=== PATIENT | male | born 1955 | race African-American/Black ===

== ENCOUNTER 2016-05-17 15:40 | Emergency (ER) | payer MEDICAID ==
[~2016-05-17] VITALS: Ht 177.8 cm; Wt 95.3 kg
[~2016-05-17 15:40] MED LIST: ALLEGRA180 MG PO; ALLEGRA60 MG ORAL; AZITHROMYCIN250 MG ORAL; DILANTIN100 MG ORAL; HYDROCHLOROTHIA25 MG ORAL; HYDROCHLOROTHIA25 MG PO; IBUPROFEN600 MG ORAL; IBUPROFEN600 MG PO; KEPPRA500 M3 ORAL; KEPPRA500 M4 ORAL; LIBRIUM10 MG ORAL; Levetiracetam ORAL; NKM; NORVASC10 MG ORAL; PERMETHRIN60 GM TOPIC; PHENYTOIN SODI100 MG ORAL; THIAMINE HCL100 MG ORAL; UNOBMED; VICODIN 5-5001 EACH PO; bp med; pain med
--- NOTE | 2016-05-17 16:13 | Emergency Room Report ---
History of Present Illness General Chief Complaint: Seizure Source: Patient, EMS Present Illness HPI This patient is a homeless male. He was brought in by EMS after a bystander called 911 because he was observed having a seizure. He does have a history of seizure disorder and alcohol abuse. He has no specific complaints. He is not taking his antiseizure medications because he is out of them. He denies recent illness. He denies chest pain or shortness of breath. Allergies: Coded Allergies: NO KNOWN ALLERGIES (Unverified Allergy, Unknown, 01/27/15) No Known Allergies (Unverified , 05/17/16) UNABLE TO ASSESS (Unverified , 03/22/15) Patient History Past Medical History: see triage record, asthma, seizures Social History: Reports: alcohol use - heavy use/abuse, Denies: drug use, smoking Reviewed Nursing Documentation: PMH: Agreed, PSxH: Agreed Nursing Documentation-PMH Past Medical History: No History, Except For Hx Cardiac Problems: No Hx Hypertension: No Hx Pacemaker: No Hx Asthma: Yes Hx COPD: No Hx Diabetes: No Hx Cancer: No Hx Gastrointestinal Problems: No Hx Dialysis: No Hx Neurological Problems: Yes Hx Cerebrovascular Accident: No Hx Seizures: Yes Review of Systems All Other Systems: negative except mentioned in HPI Physical Exam Vital Signs Date Time Temp Pulse Resp B/P Pulse Ox O2 Delivery O2 Flow Rate FiO2 05/17/16 15:33 98 16 176/78 100 Sp02 EP Interpretation: reviewed, normal General Appearance: no apparent distress, alert, GCS 15, non-toxic Head: normocephalic, atraumatic Eyes: bilateral eye PERRL, bilateral eye normal inspection ENT: hearing grossly normal, normal pharynx, no angioedema, normal voice Neck: full range of motion, supple/symm/no masses Respiratory: chest non-tender, lungs clear, normal breath sounds, speaking full sentences Cardiovascular #1: regular rate, rhythm, no edema Gastrointestinal: normal bowel sounds, non tender, soft, non-distended, no guarding, no rebound Rectal: deferred Musculoskeletal: back normal, gait/station normal, normal range of motion, non- tender Neurologic: alert, oriented x3, responsive, motor strength/tone normal, sensory intact, speech normal Psychiatric: judgement/insight normal, memory normal, mood/affect normal, no suicidal/homicidal ideation Skin: normal color, no rash, warm/dry, well hydrated Medical Decision Making Diagnostic Impression: Primary Impression: Seizure disorder Additional Impression: Noncompliance with medication regimen ER Course I suspect the seizures that the patient is presenting with is non-emergent in etiology. The patient has a history of seizures in the past and has returned to baseline with normal neurologic status. The patient is not immunocompromised with no history of known structural brain disease. The patient does not have persistent altered mental status, fever or new focal neurologic deficit. Laboratory workup was noncontributory. I doubt meningitis so a lumbar puncture was not performed. The patient was counseled that, though unlikely, the possibility of an emergent cause of seizure may still be present and that the patient should return immediately if symptoms persist or worsen. I believe the patient is stable for discharge to followup with the primary care provider for further workup. The patient also noncompliant with his antiseizure medications. I will give him and a prescription. He was also dose here in the emergency department. Labs Test 05/17/16 16:52 White Blood Count 9.1 K/UL (4.8-10.8) Red Blood Count 3.99 M/UL (4.70-6.10) Hemoglobin 13.5 G/DL (14.2-18.0) Hematocrit 40.1 % (42.0-52.0) Mean Corpuscular Volume 101 FL (80-99) Mean Corpuscular Hemoglobin 33.8 PG (27.0-31.0) Mean Corpuscular Hemoglobin Concent 33.6 G/DL (32.0-36.0) Red Cell Distribution Width 12.7 % (11.6-14.8) Platelet Count 272 K/UL (150-450) Mean Platelet Volume 7.3 FL (6.5-10.1) Neutrophils (%) (Auto) 75.4 % (45.0-75.0) Lymphocytes (%) (Auto) 13.8 % (20.0-45.0) Monocytes (%) (Auto) 8.1 % (1.0-10.0) Eosinophils (%) (Auto) 1.3 % (0.0-3.0) Basophils (%) (Auto) 1.4 % (0.0-2.0) Sodium Level 139 mEQ/L (135-145) Potassium Level 4.7 mEQ/L (3.4-4.9) Chloride Level 98 mEQ/L (98-107) Carbon Dioxide Level 21 mEQ/L (20-30) Anion Gap 20 (5-15) Blood Urea Nitrogen 7 mg/dL (7-23) Creatinine 0.8 mg/dL (0.7-1.2) Estimat Glomerular Filtration Rate > 60 mL/min (>60) Glucose Level 99 mg/dL (74-106) Calcium Level 9.7 mg/dL (8.6-10.2) Total Bilirubin 0.2 mg/dL (0.0-1.2) Aspartate Amino Transf (AST/SGOT) 38 U/L (5-40) Alanine Aminotransferase (ALT/SGPT) 24 U/L (3-41) Alkaline Phosphatase 85 U/L (40-129) Troponin I < 0.30 ng/mL (<=0.30) Total Protein 7.6 g/dL (6.6-8.7) Albumin 4.1 g/dL (3.5-5.2) Globulin 3.5 g/dL Albumin/Globulin Ratio 1.1 (1.0-2.7) Phenytoin (Dilantin) Level 0.8 ug/mL (10-20) Serum Alcohol 42 mg/dL EKG Diagnostic Results Rate: normal Rhythm: NSR ST Segments: no acute changes Rhythm Strip Diag. Results EP Interpretation: yes Rate: 90's Rhythm: NSR, no PVC's, no ectopy Chest X-Ray Diagnostic Results EP Interpretation: Yes Findings: no consolidation, no effusion, no pneumothorax, no acute cardiopulmonary disease Number of Views: 1 Other Impression cardiomegaly Last Vital Signs Date Time Temp Pulse Resp B/P Pulse Ox O2 Delivery O2 Flow Rate FiO2 05/17/16 15:33 98 16 176/78 100 Status: improved Disposition: HOME, SELF-CARE Condition: Improved Patient Instructions: Seizure, Adult IRMA AGUILAR D.O. May 17, 2016 16:13
[2016-05-17 17:12] LABS: BASOPHILS % (AUTO) 1.4 % (0.0-2.0); EOSINOPHILS % (AUTO) 1.3 % (0.0-3.0); LYMPHOCYTES % (AUTO) 13.8 % (20.0-45.0); MEAN CORPUSCULAR HEMOGLOBIN 33.8 PG (27.0-31.0); MEAN CORPUSCULAR HGB CONC 33.6 G/DL (32.0-36.0); MEAN CORPUSCULAR VOLUME 101 FL (80-99); MEAN PLATELET VOLUME 7.3 FL (6.5-10.1); MONOCYTES % (AUTO) 8.1 % (1.0-10.0); NEUTROPHILS % (AUTO) 75.4 % (45.0-75.0); PLATELET COUNT 272 K/UL (150-450); RED BLOOD COUNT 3.99 M/UL (4.70-6.10); RED CELL DISTRIBUTION WIDTH 12.7 % (11.6-14.8); WHITE BLOOD COUNT 9.1 K/UL (4.8-10.8)
--- NOTE | 2016-05-17 17:24 | Diagnostic Imaging Report ---
Indications: Seizure Technique: Spiral acquisitions obtained through the brain. Angled axial and coronal 5 x 5 mm slices were reconstructed. Total dose length product 1523 mGycm. CTDI vol(s) 70 mGy Comparison: 04/03/2016 Findings: Again demonstrated is prominence of the extra-axial CSF spaces, particularly in the frontal regions. No acute hemorrhage or edema. No mass effect or midline shift. There is periventricular deep white matter chronic ischemic change. Previously demonstrated right supraorbital contusion has largely resolved. The calvarium is intact. There is minimal bilateral maxillary and sphenoid sinus mucosal thickening Impression: Chronic and age-related changes, as described. Negative for acute intracranial bleed or mass effect Minimal sinus disease The CT scanner at [facility] is accredited by the [employer] and the scans are performed using protocols designed to limit radiation exposure to as low as reasonably achievable to attain images of sufficient resolution adequate for diagnostic evaluation.
[2016-05-17 17:27] LABS: ALANINE AMINOTRANSFERASE 24 U/L (3-41); ALBUMIN/GLOBULIN RATIO 1.1 (1.0-2.7); ALCOHOL 42 mg/dL; ANION GAP 20 (5-15); ASPARTATE AMINO TRANSFERASE 38 U/L (5-40); CALCIUM 9.7 mg/dL (8.6-10.2); CARBON DIOXIDE 21 mEQ/L (20-30); CHLORIDE 98 mEQ/L (98-107); CREATININE 0.8 mg/dL (0.7-1.2); GLOMERULAR FILTRATION RATE > 60 mL/min (>60); HEMOLYSIS 73; POTASSIUM 4.7 mEQ/L (3.4-4.9); SODIUM 139 mEQ/L (135-145); TOTAL PROTEIN 7.6 g/dL (6.6-8.7)
[2016-05-17 17:28] LABS: TROPONIN I < 0.30 ng/mL (<=0.30)
[2016-05-17] MEDS ORDERED: KEPPRA500 M4 ORAL (18:08)
[2016-05-17 18:52] VITALS: BP 158/71
[2016-05-17 19:06] VITALS: BP 158/71
--- NOTE | 2016-05-19 21:16 | Cardiology Report ---
APPROVED REPORT EKG Measurement Heart [id number] CT [id number] Normal sinus rhythm Possible Anterior infarct, age undetermined Abnormal ECG
--- NOTE | 2016-05-28 14:09 | Diagnostic Imaging Report ---
Indication: Heart is of breath Technique: One view of the chest Comparison: 03/23/2016 Findings: The lungs and pleural spaces are clear. The heart size is normal. No significant interim change Impression: No acute process
== END 2016-05-17 19:16 | disposition home or self-care (01) ==
LOC: EDBD 15:40 → EMR 16:12
DX: R56.9 Unspecified convulsions (principal); Z59.0 Homelessness; J45.909 Unspecified asthma, uncomplicated
CPT/HCPCS: 36415; 70450; 71010; 80053; 80185; 80299; 80329; 84484; 85025; 93005; 96360

== ENCOUNTER 2016-06-21 21:27 | Inpatient (IN) | payer SELFPAY ==
[~2016-06-21] VITALS: Ht 177.8 cm; Wt 99.8 kg
[2016-06-21] MEDS ORDERED: Famotidine 20 MG/ 2ML VIAL IVP ONE (21:30)
--- NOTE | 2016-06-21 21:43 | Emergency Room Report ---
History of Present Illness General Chief Complaint: General Complaint Source: Patient, Medical Record, EMS Present Illness HPI The patient brought in by EMS for vomiting. He was by a store front and apparently police lieutenant saw him throw up. He states he was drinking alcohol today. Denies other drugs. He states he's vomited up some blood. He denies any melena. He states he feels weak and ill. Denies any fevers or chills. Is not coughing. Denies abdominal pain. No recent trauma, extremity pain. H/O seizures, but does not recall last seizure. Not taking medications for this. Denied suicidal thoughts. No fevers, dysuria. Allergies: Coded Allergies: NO KNOWN ALLERGIES (Unverified Allergy, Unknown, 01/27/15) No Known Allergies (Unverified , 05/17/16) UNABLE TO ASSESS (Unverified , 03/22/15) Patient History Past Medical History: see triage record Social History: Reports: alcohol use, Denies: drug use Social History Narrative homeless Reviewed Nursing Documentation: PMH: Agreed, PSxH: Agreed Nursing Documentation-PMH Hx Cardiac Problems: No Hx Hypertension: No Hx Pacemaker: No Hx Asthma: Yes Hx COPD: No Hx Diabetes: No Hx Cancer: No Hx Gastrointestinal Problems: No Hx Dialysis: No Hx Neurological Problems: Yes Hx Cerebrovascular Accident: No Hx Seizures: Yes Review of Systems All Other Systems: negative except mentioned in HPI Physical Exam Vital Signs Date Time Temp Pulse Resp B/P Pulse Ox O2 Delivery O2 Flow Rate FiO2 06/21/16 21:23 98.2 80 16 134/66 96 Room Air Sp02 EP Interpretation: reviewed, normal General Appearance: no apparent distress, alert, other - disheveled Head: normocephalic, atraumatic Eyes: bilateral eye Scleral Injection, bilateral eye fluoroscene uptake ENT: moist mucus membranes Neck: supple, no bony tend Respiratory: lungs clear, normal breath sounds Cardiovascular #1: regular rate, rhythm Gastrointestinal: normal bowel sounds, non tender Rectal: heme negative stool - brown Genitourinary: no CVA tenderness Musculoskeletal: normal range of motion, pelvis stable Neurologic: alert, oriented - X2 Psychiatric: depressed affect Skin: other - plethoric Medical Decision Making Diagnostic Impression: Primary Impression: Alcohol withdrawal Qualified Codes: F10.239 - Alcohol dependence with withdrawal, unspecified Additional Impressions: Unsteady gait Vomiting Qualified Codes: R11.10 - Vomiting, unspecified R/O Warneke's encephalopathy ER Course Patient presents with vomiting and alcohol abuse. Ddx: gastritis, ulcer, pancreatitis, alcohol related nausea, withdrawal. Urgent evaluation with labs, EKG. IV hydration, pepcid and zofran ordered. Labs with elevated WBC, normal H/H and electrolytes. No evidence of acute infection. Patient unable to ambulate without assistance - wide based gait. CT ordered of head. CT without bleed. Thiamine given. Admit med Dr. España. Laboratory Tests Test 06/21/16 22:07 White Blood Count 16.5 K/UL (4.8-10.8) H Red Blood Count 4.39 M/UL (4.70-6.10) L Hemoglobin 14.6 G/DL (14.2-18.0) Hematocrit 44.5 % (42.0-52.0) Mean Corpuscular Volume 101 FL (80-99) H Mean Corpuscular Hemoglobin 33.2 PG (27.0-31.0) H Mean Corpuscular Hemoglobin Concent 32.7 G/DL (32.0-36.0) Red Cell Distribution Width 12.7 % (11.6-14.8) Platelet Count 216 K/UL (150-450) Mean Platelet Volume 9.0 FL (6.5-10.1) Neutrophils (%) (Auto) 82.1 % (45.0-75.0) H Lymphocytes (%) (Auto) 6.4 % (20.0-45.0) L Monocytes (%) (Auto) 8.3 % (1.0-10.0) Eosinophils (%) (Auto) 1.5 % (0.0-3.0) Basophils (%) (Auto) 1.6 % (0.0-2.0) Prothrombin Time 9.8 SEC (9.30-11.50) Prothrombin Time INR 1.0 (0.9-1.1) Sodium Level 144 mEQ/L (135-145) Potassium Level 4.2 mEQ/L (3.4-4.9) Chloride Level 102 mEQ/L (98-107) Carbon Dioxide Level 26 mEQ/L (20-30) Anion Gap 16 (5-15) H Blood Urea Nitrogen 7 mg/dL (7-23) Creatinine 0.9 mg/dL (0.7-1.2) Estimate Glomerular Filtration Rate > 60 mL/min (>60) Glucose Level 95 mg/dL (74-106) Calcium Level 9.4 mg/dL (8.6-10.2) Total Bilirubin < 0.2 mg/dL (0.0-1.2) Aspartate Amino Transferase (AST) 27 U/L (5-40) Alanine Aminotransferase (ALT) 24 U/L (3-41) Alkaline Phosphatase 92 U/L (40-129) Troponin I < 0.30 ng/mL (<=0.30) Total Protein 7.7 g/dL (6.6-8.7) Albumin 4.1 g/dL (3.5-5.2) Globulin 3.6 g/dL Albumin/Globulin Ratio 1.1 (1.0-2.7) Lipase 50 U/L (< 60) Serum Alcohol 88 mg/dL EKG Diagnostic Results Rate: normal Rhythm: NSR ST Segments: no acute changes Rhythm Strip Diag. Results EP Interpretation: yes Rhythm: NSR, no PVC's, no ectopy CT/MRI/US Diagnostic Results CT/MRI/US Diagnostic Results : Imaging Test Ordered: head Impression atrophy, no bleed Vital Signs Date Time Temp Pulse Resp B/P Pulse Ox O2 Delivery O2 Flow Rate FiO2 06/21/16 21:23 98.2 80 16 134/66 96 Room Air Status: improved Disposition: ADMITTED INPATIENT Condition: Serious Jonnie Urrutia M.D. Jun 21, 2016 21:43
[2016-06-21 22:39] VITALS: BP 167/76
[2016-06-21 22:42] LABS: BASOPHILS % (AUTO) 1.6 % (0.0-2.0); EOSINOPHILS % (AUTO) 1.5 % (0.0-3.0); LYMPHOCYTES % (AUTO) 6.4 % (20.0-45.0); MEAN CORPUSCULAR HEMOGLOBIN 33.2 PG (27.0-31.0); MEAN CORPUSCULAR HGB CONC 32.7 G/DL (32.0-36.0); MEAN CORPUSCULAR VOLUME 101 FL (80-99); MONOCYTES % (AUTO) 8.3 % (1.0-10.0); NEUTROPHILS % (AUTO) 82.1 % (45.0-75.0); PLATELET COUNT 216 K/UL (150-450); RED BLOOD COUNT 4.39 M/UL (4.70-6.10); RED CELL DISTRIBUTION WIDTH 12.7 % (11.6-14.8); WHITE BLOOD COUNT 16.5 K/UL (4.8-10.8)
[2016-06-21 22:53] LABS: TROPONIN I < 0.30 ng/mL (<=0.30)
[2016-06-21 22:56] LABS: ALANINE AMINOTRANSFERASE 24 U/L (3-41); ALBUMIN/GLOBULIN RATIO 1.1 (1.0-2.7); ALCOHOL 88 mg/dL; ANION GAP 16 (5-15); ASPARTATE AMINO TRANSFERASE 27 U/L (5-40); CALCIUM 9.4 mg/dL (8.6-10.2); CARBON DIOXIDE 26 mEQ/L (20-30); CHLORIDE 102 mEQ/L (98-107); CREATININE 0.9 mg/dL (0.7-1.2); GLOMERULAR FILTRATION RATE > 60 mL/min (>60); HEMOLYSIS 20; LIPASE 50 U/L (< 60); POTASSIUM 4.2 mEQ/L (3.4-4.9); SODIUM 144 mEQ/L (135-145); TOTAL PROTEIN 7.7 g/dL (6.6-8.7)
[2016-06-21 22:59] LABS: PROTHROMBIN TIME 9.8 SEC (9.30-11.50)
[2016-06-21 23:14] VITALS: BP 163/78
[2016-06-22 01:15] VITALS: BP 143/56
[2016-06-22 03:22] VITALS: BP 148/82
[2016-06-22] MEDS ORDERED: Thiamine HCl 100 MG in D5W 55 ML IVPB SCH (06:00)
[2016-06-22] MEDS ORDERED: Thiamine HCl 100mg/ml Inj ONE (06:05)
[2016-06-22 06:46] VITALS: BP 129/97
[2016-06-22] MEDS ORDERED: Zolpidem 5mg tab ORAL PRN (07:45)
[2016-06-22] MEDS ORDERED: Mylanta II UD 30ml ORAL PRN (07:45)
[2016-06-22] MEDS ORDERED: Miralax 17gm pkt ORAL PRN (07:45)
[2016-06-22] MEDS ORDERED: Morphine Sulfate 2mg/ml Inj IVP PRN (07:45)
[2016-06-22] MEDS ORDERED: chlordiazePOXIDE 25mg Cap ORAL PRN (07:45)
[2016-06-22] MEDS ORDERED: LORazepam Inj 2mg/ml 1ml IV PRN (07:45)
[2016-06-22 08:13] VITALS: BP 142/67
[2016-06-22] MEDS ORDERED: Phenytoin 100mg cap ORAL SCH (09:00)
--- NOTE | 2016-06-22 10:55 | Diagnostic Imaging Report ---
Indication: Headache Technique: Contiguous 5 mm thick transaxial imaging of the head obtained in a Siemens Sensation [address] scanner. Soft tissue and bone windows generated. Total Dose length Product (DLP): 1435mGycm CT Dose Index Volume (CTDIvol): 70.38 mGy Comparison: 05/17/16 Findings: There is moderate prominence of the ventricles, basal cisterns, and cerebral sulci consistent with atrophy. Moderate, nonspecific, white matter hypoattenuation is noted throughout the brain consistent with chronic small vessel disease. There is no midline shift, edema, acute hemorrhage, mass effect, or abnormal extra-axial fluid collections. There is generalized soft tissue swelling in the periorbital regions bilaterally. This is presumably from trauma. Please correlate clinically. Interestingly, similar findings were seen on the prior CT. There is mucosal thickening noted within the paranasal sinuses. Impression: No acute intracranial bleed, mass effect or edema. Moderate atrophy of the brain. Evidence of chronic small vessel disease involving white matter tracts. Apparent soft tissue swelling in the periorbital regions previously seen as well. Please correlate clinically. Sinusitis The CT scanner at [facility] is accredited by the [employer] and the scans are performed using protocols designed to limit radiation exposure to as low as reasonably achievable to attain images of sufficient resolution adequate for diagnostic evaluation.
[2016-06-22] MEDS: Thiamine HCl 100 MG in D5W 55 ML IVPB SCH (11:21)
[2016-06-22] MEDS: Folic Acid 1 MG, Magnesium Sulfate 2,000 MG, Multivitamin - 12 Injection 10 ML in NS w/... IV SCH (11:22)
[2016-06-22] MEDS: Phenytoin 100mg cap ORAL SCH ×3 (11:26→19:57)
[2016-06-22] MEDS: Heparin 5000 units/ml inj SUBQ SCH ×2 (11:29→21:51)
--- NOTE | 2016-06-22 13:25 | History and Physical ---
History of Present Illness General Date patient seen: Jun 22, 2016 Time patient seen: 12:45 Reason for Hospitalization: General Complaint Present Illness HPI The patient brought in by EMS for vomiting and flu like symptoms Patient reported feeling weak and ill. denied hematemesis, melena m hematochezia denied diarrhea Denied any fevers or chills. I No cough, no congestion CT head in ER revealed no evidence of acute intracranial pathology patient with hx of seizure, possibly alcohol induced, however on epileptic medications: Keppra and Dilantin denied any recent seizure activity serum ETOH level 88 leukocytosis -16.5, no anemia, stable lytes and renal parameters troponin negative patient admitted for further management Allergies: Coded Allergies: NO KNOWN ALLERGIES (Unverified Allergy, Unknown, 01/27/15) No Known Allergies (Unverified , 05/17/16) UNABLE TO ASSESS (Unverified , 03/22/15) Medication History Scheduled Azithromycin* (Zithromax*), 250 MG ORAL DAILY Chlordiazepoxide Hcl* (Librium*), 10 MG ORAL THREE TIMES A DAY Levetiracetam (Keppra), 500 MG ORAL EVERY 12 HOURS Levetiracetam (Keppra), 500 MG ORAL EVERY 12 HOURS No Known Medications* (NKM - No Known Medications*), 0 ., (Reported) Phenytoin Sodium Extended* (Dilantin*), 100 MG ORAL THREE TIMES A DAY Phenytoin Sodium Extended* (Dilantin*), 100 MG ORAL THREE TIMES A DAY Phenytoin Sodium Extended* (Phenytoin Sodium Extended*), 100 MG ORAL THREE TIMES A DAY, (Reported) Thiamine Hcl (Vitamin B1*), 100 MG ORAL DAILY [Levetiracetam], 500 MG ORAL Q12HR Miscellaneous Medications Unable to Obtain Medications (Unable To Obtain Meds), (Reported) Patient History History Provided By: Patient Healthcare decision maker N Resuscitation status Advanced Directive on File Past Medical/Surgical History Past Medical/Surgical History: (1) Recurrent seizures (2) History of - hypertension (3) Acute alcoholic intoxication (4) Alcohol withdrawal seizure (5) Altered mental status (6) Altered level of consciousness (7) Closed fracture of rib Review of Systems Constitutional: Reports: no symptoms ENT: Reports: no symptoms Respiratory: Reports: no symptoms Cardiovascular: Reports: no symptoms Gastrointestinal: Reports: see HPI Genitourinary: Reports: no symptoms Musculoskeletal: Reports: muscle pain, other - unsteady gait Psychiatric: Reports: anxiety Neurological: Reports: seizure Endocrine: Reports: no symptoms Hematologic/Lymphatic: Reports: no symptoms Physical Exam General Appearance: no apparent distress, other - awaike, alert, confused, AA male Lines, tubes and drains: peripheral HEENT: normocephalic, atraumatic, anicteric, PERRL, EOMI, supple, no JVD, other - injected conjunctiva Neck: non-tender, supple, normal inspection Respiratory/Chest: chest wall non-tender, lungs clear - with moderate air entry , no respiratory distress, no accessory muscle use Cardiovascular/Chest: normal peripheral pulses, normal rate, regular rhythm, no JVD Abdomen: normal bowel sounds, non tender, soft Extremities: normal range of motion, no calf tenderness, normal capillary refill Skin Exam: normal pigmentation, warm/dry Neurologic: abnormal gait - unsteady , alert - A/A./O x 2 , responsive Musculoskeletal: normal muscle bulk Last 24 Hour Vital Signs Date Time Temp Pulse Resp B/P Pulse Ox O2 Delivery O2 Flow Rate FiO2 06/22/16 08:13 97.3 88 21 142/67 97 Room Air 06/22/16 07:15 97.8 81 13 129/97 99 Room Air 06/22/16 06:46 97.8 81 13 129/97 99 Room Air 06/22/16 03:22 98.2 92 13 148/82 97 Room Air 06/22/16 01:15 98.2 92 13 143/56 97 Room Air 06/21/16 23:14 98.2 98 16 163/78 100 Room Air 06/21/16 22:39 87 12 167/76 100 Room Air 06/21/16 21:23 98.2 80 16 134/66 96 Room Air Intake and Output 06/21/16 06/22/16 19:00 07:00 Intake Total 1056 ml Balance 1056 ml Intake Oral 0 ml IV Total 1056 ml Laboratory Tests Test 06/21/16 22:07 White Blood Count 16.5 K/UL (4.8-10.8) H Red Blood Count 4.39 M/UL (4.70-6.10) L Hemoglobin 14.6 G/DL (14.2-18.0) Hematocrit 44.5 % (42.0-52.0) Mean Corpuscular Volume 101 FL (80-99) H Mean Corpuscular Hemoglobin 33.2 PG (27.0-31.0) H Mean Corpuscular Hemoglobin Concent 32.7 G/DL (32.0-36.0) Red Cell Distribution Width 12.7 % (11.6-14.8) Platelet Count 216 K/UL (150-450) Mean Platelet Volume 9.0 FL (6.5-10.1) Neutrophils (%) (Auto) 82.1 % (45.0-75.0) H Lymphocytes (%) (Auto) 6.4 % (20.0-45.0) L Monocytes (%) (Auto) 8.3 % (1.0-10.0) Eosinophils (%) (Auto) 1.5 % (0.0-3.0) Basophils (%) (Auto) 1.6 % (0.0-2.0) Prothrombin Time 9.8 SEC (9.30-11.50) Prothromb Time International Ratio 1.0 (0.9-1.1) Sodium Level 144 mEQ/L (135-145) Potassium Level 4.2 mEQ/L (3.4-4.9) Chloride Level 102 mEQ/L (98-107) Carbon Dioxide Level 26 mEQ/L (20-30) Anion Gap 16 (5-15) H Blood Urea Nitrogen 7 mg/dL (7-23) Creatinine 0.9 mg/dL (0.7-1.2) Estimat Glomerular Filtration Rate > 60 mL/min (>60) Glucose Level 95 mg/dL (74-106) Calcium Level 9.4 mg/dL (8.6-10.2) Total Bilirubin < 0.2 mg/dL (0.0-1.2) Aspartate Amino Transf (AST/SGOT) 27 U/L (5-40) Alanine Aminotransferase (ALT/SGPT) 24 U/L (3-41) Alkaline Phosphatase 92 U/L (40-129) Troponin I < 0.30 ng/mL (<=0.30) Total Protein 7.7 g/dL (6.6-8.7) Albumin 4.1 g/dL (3.5-5.2) Globulin 3.6 g/dL Albumin/Globulin Ratio 1.1 (1.0-2.7) Lipase 50 U/L (< 60) Serum Alcohol 88 mg/dL Height (Feet): 5 Height (Inches): 10.00 Weight (Pounds): 220 Medications Current Medications Medications (Trade) Dose Ordered Sig/Amanda Route PRN Reason Start Time Stop Time Status Last Admin Dose Admin Acetaminophen (Tylenol) 650 mg Q4H PRN ORAL fever 06/22/16 07:45 07/22/16 07:44 Al Hydroxide/Mg Hydroxide (Mylanta II) 30 ml Q6H PRN ORAL dyspepsia 06/22/16 07:45 07/22/16 07:44 Chlordiazepoxide 25 mg 25 mg Q6H PRN ORAL Agitation 06/22/16 07:45 06/29/16 07:44 Dextrose STAT PRN IV Hypoglycemia 06/22/16 07:45 07/22/16 07:44 Folic Acid/ Magnesium Sulfate/ Multivitamins/ Sodium Chloride (Folvite/ Magnesium Sulfate/ M.v.i.-12/NS w/ KCl 20mEq) 1,014.2 ml @ 125 mls/ hr Q24H IV 06/22/16 09:00 07/22/16 08:59 06/22/16 11:22 Heparin Sodium (Porcine) (Heparin 5000 units/ml) 5,000 units EVERY 12 HOURS SUBQ 06/22/16 09:00 07/22/16 08:59 06/22/16 11:29 Levetiracetam (Keppra) 500 mg EVERY 12 HOURS ORAL 06/22/16 09:00 07/22/16 08:59 06/22/16 11:25 Lorazepam (Ativan 2mg/ml 1ml) 2 mg EVERY HOUR PRN IV seizures 06/22/16 07:45 06/29/16 07:44 Morphine Sulfate (Morphine Sulfate) 1 mg Q4H PRN IVP For Pain 06/22/16 07:45 06/29/16 07:44 Ondansetron HCl (Zofran) 4 mg Q6H PRN IVP Nausea & Vomiting 06/22/16 07:45 07/22/16 07:44 Phenytoin (Dilantin) 100 mg THREE TIMES A DAY ORAL 06/22/16 09:00 07/22/16 08:59 06/22/16 11:26 Polyethylene Glycol (Miralax) 17 gm HSPRN PRN ORAL Constipation 06/22/16 07:45 07/22/16 07:44 Thiamine HCl/ Dextrose (Vitamin B1/D5W) 56 ml @ 112 mls/hr Q24H IVPB 06/22/16 09:00 07/22/16 08:59 06/22/16 11:21 Zolpidem Tartrate (Ambien) 5 mg HSPRN PRN ORAL Insomnia 06/22/16 07:45 07/22/16 07:44 Assessment/Plan Assessment/Plan ASSESSMENT ETOH intoxication ETOH withdrawal acute toxic encephalopathy leukocytosis unsteady gait r/o Wernicke encephalopathy seizure disorder vomiting - likely 2 t intoxication PLAN OF CARE MS floor IV banana bag CT head negative for acute intracranial pathology serum alcohol level 88 check Mg in am check B 12 and folate level in am Librium prn Neuro eval seizure precautions continue Keppra and Dilantin check Dilantin level in am PT eval and Rx DVT, GI prophylaxis blood cx, UA CXR empiric abx urine tox screen a/emetic prn when more awake developmental training counselor on abstinence from ETOH case discussed and evaluated by supervising physician Markus ([facility])Jen NP Jun 22, 2016 13:25
[2016-06-22 16:00] VITALS: BP 145/74
--- NOTE | 2016-06-22 16:44 | Neurology Progress Note ---
Objective Physical Exam Last Vital Signs Date Time Temp Pulse Resp B/P Pulse Ox O2 Delivery O2 Flow Rate FiO2 06/22/16 16:00 98.0 83 20 145/74 100 Room Air Laboratory Tests Test 06/21/16 22:07 White Blood Count 16.5 K/UL (4.8-10.8) H Red Blood Count 4.39 M/UL (4.70-6.10) L Hemoglobin 14.6 G/DL (14.2-18.0) Hematocrit 44.5 % (42.0-52.0) Mean Corpuscular Volume 101 FL (80-99) H Mean Corpuscular Hemoglobin 33.2 PG (27.0-31.0) H Mean Corpuscular Hemoglobin Concent 32.7 G/DL (32.0-36.0) Red Cell Distribution Width 12.7 % (11.6-14.8) Platelet Count 216 K/UL (150-450) Mean Platelet Volume 9.0 FL (6.5-10.1) Neutrophils (%) (Auto) 82.1 % (45.0-75.0) H Lymphocytes (%) (Auto) 6.4 % (20.0-45.0) L Monocytes (%) (Auto) 8.3 % (1.0-10.0) Eosinophils (%) (Auto) 1.5 % (0.0-3.0) Basophils (%) (Auto) 1.6 % (0.0-2.0) Prothrombin Time 9.8 SEC (9.30-11.50) Prothromb Time International Ratio 1.0 (0.9-1.1) Sodium Level 144 mEQ/L (135-145) Potassium Level 4.2 mEQ/L (3.4-4.9) Chloride Level 102 mEQ/L (98-107) Carbon Dioxide Level 26 mEQ/L (20-30) Anion Gap 16 (5-15) H Blood Urea Nitrogen 7 mg/dL (7-23) Creatinine 0.9 mg/dL (0.7-1.2) Estimat Glomerular Filtration Rate > 60 mL/min (>60) Glucose Level 95 mg/dL (74-106) Calcium Level 9.4 mg/dL (8.6-10.2) Total Bilirubin < 0.2 mg/dL (0.0-1.2) Aspartate Amino Transf (AST/SGOT) 27 U/L (5-40) Alanine Aminotransferase (ALT/SGPT) 24 U/L (3-41) Alkaline Phosphatase 92 U/L (40-129) Troponin I < 0.30 ng/mL (<=0.30) Total Protein 7.7 g/dL (6.6-8.7) Albumin 4.1 g/dL (3.5-5.2) Globulin 3.6 g/dL Albumin/Globulin Ratio 1.1 (1.0-2.7) Lipase 50 U/L (< 60) Serum Alcohol 88 mg/dL Impression/Recommendations Problems: (1) Acute alcoholic intoxication (2) Epileptic seizure, generalized (3) Metabolic acidosis (4) Vomiting Status: unchanged Recommendations #[id number] JAHAIRA STAFFORD Jun 22, 2016 16:43
[2016-06-22 19:00] VITALS: BP 145/77
[2016-06-22] MEDS ORDERED: NS 275ml ONE (20:48)
[2016-06-22] MEDS ORDERED: Tubing IV Secondary IV ONE (20:48)
--- NOTE | 2016-06-22 22:58 | Consultation ---
DATE OF CONSULTATION: 06/22/2016 NEUROLOGICAL CONSULTATION REFERRING PHYSICIAN: Ramo España M.D. HISTORY OF PRESENT ILLNESS: The patient is a 61-year-old man, seen on several occasions in this institution, was brought to this hospital by paramedics. According to information from the paramedics note that he was found to be on the street next to three way, complaining of flu-like symptoms for the last three days, paramedics found him fully awake, complaints of nausea and vomiting on two occasions. His vital signs were stable, blood pressure 130/60. The patient was brought to emergency room where additional diagnostic studies were obtained including CAT scan of the brain with no intracranial abnormalities except presence of moderate atrophy and chronic ischemic cerebrovascular disease and soft tissue of swelling periorbital region, sinusitis. Laboratory work included CBC study with elevated WBC 16.5, elevated MCV and MCH, normal coagulation panel, and chemistry panel unremarkable except anion gap of 16. Toxicology panel positive for serum alcohol of 88. Since admission, the patient presents with inappropriate behavior, lethargy and drowsiness. He was quite disheveled and required shower, was noted to be ambulating without assistance. This patient was restarted on treatment with thiamin, famotidine, subcutaneous heparin, Keppra 500 mg b.i.d. and Ativan 2 mg q.1 h. p.r.n. for seizures, morphine p.r.n., Zofran p.r.n., phenytoin 100 mg t.i.d., Zantac, normal saline, and zolpidem, and folic acid supplements with normal saline IV. There was no paroxysmal events noted. PAST MEDICAL HISTORY: The patient was unable to provide with information except limited, one stating that he likes to drink every day beer, but no other hard liquors and he has seizure disorder. He has a history of alcohol abuse, chronic seizure disorder, hypertension, alcoholic ketoacidosis, and metabolic derangements. ALLERGIES: None reported. SOCIAL HISTORY: The patient stated that he lives in apartment alone, it is not verified. FAMILY HISTORY: Unavailable. REVIEW OF SYSTEMS: The patient was very drowsy and avoiding conversation, stating only that he feels better and admitting he has seizures and he drinks alcohol, but denies any other medical issues and stating that he has no headache. No dizziness. No chest pain or palpitations. No respiratory problems. PHYSICAL EXAMINATION: GENERAL: Well-developed, disheveled male lying in a position, without blanket. VITAL SIGNS: His vital signs are stable, blood pressure 120/60 and temperature 97.0 degrees. HEENT: Head, normocephalic. There is a slight facial puffiness. NECK: Supple. No meningeal signs. MUSCULOSKELETAL: Unremarkable. There is no deformities. Peripheral pulses 1+ symmetric. MENTAL STATUS: The patient is drowsy, but on vigorous stimulation briefly arousable with no eye contact, but able to follow simple commands. CRANIAL NERVE II: Pupils both responding to light and accommodation. Extraocular movement intact. CRANIAL NERVE V: Normal corneal responses. CRANIAL NERVE VII: No facial asymmetry. CRANIAL NERVE VIII: Grossly normal hearing. CRANIAL NERVE IX THROUGH XII: Tongue is in midline. MOTOR EXAMINATION: Diffuse rigidity, able to move arms and legs against the gravity. Deep reflexes 1+ symmetric with downgoing toes on both sides. SENSORY EXAM: Normal to pinprick and light touch. Gait is slow, somewhat wobbly. IMPRESSION: 1. Chronic seizure disorder, noncompliance. 2. Alcohol intoxication. 3. Chronic alcohol abuse. 4. Leukocytosis, rule out sepsis. 5. Homelessness. DISCUSSION: The patient who has a chronic seizure disorder, alcohol abuse, now presenting with three days of alcohol intoxication, nausea, vomiting and obtundation. THE PATIENT TO START ON BANANA BAG WITH THIAMINE, MAGNESIUM OXIDE, AND FOLIC ACID SUPPLEMENTS. CONTINUE WITH NORMAL SALINE, AVOID D5. : Check blood levels of phenytoin and Keppra. Meanwhile, adjust the dosage with Keppra 1000 mg b.i.d. and phenytoin 200 mg b.i.d. Observe for any paroxysmal events. Thank you for allowing me to see this interesting patient in neurological consultation. Anuj Osorio M.D. DR: DAVI JOB#: [id number] CC:
[2016-06-23 01:00] VITALS: BP 137/56
--- NOTE | 2016-06-23 01:38 | Consultation ---
DATE OF CONSULTATION: 06/22/2016 HISTORY OF PRESENT ILLNESS: This is a 61-year-old black male with a history of psychotic disorder, who has been brought in to the emergency room by EMS for vomiting and flu-like symptoms. The Psychiatry was consulted as the patient has been somewhat uncooperative and confused. During the evaluation, the patient was found in a bathroom, who remained in the bathroom for at least half an hour. His account development executive waited for him and again left the room and went back after 30 minutes, he was still in the bathroom and asked me to come back. Therefore, I left again and went back to visit him. During the evaluation, he was a poor historian. It was difficult to interview him. He was minimally verbal. He denied having any complaints. The patient has been treated also for alcohol withdrawal as he reported that he has been using alcohol. During the evaluation, he was alert, however, appeared confused. There was paucity of thought content and he was a poor historian. PAST PSYCHIATRIC HISTORY: He has a history of depression and alcohol dependence. Has been treated with antidepressants and anxiolytics in the past. PAST MEDICAL HISTORY: Significant for hypertension, syncope, hyperkalemia , seizure, vomiting, and metabolic acidosis. ALLERGIES: No known drug allergies. SUBSTANCE ABUSE HISTORY: Significant for alcohol dependence and alcohol withdrawal. He is a smoker. MENTAL STATUS EXAMINATION: The patient is alert and oriented x2. Mood was dysphoric. Affect was constricted. Congruent mood. Thought process, there was a paucity of thought content. Thought content, no suicidal, homicidal ideation. Cognition was impaired. ASSESSMENT: AXIS I Alcohol dependence. Alcohol withdrawal AXIS II Deferred. AXIS III As above. AXIS IV Low. AXIS V 20 PLAN: 1. The patient will be continued on Librium 25 mg every 6 hours as needed for alcohol withdrawal. Thiamine 100 mg IV every 2 hours and folic acid 1 mg IV q. 24h everyday. 2. We will also start the patient on fluoxetine 20 mg by mouth every morning. 3. We will continue to follow and readjust the medications. Glenys Mills M.D. DR: ELVIS JOB#: [id number] CC:
[2016-06-23 04:00] VITALS: BP 134/58
[2016-06-23 07:27] LABS: BASOPHILS % (AUTO) 2.6 % (0.0-2.0); EOSINOPHILS % (AUTO) 3.6 % (0.0-3.0); MEAN CORPUSCULAR HEMOGLOBIN 33.1 PG (27.0-31.0); MEAN CORPUSCULAR VOLUME 100 FL (80-99); MEAN PLATELET VOLUME 9.1 FL (6.5-10.1); MONOCYTES % (AUTO) 14.3 % (1.0-10.0); NEUTROPHILS % (AUTO) 64.6 % (45.0-75.0); PLATELET COUNT 249 K/UL (150-450); RED CELL DISTRIBUTION WIDTH 12.7 % (11.6-14.8); WHITE BLOOD COUNT 7.5 K/UL (4.8-10.8)
[2016-06-23 07:56] LABS: MAGNESIUM 1.7 mg/dL (1.7-2.5)
[2016-06-23 07:57] LABS: ALANINE AMINOTRANSFERASE 30 U/L (3-41); ALBUMIN/GLOBULIN RATIO 1.1 (1.0-2.7); ANION GAP 16 (5-15); ASPARTATE AMINO TRANSFERASE 44 U/L (5-40); CARBON DIOXIDE 23 mEQ/L (20-30); CHLORIDE 102 mEQ/L (98-107); CREATININE 0.9 mg/dL (0.7-1.2); GLOMERULAR FILTRATION RATE > 60 mL/min (>60); HEMOLYSIS 4; POTASSIUM 3.6 mEQ/L (3.4-4.9); SODIUM 141 mEQ/L (135-145); TOTAL PROTEIN 6.8 g/dL (6.6-8.7)
[2016-06-23] MEDS ORDERED: Thiamine HCl 100mg/ml Inj ONE ×2 (07:58→10:04)
[2016-06-23 08:11] VITALS: BP 124/58
[2016-06-23] MEDS: Thiamine HCl 100 MG in D5W 55 ML IVPB SCH (09:00)
[2016-06-23] MEDS: Folic Acid 1 MG, Magnesium Sulfate 2,000 MG, Multivitamin - 12 Injection 10 ML in NS w/... IV SCH (10:17)
[2016-06-23] MEDS: Phenytoin 100mg cap ORAL SCH ×2 (10:26→17:41)
[2016-06-23] MEDS: Heparin 5000 units/ml inj SUBQ SCH ×2 (11:33→20:45)
[2016-06-23 11:56] VITALS: BP 107/59
--- NOTE | 2016-06-23 13:43 | Pulmonology Progress Note ---
Assessment/Plan Assessment/Plan Assessment/Plan ASSESSMENT ETOH intoxication ETOH withdrawal acute toxic encephalopathy leukocytosis, possible sepsis unsteady gait r/o Wernicke encephalopathy seizure disorder noncompliance with medication homelessness vomiting - likely 2 t intoxication PLAN OF CARE MS floor IV banana bag CT head negative for acute intracranial pathology serum alcohol level- 88 Mg -1.7 B 12 -WNL and folate level pending Librium prn Neuro eval appreciated seizure precautions continue Keppra and Dilantin , elvel low give additional Dilantin today PT eval and Rx DVT, GI prophylaxis blood cx-pending , UA-negative CXR pending empiric abx urine tox screen a/emetic prn psych eval appreciated, started on antidepressant when more awake certified travel counselor on abstinence from ETOH case discussed and evaluated by supervising physician Subjective Allergies: Coded Allergies: NO KNOWN ALLERGIES (Unverified Allergy, Unknown, 01/27/15) No Known Allergies (Unverified , 05/17/16) UNABLE TO ASSESS (Unverified , 03/22/15) Subjective leukocytosis resolved, afebrile seen and evaluated by neuro and psych Objective Last 24 Hour Vital Signs Date Time Temp Pulse Resp B/P Pulse Ox O2 Delivery O2 Flow Rate FiO2 06/23/16 11:56 97.5 69 16 107/59 99 Room Air 06/23/16 08:11 97.2 69 14 124/58 97 Room Air 06/23/16 04:00 97.7 71 20 134/58 100 Room Air 06/23/16 01:00 98.4 80 20 137/56 96 Room Air 06/22/16 19:00 97.0 85 18 145/77 Room Air 06/22/16 16:00 98.0 83 20 145/74 100 Room Air 06/22/16 16:00 98.0 83 20 145/74 100 Room Air Intake and Output 06/22/16 06/23/16 19:00 07:00 Intake Total 480 ml 480 ml Balance 480 ml 480 ml Intake Oral 480 ml 480 ml # Voids 4 # Bowel Movements 5 Objective General Appearance: no apparent distress, other - awaike, alert, confused, AA male Lines, tubes and drains: peripheral HEENT: normocephalic, atraumatic, anicteric, PERRL, EOMI, supple, no JVD, other - injected conjunctiva Neck: non-tender, supple, normal inspection Respiratory/Chest: chest wall non-tender, lungs clear - with moderate air entry , no respiratory distress, no accessory muscle use Cardiovascular/Chest: normal peripheral pulses, normal rate, regular rhythm, no JVD Abdomen: normal bowel sounds, non tender, soft Extremities: normal range of motion, no calf tenderness, normal capillary refill Skin Exam: normal pigmentation, warm/dry Neurologic: abnormal gait - unsteady , alert - A/A./O x 2 , responsive Musculoskeletal: normal muscle bulk Laboratory Tests 06/22/16 18:00: Vitamin B12 Level 362, Folate [Pending] 06/23/16 05:35: White Blood Count 7.5#, Red Blood Count 4.20L, Hemoglobin 13.9L, Hematocrit 42.1 , Mean Corpuscular Volume 100H, Mean Corpuscular Hemoglobin 33.1H, Mean Corpuscular Hemoglobin Concent 33.0, Red Cell Distribution Width 12.7, Platelet Count 249, Mean Platelet Volume 9.1, Neutrophils (%) (Auto) 64.6, Lymphocytes (% ) (Auto) 15.0L, Monocytes (%) (Auto) 14.3H, Eosinophils (%) (Auto) 3.6H, Basophils (%) (Auto) 2.6H, Sodium Level 141, Potassium Level 3.6, Chloride Level 102, Carbon Dioxide Level 23, Anion Gap 16H, Blood Urea Nitrogen 7, Creatinine 0.9, Estimat Glomerular Filtration Rate > 60, Glucose Level 99, Calcium Level 9.0, Magnesium Level 1.7, Total Bilirubin 0.3, Aspartate Amino Transf (AST/SGOT) 44H, Alanine Aminotransferase (ALT/SGPT) 30, Alkaline Phosphatase 75, Total Protein 6.8, Albumin 3.6, Globulin 3.2, Albumin/Globulin Ratio 1.1, Phenytoin (Dilantin) Level 2.1L Current Medications Medications (Trade) Dose Ordered Sig/Amanda Route PRN Reason Start Time Stop Time Status Last Admin Dose Admin Acetaminophen (Tylenol) 650 mg Q4H PRN ORAL fever 06/22/16 07:45 07/22/16 07:44 Al Hydroxide/Mg Hydroxide (Mylanta II) 30 ml Q6H PRN ORAL dyspepsia 06/22/16 07:45 07/22/16 07:44 Chlordiazepoxide 25 mg 25 mg Q6H PRN ORAL Agitation 06/22/16 07:45 06/29/16 07:44 Dextrose STAT PRN IV Hypoglycemia 06/22/16 07:45 07/22/16 07:44 Fluoxetine HCl (PROzac) 20 mg DAILY ORAL 06/23/16 09:00 07/23/16 08:59 06/23/16 10:22 Folic Acid/ Magnesium Sulfate/ Multivitamins/ Sodium Chloride (Folvite/ Magnesium Sulfate/ M.v.i.-12/NS w/ KCl 20mEq) 1,014.2 ml @ 125 mls/ hr Q24H IV 06/22/16 09:00 07/22/16 08:59 06/23/16 10:17 Heparin Sodium (Porcine) (Heparin 5000 units/ml) 5,000 units EVERY 12 HOURS SUBQ 06/22/16 09:00 07/22/16 08:59 06/23/16 11:33 Levetiracetam (Keppra) 1,000 mg EVERY 12 HOURS ORAL 06/22/16 21:00 07/22/16 20:59 06/23/16 10:22 Lorazepam (Ativan 2mg/ml 1ml) 2 mg EVERY HOUR PRN IV seizures 06/22/16 07:45 06/29/16 07:44 Morphine Sulfate (Morphine Sulfate) 1 mg Q4H PRN IVP For Pain 06/22/16 07:45 06/29/16 07:44 Ondansetron HCl (Zofran) 4 mg Q6H PRN IVP Nausea & Vomiting 06/22/16 07:45 07/22/16 07:44 Phenytoin (Dilantin) 200 mg BID ORAL 06/23/16 09:00 07/23/16 08:59 06/23/16 10:26 Polyethylene Glycol (Miralax) 17 gm HSPRN PRN ORAL Constipation 06/22/16 07:45 07/22/16 07:44 Ranitidine HCl (Zantac) 150 mg BEDTIME ORAL 06/22/16 21:00 07/22/16 20:59 06/22/16 21:50 Thiamine HCl/ Dextrose (Vitamin B1/D5W) 56 ml @ 112 mls/hr Q24H IVPB 06/22/16 09:00 07/22/16 08:59 06/23/16 09:00 Zolpidem Tartrate (Ambien) 5 mg HSPRN PRN ORAL Insomnia 06/22/16 07:45 07/22/16 07:44 Markus ([facility])Jen NP Jun 23, 2016 13:43
[2016-06-23] MEDS ORDERED: Phenytoin 100mg cap ORAL ONE (14:00)
[2016-06-23 16:00] VITALS: BP 136/79
[2016-06-23 19:00] VITALS: BP 138/69
[2016-06-24 01:00] VITALS: BP 139/58
[2016-06-24 07:11] LABS: BASOPHILS % (AUTO) 0.9 % (0.0-2.0); EOSINOPHILS % (AUTO) 4.3 % (0.0-3.0); LYMPHOCYTES % (AUTO) 11.9 % (20.0-45.0); MEAN CORPUSCULAR HGB CONC 32.8 G/DL (32.0-36.0); MEAN CORPUSCULAR VOLUME 100 FL (80-99); MEAN PLATELET VOLUME 9.1 FL (6.5-10.1); NEUTROPHILS % (AUTO) 71.9 % (45.0-75.0); PLATELET COUNT 207 K/UL (150-450); RED BLOOD COUNT 3.95 M/UL (4.70-6.10); RED CELL DISTRIBUTION WIDTH 12.3 % (11.6-14.8); WHITE BLOOD COUNT 9.4 K/UL (4.8-10.8)
[2016-06-24 07:16] LABS: ANION GAP 18 (5-15); CALCIUM 9.1 mg/dL (8.6-10.2); CARBON DIOXIDE 21 mEQ/L (20-30); CHLORIDE 102 mEQ/L (98-107); CREATININE 0.7 mg/dL (0.7-1.2); GLOMERULAR FILTRATION RATE > 60 mL/min (>60); HEMOLYSIS 10; POTASSIUM 3.7 mEQ/L (3.4-4.9); SODIUM 141 mEQ/L (135-145)
[2016-06-24 08:32] VITALS: BP 123/55
[2016-06-24] MEDS: Folic Acid 1 MG, Magnesium Sulfate 2,000 MG, Multivitamin - 12 Injection 10 ML in NS w/... IV SCH (09:00)
[2016-06-24] MEDS: Thiamine HCl 100 MG in D5W 55 ML IVPB SCH (09:00)
[2016-06-24] MEDS: Phenytoin 100mg cap ORAL SCH ×2 (11:20→18:16)
[2016-06-24] MEDS: Heparin 5000 units/ml inj SUBQ SCH ×2 (11:22→20:08)
[2016-06-24 12:46] VITALS: BP 132/69
[2016-06-24 16:00] VITALS: BP 141/78
--- NOTE | 2016-06-24 17:12 | Pulmonology Progress Note ---
Assessment/Plan Problems: (1) Epileptic seizure, generalized (2) Alcohol withdrawal seizure (3) Altered level of consciousness Assessment/Plan improving no new complains dc home Subjective ROS Limited/Unobtainable: No Allergies: Coded Allergies: NO KNOWN ALLERGIES (Unverified Allergy, Unknown, 01/27/15) No Known Allergies (Unverified , 05/17/16) UNABLE TO ASSESS (Unverified , 03/22/15) Objective Last 24 Hour Vital Signs Date Time Temp Pulse Resp B/P Pulse Ox O2 Delivery O2 Flow Rate FiO2 06/24/16 16:00 98.1 69 20 141/78 96 Room Air 06/24/16 12:46 98.6 69 23 132/69 97 Room Air 06/24/16 08:32 98.2 66 23 123/55 97 Room Air 06/24/16 01:00 97.7 66 20 139/58 99 Room Air 06/23/16 19:00 97.9 76 20 138/69 97 Room Air Intake and Output 06/23/16 06/24/16 19:00 07:00 Intake Total 890 ml Balance 890 ml Intake Oral 890 ml # Voids 7 # Bowel Movements 2 Objective General Appearance: WD/WN, no apparent distress, alert Lines, tubes and drains: peripheral HEENT: normocephalic, atraumatic, anicteric, mucous membranes moist Neck: non-tender, supple Respiratory/Chest: chest wall non-tender, normal breath sounds - with moderate air exchange , no respiratory distress, no accessory muscle use Cardiovascular/Chest: normal rate, regular rhythm, no JVD Abdomen: normal bowel sounds, non tender, soft Extremities: no calf tenderness, normal capillary refill Microbiology Date/Time Source Procedure Growth Status 06/22/16 17:10 Blood Blood Culture - Preliminary NO GROWTH AFTER 24 HOURS Resulted 06/22/16 16:50 Blood Blood Culture - Preliminary NO GROWTH AFTER 24 HOURS Resulted 06/22/16 09:00 Rectum VRE Culture - Final NO VANCOMYCIN RESISTANT ENTEROCOCCUS ... Complete Laboratory Tests 06/24/16 05:50: White Blood Count 9.4, Red Blood Count 3.95L, Hemoglobin 13.0L, Hematocrit 39.7L , Mean Corpuscular Volume 100H, Mean Corpuscular Hemoglobin 33.0H, Mean Corpuscular Hemoglobin Concent 32.8, Red Cell Distribution Width 12.3, Platelet Count 207, Mean Platelet Volume 9.1, Neutrophils (%) (Auto) 71.9, Lymphocytes (% ) (Auto) 11.9L, Monocytes (%) (Auto) 11.0H, Eosinophils (%) (Auto) 4.3H, Basophils (%) (Auto) 0.9, Sodium Level 141, Potassium Level 3.7, Chloride Level 102, Carbon Dioxide Level 21, Anion Gap 18H, Blood Urea Nitrogen 7, Creatinine 0.7, Estimat Glomerular Filtration Rate > 60, Glucose Level 96, Calcium Level 9.1 Current Medications Medications (Trade) Dose Ordered Sig/Amanda Route PRN Reason Start Time Stop Time Status Last Admin Dose Admin Acetaminophen (Tylenol) 650 mg Q4H PRN ORAL fever 06/22/16 07:45 07/22/16 07:44 Al Hydroxide/Mg Hydroxide (Mylanta II) 30 ml Q6H PRN ORAL dyspepsia 06/22/16 07:45 07/22/16 07:44 Chlordiazepoxide 25 mg 25 mg Q6H PRN ORAL Agitation 06/22/16 07:45 06/29/16 07:44 Dextrose STAT PRN IV Hypoglycemia 06/22/16 07:45 07/22/16 07:44 Fluoxetine HCl (PROzac) 20 mg DAILY ORAL 06/23/16 09:00 07/23/16 08:59 06/24/16 11:20 Folic Acid/ Magnesium Sulfate/ Multivitamins/ Sodium Chloride (Folvite/ Magnesium Sulfate/ M.v.i.-12/NS w/ KCl 20mEq) 1,014.2 ml @ 125 mls/ hr Q24H IV 06/22/16 09:00 07/22/16 08:59 06/23/16 10:17 Heparin Sodium (Porcine) (Heparin 5000 units/ml) 5,000 units EVERY 12 HOURS SUBQ 06/22/16 09:00 07/22/16 08:59 06/24/16 11:22 Levetiracetam (Keppra) 1,000 mg EVERY 12 HOURS ORAL 06/22/16 21:00 07/22/16 20:59 06/24/16 11:20 Lorazepam (Ativan 2mg/ml 1ml) 2 mg EVERY HOUR PRN IV seizures 06/22/16 07:45 06/29/16 07:44 Morphine Sulfate (Morphine Sulfate) 1 mg Q4H PRN IVP For Pain 06/22/16 07:45 06/29/16 07:44 Ondansetron HCl (Zofran) 4 mg Q6H PRN IVP Nausea & Vomiting 06/22/16 07:45 07/22/16 07:44 Phenytoin (Dilantin) 200 mg BID ORAL 06/23/16 09:00 07/23/16 08:59 06/24/16 11:20 Polyethylene Glycol (Miralax) 17 gm HSPRN PRN ORAL Constipation 06/22/16 07:45 07/22/16 07:44 Ranitidine HCl (Zantac) 150 mg BEDTIME ORAL 06/22/16 21:00 07/22/16 20:59 06/22/16 21:50 Thiamine HCl/ Dextrose (Vitamin B1/D5W) 56 ml @ 112 mls/hr Q24H IVPB 06/22/16 09:00 07/22/16 08:59 06/23/16 09:00 Zolpidem Tartrate (Ambien) 5 mg HSPRN PRN ORAL Insomnia 06/22/16 07:45 07/22/16 07:44 ANNIE DEJESUS Jun 24, 2016 17:12
[2016-06-24 19:00] VITALS: BP 126/59
[2016-06-25] VITALS: BP 152/80
[2016-06-25] MEDS ORDERED: Phenytoin 100mg cap ORAL SCH
[2016-06-25 04:00] VITALS: BP 146/82
[2016-06-25 08:00] VITALS: BP 130/76
[2016-06-25] MEDS: Folic Acid 1 MG, Magnesium Sulfate 2,000 MG, Multivitamin - 12 Injection 10 ML in NS w/... IV SCH (08:44)
[2016-06-25] MEDS: Thiamine HCl 100 MG in D5W 55 ML IVPB SCH (08:46)
[2016-06-25] MEDS: Phenytoin 100mg cap ORAL SCH (08:47)
[2016-06-25] MEDS: Heparin 5000 units/ml inj SUBQ SCH (08:50)
--- NOTE | 2016-06-25 11:37 | Cardiology Report ---
APPROVED REPORT EKG Measurement Heart [id number] Normal sinus rhythm with sinus arrhythmia Normal ECG
[2016-06-25 12:59] VITALS: BP 140/64
--- NOTE | 2016-06-25 16:51 | Pulmonology Progress Note ---
Assessment/Plan Problems: (1) Epileptic seizure, generalized (2) Alcohol withdrawal seizure (3) Altered level of consciousness Assessment/Plan improving no new complains dc home today Subjective ROS Limited/Unobtainable: No Allergies: Coded Allergies: NO KNOWN ALLERGIES (Unverified Allergy, Unknown, 01/27/15) No Known Allergies (Unverified , 05/17/16) UNABLE TO ASSESS (Unverified , 03/22/15) Objective Last 24 Hour Vital Signs Date Time Temp Pulse Resp B/P Pulse Ox O2 Delivery O2 Flow Rate FiO2 06/25/16 12:59 97.2 69 18 140/64 98 Room Air 140.0 06/25/16 08:00 97.9 65 19 130/76 97 Room Air 06/25/16 04:00 98.2 74 20 146/82 97 Room Air 06/25/16 00:00 97.9 65 20 152/80 98 Room Air 06/24/16 19:00 97.2 66 20 126/59 98 Room Air Intake and Output 06/24/16 06/25/16 19:00 07:00 Intake Total 880 ml 240 ml Balance 880 ml 240 ml Intake Oral 880 ml 240 ml # Voids 1 6 Objective General Appearance: WD/WN, no apparent distress, alert Lines, tubes and drains: peripheral HEENT: normocephalic, atraumatic, anicteric, mucous membranes moist Neck: non-tender, supple Respiratory/Chest: chest wall non-tender, normal breath sounds - with moderate air exchange , no respiratory distress, no accessory muscle use Cardiovascular/Chest: normal rate, regular rhythm, no JVD Abdomen: normal bowel sounds, non tender, soft Extremities: no calf tenderness, normal capillary refill Microbiology Date/Time Source Procedure Growth Status 06/22/16 17:10 Blood Blood Culture - Preliminary NO GROWTH AFTER 48 HOURS Resulted ANNIE DEJESUS Jun 25, 2016 16:51
--- NOTE | 2016-06-25 21:28 | Progress Note ---
SUBJECTIVE: The patient's mental condition is currently improving. The patient did not have any seizures, compliant with medication, in no apparent distress, more alert, and is cooperative. MENTAL STATUS EXAMINATION: Alert and oriented x3. Mood is neutral. Affect is constricted. Congruent mood. Thought process is concrete. Thought content, no suicidal or homicidal ideation. ASSESSMENT: Alcohol withdrawal and anxiety, improving. PLAN: The patient will be continued on current medication. No medication changes. Glenys Mills M.D. DR: PONCHO JOB#: [id number] CC:
--- NOTE | 2016-06-26 19:29 | Discharge Summary ---
Discharge Summary Hospital Course Date of Admission Jun 22, 2016 at 06:14 Date of Discharge Jun 25, 2016 at 16:36 Admitting Diagnosis alcohol withdrawal HPI Jonnie Hess is a 61 year old male who was admitted on Jun 22, 2016 at 06: 14 for Alcohol Withdrawl Hospital Course [id number] Discharge Discharge Disposition Patient was discharged to Home (01) Discharge Diagnoses: Sonia Gautam NP Jun 26, 2016 19:29
--- NOTE | 2016-06-27 00:48 | Discharge Summary 2 SIG ---
DATE OF ADMISSION: 06/22/2016 DATE OF DISCHARGE: 06/25/2016 CONSULTANTS: 1. Glenys Mills M.D. 2. Anuj Osorio M.D. BRIEF HOSPITAL COURSE: The patient is a 61-year-old male, who was brought in by EMS for vomiting and flu-like symptoms. The patient reported feeling weak. CT of the head in the ER revealed no evidence of acute intracranial pathology. The patient has history of seizure on epileptic medications Keppra and Dilantin. The patient was admitted for alcohol intoxication and withdrawal and acute toxic encephalopathy. He was admitted to medical floor and was started on a banana bag and was given Librium prn and was placed on seizure precautions. He was seen by Dr. Osorio. The patient was given thiamine, magnesium oxide and folic acid supplements. Phenytoin level was 2.1. Anti-seizure medications were adjusted. He was also seen by Dr. Mills and was started on fluoxetine 20 mg daily. The patient became more alert. He was counseled on abstinence on ETOH. The patient was eventually discharged to home. FINAL DIAGNOSES: 1. Acute toxic encephalopathy. 2. Ethanol intoxication. 3. Ethanol withdrawal. 4. Possible sepsis. 5. Seizure disorder. 6. Noncompliance with medications. 7. Homelessness. 8. Anxiety. Ramo España M.D. I have been assigned to dictate discharge summary on this account and I was not involved in the patient's management. Sonia Gautam N.P. DR: GEOVANNA JOB#: [id number] CC: SARAY
== END 2016-06-25 16:36 | disposition home or self-care (01) | DRG 896 ==
LOC: EDBD 21:27 → EMR 21:53 → EDBEDREQ 06-22 05:58 → 4E 06-22 06:14
DX: F10.239 Alcohol dependence with withdrawal, unspecified (principal); G92 Toxic encephalopathy; A41.9 Sepsis, unspecified organism; F10.229 Alcohol dependence with intoxication, unspecified; Z91.14 Patient's other noncompliance with medication regimen; G40.909 Epilepsy, unspecified, not intractable, without status epilepticus; Z59.0 Homelessness; F41.9 Anxiety disorder, unspecified; I10 Essential (primary) hypertension; F32.9 Major depressive disorder, single episode, unspecified; F17.200 Nicotine dependence, unspecified, uncomplicated
CPT/HCPCS: 36415; 70450; 80048; 80053; 80185; 80299; 80329; 82607; 82746; 83690; 83735; 84484; 85025; 85610; 87040; 87081; 93005; J2405

== ENCOUNTER 2016-07-07 08:00 | Emergency (ER) | payer SELFPAY ==
[~2016-07-07] VITALS: Ht 172.7 cm; Wt 81.6 kg
--- NOTE | 2016-07-07 08:10 | Emergency Room Report ---
History of Present Illness General Chief Complaint: Pain Source: Patient, EMS Present Illness HPI 61 YOM BIBEMS after local business called [employer] that patient was on ground outside their business. Patient c/o to EMS of right knee pain, bilateral hand pain. Patient endorses he "may" have fallen on it last night. In the ER, he is combative - accuses me of "bothering" him when I try to ascertain additional HPI, swings at me when I try to examine his knee. He is not providing additional HPI at this time. EMR indicated admission 06/22- for: 1. Acute toxic encephalopathy. 2. Ethanol intoxication. 3. Ethanol withdrawal. 4. Possible sepsis. 5. Seizure disorder. 6. Noncompliance with medications. 7. Homelessness. 8. Anxiety. Allergies: Coded Allergies: NO KNOWN ALLERGIES (Unverified Allergy, Unknown, 01/27/15) No Known Allergies (Unverified , 05/17/16) UNABLE TO ASSESS (Unverified , 03/22/15) Patient History Past Medical History: see triage record, old chart reviewed, unable to obtain Past Surgical History: none Pertinent Family History: none Social History: Reports: alcohol use Immunizations: UTD Reviewed Nursing Documentation: PMH: Agreed, PSxH: Agreed Nursing Documentation-PMH Past Medical History: No Stated History Hx Cardiac Problems: No Hx Hypertension: No Hx Pacemaker: No Hx Asthma: Yes Hx COPD: No Hx Diabetes: No Hx Cancer: No Hx Gastrointestinal Problems: No Hx Dialysis: No Hx Neurological Problems: Yes Hx Cerebrovascular Accident: No Hx Seizures: Yes Review of Systems All Other Systems: limited - limited by patient cooperation Physical Exam Vital Signs Date Time Temp Pulse Resp B/P Pulse Ox O2 Delivery O2 Flow Rate FiO2 07/07/16 07:54 97.9 88 16 142/70 98 Room Air Sp02 EP Interpretation: reviewed, normal General Appearance: normal inspection, no apparent distress, alert, GCS 15, non -toxic, other - disheveled, unkempt. Combative with staff. Not intoxicated Head: normocephalic, atraumatic Eyes: bilateral eye EOMI, bilateral eye PERRL ENT: no angioedema, normal voice Neck: normal inspection, full range of motion, supple, no meningismus Respiratory: normal inspection, no respiratory distress, no retraction, no accessory muscle use, no wheezing Cardiovascular #1: regular rate, rhythm Gastrointestinal: normal inspection, no guarding, no hernia Musculoskeletal: normal inspection, other - patient ambulatory. Does not allow additional physical exam of right knee Neurologic: normal inspection, alert, oriented x3, responsive, application helper III-XII nml as tested, motor strength/tone normal, speech normal Psychiatric: normal inspection, judgement/insight normal, mood/affect normal Skin: normal inspection, normal color, no rash Medical Decision Making Diagnostic Impression: Primary Impression: Pain ER Course 61 YOM BIBEMS for right knee pain. VSS. Afebrile. HPI and PE limited d/t patient's refusal to cooperate, combativeness with staff Despite history of ETOH intox and recent admission for withdrawal, he is not acutely intoxicated. He is not exhibiting any signs of withdrawal. His vitals are stable. He is not septic. There is no obvious signs of trauma from my limited exam Patient is neurologically intact. No focal neuro deficits Given patient's lack of cooperativity and known homelessless, he is likely here malingering currently I am not sure what I can offer this patient in the ER at this time I tried repeatedly to engage patient to provide additional HPI regarding his right knee pain and to ask him to allow me to examine his knee As he is alert and oriented, not intoxicated, I am at liberty to comply with his refusal to allow me to examine him At this point, he does not appear to be sick or suffering from acute trauma , so we will discharge him Last Vital Signs Date Time Temp Pulse Resp B/P Pulse Ox O2 Delivery O2 Flow Rate FiO2 07/07/16 07:54 97.9 88 16 142/70 98 Room Air Status: improved Disposition: HOME, SELF-CARE Condition: Improved Patient Instructions: Knee Pain, [id number] HERNESTO PENA M.D. Jul 07, 2016 08:10
[2016-07-07 08:30] VITALS: BP 136/81
== END 2016-07-07 08:30 | disposition home or self-care (01) ==
LOC: EDBD 08:00 → EMR 08:25
DX: M25.561 Pain in right knee (principal); M79.642 Pain in left hand; M79.641 Pain in right hand; J45.909 Unspecified asthma, uncomplicated; Z86.69 Personal history of other diseases of the nervous system and sense organs; F10.20 Alcohol dependence, uncomplicated; Z91.14 Patient's other noncompliance with medication regimen; Z59.0 Homelessness
CPT/HCPCS: 99283

== ENCOUNTER 2016-07-08 08:39 | Emergency (ER) | payer SELFPAY ==
[~2016-07-08] VITALS: Ht 177.8 cm; Wt 81.6 kg
[2016-07-08 10:01] VITALS: BP 130/80
--- NOTE | 2016-07-08 10:40 | Emergency Room Report ---
History of Present Illness General Chief Complaint: Lower Extremity Injury Source: Patient, EMS Present Illness HPI 61 YOM BIBEMS for ?reason. Patient not sure why he is here. Asking for sandwich. Wants to sleep here. I saw patient yesterday with similar presentation. Much more calm, cooperative today. Denies any pain. Feels well otherwise. Homeless. Allergies: Coded Allergies: NO KNOWN ALLERGIES (Unverified Allergy, Unknown, 01/27/15) No Known Allergies (Unverified , 05/17/16) UNABLE TO ASSESS (Unverified , 03/22/15) Patient History Past Medical History: none Past Surgical History: none Pertinent Family History: none Social History: Denies: alcohol use, drug use, smoking Immunizations: UTD Reviewed Nursing Documentation: PMH: Agreed, PSxH: Agreed Nursing Documentation-PMH Past Medical History: No Stated History Hx Cardiac Problems: No Hx Hypertension: No Hx Pacemaker: No Hx Asthma: Yes Hx COPD: No Hx Diabetes: No Hx Cancer: No Hx Gastrointestinal Problems: No Hx Dialysis: No Hx Neurological Problems: Yes Hx Cerebrovascular Accident: No Hx Seizures: Yes Review of Systems All Other Systems: negative except mentioned in HPI Physical Exam Vital Signs Date Time Temp Pulse Resp B/P Pulse Ox O2 Delivery O2 Flow Rate FiO2 07/08/16 08:44 98.1 78 18 130/70 99 Room Air Sp02 EP Interpretation: reviewed, normal General Appearance: normal inspection, well appearing, no apparent distress, alert, GCS 15, non-toxic, other - disheveled, malkempt Head: normocephalic, atraumatic Eyes: bilateral eye EOMI, bilateral eye PERRL ENT: normal ENT inspection, hearing grossly normal, normal voice Neck: normal inspection, full range of motion, supple, no bony tend Respiratory: normal inspection, lungs clear, normal breath sounds, no respiratory distress, no retraction, no wheezing Cardiovascular #1: regular rate, rhythm, no edema Gastrointestinal: normal inspection, normal bowel sounds, non tender, soft, no guarding, no hernia Genitourinary: no CVA tenderness Musculoskeletal: normal inspection, back normal, normal range of motion, Orestes' s Sign negative Neurologic: normal inspection, alert, oriented x3, responsive, 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 Afebrile. Asymptomatic, no complaints Likely malingering for food, long term Repeat visits to ER for similar Previous visits here in ETOH withdrawal/seizures but looks well today - alert and oriented. Not intoxicated or in withdrawal Was given sandwich, place to rest then DC Last Vital Signs Date Time Temp Pulse Resp B/P Pulse Ox O2 Delivery O2 Flow Rate FiO2 07/08/16 10:01 80 16 130/80 98 Room Air 07/08/16 08:44 98.1 Status: improved Disposition: HOME, SELF-CARE Condition: Improved Patient Instructions: Medical Screening Exam Additional Instructions: - Please follow up with your doctor in 1 week as needed HERNESTO PENA M.D. Jul 08, 2016 10:40
== END 2016-07-08 10:31 | disposition home or self-care (01) ==
LOC: EMR 08:55
DX: Z00.00 Encounter for general adult medical examination without abnormal findings (principal)
CPT/HCPCS: 99283

== ENCOUNTER 2016-07-13 08:08 | Emergency (ER) | payer SELFPAY ==
[~2016-07-13] VITALS: Ht 172.7 cm; Wt 68.0 kg
[2016-07-13 08:05] VITALS: BP 131/70
[2016-07-13 11:19] VITALS: BP 124/69
--- NOTE | 2016-07-13 14:18 | Emergency Room Report ---
History of Present Illness General Chief Complaint: Alcohol Intoxication Source: Patient, EMS Present Illness HPI 61-year-old male presents ED for evaluation. Per EMS patient here with alcohol intoxication. Patient states he is drunk and unable to walk. No reported trauma. Patient is well-known to [facility]; has been here multiple times for alcohol intoxication. Denies any other complaints. Wants to sleep. Denies use. Denies chest pain or shortness of breath. No other aggravating or relieving factors. Denies any other associated symptoms Allergies: Coded Allergies: NO KNOWN ALLERGIES (Unverified Allergy, Unknown, 01/27/15) No Known Allergies (Unverified , 05/17/16) UNABLE TO ASSESS (Unverified , 03/22/15) Patient History Past Medical History: asthma, seizures Past Surgical History: none Pertinent Family History: none Social History: Reports: alcohol use, Denies: drug use, smoking Immunizations: UTD Reviewed Nursing Documentation: PMH: Agreed, PSxH: Agreed Nursing Documentation-PMH Past Medical History: No History, Except For Hx Hypertension: No Hx Pacemaker: No Hx Asthma: Yes Hx COPD: No Hx Diabetes: No Hx Cancer: No Hx Gastrointestinal Problems: No Hx Dialysis: No Hx Neurological Problems: Yes Hx Cerebrovascular Accident: No Hx Seizures: Yes Review of Systems All Other Systems: negative except mentioned in HPI Physical Exam Vital Signs Date Time Temp Pulse Resp B/P Pulse Ox O2 Delivery O2 Flow Rate FiO2 07/13/16 07:49 97.5 60 22 135/60 98 Room Air Sp02 EP Interpretation: reviewed, normal General Appearance: no apparent distress, alert, GCS 15, non-toxic Head: normocephalic, atraumatic Eyes: bilateral eye PERRL, bilateral eye normal inspection ENT: hearing grossly normal, normal pharynx, no angioedema, normal voice Neck: full range of motion, supple/symm/no masses Respiratory: chest non-tender, lungs clear, normal breath sounds, speaking full sentences Cardiovascular #1: regular rate, rhythm, no edema Cardiovascular #2: 2+ carotid (R), 2+ carotid (L), 2+ radial (R), 2+ radial (L) , 2+ dorsalis pedis (R), 2+ dorsalis pedis (L) Gastrointestinal: normal bowel sounds, non tender, soft, non-distended, no guarding, no rebound Rectal: deferred Genitourinary: normal inspection, no CVA tenderness Musculoskeletal: back normal, gait/station normal, normal range of motion, non- tender Neurologic: alert, oriented x3, responsive, motor strength/tone normal, sensory intact, speech normal Psychiatric: judgement/insight normal, memory normal, mood/affect normal, no suicidal/homicidal ideation Reflexes: 3+ bicep (R), 3+ bicep (L), 3+ tricep (R), 3+ tricep (L), 3+ knee (R) , 3+ knee (L) Skin: normal color, no rash, warm/dry, well hydrated Lymphatic: no adenopathy Medical Decision Making Diagnostic Impression: Primary Impression: Acute alcoholic intoxication Qualified Codes: F10.129 - Alcohol abuse with intoxication, unspecified ER Course Hospital Course 61-year-old male presents to ED status post EtOH intoxication. Clinical course Patient placed on stretcher. Given that patient is able to provide an adequate history, I see no need to check blood work or place an IV. Patient allowed to sleep. My assessment shows no evidence of SI/HI requiring psychiatric evaluation. Patient allowed to rest in now awake alert oriented x3. ambulating without difficulty. Diagnosis - ETOH intoxication stable and discharged to home. Followup with PMD. Return to ED if symptoms recur or worsen Last Vital Signs Date Time Temp Pulse Resp B/P Pulse Ox O2 Delivery O2 Flow Rate FiO2 07/13/16 11:19 97.5 63 18 124/69 98 Room Air Status: improved Disposition: HOME, SELF-CARE Condition: Stable Referrals: NOT CHOSEN IPA/,REFERRING (PCP) Patient Instructions: Alcohol Intoxication, [id number] RAFFY PATTERSON M.D. Jul 13, 2016 14:18
== END 2016-07-13 11:41 | disposition home or self-care (01) ==
LOC: EDBD 08:08 → EMR 08:39
DX: F10.129 Alcohol abuse with intoxication, unspecified (principal); J45.909 Unspecified asthma, uncomplicated
CPT/HCPCS: 99284

== ENCOUNTER 2016-07-13 23:14 | Emergency (ER) | payer SELFPAY ==
[~2016-07-13] VITALS: Ht 175.3 cm; Wt 77.1 kg
--- NOTE | 2016-07-13 23:44 | Emergency Room Report ---
History of Present Illness General Chief Complaint: General Complaint Source: Patient Present Illness HPI This is a 61-year-old male well-known to this ER. He is alcoholic and heavy drinker. He's been here several times her ready. He presents with chief complaint of wanting a place to sleep. No fever or chills. Other complaint. Also said he is hungry. Allergies: Coded Allergies: NO KNOWN ALLERGIES (Unverified Allergy, Unknown, 01/27/15) No Known Allergies (Unverified , 05/17/16) UNABLE TO ASSESS (Unverified , 03/22/15) Patient History Past Medical History: see triage record, old chart reviewed, seizures Past Surgical History: other Pertinent Family History: none Social History: Reports: alcohol use Immunizations: other Reviewed Nursing Documentation: PMH: Agreed, PSxH: Agreed Nursing Documentation-PMH Hx Hypertension: No Hx Pacemaker: No Hx Asthma: Yes Hx COPD: No Hx Diabetes: No Hx Cancer: No Hx Gastrointestinal Problems: No Hx Dialysis: No Hx Neurological Problems: Yes Hx Cerebrovascular Accident: No Hx Seizures: Yes Review of Systems Eye: Denies: blurred vision, eye pain ENT: Denies: ear pain, nose congestion, throat swelling Respiratory: Denies: cough, shortness of breath Cardiovascular: Denies: chest pain, palpitations Gastrointestinal: Denies: abdominal pain, diarrhea, nausea, vomiting Musculoskeletal: Denies: back pain, joint pain Skin: Denies: rash Neurological: Denies: headache, numbness Endocrine: Denies: increased thirst, increased urine Hematologic/Lymphatic: Denies: easy bruising All Other Systems: negative except mentioned in HPI Physical Exam Vital Signs Date Time Temp Pulse Resp B/P Pulse Ox O2 Delivery O2 Flow Rate FiO2 07/13/16 23:17 98.4 74 14 144/74 100 Room Air vitals normal Sp02 EP Interpretation: reviewed, normal General Appearance: well appearing, no apparent distress, alert Head: normocephalic, atraumatic Eyes: bilateral eye EOMI, bilateral eye PERRL ENT: hearing grossly normal, normal pharynx Neck: full range of motion, supple, no meningismus Respiratory: chest non-tender, lungs clear, normal breath sounds Cardiovascular #1: regular rate, rhythm, no murmur Gastrointestinal: normal bowel sounds, non tender, no mass, no organomegaly, no bruit, non-distended Musculoskeletal: back normal, gait/station normal, normal range of motion Psychiatric: mood/affect normal Skin: warm/dry Medical Decision Making Diagnostic Impression: Primary Impression: Alcohol abuse ER Course Patient presents with vague complaint. No evidence of alcohol withdrawal. His speech is clear. No evidence of intoxication. We'll discharge home. Last Vital Signs Date Time Temp Pulse Resp B/P Pulse Ox O2 Delivery O2 Flow Rate FiO2 07/13/16 23:17 98.4 74 14 144/74 100 Room Air Status: improved Disposition: HOME, SELF-CARE Condition: Stable Additional Instructions: Abstain from alcohol. Followup with your Dr. in 7 days. Return if worse. MARCO ANTONIO DE JESUS M.D. Jul 13, 2016 23:44
[2016-07-13 23:52] VITALS: BP 144/74
== END 2016-07-13 23:55 | disposition home or self-care (01) ==
LOC: EMR 23:52
DX: F10.10 Alcohol abuse, uncomplicated (principal); J45.909 Unspecified asthma, uncomplicated
CPT/HCPCS: 99281

== ENCOUNTER 2016-07-23 02:19 | Inpatient (IN) | payer MEDICAID ==
[2016-07-23] VITALS (7 sets, daily range): BP systolic 135–170; BP diastolic 54–86
[~2016-07-23] VITALS: Ht 180.3 cm; Wt 83.9 kg
--- NOTE | 2016-07-23 05:48 | Emergency Room Report ---
History of Present Illness General Chief Complaint: Pain Source: Patient, EMS Present Illness HPI This is a 61-year-old male who is homeless and alcoholic. He' s been here multiple times in the past. He also been to [facility] recently. He presents with chief complaint of right leg pain. He has a history of previous fracture in that leg. He said now is been hurting but unknown amount of time. He said it hurt" for a while". He called 911 because of difficulty walking because of the pain. When he got here he wanted to lay down grossly. Denies any fever chills denies any trauma. No other complaint. Allergies: Coded Allergies: NO KNOWN ALLERGIES (Unverified Allergy, Unknown, 01/27/15) No Known Allergies (Unverified , 05/17/16) UNABLE TO ASSESS (Unverified , 03/22/15) Patient History Past Medical History: see triage record, old chart reviewed Past Surgical History: other Pertinent Family History: none Social History: Reports: alcohol use Immunizations: other Reviewed Nursing Documentation: PMH: Agreed, PSxH: Agreed Nursing Documentation-PMH Past Medical History: No Stated History Hx Hypertension: No Hx Pacemaker: No Hx Asthma: Yes Hx COPD: No Hx Diabetes: No Hx Cancer: No Hx Gastrointestinal Problems: No Hx Dialysis: No Hx Neurological Problems: Yes Hx Cerebrovascular Accident: No Hx Seizures: Yes Review of Systems Eye: Denies: blurred vision, eye pain ENT: Denies: ear pain, nose congestion, throat swelling Respiratory: Denies: cough, shortness of breath Cardiovascular: Denies: chest pain, palpitations Gastrointestinal: Denies: abdominal pain, diarrhea, nausea, vomiting Musculoskeletal: Reports: joint pain, muscle pain, Denies: back pain Skin: Denies: rash Neurological: Denies: headache, numbness Endocrine: Denies: increased thirst, increased urine Hematologic/Lymphatic: Denies: easy bruising All Other Systems: negative except mentioned in HPI Physical Exam Vital Signs Date Time Temp Pulse Resp B/P Pulse Ox O2 Delivery O2 Flow Rate FiO2 07/23/16 02:05 98.8 64 16 135/74 99 Room Air vitals normal Sp02 EP Interpretation: reviewed, normal General Appearance: well appearing, no apparent distress, alert, other - Disheveled, malodorous Head: normocephalic, atraumatic Eyes: bilateral eye EOMI, bilateral eye PERRL ENT: hearing grossly normal, normal pharynx Neck: full range of motion, supple, no meningismus Respiratory: chest non-tender, lungs clear, normal breath sounds Cardiovascular #1: regular rate, rhythm, no murmur Gastrointestinal: normal bowel sounds, non tender, no mass, no organomegaly, no bruit, non-distended Musculoskeletal: back normal, normal range of motion, swelling - Edema and tenderness to palpation of the right leg. Effusion to patella. TTP over ankle. Neurologic: alert Psychiatric: mood/affect normal Skin: warm/dry Procedures Splinting Splinting : Consent: Verbal Location: right ankle Pre-Made Type: aircast Pre-Proc Neuro Vasc Exam: normal Post-Proc Neuro Vasc Exam: normal Patient Tolerated: Well Complications: None Medical Decision Making Diagnostic Impression: Primary Impression: Alcohol abuse Additional Impressions: Right patella fracture Qualified Codes: S82.041A - Displaced comminuted fracture of right patella, initial encounter for closed fracture Closed right fibular fracture Qualified Codes: S82.821A - Torus fracture of lower end of right fibula, initial encounter for closed fracture ER Course Patient presents with altered mental status secondary to alcohol. It appeared that he had a recent fall and injury. He has abrasion to his knee but does look old, at least a week old. He still able to bear weight. Ultrasound pending to rule out DVT. US neg for DVt. Pt can't walk and has frequent falls. Will admit. May need Social Service consult. May need placement. No sign of w/d. Discussed case with Dr. España who will admit. Lab Results Impression labs unremarkable Other X-Ray Diagnostic Results Other X-Ray Diagnostic Results : X-Ray Ordered: X-rays of right femur, x-rays of right ankle. Date: Jul 23, 2016 Time: 06:38 EP Interpretation: Yes Number of Views: other Other Impression X-ray of right femur: Interpreted by me, 2 views. Displaced patellar fracture. Soft tissue swelling. X-rays of right ankle: Determined by me. 3 views. Torus fracture of the distal fibular. No soft tissue swelling. Mortise intact. CT/MRI/US Diagnostic Results CT/MRI/US Diagnostic Results : Imaging Test Ordered: US of Rt leg Impression Read by supervisor heading. Neg for DVT Last Vital Signs Date Time Temp Pulse Resp B/P Pulse Ox O2 Delivery O2 Flow Rate FiO2 07/23/16 02:19 98.8 16 135/74 99 Room Air 07/23/16 02:05 64 Status: improved Disposition: ADMITTED INPATIENT Condition: Serious Referrals: NOT CHOSEN JOHNNY/,REFERRING (PCP) MARCO ANTONIO DE JESUS M.D. Jul 23, 2016 05:48
[2016-07-23 06:10] LABS: EOSINOPHILS % (AUTO) 2.9 % (0.0-3.0); LYMPHOCYTES % (AUTO) 24.7 % (20.0-45.0); MEAN CORPUSCULAR HEMOGLOBIN 32.5 PG (27.0-31.0); MEAN CORPUSCULAR HGB CONC 31.9 G/DL (32.0-36.0); MEAN CORPUSCULAR VOLUME 102 FL (80-99); MEAN PLATELET VOLUME 7.3 FL (6.5-10.1); MONOCYTES % (AUTO) 7.3 % (1.0-10.0); NEUTROPHILS % (AUTO) 64.1 % (45.0-75.0); PLATELET COUNT 273 K/UL (150-450); RED CELL DISTRIBUTION WIDTH 13.4 % (11.6-14.8); WHITE BLOOD COUNT 8.7 K/UL (4.8-10.8)
[2016-07-23 06:21] LABS: PROTHROMBIN TIME 9.9 SEC (9.30-11.50)
[2016-07-23 06:24] LABS: ANION GAP 17 (5-15); CARBON DIOXIDE 22 mEQ/L (20-30); CHLORIDE 103 mEQ/L (98-107); CREATININE 0.6 mg/dL (0.7-1.2); GLOMERULAR FILTRATION RATE > 60 mL/min (>60); HEMOLYSIS 11; POTASSIUM 4.2 mEQ/L (3.4-4.9); SODIUM 142 mEQ/L (135-145)
[2016-07-23] MEDS ORDERED: LORazepam Inj 2mg/ml 1ml IV PRN (07:30)
[2016-07-23] MEDS ORDERED: Miralax 17gm pkt ORAL PRN (07:30)
[2016-07-23] MEDS ORDERED: Morphine Sulfate 2mg/ml Inj IVP PRN (07:30)
[2016-07-23] MEDS ORDERED: Mylanta II UD 30ml ORAL PRN (07:30)
[2016-07-23] MEDS: Phenytoin 100mg cap ORAL SCH ×3 (09:16→17:28)
[2016-07-23] MEDS: Heparin 5000 units/ml inj SUBQ SCH ×2 (09:17→20:34)
--- NOTE | 2016-07-23 13:52 | Diagnostic Imaging Report ---
Indication: PAIN Technique: 2 views of the right femur Comparison: None Findings: There is a severely displaced and distracted tripartite fracture of the patella. No femoral fracture demonstrated. Impression: Positive for patellar fracture This agrees with the preliminary interpretation provided by the emergency room physician
--- NOTE | 2016-07-23 15:15 | History and Physical ---
History of Present Illness General Date patient seen: Jul 23, 2016 Reason for Hospitalization: Pain Present Illness HPI 61-year-old male, homeless, alcoholic presented to ER with chief complaint of right leg pain. He said it hurt" for a while". He called 911 because of difficulty walking because of the pain. When he got here he wanted to lay down grossly. Xr of the limb showed that he has a patellar fracture. He is admitted for pain control and possible placement. Allergies: Coded Allergies: NO KNOWN ALLERGIES (Unverified Allergy, Unknown, 01/27/15) No Known Allergies (Unverified , 05/17/16) UNABLE TO ASSESS (Unverified , 03/22/15) Medication History Scheduled Levetiracetam (Keppra), 500 MG ORAL EVERY 12 HOURS Phenytoin Sodium Extended* (Phenytoin Sodium Extended*), 100 MG ORAL THREE TIMES A DAY, (Reported) Patient History Healthcare decision maker Resuscitation status Full Code Advanced Directive on File Past Medical/Surgical History Past Medical/Surgical History: (1) Homelessness (2) Right patella fracture (3) Seizure disorder Review of Systems All Other Systems: negative except mentioned in HPI Physical Exam General Appearance: WD/WN Lines, tubes and drains: peripheral HEENT: normocephalic, atraumatic Neck: non-tender, normal alignment Respiratory/Chest: chest wall non-tender, lungs clear Cardiovascular/Chest: normal peripheral pulses, normal rate Abdomen: normal bowel sounds, non tender Genitourinary/Rectal: normal genital exam Last 24 Hour Vital Signs Date Time Temp Pulse Resp B/P Pulse Ox O2 Delivery O2 Flow Rate FiO2 07/23/16 12:09 97.5 62 19 147/61 96 Room Air 07/23/16 10:44 97.8 72 13 139/73 99 Room Air 07/23/16 10:43 97.8 72 13 139/73 99 Room Air 07/23/16 08:41 97.8 70 12 145/75 99 Room Air 07/23/16 06:35 97.8 64 14 170/86 99 Room Air 07/23/16 02:19 98.8 16 135/74 99 Room Air 07/23/16 02:05 98.8 64 16 135/74 99 Room Air Laboratory Tests Test 07/23/16 04:02 07/23/16 06:04 D-Dimer 5842 ng/mL (<500) H White Blood Count 8.7 K/UL (4.8-10.8) Red Blood Count 4.00 M/UL (4.70-6.10) L Hemoglobin 13.0 G/DL (14.2-18.0) L Hematocrit 40.7 % (42.0-52.0) L Mean Corpuscular Volume 102 FL (80-99) H Mean Corpuscular Hemoglobin 32.5 PG (27.0-31.0) H Mean Corpuscular Hemoglobin Concent 31.9 G/DL (32.0-36.0) L Red Cell Distribution Width 13.4 % (11.6-14.8) Platelet Count 273 K/UL (150-450) Mean Platelet Volume 7.3 FL (6.5-10.1) Neutrophils (%) (Auto) 64.1 % (45.0-75.0) Lymphocytes (%) (Auto) 24.7 % (20.0-45.0) Monocytes (%) (Auto) 7.3 % (1.0-10.0) Eosinophils (%) (Auto) 2.9 % (0.0-3.0) Basophils (%) (Auto) 1.0 % (0.0-2.0) Prothrombin Time 9.9 SEC (9.30-11.50) Prothromb Time International Ratio 1.0 (0.9-1.1) Activated Partial Thromboplast Time 22 SEC (23-33) L Sodium Level 142 mEQ/L (135-145) Potassium Level 4.2 mEQ/L (3.4-4.9) Chloride Level 103 mEQ/L (98-107) Carbon Dioxide Level 22 mEQ/L (20-30) Anion Gap 17 (5-15) H Blood Urea Nitrogen 6 mg/dL (7-23) L Creatinine 0.6 mg/dL (0.7-1.2) L Estimat Glomerular Filtration Rate > 60 mL/min (>60) Glucose Level 89 mg/dL (74-106) Calcium Level 9.0 mg/dL (8.6-10.2) Height (Feet): 5 Height (Inches): 11.00 Weight (Pounds): 185 Medications Current Medications Medications (Trade) Dose Ordered Sig/Amanda Route PRN Reason Start Time Stop Time Status Last Admin Dose Admin Acetaminophen (Tylenol) 650 mg Q4H PRN ORAL fever 07/23/16 07:30 08/22/16 07:29 Al Hydroxide/Mg Hydroxide (Mylanta II) 30 ml Q6H PRN ORAL dyspepsia 07/23/16 07:30 08/22/16 07:29 Dextrose (Dextrose 50%) STAT PRN IV Hypoglycemia 07/23/16 07:30 08/22/16 07:29 Heparin Sodium (Porcine) (Heparin 5000 units/ml) 5,000 units EVERY 12 HOURS SUBQ 07/23/16 09:00 08/22/16 08:59 07/23/16 09:17 Levetiracetam (Keppra) 500 mg EVERY 12 HOURS ORAL 07/23/16 09:00 08/22/16 08:59 07/23/16 09:16 Lorazepam (Ativan 2mg/ml 1ml) 0.5 mg Q4H PRN IV For Anxiety 07/23/16 07:30 07/30/16 07:29 Morphine Sulfate (Morphine Sulfate) 2 mg EVERY 4 HOURS PRN IVP For Pain 4-6 07/23/16 07:30 07/30/16 07:29 Ondansetron HCl (Zofran) 4 mg Q6H PRN IVP Nausea & Vomiting 07/23/16 07:30 08/22/16 07:29 Phenytoin (Dilantin) 100 mg THREE TIMES A DAY ORAL 07/23/16 09:00 08/22/16 08:59 07/23/16 13:51 Polyethylene Glycol (Miralax) 17 gm HSPRN PRN ORAL Constipation 07/23/16 07:30 08/22/16 07:29 Zolpidem Tartrate (Ambien) 5 mg HSPRN PRN ORAL Insomnia 07/23/16 07:30 08/22/16 07:29 Assessment/Plan Problem List: (1) Right patella fracture ICD Codes: S82.001A - Unspecified fracture of right patella, initial encounter for closed fracture SNOMED: 34114122 Qualifiers: Qualified Codes: S82.041A - Displaced comminuted fracture of right patella, initial encounter for closed fracture (2) Seizure disorder ICD Codes: G40.909 - Epilepsy, unspecified, not intractable, without status epilepticus SNOMED: 503626171 (3) Homelessness ICD Codes: Z59.0 - Homelessness SNOMED: 57993532 Assessment/Plan pain management social service consult. dc planning etoh withdrawl precaution ANNIE DEJESUS Jul 23, 2016 15:15
--- NOTE | 2016-07-23 16:34 | Diagnostic Imaging Report ---
Indication: PAIN Technique: 2 views of the tibia and fibula Comparison: none Findings: There is an oblique fracture of the distal fibula which is minimally displaced. No tibial fracture demonstrated Impression: Positive for distal fibular fracture This agrees with the preliminary interpretation provided by the emergency room physician
[2016-07-23] MEDS: Folic Acid 1 MG, Magnesium Sulfate 2,000 MG, Multivitamin - 12 Injection 10 ML in NS w/... IV SCH (17:28)
[2016-07-23] MEDS: Thiamine 100mg in D5W 55ml IVPB SCH (17:28)
[2016-07-24] VITALS: BP 130/61
[2016-07-24 04:00] VITALS: BP 139/63
[2016-07-24 07:00] LABS: BASOPHILS % (AUTO) 0.9 % (0.0-2.0); EOSINOPHILS % (AUTO) 3.1 % (0.0-3.0); LYMPHOCYTES % (AUTO) 21.8 % (20.0-45.0); MEAN CORPUSCULAR HEMOGLOBIN 33.8 PG (27.0-31.0); MEAN CORPUSCULAR HGB CONC 33.5 G/DL (32.0-36.0); MEAN CORPUSCULAR VOLUME 101 FL (80-99); MEAN PLATELET VOLUME 7.8 FL (6.5-10.1); MONOCYTES % (AUTO) 9.2 % (1.0-10.0); NEUTROPHILS % (AUTO) 65.1 % (45.0-75.0); PLATELET COUNT 293 K/UL (150-450); RED CELL DISTRIBUTION WIDTH 13.1 % (11.6-14.8); WHITE BLOOD COUNT 8.8 K/UL (4.8-10.8)
[2016-07-24 07:14] LABS: ALANINE AMINOTRANSFERASE 9 U/L (3-41); ANION GAP 13 (5-15); ASPARTATE AMINO TRANSFERASE 12 U/L (5-40); CALCIUM 9.1 mg/dL (8.6-10.2); CARBON DIOXIDE 25 mEQ/L (20-30); CHLORIDE 102 mEQ/L (98-107); CREATININE 0.8 mg/dL (0.7-1.2); GLOMERULAR FILTRATION RATE > 60 mL/min (>60); HEMOLYSIS 9; POTASSIUM 3.9 mEQ/L (3.4-4.9); SODIUM 140 mEQ/L (135-145); TOTAL PROTEIN 6.4 g/dL (6.6-8.7)
[2016-07-24 08:15] VITALS: BP 150/69
[2016-07-24] MEDS: Heparin 5000 units/ml inj SUBQ SCH ×2 (09:05→20:45)
[2016-07-24] MEDS: Phenytoin 100mg cap ORAL SCH ×3 (09:05→18:07)
--- NOTE | 2016-07-24 10:22 | Wound Care Consultation ---
Wound Assessment Wound Assessment #1: Wound Present on Admission: Yes New Wound: No Status Change of Wound: No Wound Location Body Site Modif: left, right Wound Location Body Site: hand Wound Type: other - with multiple open wounds and dry scabs Wound Thickness: Full Thickness Percent of Wound [place]/Red: 100 Wound Drainage Amount: None Wound Drainage Odor: None/Absent Tissue Surrounding Wound: scars and dry scabs Wound General Appearance: Reddened Wound Assessment #2: Wound Number: #2 Wound Present on Admission: Yes New Wound: No Status Change of Wound: No Wound Location Body Site Modif: left, right Wound Location Body Site: foot Wound Type: other - dry and flky skin Wound Drainage Amount: None Wound Drainage Odor: None/Absent Tissue Surrounding Wound: Intact Wound General Appearance: Asymptomatic Wound Comment #1 Left and right hands and fingers with multiple scars, open and dry scabs. #2 Left and right feet with dry and flaky skin Recommendation -Keep clean and moist for dry skin -Local wound care for open wounds on fingers and hands- Cleanse with saline, pat dry, apply adaptic, apply 4x4, secure with paper tape daily and PRN soiled/dislodged -Optimize nutrition -Assess and f/u accordingly for any changes MELY GAMA RN Jul 24, 2016 10:22
[2016-07-24 12:15] VITALS: BP 139/74
--- NOTE | 2016-07-24 15:47 | Pulmonology Progress Note ---
Assessment/Plan Problems: (1) Right patella fracture (2) Seizure disorder (3) Homelessness Assessment/Plan pain control dc planning Subjective ROS Limited/Unobtainable: No Allergies: Coded Allergies: NO KNOWN ALLERGIES (Unverified Allergy, Unknown, 01/27/15) No Known Allergies (Unverified , 05/17/16) UNABLE TO ASSESS (Unverified , 03/22/15) Objective Last 24 Hour Vital Signs Date Time Temp Pulse Resp B/P Pulse Ox O2 Delivery O2 Flow Rate FiO2 07/24/16 12:15 97.7 72 24 139/74 95 Room Air 07/24/16 08:15 97.9 65 21 150/69 97 Room Air 07/24/16 04:00 97.0 78 18 139/63 96 Room Air 07/24/16 00:00 97.5 84 18 130/61 98 Room Air 07/23/16 19:00 98.8 84 18 136/54 98 Room Air 07/23/16 16:00 97.7 72 19 151/70 95 Room Air Intake and Output 07/23/16 07/24/16 19:00 07:00 Intake Total 831 ml 2475 ml Output Total 500 ml Balance 331 ml 2475 ml Intake Oral 650 ml 1600 ml IV Total 181 ml 875 ml Output Urine Total 500 ml # Voids 1 15 General Appearance: WD/WN HEENT: normocephalic, atraumatic Respiratory/Chest: chest wall non-tender, lungs clear Cardiovascular: normal peripheral pulses, normal rate Abdomen: normal bowel sounds, soft, non tender Skin: no rash Laboratory Tests 07/24/16 06:10: White Blood Count 8.8, Red Blood Count 3.70L, Hemoglobin 12.5L, Hematocrit 37.4L , Mean Corpuscular Volume 101H, Mean Corpuscular Hemoglobin 33.8H, Mean Corpuscular Hemoglobin Concent 33.5, Red Cell Distribution Width 13.1, Platelet Count 293, Mean Platelet Volume 7.8, Neutrophils (%) (Auto) 65.1, Lymphocytes (% ) (Auto) 21.8, Monocytes (%) (Auto) 9.2, Eosinophils (%) (Auto) 3.1H, Basophils (%) (Auto) 0.9, Sodium Level 140, Potassium Level 3.9, Chloride Level 102, Carbon Dioxide Level 25, Anion Gap 13, Blood Urea Nitrogen 9, Creatinine 0.8, Estimat Glomerular Filtration Rate > 60, Glucose Level 129H, Calcium Level 9.1, Total Bilirubin 0.3, Aspartate Amino Transf (AST/SGOT) 12, Alanine Aminotransferase (ALT/SGPT) 9, Alkaline Phosphatase 94, Total Protein 6.4L, Albumin 3.3L, Globulin 3.1, Albumin/Globulin Ratio 1.0 Current Medications Medications (Trade) Dose Ordered Sig/Amanda Route PRN Reason Start Time Stop Time Status Last Admin Dose Admin Acetaminophen (Tylenol) 650 mg Q4H PRN ORAL fever 07/23/16 07:30 08/22/16 07:29 Al Hydroxide/Mg Hydroxide (Mylanta II) 30 ml Q6H PRN ORAL dyspepsia 07/23/16 07:30 08/22/16 07:29 Dextrose (Dextrose 50%) STAT PRN IV Hypoglycemia 07/23/16 07:30 08/22/16 07:29 Folic Acid 1 mg/ Magnesium Sulfate 2000 mg/ Multivitamins 10 ml/Sodium Chloride 1,014.2 ml @ 125 mls/ hr Q24H IV 07/23/16 18:00 08/22/16 17:59 07/23/16 17:28 Heparin Sodium (Porcine) (Heparin 5000 units/ml) 5,000 units EVERY 12 HOURS SUBQ 07/23/16 09:00 08/22/16 08:59 07/24/16 09:05 Levetiracetam (Keppra) 500 mg EVERY 12 HOURS ORAL 07/23/16 09:00 08/22/16 08:59 07/24/16 09:05 Lorazepam (Ativan 2mg/ml 1ml) 0.5 mg Q4H PRN IV For Anxiety 07/23/16 07:30 07/30/16 07:29 Morphine Sulfate (Morphine Sulfate) 2 mg EVERY 4 HOURS PRN IVP For Pain 4-6 07/23/16 07:30 07/30/16 07:29 Ondansetron HCl (Zofran) 4 mg Q6H PRN IVP Nausea & Vomiting 07/23/16 07:30 08/22/16 07:29 Phenytoin (Dilantin) 100 mg THREE TIMES A DAY ORAL 07/23/16 09:00 08/22/16 08:59 07/24/16 12:36 Polyethylene Glycol (Miralax) 17 gm HSPRN PRN ORAL Constipation 07/23/16 07:30 08/22/16 07:29 Thiamine HCl/ Dextrose (Vitamin B1/D5W) 56 ml @ 112 mls/hr Q24H IVPB 07/23/16 18:00 08/22/16 17:59 07/23/16 17:28 Vitamin A/Vitamin D (A & D Oint) 1 applic EVERY 12 HOURS TOPIC 07/24/16 21:00 08/23/16 20:59 Zolpidem Tartrate 5 mg 5 mg HSPRN PRN ORAL Insomnia 07/23/16 07:30 08/22/16 07:29 ANNIE DEJESUS Jul 24, 2016 15:47
[2016-07-24 15:58] VITALS: BP 106/54
[2016-07-24] MEDS: Thiamine 100mg in D5W 55ml IVPB SCH (18:29)
[2016-07-24] MEDS: Folic Acid 1 MG, Magnesium Sulfate 2,000 MG, Multivitamin - 12 Injection 10 ML in NS w/... IV SCH (18:59)
[2016-07-24 20:00] VITALS: BP 146/91
[2016-07-24] MEDS: Vitamin A&D Oint 2oz Tube TOPIC SCH (20:42)
[2016-07-25] VITALS: BP 157/75
[2016-07-25 04:00] VITALS: BP 152/73
[2016-07-25 08:11] VITALS: BP 148/82
[2016-07-25] MEDS: Vitamin A&D Oint 2oz Tube TOPIC SCH ×2 (08:27→21:48)
[2016-07-25] MEDS: Phenytoin 100mg cap ORAL SCH ×3 (08:27→18:15)
[2016-07-25] MEDS: Heparin 5000 units/ml inj SUBQ SCH ×2 (08:28→21:49)
[2016-07-25 11:55] VITALS: BP 147/78
[2016-07-25] MEDS: Thiamine 100mg in D5W 55ml IVPB SCH (18:14)
[2016-07-25] MEDS: Folic Acid 1 MG, Magnesium Sulfate 2,000 MG, Multivitamin - 12 Injection 10 ML in NS w/... IV SCH (18:22)
--- NOTE | 2016-07-25 18:44 | Pulmonology Progress Note ---
Assessment/Plan Problems: (1) Right patella fracture (2) Seizure disorder (3) Homelessness Assessment/Plan pt/ot social service evalluaiton pain control dc planning Subjective ROS Limited/Unobtainable: No Interval Events: no new complains Allergies: Coded Allergies: NO KNOWN ALLERGIES (Unverified Allergy, Unknown, 01/27/15) No Known Allergies (Unverified , 05/17/16) UNABLE TO ASSESS (Unverified , 03/22/15) Objective Last 24 Hour Vital Signs Date Time Temp Pulse Resp B/P Pulse Ox O2 Delivery O2 Flow Rate FiO2 07/25/16 11:55 98.7 57 21 147/78 97 Room Air 07/25/16 08:11 98.0 67 22 148/82 99 Room Air 07/25/16 04:00 97.2 57 18 152/73 98 Room Air 07/25/16 00:00 97.7 56 20 157/75 95 Room Air 07/24/16 20:00 97.0 111 20 146/91 99 Room Air Intake and Output 07/24/16 07/25/16 19:00 07:00 Intake Total 296 ml 1570 ml Balance 296 ml 1570 ml Intake Oral 240 ml 570 ml IV Total 56 ml 1000 ml # Voids 3 3 # Bowel Movements 1 1 Objective General Appearance: WD/WN HEENT: normocephalic Respiratory/Chest: chest wall non-tender, lungs clear, normal breath sounds, no respiratory distress Cardiovascular: normal peripheral pulses, normal rate, regular rhythm Abdomen: normal bowel sounds, soft, non tender, no organomegaly, non distended Skin: no rash 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 Lymphatic: no neck adenopathy Current Medications Medications (Trade) Dose Ordered Sig/Amanda Route PRN Reason Start Time Stop Time Status Last Admin Dose Admin Acetaminophen (Tylenol) 650 mg Q4H PRN ORAL fever 07/23/16 07:30 08/22/16 07:29 Al Hydroxide/Mg Hydroxide (Mylanta II) 30 ml Q6H PRN ORAL dyspepsia 07/23/16 07:30 08/22/16 07:29 Dextrose (Dextrose 50%) STAT PRN IV Hypoglycemia 07/23/16 07:30 08/22/16 07:29 Folic Acid 1 mg/ Magnesium Sulfate 2000 mg/ Multivitamins 10 ml/Sodium Chloride 1,014.2 ml @ 125 mls/ hr Q24H IV 07/23/16 18:00 08/22/16 17:59 07/25/16 18:22 Heparin Sodium (Porcine) (Heparin 5000 units/ml) 5,000 units EVERY 12 HOURS SUBQ 07/23/16 09:00 08/22/16 08:59 07/25/16 08:28 Levetiracetam (Keppra) 500 mg EVERY 12 HOURS ORAL 07/23/16 09:00 08/22/16 08:59 07/25/16 08:27 Lorazepam (Ativan 2mg/ml 1ml) 0.5 mg Q4H PRN IV For Anxiety 07/23/16 07:30 07/30/16 07:29 Morphine Sulfate (Morphine Sulfate) 2 mg EVERY 4 HOURS PRN IVP For Pain 4-6 07/23/16 07:30 07/30/16 07:29 Ondansetron HCl (Zofran) 4 mg Q6H PRN IVP Nausea & Vomiting 07/23/16 07:30 08/22/16 07:29 Phenytoin (Dilantin) 100 mg THREE TIMES A DAY ORAL 07/23/16 09:00 08/22/16 08:59 07/25/16 18:15 Polyethylene Glycol (Miralax) 17 gm HSPRN PRN ORAL Constipation 07/23/16 07:30 08/22/16 07:29 Thiamine HCl/ Dextrose (Vitamin B1/D5W) 56 ml @ 112 mls/hr Q24H IVPB 07/23/16 18:00 08/22/16 17:59 07/25/16 18:14 Vitamin A/Vitamin D (A & D Oint) 1 applic EVERY 12 HOURS TOPIC 07/24/16 21:00 08/23/16 20:59 07/25/16 08:27 Zolpidem Tartrate 5 mg 5 mg HSPRN PRN ORAL Insomnia 07/23/16 07:30 08/22/16 07:29 ANNIE DEJESUS Jul 25, 2016 18:44
[2016-07-25 20:00] VITALS: BP 130/78
--- NOTE | 2016-07-25 23:10 | Diagnostic Imaging Report ---
APPROVED REPORT CPT Code: 58674 Present Symptoms Comments: R/O DVT RIGHT LEG: Venous imaging reveals a patent deep venous system. There is no evidence of thrombus within the femoral, popliteal or tibial segments. The greater saphenous vein is also within normal limits. Doppler indicates normal spontaneous flow within these segments.
[2016-07-26] VITALS: BP 137/82
[2016-07-26 04:00] VITALS: BP 145/72
[2016-07-26 08:49] VITALS: BP 151/86
[2016-07-26] MEDS: Vitamin A&D Oint 2oz Tube TOPIC SCH ×2 (09:18→21:47)
[2016-07-26] MEDS: Phenytoin 100mg cap ORAL SCH ×3 (09:18→18:10)
[2016-07-26] MEDS: Heparin 5000 units/ml inj SUBQ SCH ×3 (09:19→21:49)
[2016-07-26 11:36] VITALS: BP 152/73
[2016-07-26 15:48] VITALS: BP 148/86
--- NOTE | 2016-07-26 17:15 | Consultation ---
Consult Note Consult Note patient seen/evaluated. Has a displaced Right Patella fracture, 2 months old. Also, has a minimally displaced Ankle fracture with intact mortise. No skin [place]. Unable to fully extend the Right knee Discussed the problem with the patient. This is a very difficult patella fracture to treat at this point because of distraction and retraction of the quadriceps muscle/tendon unit and comminution. I spoke with the patient regarding the problem and need for surgical intervention. This needs to be done by a trauma specialist with possible ORIF or patellectomy. Patient is currently not interested in any surgical intervention. Recommend transfer to higher level of care due to chronic retracted patella fracture for definitive treatment if patient chooses to proceed. Thank you LADONNA CALIX Jul 26, 2016 17:15
[2016-07-26] MEDS: Thiamine 100mg in D5W 55ml IVPB SCH (18:09)
[2016-07-26] MEDS: Folic Acid 1 MG, Magnesium Sulfate 2,000 MG, Multivitamin - 12 Injection 10 ML in NS w/... IV SCH (18:09)
[2016-07-26 20:00] VITALS: BP 144/76
--- NOTE | 2016-07-26 22:07 | Pulmonology Progress Note ---
Assessment/Plan Problems: (1) Right patella fracture (2) Seizure disorder (3) Homelessness Assessment/Plan pt/ot social service evalluaiton pain control dc planning Subjective Allergies: Coded Allergies: NO KNOWN ALLERGIES (Unverified Allergy, Unknown, 01/27/15) No Known Allergies (Unverified , 05/17/16) UNABLE TO ASSESS (Unverified , 03/22/15) Objective Last 24 Hour Vital Signs Date Time Temp Pulse Resp B/P Pulse Ox O2 Delivery O2 Flow Rate FiO2 07/26/16 20:00 97.9 77 17 144/76 Room Air 07/26/16 15:48 97.7 69 15 148/86 100 Room Air 07/26/16 13:51 97.7 07/26/16 11:36 97.7 65 14 152/73 97 Room Air 07/26/16 08:49 97.9 70 15 151/86 99 Room Air 07/26/16 04:00 98.7 70 20 145/72 97 Room Air 07/26/16 00:00 98.7 72 20 137/82 97 Intake and Output 07/25/16 07/26/16 19:00 07:00 Intake Total 1530 ml 924.2 ml Balance 1530 ml 924.2 ml Intake Oral 1440 ml IV Total 90 ml 924.2 ml # Voids 4 1 Objective General Appearance: WD/WN HEENT: normocephalic Respiratory/Chest: chest wall non-tender, lungs clear, normal breath sounds, no respiratory distress Cardiovascular: normal peripheral pulses, normal rate, regular rhythm Abdomen: normal bowel sounds, soft, non tender, no organomegaly, non distended Skin: no rash 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 Lymphatic: no neck adenopathy Current Medications Medications (Trade) Dose Ordered Sig/Amanda Route PRN Reason Start Time Stop Time Status Last Admin Dose Admin Acetaminophen (Tylenol) 650 mg Q4H PRN ORAL fever 07/23/16 07:30 08/22/16 07:29 Al Hydroxide/Mg Hydroxide (Mylanta II) 30 ml Q6H PRN ORAL dyspepsia 07/23/16 07:30 08/22/16 07:29 Dextrose (Dextrose 50%) STAT PRN IV Hypoglycemia 07/23/16 07:30 08/22/16 07:29 Folic Acid 1 mg/ Magnesium Sulfate 2000 mg/ Multivitamins 10 ml/Sodium Chloride 1,014.2 ml @ 125 mls/ hr Q24H IV 07/23/16 18:00 08/22/16 17:59 07/26/16 18:09 Heparin Sodium (Porcine) (Heparin 5000 units/ml) 5,000 units EVERY 12 HOURS SUBQ 07/23/16 09:00 08/22/16 08:59 07/26/16 09:19 Levetiracetam (Keppra) 500 mg EVERY 12 HOURS ORAL 07/23/16 09:00 08/22/16 08:59 07/26/16 21:47 Lorazepam (Ativan 2mg/ml 1ml) 0.5 mg Q4H PRN IV For Anxiety 07/23/16 07:30 07/30/16 07:29 Morphine Sulfate (Morphine Sulfate) 2 mg EVERY 4 HOURS PRN IVP For Pain 4-6 07/23/16 07:30 07/30/16 07:29 07/26/16 13:21 Ondansetron HCl (Zofran) 4 mg Q6H PRN IVP Nausea & Vomiting 07/23/16 07:30 08/22/16 07:29 Phenytoin (Dilantin) 100 mg THREE TIMES A DAY ORAL 07/23/16 09:00 08/22/16 08:59 07/26/16 18:10 Polyethylene Glycol (Miralax) 17 gm HSPRN PRN ORAL Constipation 07/23/16 07:30 08/22/16 07:29 Thiamine HCl/ Dextrose (Vitamin B1/D5W) 56 ml @ 112 mls/hr Q24H IVPB 07/23/16 18:00 08/22/16 17:59 07/26/16 18:09 Vitamin A/Vitamin D (A & D Oint) 1 applic EVERY 12 HOURS TOPIC 07/24/16 21:00 08/23/16 20:59 07/26/16 21:47 Zolpidem Tartrate 5 mg 5 mg HSPRN PRN ORAL Insomnia 07/23/16 07:30 08/22/16 07:29 ANNIE DEJESUS Jul 26, 2016 22:07
[2016-07-27] VITALS (7 sets, daily range): BP systolic 143–158; BP diastolic 69–85
--- NOTE | 2016-07-27 00:37 | Consultation ---
DATE OF CONSULTATION: 07/26/2016 ORTHOPEDIC CONSULTATION CONSULTING PHYSICIAN: Brian Carrasco M.D. REQUESTING PHYSICIAN: Ramo España M.D. REASON FOR CONSULTATION: Orthopedic consultation for right patellar fracture and right fibular fracture. BRIEF HISTORY: The patient is a 61-year-old male, who is homeless and alcoholic. He has had multiple admissions to the [facility]. He also was at [facility]. He was brought in on 07/23/2016 with complaint of right-sided leg pain. The patient states that approximately two months ago, he fell on concrete and injured his right knee and right ankle. It is not clear where he has been since then, however, he has been to the hospital multiple times. He was admitted because of his pain control and placement issues. He has not had any fever, chills, or signs of infection. He has been in the hospital since the past three or four days. Orthopedic consultation was obtained today regarding the patella fracture after x-rays revealed fracture. PAST MEDICAL HISTORY: History of alcoholism, poor health generally. PAST SURGICAL HISTORY: As above. MEDICATIONS: Please see chart. SOCIAL HISTORY: He has a history of alcohol abuse. He is homeless. He does not have a great social environment. REVIEW OF SYSTEMS: Not contributory. PHYSICAL EXAMINATION: GENERAL: The patient today reveals a pleasant gentleman, able to communicate well. EXTREMITIES: Examination of the right leg reveals that he has swelling over the right patella. Palpation reveals that he has evidence of a patella fracture with proximal fragment well proximal to the knee and distal fragment approximately at the level of the patellar tendon. There is a gap in between. He is unable to do a full straight leg raise. He is unable to fully extend his knee. He is able to wiggle his toes. There is no skin breakdown. There is swelling and erythema on the right knee. Examination of the right ankle reveals some tenderness over the lateral fibular area, there is no tenderness medially. He has some swelling over the ankle. There is no skin breakdown. X-RAYS: X-ray of the right knee three views, there is evidence of a comminuted patella fracture with significant distraction of the proximal and distal fragment. There is a large gap of about 4 to 5 cm between the 2 fragments. X-ray of the right ankle is reviewed. There is a spiral fibular fracture without significant displacement of the mortise. The mortise joint space appears intact. There is no medial-sided fracture. IMPRESSION: 1. Right spiral fibular fracture, stable, two months out. 2. Right comminuted patella fracture with about 4 to 5 cm distraction with 2 months out per history. PLAN: At this time, I had a discussion with the patient and explained to him my findings. I talked to him about the nature of problem. I explained to him that most likely he will require open reduction and internal fixation, although this is to be done by a trauma specialist due to chronicity of this fracture and significant retraction of the quadriceps tendons. It may be very difficult, if not impossible to reapproximate the two fracture fragments and put a fixation device in there. It was eventually felt this needs to be done by a trauma specialist. Postoperatively, it is imperative that he stays in the knee immobilizer and be able to comply with postoperative care as necessary. I discussed this with him and then asked him if he is interested in trying to find him placement for surgical intervention. He states that he is not interested in any surgical intervention at this time and he will not consent to surgery. Therefore, at this time, his best option is placement option and down the line, he may require either patellectomy or patella open reduction and internal fixation at [facility] by a trauma orthopedic specialty. At this time, Dr. España, has been evaluating this patient for the past 3 days and has been looking for placement. I defer to the social workers and the case aide. I recommend the patient to have knee immobilizer. I will go ahead and order the knee immobilizer for the patient. Should the patient choose to proceed with surgery, I recommend transfer to a [facility] where a traumatologist can do this complex delayed treatment of this comminuted patellar fracture with significant distraction. Thank you for allowing me to participate in the care of this patient. Brian Carrasco M.D. DR: Steffi JOB#: [id number] CC:
[2016-07-27] MEDS: Phenytoin 100mg cap ORAL SCH ×3 (08:49→17:39)
[2016-07-27] MEDS: Heparin 5000 units/ml inj SUBQ SCH ×2 (08:52→20:44)
[2016-07-27] MEDS: Vitamin A&D Oint 2oz Tube TOPIC SCH ×2 (08:57→20:46)
[2016-07-27] MEDS: Folic Acid 1 MG, Magnesium Sulfate 2,000 MG, Multivitamin - 12 Injection 10 ML in NS w/... IV SCH (17:41)
[2016-07-27] MEDS: Thiamine 100mg in D5W 55ml IVPB SCH (17:41)
--- NOTE | 2016-07-27 18:31 | Pulmonology Progress Note ---
Assessment/Plan Problems: (1) Right patella fracture (2) Seizure disorder (3) Homelessness (4) Closed right fibular fracture Assessment/Plan ortho consult appreciated, pt refusing surgery. pt/ot social service evaluation pain control dc planning Subjective ROS Limited/Unobtainable: No Allergies: Coded Allergies: NO KNOWN ALLERGIES (Unverified Allergy, Unknown, 01/27/15) No Known Allergies (Unverified , 05/17/16) UNABLE TO ASSESS (Unverified , 03/22/15) Objective Last 24 Hour Vital Signs Date Time Temp Pulse Resp B/P Pulse Ox O2 Delivery O2 Flow Rate FiO2 07/27/16 16:04 97.6 75 20 149/83 97 Room Air 07/27/16 11:47 97.8 65 19 143/69 96 Room Air 07/27/16 08:13 97.5 65 20 143/73 97 Room Air 07/27/16 04:00 97.4 70 17 149/79 100 Room Air 07/27/16 00:00 97.5 67 18 158/85 97 Room Air 07/26/16 20:00 97.9 77 17 144/76 Room Air Intake and Output 07/26/16 07/27/16 19:00 07:00 Intake Total 3125 ml 889.2 ml Output Total 800 ml Balance 2325 ml 889.2 ml Intake Oral 3000 ml IV Total 125 ml 889.2 ml Output Urine Total 800 ml # Voids 6 # Bowel Movements 1 Objective General Appearance: WD/WN HEENT: normocephalic Respiratory/Chest: chest wall non-tender, lungs clear, normal breath sounds, no respiratory distress Cardiovascular: normal peripheral pulses, normal rate, regular rhythm Abdomen: normal bowel sounds, soft, non tender, no organomegaly, non distended Skin: no rash 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 Lymphatic: no neck adenopathy Current Medications Medications (Trade) Dose Ordered Sig/Amanda Route PRN Reason Start Time Stop Time Status Last Admin Dose Admin Acetaminophen (Tylenol) 650 mg Q4H PRN ORAL fever 07/23/16 07:30 08/22/16 07:29 Al Hydroxide/Mg Hydroxide (Mylanta II) 30 ml Q6H PRN ORAL dyspepsia 07/23/16 07:30 08/22/16 07:29 Dextrose (Dextrose 50%) STAT PRN IV Hypoglycemia 07/23/16 07:30 08/22/16 07:29 Folic Acid 1 mg/ Magnesium Sulfate 2000 mg/ Multivitamins 10 ml/Sodium Chloride 1,014.2 ml @ 125 mls/ hr Q24H IV 07/23/16 18:00 08/22/16 17:59 07/27/16 17:41 Heparin Sodium (Porcine) (Heparin 5000 units/ml) 5,000 units EVERY 12 HOURS SUBQ 07/23/16 09:00 08/22/16 08:59 07/27/16 08:52 Levetiracetam (Keppra) 500 mg EVERY 12 HOURS ORAL 07/23/16 09:00 08/22/16 08:59 07/27/16 08:49 Lorazepam (Ativan 2mg/ml 1ml) 0.5 mg Q4H PRN IV For Anxiety 07/23/16 07:30 07/30/16 07:29 Morphine Sulfate (Morphine Sulfate) 2 mg EVERY 4 HOURS PRN IVP For Pain 4-6 07/23/16 07:30 07/30/16 07:29 07/26/16 13:21 Ondansetron HCl (Zofran) 4 mg Q6H PRN IVP Nausea & Vomiting 07/23/16 07:30 08/22/16 07:29 Phenytoin (Dilantin) 100 mg THREE TIMES A DAY ORAL 07/23/16 09:00 08/22/16 08:59 07/27/16 17:39 Polyethylene Glycol (Miralax) 17 gm HSPRN PRN ORAL Constipation 07/23/16 07:30 08/22/16 07:29 Thiamine HCl/ Dextrose (Vitamin B1/D5W) 56 ml @ 112 mls/hr Q24H IVPB 07/23/16 18:00 08/22/16 17:59 07/27/16 17:41 Vitamin A/Vitamin D (A & D Oint) 1 applic EVERY 12 HOURS TOPIC 07/24/16 21:00 08/23/16 20:59 07/27/16 08:57 Zolpidem Tartrate 5 mg 5 mg HSPRN PRN ORAL Insomnia 07/23/16 07:30 08/22/16 07:29 ANNIE DEJESUS Jul 27, 2016 18:31
[2016-07-28 04:00] VITALS: BP 132/64
[2016-07-28 08:00] VITALS: BP 140/72
[2016-07-28] MEDS: Vitamin A&D Oint 2oz Tube TOPIC SCH ×2 (09:16→20:56)
[2016-07-28] MEDS: Phenytoin 100mg cap ORAL SCH ×3 (09:16→17:11)
[2016-07-28] MEDS: Heparin 5000 units/ml inj SUBQ SCH ×2 (09:17→21:00)
[2016-07-28 12:00] VITALS: BP 136/63
[2016-07-28 16:00] VITALS: BP 124/57
[2016-07-28] MEDS: Folic Acid 1 MG, Magnesium Sulfate 2,000 MG, Multivitamin - 12 Injection 10 ML in NS w/... IV SCH (17:11)
[2016-07-28] MEDS: Thiamine 100mg in D5W 55ml IVPB SCH (17:12)
[2016-07-28] MEDS ORDERED: Magnesium Oxide 400mg tab ORAL SCH (18:00)
[2016-07-28 20:00] VITALS: BP 131/65
--- NOTE | 2016-07-28 23:19 | Pulmonology Progress Note ---
Assessment/Plan Problems: (1) Right patella fracture (2) Seizure disorder (3) Homelessness (4) Closed right fibular fracture Assessment/Plan ortho consult appreciated, pt refusing surgery. pt/ot social service evaluation pain control dc planning Subjective Allergies: Coded Allergies: NO KNOWN ALLERGIES (Unverified Allergy, Unknown, 01/27/15) No Known Allergies (Unverified , 05/17/16) UNABLE TO ASSESS (Unverified , 03/22/15) Objective Last 24 Hour Vital Signs Date Time Temp Pulse Resp B/P Pulse Ox O2 Delivery O2 Flow Rate FiO2 07/28/16 20:00 98.2 70 18 131/65 Room Air 07/28/16 16:00 97.2 58 20 124/57 99 Room Air 07/28/16 12:00 97.3 57 20 136/63 97 Room Air 07/28/16 08:00 97.7 56 20 140/72 99 Nasal Cannula 2.0 07/28/16 04:00 98.4 69 17 132/64 96 Room Air 07/27/16 23:46 97.9 60 18 152/72 95 Room Air Intake and Output 07/27/16 07/28/16 19:00 07:00 Intake Total 1400 ml Output Total 1600 ml Balance -200 ml Intake Oral 1400 ml Output Urine Total 1600 ml # Voids 2 Objective General Appearance: WD/WN HEENT: normocephalic Respiratory/Chest: chest wall non-tender, lungs clear, normal breath sounds, no respiratory distress Cardiovascular: normal peripheral pulses, normal rate, regular rhythm Abdomen: normal bowel sounds, soft, non tender, no organomegaly, non distended Skin: no rash 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 Lymphatic: no neck adenopathy Current Medications Medications (Trade) Dose Ordered Sig/Amanda Route PRN Reason Start Time Stop Time Status Last Admin Dose Admin Acetaminophen (Tylenol) 650 mg Q4H PRN ORAL fever 07/23/16 07:30 08/22/16 07:29 Al Hydroxide/Mg Hydroxide (Mylanta II) 30 ml Q6H PRN ORAL dyspepsia 07/23/16 07:30 08/22/16 07:29 Dextrose (Dextrose 50%) STAT PRN IV Hypoglycemia 07/23/16 07:30 08/22/16 07:29 Folic Acid (Folate) 1 mg DAILY ORAL 07/29/16 09:00 08/28/16 08:59 Heparin Sodium (Porcine) (Heparin 5000 units/ml) 5,000 units EVERY 12 HOURS SUBQ 07/23/16 09:00 08/22/16 08:59 07/28/16 21:00 Levetiracetam (Keppra) 500 mg EVERY 12 HOURS ORAL 07/23/16 09:00 08/22/16 08:59 07/28/16 20:56 Lorazepam (Ativan 2mg/ml 1ml) 0.5 mg Q4H PRN IV For Anxiety 07/23/16 07:30 07/30/16 07:29 Magnesium Oxide (Mag-Ox 400mg) 400 mg DAILY ORAL 07/29/16 09:00 08/28/16 08:59 Morphine Sulfate (Morphine Sulfate) 2 mg EVERY 4 HOURS PRN IVP For Pain 4-07/23/16 07:30 07/30/16 07:29 07/26/16 13:21 Multivitamins (Multivitamins) 1 tab DAILY ORAL 07/29/16 09:00 08/28/16 08:59 Ondansetron HCl (Zofran) 4 mg Q6H PRN IVP Nausea & Vomiting 07/23/16 07:30 08/22/16 07:29 Phenytoin (Dilantin) 100 mg THREE TIMES A DAY ORAL 07/23/16 09:00 08/22/16 08:59 07/28/16 17:11 Polyethylene Glycol (Miralax) 17 gm HSPRN PRN ORAL Constipation 07/23/16 07:30 08/22/16 07:29 Potassium Chloride (K-Dur) 20 meq DAILY ORAL 07/29/16 09:00 08/28/16 08:59 Thiamine HCl (Vitamin B1) 100 mg DAILY ORAL 07/29/16 09:00 08/28/16 08:59 Vitamin A/Vitamin D (A & D Oint) 1 applic EVERY 12 HOURS TOPIC 07/24/16 21:00 08/23/16 20:59 07/28/16 20:56 Zolpidem Tartrate (Ambien) 5 mg HSPRN PRN ORAL Insomnia 07/23/16 07:30 08/22/16 07:29 ANNIE DEJESUS Jul 28, 2016 23:19
[2016-07-29] VITALS: BP 128/71
[2016-07-29 04:00] VITALS: BP 128/72
[2016-07-29] MEDS: Phenytoin 100mg cap ORAL SCH ×3 (08:44→17:00)
[2016-07-29] MEDS: Thiamine 100mg tab ORAL SCH (08:44)
[2016-07-29] MEDS: Magnesium Oxide 400mg tab ORAL SCH (08:44)
[2016-07-29] MEDS: Heparin 5000 units/ml inj SUBQ SCH ×2 (08:46→20:51)
[2016-07-29] MEDS: Vitamin A&D Oint 2oz Tube TOPIC SCH ×2 (08:52→20:53)
[2016-07-29 11:55] VITALS: BP 135/75
[2016-07-29 16:03] VITALS: BP 128/81
--- NOTE | 2016-07-29 18:40 | Pulmonology Progress Note ---
Assessment/Plan Problems: (1) Right patella fracture (2) Seizure disorder (3) Homelessness (4) Closed right fibular fracture Assessment/Plan pt refusing surgery. pt/ot social service evaluation pain control dc planning Subjective ROS Limited/Unobtainable: No Constitutional: Reports: no symptoms HEENT: Repors: no symptoms Respiratory: Reports: no symptoms Allergies: Coded Allergies: NO KNOWN ALLERGIES (Unverified Allergy, Unknown, 01/27/15) No Known Allergies (Unverified , 05/17/16) UNABLE TO ASSESS (Unverified , 03/22/15) Objective Last 24 Hour Vital Signs Date Time Temp Pulse Resp B/P Pulse Ox O2 Delivery O2 Flow Rate FiO2 07/29/16 16:03 98.3 71 20 128/81 95 Room Air 07/29/16 11:55 98.1 64 21 135/75 96 Room Air 07/29/16 04:00 98.0 79 18 128/72 95 Room Air 07/29/16 00:00 97.7 74 18 128/71 97 Room Air 07/28/16 20:00 98.2 70 18 131/65 Room Air Intake and Output 07/28/16 07/29/16 19:00 07:00 Intake Total 320 ml 800 ml Balance 320 ml 800 ml Intake Oral 320 ml 800 ml # Voids 3 5 Objective General Appearance: WD/WN HEENT: normocephalic Respiratory/Chest: chest wall non-tender, lungs clear, normal breath sounds, no respiratory distress Cardiovascular: normal peripheral pulses, normal rate, regular rhythm Abdomen: normal bowel sounds, soft, non tender, no organomegaly, non distended Skin: no rash 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 Lymphatic: no neck adenopathy Current Medications Medications (Trade) Dose Ordered Sig/Amanda Route PRN Reason Start Time Stop Time Status Last Admin Dose Admin Acetaminophen (Tylenol) 650 mg Q4H PRN ORAL fever 07/23/16 07:30 08/22/16 07:29 Al Hydroxide/Mg Hydroxide (Mylanta II) 30 ml Q6H PRN ORAL dyspepsia 07/23/16 07:30 08/22/16 07:29 Dextrose (Dextrose 50%) STAT PRN IV Hypoglycemia 07/23/16 07:30 08/22/16 07:29 Folic Acid (Folate) 1 mg DAILY ORAL 07/29/16 09:00 08/28/16 08:59 07/29/16 08:44 Heparin Sodium (Porcine) (Heparin 5000 units/ml) 5,000 units EVERY 12 HOURS SUBQ 07/23/16 09:00 08/22/16 08:59 07/29/16 08:46 Levetiracetam (Keppra) 500 mg EVERY 12 HOURS ORAL 07/23/16 09:00 08/22/16 08:59 07/29/16 08:44 Lorazepam (Ativan 2mg/ml 1ml) 0.5 mg Q4H PRN IV For Anxiety 07/23/16 07:30 07/30/16 07:29 Magnesium Oxide (Mag-Ox 400mg) 400 mg DAILY ORAL 07/29/16 09:00 08/28/16 08:59 07/29/16 08:44 Morphine Sulfate (Morphine Sulfate) 2 mg EVERY 4 HOURS PRN IVP For Pain 4-6 07/23/16 07:30 07/30/16 07:29 07/26/16 13:21 Multivitamins (Multivitamins) 1 tab DAILY ORAL 07/29/16 09:00 08/28/16 08:59 07/29/16 08:44 Ondansetron HCl (Zofran) 4 mg Q6H PRN IVP Nausea & Vomiting 07/23/16 07:30 08/22/16 07:29 Phenytoin (Dilantin) 100 mg THREE TIMES A DAY ORAL 07/23/16 09:00 08/22/16 08:59 07/29/16 17:00 Polyethylene Glycol (Miralax) 17 gm HSPRN PRN ORAL Constipation 07/23/16 07:30 08/22/16 07:29 Potassium Chloride (K-Dur) 20 meq DAILY ORAL 07/29/16 09:00 08/28/16 08:59 07/29/16 08:43 Thiamine HCl (Vitamin B1) 100 mg DAILY ORAL 07/29/16 09:00 08/28/16 08:59 07/29/16 08:44 Vitamin A/Vitamin D (A & D Oint) 1 applic EVERY 12 HOURS TOPIC 07/24/16 21:00 08/23/16 20:59 07/29/16 08:52 Zolpidem Tartrate (Ambien) 5 mg HSPRN PRN ORAL Insomnia 07/23/16 07:30 08/22/16 07:29 ANINE DEJESUS Jul 29, 2016 18:40
[2016-07-29 20:00] VITALS: BP 132/65
[2016-07-30] VITALS: BP 136/74
[2016-07-30 04:00] VITALS: BP 83/42
[2016-07-30 08:02] VITALS: BP 144/61
[2016-07-30] MEDS: Phenytoin 100mg cap ORAL SCH ×3 (09:21→17:21)
[2016-07-30] MEDS: Magnesium Oxide 400mg tab ORAL SCH (09:25)
[2016-07-30] MEDS: Thiamine 100mg tab ORAL SCH (09:27)
[2016-07-30] MEDS: Heparin 5000 units/ml inj SUBQ SCH ×2 (09:42→20:46)
[2016-07-30] MEDS: Vitamin A&D Oint 2oz Tube TOPIC SCH ×2 (09:44→20:44)
[2016-07-30 11:55] VITALS: BP 127/57
[2016-07-30 16:24] VITALS: BP 135/69
[2016-07-30 20:00] VITALS: BP 139/84
--- NOTE | 2016-07-30 23:11 | Pulmonology Progress Note ---
Assessment/Plan Problems: (1) Right patella fracture (2) Seizure disorder (3) Homelessness (4) Closed right fibular fracture Assessment/Plan pt refusing surgery. pt/ot social service evaluation pain control dc planning Subjective ROS Limited/Unobtainable: No Allergies: Coded Allergies: NO KNOWN ALLERGIES (Unverified Allergy, Unknown, 01/27/15) No Known Allergies (Unverified , 05/17/16) UNABLE TO ASSESS (Unverified , 03/22/15) Objective Last 24 Hour Vital Signs Date Time Temp Pulse Resp B/P Pulse Ox O2 Delivery O2 Flow Rate FiO2 07/30/16 20:00 97.9 70 17 139/84 99 Room Air 07/30/16 16:24 98.2 67 20 135/69 96 Room Air 07/30/16 11:55 98.6 56 19 127/57 96 Room Air 07/30/16 10:50 98.2 07/30/16 08:02 98.2 60 19 144/61 97 Room Air 07/30/16 04:00 98.2 69 17 83/42 95 Room Air 07/30/16 00:00 98.1 73 16 136/74 98 Room Air 07/30/16 00:00 98.0 73 18 136/74 98 Room Air Intake and Output 07/29/16 07/30/16 19:00 07:00 Intake Total 1200 ml 180 ml Output Total 1000 ml 700 ml Balance 200 ml -520 ml Intake Oral 1200 ml 180 ml Output Urine Total 1000 ml 700 ml # Voids 4 4 Objective General Appearance: WD/WN HEENT: normocephalic Respiratory/Chest: chest wall non-tender, lungs clear, normal breath sounds, no respiratory distress Cardiovascular: normal peripheral pulses, normal rate, regular rhythm Abdomen: normal bowel sounds, soft, non tender, no organomegaly, non distended Skin: no rash 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 Lymphatic: no neck adenopathy Current Medications Medications (Trade) Dose Ordered Sig/Amanda Route PRN Reason Start Time Stop Time Status Last Admin Dose Admin Acetaminophen (Tylenol) 650 mg Q4H PRN ORAL fever 07/23/16 07:30 08/22/16 07:29 07/30/16 09:49 Al Hydroxide/Mg Hydroxide (Mylanta II) 30 ml Q6H PRN ORAL dyspepsia 07/23/16 07:30 08/22/16 07:29 Dextrose (Dextrose 50%) STAT PRN IV Hypoglycemia 07/23/16 07:30 08/22/16 07:29 Folic Acid (Folate) 1 mg DAILY ORAL 07/29/16 09:00 08/28/16 08:59 07/30/16 09:22 Heparin Sodium (Porcine) (Heparin 5000 units/ml) 5,000 units EVERY 12 HOURS SUBQ 07/23/16 09:00 08/22/16 08:59 07/30/16 20:46 Levetiracetam (Keppra) 500 mg EVERY 12 HOURS ORAL 07/23/16 09:00 08/22/16 08:59 07/30/16 20:43 Magnesium Oxide (Mag-Ox 400mg) 400 mg DAILY ORAL 07/29/16 09:00 08/28/16 08:59 07/30/16 09:25 Multivitamins (Multivitamins) 1 tab DAILY ORAL 07/29/16 09:00 08/28/16 08:59 07/30/16 09:26 Ondansetron HCl (Zofran) 4 mg Q6H PRN IVP Nausea & Vomiting 07/23/16 07:30 08/22/16 07:29 Phenytoin (Dilantin) 100 mg THREE TIMES A DAY ORAL 07/23/16 09:00 08/22/16 08:59 07/30/16 17:21 Polyethylene Glycol (Miralax) 17 gm HSPRN PRN ORAL Constipation 07/23/16 07:30 08/22/16 07:29 Potassium Chloride (K-Dur) 20 meq DAILY ORAL 07/29/16 09:00 08/28/16 08:59 07/30/16 09:24 Thiamine HCl (Vitamin B1) 100 mg DAILY ORAL 07/29/16 09:00 08/28/16 08:59 07/30/16 09:27 Vitamin A/Vitamin D (A & D Oint) 1 applic EVERY 12 HOURS TOPIC 07/24/16 21:00 08/23/16 20:59 07/30/16 20:44 Zolpidem Tartrate (Ambien) 5 mg HSPRN PRN ORAL Insomnia 07/23/16 07:30 08/22/16 07:29 ANNIE DEJESUS Jul 30, 2016 23:11
[2016-07-31] VITALS: BP 132/60
[2016-07-31 04:00] VITALS: BP 120/59
[2016-07-31 08:27] VITALS: BP 133/64
[2016-07-31] MEDS: Magnesium Oxide 400mg tab ORAL SCH (09:11)
[2016-07-31] MEDS: Phenytoin 100mg cap ORAL SCH ×3 (09:11→18:13)
[2016-07-31] MEDS: Thiamine 100mg tab ORAL SCH (09:11)
[2016-07-31] MEDS: Heparin 5000 units/ml inj SUBQ SCH ×3 (09:13→23:09)
[2016-07-31] MEDS: Vitamin A&D Oint 2oz Tube TOPIC SCH ×2 (09:14→23:07)
[2016-07-31 12:18] VITALS: BP 129/57
[2016-07-31 15:40] VITALS: BP 120/59
[2016-07-31 20:00] VITALS: BP 133/64
--- NOTE | 2016-07-31 22:45 | Wound Care Consultation ---
Wound Assessment Wound Assessment #1: Wound Present on Admission: Yes New Wound: No Status Change of Wound: No Wound Location Body Site Modif: left, right Wound Location Body Site: foot Wound Type: other - dry and flky skin Wound Drainage Amount: None Wound Drainage Odor: None/Absent Tissue Surrounding Wound: Intact Wound General Appearance: Asymptomatic Wound Assessment #2: Wound Number: #2 Wound Present on Admission: Yes New Wound: No Status Change of Wound: No Wound Location Body Site Modif: left Wound Location Body Site: hand Wound Type: other - open wound Taj Test: Does not Taj Wound Thickness: Full Thickness Wound Length: 0.8 Wound Width: 0.8 Wound Depth: utd Percent of Wound [place]/Red: 20 Percent of Wound Bed Yellow/Wh: 80 Wound Drainage Amount: None Wound Drainage Odor: None/Absent Tissue Surrounding Wound: Intact Wound General Appearance: Reddened Wound Comment #1 Left hands with multiple scars and dry scabs. Multiple open wounds Resolved except left 1st metacarpal bone finger with open wound etiology unknown still the same from the last time i saw this Pt. will cont to monitor. no s/s of infection noted #2 Left and right feet with dry and flaky skin Recommendation -Keep clean and moist for dry skin. Apply A&D ointment on both feet. -Local wound care for open wounds on finger Cleanse with saline, pat dry, apply adaptic, apply 4x4, secure with paper tape daily and PRN soiled/dislodged -Optimize nutrition -Assess and f/u accordingly for any changes MELY GAMA RN Jul 31, 2016 22:45
[2016-08-01] VITALS: BP 122/59
[2016-08-01 04:00] VITALS: BP 127/68
[2016-08-01 08:00] VITALS: BP 136/60
[2016-08-01] MEDS: Thiamine 100mg tab ORAL SCH (10:37)
[2016-08-01] MEDS: Magnesium Oxide 400mg tab ORAL SCH (10:37)
[2016-08-01] MEDS: Phenytoin 100mg cap ORAL SCH ×3 (10:38→18:10)
[2016-08-01] MEDS: Vitamin A&D Oint 2oz Tube TOPIC SCH ×2 (10:38→21:14)
[2016-08-01] MEDS: Heparin 5000 units/ml inj SUBQ SCH ×2 (10:41→21:00)
[2016-08-01 12:00] VITALS: BP 127/65
--- NOTE | 2016-08-01 15:46 | Pulmonology Progress Note ---
Assessment/Plan Problems: (1) Right patella fracture (2) Seizure disorder (3) Homelessness (4) Closed right fibular fracture Assessment/Plan pt refusing surgery. pt/ot social service evaluation pain control dc planning Subjective ROS Limited/Unobtainable: No Allergies: Coded Allergies: NO KNOWN ALLERGIES (Unverified Allergy, Unknown, 01/27/15) No Known Allergies (Unverified , 05/17/16) UNABLE TO ASSESS (Unverified , 03/22/15) Objective Last 24 Hour Vital Signs Date Time Temp Pulse Resp B/P Pulse Ox O2 Delivery O2 Flow Rate FiO2 08/01/16 12:00 98.2 59 20 127/65 98 Room Air 08/01/16 08:00 97.5 74 20 136/60 97 Room Air 08/01/16 04:00 97.7 56 20 127/68 98 Room Air 08/01/16 00:00 97.9 63 20 122/59 96 Room Air 07/31/16 20:00 98.2 70 18 133/64 97 Room Air Intake and Output 07/31/16 08/01/16 19:00 07:00 Intake Total 980 ml 450 ml Output Total 1250 ml Balance -270 ml 450 ml Intake Oral 980 ml 450 ml Output Urine Total 1250 ml # Voids 2 Objective General Appearance: WD/WN HEENT: normocephalic Respiratory/Chest: chest wall non-tender, lungs clear, normal breath sounds, no respiratory distress Cardiovascular: normal peripheral pulses, normal rate, regular rhythm Abdomen: normal bowel sounds, soft, non tender, no organomegaly, non distended Skin: no rash 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 Lymphatic: no neck adenopathy Current Medications Medications (Trade) Dose Ordered Sig/Amanda Route PRN Reason Start Time Stop Time Status Last Admin Dose Admin Acetaminophen (Tylenol) 650 mg Q4H PRN ORAL fever 07/23/16 07:30 08/22/16 07:29 07/30/16 09:49 Al Hydroxide/Mg Hydroxide (Mylanta II) 30 ml Q6H PRN ORAL dyspepsia 07/23/16 07:30 08/22/16 07:29 Dextrose (Dextrose 50%) STAT PRN IV Hypoglycemia 07/23/16 07:30 08/22/16 07:29 Folic Acid (Folate) 1 mg DAILY ORAL 07/29/16 09:00 08/28/16 08:59 08/01/16 10:37 Heparin Sodium (Porcine) (Heparin 5000 units/ml) 5,000 units EVERY 12 HOURS SUBQ 07/23/16 09:00 08/22/16 08:59 08/01/16 10:41 Levetiracetam (Keppra) 500 mg EVERY 12 HOURS ORAL 07/23/16 09:00 08/22/16 08:59 08/01/16 10:37 Magnesium Oxide (Mag-Ox 400mg) 400 mg DAILY ORAL 07/29/16 09:00 08/28/16 08:59 08/01/16 10:37 Multivitamins (Multivitamins) 1 tab DAILY ORAL 07/29/16 09:00 08/28/16 08:59 08/01/16 10:37 Ondansetron HCl (Zofran) 4 mg Q6H PRN IVP Nausea & Vomiting 07/23/16 07:30 08/22/16 07:29 Phenytoin (Dilantin) 100 mg THREE TIMES A DAY ORAL 07/23/16 09:00 08/22/16 08:59 08/01/16 13:48 Polyethylene Glycol (Miralax) 17 gm HSPRN PRN ORAL Constipation 07/23/16 07:30 08/22/16 07:29 Potassium Chloride (K-Dur) 20 meq DAILY ORAL 07/29/16 09:00 08/28/16 08:59 08/01/16 10:38 Thiamine HCl (Vitamin B1) 100 mg DAILY ORAL 07/29/16 09:00 08/28/16 08:59 08/01/16 10:37 Vitamin A/Vitamin D (A & D Oint) 1 applic EVERY 12 HOURS TOPIC 08/01/16 09:00 08/31/16 08:59 08/01/16 10:38 Zolpidem Tartrate (Ambien) 5 mg HSPRN PRN ORAL Insomnia 07/23/16 07:30 08/22/16 07:29 ANNIE DEJESUS Aug 01, 2016 15:46
[2016-08-01 16:00] VITALS: BP 131/75
[2016-08-01 20:00] VITALS: BP 130/69
[2016-08-01] MEDS: Zolpidem 5mg tab ORAL PRN (21:20)
[2016-08-02] VITALS (7 sets, daily range): BP systolic 102–130; BP diastolic 51–68
--- NOTE | 2016-08-02 07:27 | Pulmonology Progress Note ---
Assessment/Plan Assessment/Plan ASSESSMENT R comminuted patella fracture R spiral fibula fracture seizure disorder hx of ETOH abuse homeless [facility] floor ortho seen and evaluated both fracture stable, per history about 2 months old sx needs to be done [facility] by trauma ortho surgeon patient is not interested in surgery and declining transfer and surgical interventions knee immobilizer pain management PT/OT s/p banana bag continue Thiamine and folic acid ETOH w/drawal precautions, Librium prn DVT prophylaxis elevated D dimer, will check venous Duplex BLE dc planning when placement found PT to document if able to walk safely with walker while NWB RLE case discussed and evaluated by supervising physician Subjective Allergies: Coded Allergies: NO KNOWN ALLERGIES (Unverified Allergy, Unknown, 01/27/15) No Known Allergies (Unverified , 05/17/16) UNABLE TO ASSESS (Unverified , 03/22/15) Subjective Patient is unwilling to engage in conversation no eye contact, not answering most of the questions denies chest pain, SOB, according to patient is able to ambulate with walker Objective Last 24 Hour Vital Signs Date Time Temp Pulse Resp B/P Pulse Ox O2 Delivery O2 Flow Rate FiO2 08/02/16 04:00 98.0 80 18 125/63 98 Room Air 08/02/16 02:32 97.4 68 18 130/60 97 Room Air 08/02/16 00:00 97.2 72 18 128/60 98 Room Air 08/01/16 20:00 97.7 78 20 130/69 95 Room Air 08/01/16 16:00 97.9 68 20 131/75 97 Room Air 08/01/16 12:00 98.2 59 20 127/65 98 Room Air 08/01/16 08:00 97.5 74 20 136/60 97 Room Air Intake and Output 08/01/16 08/02/16 19:00 07:00 Intake Total 320 ml 800 ml Balance 320 ml 800 ml Intake Oral 320 ml 800 ml # Voids 6 6 # Bowel Movements 1 General Appearance: WD/WN, no acute distress HEENT: normocephalic, atraumatic, anicteric, mucous membranes moist Respiratory/Chest: lungs clear - with moderate air entry Cardiovascular: no JVD Abdomen: normal bowel sounds, soft, non tender Genitourinary: normal external genitalia Extremities: no edema, pedal pulses normal 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: no motor/sensory deficits, alert, oriented x 3, responsive Musculoskeletal: normal muscle bulk, other - unable to fully extend R knee or do straight leg raise, TTP lateral fibula, able to wiggle toes, R ankle edema Current Medications Medications (Trade) Dose Ordered Sig/Amanda Route PRN Reason Start Time Stop Time Status Last Admin Dose Admin Acetaminophen (Tylenol) 650 mg Q4H PRN ORAL fever 07/23/16 07:30 08/22/16 07:29 08/01/16 21:20 Al Hydroxide/Mg Hydroxide (Mylanta II) 30 ml Q6H PRN ORAL dyspepsia 07/23/16 07:30 08/22/16 07:29 Dextrose (Dextrose 50%) STAT PRN IV Hypoglycemia 07/23/16 07:30 08/22/16 07:29 Folic Acid (Folate) 1 mg DAILY ORAL 07/29/16 09:00 08/28/16 08:59 08/01/16 10:37 Heparin Sodium (Porcine) (Heparin 5000 units/ml) 5,000 units EVERY 12 HOURS SUBQ 07/23/16 09:00 08/22/16 08:59 08/01/16 21:00 Levetiracetam (Keppra) 500 mg EVERY 12 HOURS ORAL 07/23/16 09:00 08/22/16 08:59 08/01/16 20:44 Magnesium Oxide (Mag-Ox 400mg) 400 mg DAILY ORAL 07/29/16 09:00 08/28/16 08:59 08/01/16 10:37 Multivitamins (Multivitamins) 1 tab DAILY ORAL 07/29/16 09:00 08/28/16 08:59 08/01/16 10:37 Ondansetron HCl (Zofran) 4 mg Q6H PRN IVP Nausea & Vomiting 07/23/16 07:30 08/22/16 07:29 Phenytoin (Dilantin) 100 mg THREE TIMES A DAY ORAL 07/23/16 09:00 08/22/16 08:59 08/01/16 18:10 Polyethylene Glycol (Miralax) 17 gm HSPRN PRN ORAL Constipation 07/23/16 07:30 08/22/16 07:29 Potassium Chloride (K-Dur) 20 meq DAILY ORAL 07/29/16 09:00 08/28/16 08:59 08/01/16 10:38 Thiamine HCl (Vitamin B1) 100 mg DAILY ORAL 07/29/16 09:00 08/28/16 08:59 08/01/16 10:37 Vitamin A/Vitamin D (A & D Oint) 1 applic EVERY 12 HOURS TOPIC 08/01/16 09:00 08/31/16 08:59 08/01/16 21:14 Zolpidem Tartrate (Ambien) 5 mg HSPRN PRN ORAL Insomnia 07/23/16 07:30 08/22/16 07:29 08/01/16 21:20 Markus ([facility])Jen NP Aug 02, 2016 07:27
[2016-08-02] MEDS: Phenytoin 100mg cap ORAL SCH ×3 (10:06→17:25)
[2016-08-02] MEDS: Thiamine 100mg tab ORAL SCH (10:06)
[2016-08-02] MEDS: Magnesium Oxide 400mg tab ORAL SCH (10:07)
[2016-08-02] MEDS: Vitamin A&D Oint 2oz Tube TOPIC SCH ×2 (10:07→21:45)
[2016-08-02] MEDS: Heparin 5000 units/ml inj SUBQ SCH ×2 (10:12→20:45)
--- NOTE | 2016-08-02 17:24 | Diagnostic Imaging Report ---
APPROVED REPORT CPT Code: 35162 Present Symptoms Lower Extremity Pain: Bilateral BILATERAL: Imaging reveals a patent deep venous system bilaterally. There is no evidence of thrombus within the femoral, popliteal or tibial segments. The greater saphenous veins are also within normal limits. Doppler indicates normal spontaneous flow within these segments.
[2016-08-02] MEDS: Zolpidem 5mg tab ORAL PRN (22:32)
[2016-08-03] VITALS: BP 124/54
[2016-08-03 04:00] VITALS: BP 115/52
[2016-08-03 08:50] VITALS: BP 125/66
[2016-08-03] MEDS: Heparin 5000 units/ml inj SUBQ SCH ×2 (09:00→20:48)
[2016-08-03] MEDS: Magnesium Oxide 400mg tab ORAL SCH (10:07)
[2016-08-03] MEDS: Thiamine 100mg tab ORAL SCH (10:07)
[2016-08-03] MEDS: Phenytoin 100mg cap ORAL SCH ×3 (10:07→18:00)
[2016-08-03] MEDS: Vitamin A&D Oint 2oz Tube TOPIC SCH ×2 (10:08→20:48)
--- NOTE | 2016-08-03 10:32 | Pulmonology Progress Note ---
Assessment/Plan Assessment/Plan ASSESSMENT R comminuted patella fracture R spiral fibula fracture seizure disorder hx of ETOH abuse homeless [facility] floor ortho seen and evaluated both fracture stable, per history about 2 months old sx needs to be done [facility] by trauma ortho surgeon patient is not interested in surgery and declining transfer and surgical interventions knee immobilizer pain management PT/OT s/p banana bag continue Thiamine and folic acid ETOH w/drawal precautions, Librium prn DVT prophylaxis elevated D dimer, will check venous Duplex BLE dc planning when placement found PT to document if able to walk safely with walker while NWB RLE case discussed and evaluated by supervising physician Subjective Allergies: Coded Allergies: NO KNOWN ALLERGIES (Unverified Allergy, Unknown, 01/27/15) No Known Allergies (Unverified , 05/17/16) UNABLE TO ASSESS (Unverified , 03/22/15) Subjective Patient is unwilling to engage in conversation denies chest pain, SOB, according to patient - able to ambulate with walker Objective Last 24 Hour Vital Signs Date Time Temp Pulse Resp B/P Pulse Ox O2 Delivery O2 Flow Rate FiO2 08/03/16 08:50 97.7 61 14 125/66 98 Room Air 08/03/16 04:00 97.0 68 20 115/52 98 Room Air 08/03/16 00:00 97.2 65 20 124/54 96 Room Air 08/02/16 20:00 97.5 82 20 102/51 98 Room Air 08/02/16 16:27 97.9 67 16 130/68 99 Room Air 08/02/16 11:55 97.5 57 14 118/58 Room Air Intake and Output 08/02/16 08/03/16 19:00 07:00 Intake Total 2500 ml 1100 ml Balance 2500 ml 1100 ml Intake Oral 2500 ml 1100 ml # Voids 4 4 # Bowel Movements 2 Objective General Appearance: WD/WN, no acute distress HEENT: normocephalic, atraumatic, anicteric, mucous membranes moist Respiratory/Chest: lungs clear - with moderate air entry Cardiovascular: no JVD Abdomen: normal bowel sounds, soft, non tender Genitourinary: normal external genitalia Extremities: no edema, pedal pulses normal 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: no motor/sensory deficits, alert, oriented x 3, responsive Musculoskeletal: normal muscle bulk, other - unable to fully extend R knee or do straight leg raise, TTP lateral fibula, able to wiggle toes, R ankle edema Current Medications Medications (Trade) Dose Ordered Sig/Amanda Route PRN Reason Start Time Stop Time Status Last Admin Dose Admin Acetaminophen (Tylenol) 650 mg Q4H PRN ORAL fever 07/23/16 07:30 08/22/16 07:29 08/01/16 21:20 Al Hydroxide/Mg Hydroxide (Mylanta II) 30 ml Q6H PRN ORAL dyspepsia 07/23/16 07:30 08/22/16 07:29 Dextrose (Dextrose 50%) STAT PRN IV Hypoglycemia 07/23/16 07:30 08/22/16 07:29 Folic Acid (Folate) 1 mg DAILY ORAL 07/29/16 09:00 08/28/16 08:59 08/03/16 10:07 Heparin Sodium (Porcine) (Heparin 5000 units/ml) 5,000 units EVERY 12 HOURS SUBQ 07/23/16 09:00 08/22/16 08:59 08/02/16 20:45 Levetiracetam (Keppra) 500 mg EVERY 12 HOURS ORAL 07/23/16 09:00 08/22/16 08:59 08/03/16 10:07 Magnesium Oxide (Mag-Ox 400mg) 400 mg DAILY ORAL 07/29/16 09:00 08/28/16 08:59 08/03/16 10:07 Multivitamins (Multivitamins) 1 tab DAILY ORAL 07/29/16 09:00 08/28/16 08:59 08/03/16 10:07 Ondansetron HCl (Zofran) 4 mg Q6H PRN IVP Nausea & Vomiting 07/23/16 07:30 08/22/16 07:29 Phenytoin (Dilantin) 100 mg THREE TIMES A DAY ORAL 07/23/16 09:00 08/22/16 08:59 08/03/16 10:07 Polyethylene Glycol (Miralax) 17 gm HSPRN PRN ORAL Constipation 07/23/16 07:30 08/22/16 07:29 Potassium Chloride (K-Dur) 20 meq DAILY ORAL 07/29/16 09:00 08/28/16 08:59 08/03/16 10:07 Thiamine HCl (Vitamin B1) 100 mg DAILY ORAL 07/29/16 09:00 08/28/16 08:59 08/03/16 10:07 Vitamin A/Vitamin D (A & D Oint) 1 applic EVERY 12 HOURS TOPIC 08/01/16 09:00 08/31/16 08:59 08/03/16 10:08 Zolpidem Tartrate (Ambien) 5 mg HSPRN PRN ORAL Insomnia 07/23/16 07:30 08/22/16 07:29 08/02/16 22:32 [facility]Jen NP Aug 03, 2016 10:32
[2016-08-03 12:34] VITALS: BP 127/60
[2016-08-03 16:38] VITALS: BP 128/70
[2016-08-03 20:00] VITALS: BP 127/68
[2016-08-04] VITALS: BP 141/80
[2016-08-04 04:00] VITALS: BP 110/59
[2016-08-04 08:00] VITALS: BP 116/70
[2016-08-04] MEDS: Phenytoin 100mg cap ORAL SCH ×3 (08:13→17:00)
[2016-08-04] MEDS: Thiamine 100mg tab ORAL SCH (08:13)
[2016-08-04] MEDS: Vitamin A&D Oint 2oz Tube TOPIC SCH ×2 (08:14→20:39)
[2016-08-04] MEDS: Magnesium Oxide 400mg tab ORAL SCH (08:14)
[2016-08-04] MEDS: Heparin 5000 units/ml inj SUBQ SCH ×2 (08:18→20:39)
[2016-08-04 12:00] VITALS: BP 122/54
--- NOTE | 2016-08-04 13:30 | Pulmonology Progress Note ---
Assessment/Plan Assessment/Plan ASSESSMENT R comminuted patella fracture R spiral fibula fracture seizure disorder hx of ETOH abuse homeless [facility] floor ortho seen and evaluated both fracture stable, per history about 2 months old sx needs to be done [facility] by trauma ortho surgeon patient is not interested in surgery and declining transfer and surgical interventions knee immobilizer pain management PT/OT s/p banana bag continue Thiamine and folic acid ETOH w/drawal precautions, Librium prn DVT prophylaxis elevated D dimer, will check venous Duplex BLE dc planning when placement found PT to document if able to walk safely with walker while NWB RLE ready for discharge case discussed and evaluated by supervising physician Subjective Allergies: Coded Allergies: NO KNOWN ALLERGIES (Unverified Allergy, Unknown, 01/27/15) No Known Allergies (Unverified , 05/17/16) UNABLE TO ASSESS (Unverified , 03/22/15) Subjective Patient is unwilling to engage in conversation, no eye contact denies chest pain, SOB, according to patient - able to ambulate with walker Objective Last 24 Hour Vital Signs Date Time Temp Pulse Resp B/P Pulse Ox O2 Delivery O2 Flow Rate FiO2 08/04/16 12:00 97.9 59 18 122/54 97 Room Air 08/04/16 08:00 97.5 72 18 116/70 97 Room Air 08/04/16 04:00 97.9 50 20 110/59 98 Room Air 08/04/16 00:00 98.1 61 20 141/80 98 Room Air 08/03/16 20:00 99.7 73 20 127/68 95 Room Air 08/03/16 16:38 98.2 63 14 128/70 96 Room Air Intake and Output 08/03/16 08/04/16 19:00 07:00 Intake Total 4000 ml 350 ml Output Total 1800 ml Balance 2200 ml 350 ml Intake Oral 4000 ml 350 ml Output Urine Total 1800 ml # Voids 2 # Bowel Movements 1 1 Objective General Appearance: WD/WN, no acute distress HEENT: normocephalic, atraumatic, anicteric, mucous membranes moist Respiratory/Chest: lungs clear - with moderate air entry Cardiovascular: no JVD Abdomen: normal bowel sounds, soft, non tender Genitourinary: normal external genitalia Extremities: no edema, pedal pulses normal 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: no motor/sensory deficits, alert, oriented x 3, responsive Musculoskeletal: normal muscle bulk, other - unable to fully extend R knee or do straight leg raise, TTP lateral fibula, able to wiggle toes, R ankle edema Current Medications Medications (Trade) Dose Ordered Sig/Amanda Route PRN Reason Start Time Stop Time Status Last Admin Dose Admin Acetaminophen (Tylenol) 650 mg Q4H PRN ORAL fever 07/23/16 07:30 08/22/16 07:29 08/01/16 21:20 Al Hydroxide/Mg Hydroxide (Mylanta II) 30 ml Q6H PRN ORAL dyspepsia 07/23/16 07:30 08/22/16 07:29 Dextrose (Dextrose 50%) STAT PRN IV Hypoglycemia 07/23/16 07:30 08/22/16 07:29 Folic Acid (Folate) 1 mg DAILY ORAL 07/29/16 09:00 08/28/16 08:59 08/04/16 08:13 Heparin Sodium (Porcine) (Heparin 5000 units/ml) 5,000 units EVERY 12 HOURS SUBQ 07/23/16 09:00 08/22/16 08:59 08/04/16 08:18 Levetiracetam (Keppra) 500 mg EVERY 12 HOURS ORAL 07/23/16 09:00 08/22/16 08:59 08/04/16 08:13 Magnesium Oxide (Mag-Ox 400mg) 400 mg DAILY ORAL 07/29/16 09:00 08/28/16 08:59 08/04/16 08:14 Multivitamins (Multivitamins) 1 tab DAILY ORAL 07/29/16 09:00 08/28/16 08:59 08/04/16 08:14 Ondansetron HCl (Zofran) 4 mg Q6H PRN IVP Nausea & Vomiting 07/23/16 07:30 08/22/16 07:29 Phenytoin (Dilantin) 100 mg THREE TIMES A DAY ORAL 07/23/16 09:00 08/22/16 08:59 08/04/16 12:51 Polyethylene Glycol (Miralax) 17 gm HSPRN PRN ORAL Constipation 07/23/16 07:30 08/22/16 07:29 Potassium Chloride (K-Dur) 20 meq DAILY ORAL 07/29/16 09:00 08/28/16 08:59 08/04/16 08:13 Thiamine HCl (Vitamin B1) 100 mg DAILY ORAL 07/29/16 09:00 08/28/16 08:59 08/04/16 08:13 Vitamin A/Vitamin D (A & D Oint) 1 applic EVERY 12 HOURS TOPIC 08/01/16 09:00 08/31/16 08:59 08/04/16 08:14 Zolpidem Tartrate (Ambien) 5 mg HSPRN PRN ORAL Insomnia 07/23/16 07:30 08/22/16 07:29 08/02/16 22:32 [facility]Jen [facility] NP Aug 04, 2016 13:30
[2016-08-04 15:14] VITALS: BP 127/89
[2016-08-04 20:00] VITALS: BP 118/56
[2016-08-05] VITALS: BP 146/71
[2016-08-05] MEDS: Zolpidem 5mg tab ORAL PRN (02:07)
[2016-08-05 04:00] VITALS: BP 140/78
[2016-08-05 08:00] VITALS: BP 135/68
[2016-08-05] MEDS: Thiamine 100mg tab ORAL SCH (08:22)
[2016-08-05] MEDS: Phenytoin 100mg cap ORAL SCH ×3 (08:22→18:30)
[2016-08-05] MEDS: Magnesium Oxide 400mg tab ORAL SCH (08:23)
[2016-08-05] MEDS: Heparin 5000 units/ml inj SUBQ SCH ×2 (08:26→20:53)
[2016-08-05] MEDS: Vitamin A&D Oint 2oz Tube TOPIC SCH ×2 (08:31→20:54)
[2016-08-05 12:00] VITALS: BP 129/73
[2016-08-05 16:00] VITALS: BP 139/69
[2016-08-05 20:00] VITALS: BP 134/64
--- NOTE | 2016-08-05 22:41 | Pulmonology Progress Note ---
Assessment/Plan Problems: (1) Right patella fracture (2) Seizure disorder (3) Homelessness (4) Closed right fibular fracture Assessment/Plan pt refusing surgery. pt/ot social service evaluation pain control dc planning Subjective ROS Limited/Unobtainable: No Constitutional: Reports: no symptoms Respiratory: Reports: no symptoms Allergies: Coded Allergies: NO KNOWN ALLERGIES (Unverified Allergy, Unknown, 01/27/15) No Known Allergies (Unverified , 05/17/16) UNABLE TO ASSESS (Unverified , 03/22/15) Objective Last 24 Hour Vital Signs Date Time Temp Pulse Resp B/P Pulse Ox O2 Delivery O2 Flow Rate FiO2 08/05/16 20:00 98.2 69 16 134/64 98 Room Air 08/05/16 16:00 97.5 61 20 139/69 96 Room Air 08/05/16 12:00 97.3 67 20 129/73 98 Room Air 08/05/16 08:00 97.3 65 20 135/68 98 Room Air 08/05/16 04:00 98.2 62 20 140/78 97 Room Air 08/05/16 00:00 97.5 20 146/71 63 Room Air Intake and Output 08/04/16 08/05/16 18:59 06:59 Intake Total 3000 ml 2000 ml Balance 3000 ml 2000 ml Intake Oral 3000 ml 2000 ml # Voids 4 6 # Bowel Movements 1 Objective General Appearance: WD/WN HEENT: normocephalic Respiratory/Chest: chest wall non-tender, lungs clear, normal breath sounds, no respiratory distress Cardiovascular: normal peripheral pulses, normal rate, regular rhythm Abdomen: normal bowel sounds, soft, non tender, no organomegaly, non distended Skin: no rash 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 grossly normal Lymphatic: no neck adenopathy Current Medications Medications (Trade) Dose Ordered Sig/Amanda Route PRN Reason Start Time Stop Time Status Last Admin Dose Admin Acetaminophen (Tylenol) 650 mg Q4H PRN ORAL fever 07/23/16 07:30 08/22/16 07:29 08/01/16 21:20 Al Hydroxide/Mg Hydroxide (Mylanta II) 30 ml Q6H PRN ORAL dyspepsia 07/23/16 07:30 08/22/16 07:29 Dextrose (Dextrose 50%) STAT PRN IV Hypoglycemia 07/23/16 07:30 08/22/16 07:29 Folic Acid (Folate) 1 mg DAILY ORAL 07/29/16 09:00 08/28/16 08:59 08/05/16 08:31 Heparin Sodium (Porcine) (Heparin 5000 units/ml) 5,000 units EVERY 12 HOURS SUBQ 07/23/16 09:00 08/22/16 08:59 08/05/16 20:53 Levetiracetam (Keppra) 500 mg EVERY 12 HOURS ORAL 07/23/16 09:00 08/22/16 08:59 08/05/16 13:38 Magnesium Oxide (Mag-Ox 400mg) 400 mg DAILY ORAL 07/29/16 09:00 08/28/16 08:59 08/05/16 08:23 Multivitamins (Multivitamins) 1 tab DAILY ORAL 07/29/16 09:00 08/28/16 08:59 08/05/16 08:23 Ondansetron HCl (Zofran) 4 mg Q6H PRN IVP Nausea & Vomiting 07/23/16 07:30 08/22/16 07:29 Phenytoin (Dilantin) 100 mg THREE TIMES A DAY ORAL 07/23/16 09:00 08/22/16 08:59 08/05/16 18:30 Polyethylene Glycol (Miralax) 17 gm HSPRN PRN ORAL Constipation 07/23/16 07:30 08/22/16 07:29 Potassium Chloride (K-Dur) 20 meq DAILY ORAL 07/29/16 09:00 08/28/16 08:59 08/05/16 08:23 Thiamine HCl (Vitamin B1) 100 mg DAILY ORAL 07/29/16 09:00 08/28/16 08:59 08/05/16 08:22 Vitamin A/Vitamin D (A & D Oint) 1 applic EVERY 12 HOURS TOPIC 08/01/16 09:00 08/31/16 08:59 08/05/16 20:54 Zolpidem Tartrate (Ambien) 5 mg HSPRN PRN ORAL Insomnia 07/23/16 07:30 08/22/16 07:29 08/05/16 02:07 ANNIE DEJESUS August 05, 2016 22:41
[2016-08-06] VITALS: BP 132/62
[2016-08-06 04:00] VITALS: BP 136/72
[2016-08-06 07:41] VITALS: BP 147/58
[2016-08-06] MEDS: Vitamin A&D Oint 2oz Tube TOPIC SCH ×2 (09:00→21:29)
[2016-08-06] MEDS: Phenytoin 100mg cap ORAL SCH ×3 (09:14→17:58)
[2016-08-06] MEDS: Magnesium Oxide 400mg tab ORAL SCH (09:14)
[2016-08-06] MEDS: Thiamine 100mg tab ORAL SCH (09:15)
[2016-08-06] MEDS: Heparin 5000 units/ml inj SUBQ SCH ×2 (09:21→21:00)
[2016-08-06 11:28] VITALS: BP 142/69
[2016-08-06 16:01] VITALS: BP 126/95
[2016-08-06 20:57] VITALS: BP 130/69
--- NOTE | 2016-08-06 22:04 | Pulmonology Progress Note ---
Assessment/Plan Problems: (1) Right patella fracture (2) Seizure disorder (3) Homelessness (4) Closed right fibular fracture Assessment/Plan pt/ot social service evaluation pain control dc planning Subjective ROS Limited/Unobtainable: No Allergies: Coded Allergies: NO KNOWN ALLERGIES (Unverified Allergy, Unknown, 01/27/15) No Known Allergies (Unverified , 05/17/16) UNABLE TO ASSESS (Unverified , 03/22/15) Objective Last 24 Hour Vital Signs Date Time Temp Pulse Resp B/P Pulse Ox O2 Delivery O2 Flow Rate FiO2 08/06/16 20:57 96.4 60 18 130/69 96 Room Air 08/06/16 16:01 97.6 64 19 126/95 97 Room Air 08/06/16 11:28 97.3 58 19 142/69 98 Room Air 08/06/16 10:16 97.3 08/06/16 07:41 97.3 66 19 147/58 98 Room Air 08/06/16 04:00 98.0 72 20 136/72 100 Room Air 08/06/16 00:00 98.2 70 16 132/62 100 Room Air Intake and Output 08/05/16 08/06/16 19:00 07:00 Intake Total 320 ml Balance 320 ml Intake Oral 320 ml # Voids 6 3 # Bowel Movements 1 1 Objective General Appearance: WD/WN HEENT: normocephalic Respiratory/Chest: chest wall non-tender, lungs clear, normal breath sounds, no respiratory distress Cardiovascular: normal peripheral pulses, normal rate, regular rhythm Abdomen: normal bowel sounds, soft, non tender, no organomegaly, non distended Skin: no rash 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: finger waver II-XII grossly normal Lymphatic: no neck adenopathy Current Medications Medications (Trade) Dose Ordered Sig/Amanda Route PRN Reason Start Time Stop Time Status Last Admin Dose Admin Acetaminophen (Tylenol) 650 mg Q4H PRN ORAL fever 07/23/16 07:30 08/22/16 07:29 08/06/16 09:16 Al Hydroxide/Mg Hydroxide (Mylanta II) 30 ml Q6H PRN ORAL dyspepsia 07/23/16 07:30 08/22/16 07:29 Dextrose (Dextrose 50%) STAT PRN IV Hypoglycemia 07/23/16 07:30 08/22/16 07:29 Folic Acid (Folate) 1 mg DAILY ORAL 07/29/16 09:00 08/28/16 08:59 08/06/16 09:15 Heparin Sodium (Porcine) (Heparin 5000 units/ml) 5,000 units EVERY 12 HOURS SUBQ 07/23/16 09:00 08/22/16 08:59 08/06/16 09:21 Levetiracetam (Keppra) 500 mg EVERY 12 HOURS ORAL 07/23/16 09:00 08/22/16 08:59 08/06/16 21:28 Magnesium Oxide (Mag-Ox 400mg) 400 mg DAILY ORAL 07/29/16 09:00 08/28/16 08:59 08/06/16 09:14 Multivitamins (Multivitamins) 1 tab DAILY ORAL 07/29/16 09:00 08/28/16 08:59 08/06/16 09:15 Ondansetron HCl (Zofran) 4 mg Q6H PRN IVP Nausea & Vomiting 07/23/16 07:30 08/22/16 07:29 Phenytoin (Dilantin) 100 mg THREE TIMES A DAY ORAL 07/23/16 09:00 08/22/16 08:59 08/06/16 17:58 Polyethylene Glycol (Miralax) 17 gm HSPRN PRN ORAL Constipation 07/23/16 07:30 08/22/16 07:29 Potassium Chloride (K-Dur) 20 meq DAILY ORAL 07/29/16 09:00 08/28/16 08:59 08/06/16 09:15 Thiamine HCl (Vitamin B1) 100 mg DAILY ORAL 07/29/16 09:00 08/28/16 08:59 08/06/16 09:15 Vitamin A/Vitamin D (A & D Oint) 1 applic EVERY 12 HOURS TOPIC 08/01/16 09:00 08/31/16 08:59 08/06/16 21:29 Zolpidem Tartrate (Ambien) 5 mg HSPRN PRN ORAL Insomnia 07/23/16 07:30 08/22/16 07:29 08/05/16 02:07 ANNIE DEJESUS August 06, 2016 22:04
[2016-08-07] VITALS (7 sets, daily range): BP systolic 120–141; BP diastolic 64–95
[2016-08-07] MEDS: Heparin 5000 units/ml inj SUBQ SCH ×2 (09:00→21:00)
[2016-08-07] MEDS: Magnesium Oxide 400mg tab ORAL SCH (09:04)
[2016-08-07] MEDS: Thiamine 100mg tab ORAL SCH (09:05)
[2016-08-07] MEDS: Phenytoin 100mg cap ORAL SCH ×3 (09:07→18:04)
[2016-08-07] MEDS: Vitamin A&D Oint 2oz Tube TOPIC SCH ×2 (09:08→21:07)
[2016-08-07] MEDS ORDERED: Norco 10mg/325mg tab ORAL PRN (19:45)
[2016-08-08] VITALS: BP 127/57
[2016-08-08 08:15] VITALS: BP 136/89
[2016-08-08] MEDS: Thiamine 100mg tab ORAL SCH (10:07)
[2016-08-08] MEDS: Phenytoin 100mg cap ORAL SCH ×3 (10:08→18:17)
[2016-08-08] MEDS: Heparin 5000 units/ml inj SUBQ SCH ×2 (10:23→21:27)
[2016-08-08] MEDS: Magnesium Oxide 400mg tab ORAL SCH (10:24)
[2016-08-08] MEDS: Vitamin A&D Oint 2oz Tube TOPIC SCH ×2 (10:25→21:27)
[2016-08-08 12:12] VITALS: BP 128/73
[2016-08-08 15:41] VITALS: BP 130/67
--- NOTE | 2016-08-08 16:04 | Pulmonology Progress Note ---
Assessment/Plan Problems: (1) Right patella fracture (2) Seizure disorder (3) Homelessness (4) Closed right fibular fracture Assessment/Plan pt/ot social service evaluation pain control dc planning Subjective ROS Limited/Unobtainable: No Constitutional: Reports: no symptoms HEENT: Repors: no symptoms Allergies: Coded Allergies: NO KNOWN ALLERGIES (Unverified Allergy, Unknown, 01/27/15) No Known Allergies (Unverified , 05/17/16) UNABLE TO ASSESS (Unverified , 03/22/15) Objective Last 24 Hour Vital Signs Date Time Temp Pulse Resp B/P Pulse Ox O2 Delivery O2 Flow Rate FiO2 08/08/16 15:41 98.2 56 23 130/67 99 Room Air 08/08/16 12:12 98.6 57 22 128/73 97 Room Air 08/08/16 08:15 97.7 56 20 136/89 97 Room Air 08/08/16 00:00 98.2 75 20 127/57 96 Room Air 08/07/16 19:46 97.9 66 20 121/65 98 Room Air Intake and Output 08/07/16 08/08/16 19:00 07:00 Intake Total 1440 ml Output Total 2350 ml 1300 ml Balance -910 ml -1300 ml Intake Oral 1440 ml Output Urine Total 2350 ml 1300 ml # Voids 6 Objective General Appearance: WD/WN HEENT: normocephalic Respiratory/Chest: chest wall non-tender, lungs clear, normal breath sounds, no respiratory distress Cardiovascular: normal peripheral pulses, normal rate, regular rhythm Abdomen: normal bowel sounds, soft, non tender, no organomegaly, non distended Skin: no rash 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: 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 II-XII grossly normal Lymphatic: no neck adenopathy Current Medications Medications (Trade) Dose Ordered Sig/Amanda Route PRN Reason Start Time Stop Time Status Last Admin Dose Admin Acetaminophen (Tylenol) 650 mg Q4H PRN ORAL Mild Pain/Temp > 100.5 08/07/16 19:45 09/06/16 19:44 Acetaminophen/ Hydrocodone Bitart ([place] 103[address]) 1 ea Q4H PRN ORAL Severe Pain (Pain Scale 7-10) 08/07/16 19:45 08/14/16 19:44 Al Hydroxide/Mg Hydroxide (Mylanta II) 30 ml Q6H PRN ORAL dyspepsia 07/23/16 07:30 08/22/16 07:29 Dextrose (Dextrose 50%) STAT PRN IV Hypoglycemia 07/23/16 07:30 08/22/16 07:29 Folic Acid (Folate) 1 mg DAILY ORAL 07/29/16 09:00 08/28/16 08:59 08/08/16 10:08 Heparin Sodium (Porcine) (Heparin 5000 units/ml) 5,000 units EVERY 12 HOURS SUBQ 07/23/16 09:00 08/22/16 08:59 08/08/16 10:23 Levetiracetam (Keppra) 500 mg EVERY 12 HOURS ORAL 07/23/16 09:00 08/22/16 08:59 08/08/16 10:07 Magnesium Oxide (Mag-Ox 400mg) 400 mg DAILY ORAL 07/29/16 09:00 08/28/16 08:59 08/08/16 10:24 Multivitamins (Multivitamins) 1 tab DAILY ORAL 07/29/16 09:00 08/28/16 08:59 08/08/16 10:08 Ondansetron HCl (Zofran) 4 mg Q6H PRN IVP Nausea & Vomiting 07/23/16 07:30 08/22/16 07:29 Phenytoin (Dilantin) 100 mg THREE TIMES A DAY ORAL 07/23/16 09:00 08/22/16 08:59 08/08/16 12:27 Polyethylene Glycol (Miralax) 17 gm HSPRN PRN ORAL Constipation 07/23/16 07:30 08/22/16 07:29 Potassium Chloride (K-Dur) 20 meq DAILY ORAL 07/29/16 09:00 08/28/16 08:59 08/08/16 10:08 Thiamine HCl (Vitamin B1) 100 mg DAILY ORAL 07/29/16 09:00 08/28/16 08:59 08/08/16 10:07 Vitamin A/Vitamin D (A & D Oint) 1 applic EVERY 12 HOURS TOPIC 08/01/16 09:00 08/31/16 08:59 08/08/16 10:25 Zolpidem Tartrate (Ambien) 5 mg HSPRN PRN ORAL Insomnia 07/23/16 07:30 08/22/16 07:29 5/1/17 02:07 ANNIE DEJESUS August 08, 2016 16:03
[2016-08-08 20:00] VITALS: BP 117/58
[2016-08-09] VITALS: BP 104/47
[2016-08-09 04:00] VITALS: BP_SYST 120; BP_SYST 158; BP_DIAS 64; BP_DIAS 95
[2016-08-09 08:00] VITALS: BP 118/69
[2016-08-09] MEDS: Phenytoin 100mg cap ORAL SCH ×3 (08:58→17:52)
[2016-08-09] MEDS: Thiamine 100mg tab ORAL SCH (08:58)
[2016-08-09] MEDS: Magnesium Oxide 400mg tab ORAL SCH (08:58)
[2016-08-09] MEDS: Vitamin A&D Oint 2oz Tube TOPIC SCH ×2 (08:59→20:48)
[2016-08-09] MEDS: Heparin 5000 units/ml inj SUBQ SCH ×2 (08:59→20:51)
[2016-08-09 16:00] VITALS: BP 130/73
[2016-08-09 20:00] VITALS: BP 128/88
--- NOTE | 2016-08-09 21:56 | Pulmonology Progress Note ---
Assessment/Plan Problems: (1) Right patella fracture (2) Seizure disorder (3) Homelessness (4) Closed right fibular fracture Assessment/Plan labs ordered for tomorrow pt/ot social service evaluation pain control dc planning Subjective ROS Limited/Unobtainable: No HEENT: Repors: no symptoms Respiratory: Reports: no symptoms Allergies: Coded Allergies: NO KNOWN ALLERGIES (Unverified Allergy, Unknown, 01/27/15) No Known Allergies (Unverified , 05/17/16) UNABLE TO ASSESS (Unverified , 03/22/15) Objective Last 24 Hour Vital Signs Date Time Temp Pulse Resp B/P Pulse Ox O2 Delivery O2 Flow Rate FiO2 08/09/16 16:00 98.1 69 20 130/73 97 Room Air 08/09/16 08:00 97.5 63 18 118/69 100 Room Air 08/09/16 04:00 97.7 55 20 120/64 100 Room Air 08/09/16 04:00 96.8 72 20 158/95 99 Nasal Cannula 2.0 08/09/16 00:00 98.1 64 20 104/47 98 Room Air Intake and Output 08/08/16 08/09/16 19:00 07:00 Intake Total 1160 ml Output Total 2000 ml Balance -840 ml Intake Oral 1160 ml Output Urine Total 2000 ml # Voids 4 Objective General Appearance: WD/WN HEENT: normocephalic Respiratory/Chest: chest wall non-tender, lungs clear, normal breath sounds, no respiratory distress Cardiovascular: normal peripheral pulses, normal rate, regular rhythm Abdomen: normal bowel sounds, soft, non tender, no organomegaly, non distended Skin: no rash 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: 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 normal Lymphatic: no neck adenopathy Current Medications Medications (Trade) Dose Ordered Sig/Amanda Route PRN Reason Start Time Stop Time Status Last Admin Dose Admin Acetaminophen (Tylenol) 650 mg Q4H PRN ORAL Mild Pain/Temp > 100.5 08/07/16 19:45 09/06/16 19:44 Acetaminophen/ Hydrocodone Bitart ([place] 10/325) 1 ea Q4H PRN ORAL Severe Pain (Pain Scale 7-10) 08/07/16 19:45 08/14/16 19:44 Al Hydroxide/Mg Hydroxide (Mylanta II) 30 ml Q6H PRN ORAL dyspepsia 07/23/16 07:30 08/22/16 07:29 Dextrose (Dextrose 50%) STAT PRN IV Hypoglycemia 07/23/16 07:30 08/22/16 07:29 Folic Acid (Folate) 1 mg DAILY ORAL 07/29/16 09:00 08/28/16 08:59 08/09/16 08:58 Heparin Sodium (Porcine) (Heparin 5000 units/ml) 5,000 units EVERY 12 HOURS SUBQ 07/23/16 09:00 08/22/16 08:59 08/09/16 20:51 Levetiracetam (Keppra) 500 mg EVERY 12 HOURS ORAL 07/23/16 09:00 08/22/16 08:59 08/09/16 20:49 Magnesium Oxide (Mag-Ox 400mg) 400 mg DAILY ORAL 07/29/16 09:00 08/28/16 08:59 08/09/16 08:58 Multivitamins (Multivitamins) 1 tab DAILY ORAL 07/29/16 09:00 08/28/16 08:59 08/09/16 08:58 Ondansetron HCl (Zofran) 4 mg Q6H PRN IVP Nausea & Vomiting 07/23/16 07:30 08/22/16 07:29 Phenytoin (Dilantin) 100 mg THREE TIMES A DAY ORAL 07/23/16 09:00 08/22/16 08:59 08/09/16 17:52 Polyethylene Glycol (Miralax) 17 gm HSPRN PRN ORAL Constipation 07/23/16 07:30 08/22/16 07:29 Potassium Chloride (K-Dur) 20 meq DAILY ORAL 07/29/16 09:00 08/28/16 08:59 08/09/16 08:58 Thiamine HCl (Vitamin B1) 100 mg DAILY ORAL 07/29/16 09:00 08/28/16 08:59 08/09/16 08:58 Vitamin A/Vitamin D (A & D Oint) 1 applic EVERY 12 HOURS TOPIC 08/01/16 09:00 08/31/16 08:59 08/09/16 20:48 Zolpidem Tartrate (Ambien) 5 mg HSPRN PRN ORAL Insomnia 07/23/16 07:30 08/22/16 07:29 08/05/16 02:07 ANNIE DEJESUS 5, 2017 21:56
[2016-08-10] VITALS: BP 116/75
[2016-08-10 04:00] VITALS: BP 129/76
[2016-08-10 07:15] LABS: BASOPHILS % (AUTO) 0.9 % (0.0-2.0); EOSINOPHILS % (AUTO) 3.1 % (0.0-3.0); LYMPHOCYTES % (AUTO) 28.3 % (20.0-45.0); MEAN CORPUSCULAR HEMOGLOBIN 32.9 PG (27.0-31.0); MEAN CORPUSCULAR HGB CONC 32.6 G/DL (32.0-36.0); MEAN CORPUSCULAR VOLUME 101 FL (80-99); MEAN PLATELET VOLUME 8.8 FL (6.5-10.1); MONOCYTES % (AUTO) 9.1 % (1.0-10.0); NEUTROPHILS % (AUTO) 58.6 % (45.0-75.0); PLATELET COUNT 279 K/UL (150-450); RED BLOOD COUNT 4.25 M/UL (4.70-6.10); RED CELL DISTRIBUTION WIDTH 12.3 % (11.6-14.8); WHITE BLOOD COUNT 9.4 K/UL (4.8-10.8)
[2016-08-10 08:19] VITALS: BP 134/71
[2016-08-10] MEDS: Thiamine 100mg tab ORAL SCH (08:36)
[2016-08-10] MEDS: Phenytoin 100mg cap ORAL SCH ×3 (08:36→20:19)
[2016-08-10] MEDS: Magnesium Oxide 400mg tab ORAL SCH (08:36)
[2016-08-10] MEDS: Heparin 5000 units/ml inj SUBQ SCH ×2 (08:40→20:20)
[2016-08-10] MEDS: Vitamin A&D Oint 2oz Tube TOPIC SCH ×2 (08:41→20:20)
[2016-08-10 11:39] VITALS: BP 121/57
[2016-08-10 15:54] VITALS: BP 116/66
[2016-08-10 20:00] VITALS: BP 132/75
--- NOTE | 2016-08-10 22:06 | Pulmonology Progress Note ---
Assessment/Plan Problems: (1) Right patella fracture (2) Seizure disorder (3) Homelessness (4) Closed right fibular fracture Assessment/Plan labs ordered for tomorrow pt/ot social service evaluation pain control dc planning Subjective Allergies: Coded Allergies: NO KNOWN ALLERGIES (Unverified Allergy, Unknown, 01/27/15) No Known Allergies (Unverified , 05/17/16) UNABLE TO ASSESS (Unverified , 03/22/15) Objective Last 24 Hour Vital Signs Date Time Temp Pulse Resp B/P Pulse Ox O2 Delivery O2 Flow Rate FiO2 08/10/16 20:00 97.7 61 20 132/75 97 Room Air 08/10/16 15:54 97.9 57 19 116/66 100 Room Air 08/10/16 11:39 97.8 59 20 121/57 99 Room Air 08/10/16 08:19 97.6 68 19 134/71 100 Room Air 08/10/16 04:00 97.7 57 18 129/76 98 Room Air 08/10/16 00:00 97.7 68 18 116/75 97 Room Air Intake and Output 08/09/16 08/10/16 19:00 07:00 Intake Total 1200 ml Balance 1200 ml Intake Oral 1200 ml # Voids 4 2 Objective General Appearance: WD/WN HEENT: normocephalic Respiratory/Chest: chest wall non-tender, lungs clear, normal breath sounds, no respiratory distress Cardiovascular: normal peripheral pulses, normal rate, regular rhythm Abdomen: normal bowel sounds, soft, non tender, no organomegaly, non distended Skin: no rash 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 Lymphatic: no neck adenopathy Laboratory Tests 08/10/16 05:55: White Blood Count 9.4, Red Blood Count 4.25L, Hemoglobin 14.0L, Hematocrit 42.8 , Mean Corpuscular Volume 101H, Mean Corpuscular Hemoglobin 32.9H, Mean Corpuscular Hemoglobin Concent 32.6, Red Cell Distribution Width 12.3, Platelet Count 279, Mean Platelet Volume 8.8, Neutrophils (%) (Auto) 58.6, Lymphocytes (% ) (Auto) 28.3, Monocytes (%) (Auto) 9.1, Eosinophils (%) (Auto) 3.1H, Basophils (%) (Auto) 0.9, Phenytoin (Dilantin) Level 2.3L Current Medications Medications (Trade) Dose Ordered Sig/Amanda Route PRN Reason Start Time Stop Time Status Last Admin Dose Admin Acetaminophen (Tylenol) 650 mg Q4H PRN ORAL Mild Pain/Temp > 100.5 08/07/16 19:45 09/06/16 19:44 Acetaminophen/ Hydrocodone Bitart ([place] 10/325) 1 ea Q4H PRN ORAL Severe Pain (Pain Scale 7-10) 08/07/16 19:45 08/14/16 19:44 Al Hydroxide/Mg Hydroxide (Mylanta II) 30 ml Q6H PRN ORAL dyspepsia 07/23/16 07:30 08/22/16 07:29 Dextrose (Dextrose 50%) STAT PRN IV Hypoglycemia 07/23/16 07:30 08/22/16 07:29 Folic Acid (Folate) 1 mg DAILY ORAL 07/29/16 09:00 08/28/16 08:59 08/10/16 08:36 Heparin Sodium (Porcine) (Heparin 5000 units/ml) 5,000 units EVERY 12 HOURS SUBQ 07/23/16 09:00 08/22/16 08:59 08/10/16 20:20 Levetiracetam (Keppra) 500 mg EVERY 12 HOURS ORAL 07/23/16 09:00 08/22/16 08:59 08/10/16 20:18 Magnesium Oxide (Mag-Ox 400mg) 400 mg DAILY ORAL 07/29/16 09:00 08/28/16 08:59 08/10/16 08:36 Multivitamins (Multivitamins) 1 tab DAILY ORAL 07/29/16 09:00 08/28/16 08:59 08/10/16 08:36 Ondansetron HCl (Zofran) 4 mg Q6H PRN IVP Nausea & Vomiting 07/23/16 07:30 08/22/16 07:29 Phenytoin (Dilantin) 200 mg Q12HR ORAL 08/10/16 21:00 09/09/16 20:59 08/10/16 20:19 Polyethylene Glycol (Miralax) 17 gm HSPRN PRN ORAL Constipation 07/23/16 07:30 08/22/16 07:29 Potassium Chloride (K-Dur) 20 meq DAILY ORAL 07/29/16 09:00 08/28/16 08:59 08/10/16 08:36 Thiamine HCl (Vitamin B1) 100 mg DAILY ORAL 07/29/16 09:00 08/28/16 08:59 08/10/16 08:36 Vitamin A/Vitamin D (A & D Oint) 1 applic EVERY 12 HOURS TOPIC 08/01/16 09:00 08/31/16 08:59 08/10/16 20:20 Zolpidem Tartrate (Ambien) 5 mg HSPRN PRN ORAL Insomnia 07/23/16 07:30 08/22/16 07:29 08/05/16 02:07 ANNIE DEJESUS August 10, 2016 22:06
[2016-08-11] VITALS: BP 128/64
[2016-08-11 04:00] VITALS: BP 130/58
[2016-08-11 07:44] VITALS: BP 121/61
[2016-08-11] MEDS: Magnesium Oxide 400mg tab ORAL SCH (09:16)
[2016-08-11] MEDS: Heparin 5000 units/ml inj SUBQ SCH ×2 (09:16→20:23)
[2016-08-11] MEDS: Phenytoin 100mg cap ORAL SCH ×2 (09:16→20:22)
[2016-08-11] MEDS: Thiamine 100mg tab ORAL SCH (09:17)
[2016-08-11] MEDS: Vitamin A&D Oint 2oz Tube TOPIC SCH ×2 (09:17→20:27)
[2016-08-11 11:32] VITALS: BP 111/57
[2016-08-11 15:44] VITALS: BP 114/75
[2016-08-11 20:00] VITALS: BP 121/58
--- NOTE | 2016-08-11 22:53 | Pulmonology Progress Note ---
Assessment/Plan Problems: (1) Right patella fracture (2) Seizure disorder (3) Homelessness (4) Closed right fibular fracture Assessment/Plan labs ordered for tomorrow pt/ot social service evaluation pain control dc planning Subjective ROS Limited/Unobtainable: No Allergies: Coded Allergies: NO KNOWN ALLERGIES (Unverified Allergy, Unknown, 01/27/15) No Known Allergies (Unverified , 05/17/16) UNABLE TO ASSESS (Unverified , 03/22/15) Objective Last 24 Hour Vital Signs Date Time Temp Pulse Resp B/P Pulse Ox O2 Delivery O2 Flow Rate FiO2 08/11/16 20:00 97.0 58 18 121/58 99 Room Air 08/11/16 15:44 97.8 57 20 114/75 97 Room Air 08/11/16 11:32 97.5 55 19 111/57 98 Room Air 08/11/16 10:32 97.6 08/11/16 07:44 97.6 56 19 121/61 97 Room Air 08/11/16 04:00 98.4 68 18 130/58 100 Room Air 08/11/16 00:00 98.4 79 19 128/64 99 Room Air Intake and Output 08/10/16 08/11/16 19:00 07:00 Intake Total 520 ml 400 ml Output Total 500 ml 2 ml Balance 20 ml 398 ml Intake Oral 520 ml 400 ml Output Urine Total 500 ml 2 ml # Voids 1 Objective General Appearance: WD/WN HEENT: normocephalic Respiratory/Chest: chest wall non-tender, lungs clear, normal breath sounds, no respiratory distress Cardiovascular: normal peripheral pulses, normal rate, regular rhythm Abdomen: normal bowel sounds, soft, non tender, no organomegaly, non distended Skin: no rash 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 Lymphatic: no neck adenopathy Current Medications Medications (Trade) Dose Ordered Sig/Amanad Route PRN Reason Start Time Stop Time Status Last Admin Dose Admin Acetaminophen (Tylenol) 650 mg Q4H PRN ORAL Mild Pain/Temp > 100.5 08/07/16 19:45 09/06/16 19:44 Acetaminophen/ Hydrocodone Bitart ([place] 10/325) 1 ea Q4H PRN ORAL Severe Pain (Pain Scale 7-10) 08/07/16 19:45 08/14/16 19:44 08/11/16 09:33 Al Hydroxide/Mg Hydroxide (Mylanta II) 30 ml Q6H PRN ORAL dyspepsia 07/23/16 07:30 08/22/16 07:29 Dextrose (Dextrose 50%) STAT PRN IV Hypoglycemia 07/23/16 07:30 08/22/16 07:29 Folic Acid (Folate) 1 mg DAILY ORAL 07/29/16 09:00 08/28/16 08:59 08/11/16 09:16 Heparin Sodium (Porcine) (Heparin 5000 units/ml) 5,000 units EVERY 12 HOURS SUBQ 07/23/16 09:00 08/22/16 08:59 08/11/16 20:23 Levetiracetam (Keppra) 500 mg EVERY 12 HOURS ORAL 07/23/16 09:00 08/22/16 08:59 08/11/16 20:21 Magnesium Oxide (Mag-Ox 400mg) 400 mg DAILY ORAL 07/29/16 09:00 08/28/16 08:59 08/11/16 09:16 Multivitamins (Multivitamins) 1 tab DAILY ORAL 07/29/16 09:00 08/28/16 08:59 08/11/16 09:16 Ondansetron HCl (Zofran) 4 mg Q6H PRN IVP Nausea & Vomiting 07/23/16 07:30 08/22/16 07:29 Phenytoin (Dilantin) 200 mg Q12HR ORAL 08/10/16 21:00 09/09/16 20:59 08/11/16 20:22 Polyethylene Glycol (Miralax) 17 gm HSPRN PRN ORAL Constipation 07/23/16 07:30 08/22/16 07:29 Potassium Chloride (K-Dur) 20 meq DAILY ORAL 07/29/16 09:00 08/28/16 08:59 08/11/16 09:17 Thiamine HCl (Vitamin B1) 100 mg DAILY ORAL 07/29/16 09:00 08/28/16 08:59 08/11/16 09:17 Vitamin A/Vitamin D (A & D Oint) 1 applic EVERY 12 HOURS TOPIC 08/01/16 09:00 08/31/16 08:59 08/11/16 20:27 Zolpidem Tartrate (Ambien) 5 mg HSPRN PRN ORAL Insomnia 07/23/16 07:30 08/22/16 07:29 08/05/16 02:07 ANNIE DEJESUS August 11, 2016 22:53
[2016-08-12] VITALS: BP 127/64
[2016-08-12 04:00] VITALS: BP 122/63
[2016-08-12 07:52] VITALS: BP 120/69
[2016-08-12] MEDS: Magnesium Oxide 400mg tab ORAL SCH (08:46)
[2016-08-12] MEDS: Vitamin A&D Oint 2oz Tube TOPIC SCH ×2 (08:47→21:16)
[2016-08-12] MEDS: Thiamine 100mg tab ORAL SCH (08:50)
[2016-08-12] MEDS: Heparin 5000 units/ml inj SUBQ SCH ×3 (08:51→21:00)
[2016-08-12] MEDS: Phenytoin 100mg cap ORAL SCH ×2 (08:53→21:15)
[2016-08-12 12:04] VITALS: BP 122/73
[2016-08-12 20:00] VITALS: BP 117/46
--- NOTE | 2016-08-12 22:43 | Pulmonology Progress Note ---
Assessment/Plan Problems: (1) Right patella fracture (2) Seizure disorder (3) Homelessness (4) Closed right fibular fracture Assessment/Plan labs ordered for tomorrow pt/ot social service evaluation pain control dc planning Subjective Allergies: Coded Allergies: NO KNOWN ALLERGIES (Unverified Allergy, Unknown, 01/27/15) No Known Allergies (Unverified , 05/17/16) UNABLE TO ASSESS (Unverified , 03/22/15) Objective Last 24 Hour Vital Signs Date Time Temp Pulse Resp B/P Pulse Ox O2 Delivery O2 Flow Rate FiO2 08/12/16 20:00 98.4 60 20 117/46 98 Room Air 08/12/16 12:04 98.3 56 22 122/73 95 Room Air 08/12/16 07:52 98.3 82 22 120/69 97 Room Air 08/12/16 04:00 96.9 66 18 122/63 98 Room Air 08/12/16 00:00 98.0 64 18 127/64 64 Nasal Cannula Intake and Output 08/11/16 08/12/16 19:00 07:00 Intake Total 800 ml 800 ml Output Total 950 ml Balance -150 ml 800 ml Intake Oral 800 ml 800 ml Output Urine Total 950 ml # Voids 6 Objective General Appearance: WD/WN HEENT: normocephalic Respiratory/Chest: chest wall non-tender, lungs clear, normal breath sounds, no respiratory distress Cardiovascular: normal peripheral pulses, normal rate, regular rhythm Abdomen: normal bowel sounds, soft, non tender, no organomegaly, non distended Skin: no rash 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 Lymphatic: no neck adenopathy Current Medications Medications (Trade) Dose Ordered Sig/Amanda Route PRN Reason Start Time Stop Time Status Last Admin Dose Admin Acetaminophen (Tylenol) 650 mg Q4H PRN ORAL Mild Pain/Temp > 100.5 08/07/16 19:45 09/06/16 19:44 Acetaminophen/ Hydrocodone Bitart ([place] 10/325) 1 ea Q4H PRN ORAL Severe Pain (Pain Scale 7-10) 08/07/16 19:45 08/14/16 19:44 08/11/16 09:33 Al Hydroxide/Mg Hydroxide (Mylanta II) 30 ml Q6H PRN ORAL dyspepsia 07/23/16 07:30 08/22/16 07:29 Dextrose (Dextrose 50%) STAT PRN IV Hypoglycemia 07/23/16 07:30 08/22/16 07:29 Folic Acid (Folate) 1 mg DAILY ORAL 07/29/16 09:00 08/28/16 08:59 08/12/16 08:51 Heparin Sodium (Porcine) (Heparin 5000 units/ml) 5,000 units EVERY 12 HOURS SUBQ 07/23/16 09:00 08/22/16 08:59 08/11/16 20:23 Levetiracetam (Keppra) 500 mg EVERY 12 HOURS ORAL 07/23/16 09:00 08/22/16 08:59 08/12/16 21:15 Magnesium Oxide (Mag-Ox 400mg) 400 mg DAILY ORAL 07/29/16 09:00 08/28/16 08:59 08/12/16 08:46 Multivitamins (Multivitamins) 1 tab DAILY ORAL 07/29/16 09:00 08/28/16 08:59 08/12/16 08:45 Ondansetron HCl (Zofran) 4 mg Q6H PRN IVP Nausea & Vomiting 07/23/16 07:30 08/22/16 07:29 Phenytoin (Dilantin) 200 mg Q12HR ORAL 08/10/16 21:00 09/09/16 20:59 08/12/16 21:15 Polyethylene Glycol (Miralax) 17 gm HSPRN PRN ORAL Constipation 07/23/16 07:30 08/22/16 07:29 Potassium Chloride (K-Dur) 20 meq DAILY ORAL 07/29/16 09:00 08/28/16 08:59 08/12/16 08:45 Thiamine HCl (Vitamin B1) 100 mg DAILY ORAL 07/29/16 09:00 08/28/16 08:59 08/12/16 08:50 Vitamin A/Vitamin D (A & D Oint) 1 applic EVERY 12 HOURS TOPIC 08/01/16 09:00 08/31/16 08:59 08/12/16 21:16 Zolpidem Tartrate (Ambien) 5 mg HSPRN PRN ORAL Insomnia 07/23/16 07:30 08/22/16 07:29 08/05/16 02:07 ANNIE DEJESUS August 12, 2016 22:43
[2016-08-13] VITALS (7 sets, daily range): BP systolic 108–130; BP diastolic 56–82
[2016-08-13] MEDS: Magnesium Oxide 400mg tab ORAL SCH (09:02)
[2016-08-13] MEDS: Phenytoin 100mg cap ORAL SCH ×2 (09:03→20:40)
[2016-08-13] MEDS: Thiamine 100mg tab ORAL SCH (09:03)
[2016-08-13] MEDS: Vitamin A&D Oint 2oz Tube TOPIC SCH ×2 (09:04→21:08)
[2016-08-13] MEDS: Heparin 5000 units/ml inj SUBQ SCH ×2 (09:06→20:42)
--- NOTE | 2016-08-13 17:41 | Pulmonology Progress Note ---
Assessment/Plan Problems: (1) Right patella fracture (2) Seizure disorder (3) Homelessness (4) Closed right fibular fracture Assessment/Plan labs ordered for tomorrow pt/ot social service evaluation pain control dc planning Subjective ROS Limited/Unobtainable: No Allergies: Coded Allergies: NO KNOWN ALLERGIES (Unverified Allergy, Unknown, 01/27/15) No Known Allergies (Unverified , 05/17/16) UNABLE TO ASSESS (Unverified , 03/22/15) Objective Last 24 Hour Vital Signs Date Time Temp Pulse Resp B/P Pulse Ox O2 Delivery O2 Flow Rate FiO2 08/13/16 15:42 97.9 58 19 112/56 97 Room Air 08/13/16 11:29 98.0 57 19 108/57 98 Room Air 08/13/16 08:03 97.9 69 19 123/68 99 Room Air 08/13/16 04:00 98.2 54 20 126/69 99 Room Air 08/13/16 00:00 98.1 57 20 130/76 98 Room Air 08/12/16 20:00 98.4 60 20 117/46 98 Room Air Intake and Output 08/12/16 08/13/16 19:00 07:00 Intake Total 1980 ml Output Total 2100 ml 4150 ml Balance -120 ml -4150 ml Intake Oral 1980 ml Output Urine Total 2100 ml 4150 ml # Voids 6 # Bowel Movements 1 Objective General Appearance: WD/WN HEENT: normocephalic Respiratory/Chest: chest wall non-tender, lungs clear, normal breath sounds, no respiratory distress Cardiovascular: normal peripheral pulses, normal rate, regular rhythm Abdomen: normal bowel sounds, soft, non tender, no organomegaly, non distended Skin: no rash 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 Lymphatic: no neck adenopathy Current Medications Medications (Trade) Dose Ordered Sig/Amanda Route PRN Reason Start Time Stop Time Status Last Admin Dose Admin Acetaminophen (Tylenol) 650 mg Q4H PRN ORAL Mild Pain/Temp > 100.5 08/07/16 19:45 09/06/16 19:44 Acetaminophen/ Hydrocodone Bitart ([place] 10/325) 1 ea Q4H PRN ORAL Severe Pain (Pain Scale 7-10) 08/07/16 19:45 08/14/16 19:44 08/11/16 09:33 Al Hydroxide/Mg Hydroxide (Mylanta II) 30 ml Q6H PRN ORAL dyspepsia 07/23/16 07:30 08/22/16 07:29 Dextrose (Dextrose 50%) STAT PRN IV Hypoglycemia 07/23/16 07:30 08/22/16 07:29 Folic Acid (Folate) 1 mg DAILY ORAL 07/29/16 09:00 08/28/16 08:59 08/13/16 09:03 Heparin Sodium (Porcine) (Heparin 5000 units/ml) 5,000 units EVERY 12 HOURS SUBQ 07/23/16 09:00 08/22/16 08:59 08/13/16 09:06 Levetiracetam (Keppra) 500 mg EVERY 12 HOURS ORAL 07/23/16 09:00 08/22/16 08:59 08/13/16 09:07 Magnesium Oxide (Mag-Ox 400mg) 400 mg DAILY ORAL 07/29/16 09:00 08/28/16 08:59 08/13/16 09:02 Multivitamins (Multivitamins) 1 tab DAILY ORAL 07/29/16 09:00 08/28/16 08:59 08/13/16 09:03 Ondansetron HCl (Zofran) 4 mg Q6H PRN IVP Nausea & Vomiting 07/23/16 07:30 08/22/16 07:29 Phenytoin (Dilantin) 200 mg Q12HR ORAL 08/10/16 21:00 09/09/16 20:59 08/13/16 09:03 Polyethylene Glycol (Miralax) 17 gm HSPRN PRN ORAL Constipation 07/23/16 07:30 08/22/16 07:29 Potassium Chloride (K-Dur) 20 meq DAILY ORAL 07/29/16 09:00 08/28/16 08:59 08/13/16 09:03 Thiamine HCl (Vitamin B1) 100 mg DAILY ORAL 07/29/16 09:00 08/28/16 08:59 08/13/16 09:03 Vitamin A/Vitamin D (A & D Oint) 1 applic EVERY 12 HOURS TOPIC 08/01/16 09:00 08/31/16 08:59 08/13/16 09:04 Zolpidem Tartrate (Ambien) 5 mg HSPRN PRN ORAL Insomnia 07/23/16 07:30 08/22/16 07:29 08/05/16 02:07 ANNIE DEJESUS August 13, 2016 17:41
[2016-08-14 04:35] VITALS: BP 141/62
[2016-08-14 08:14] VITALS: BP 128/74
[2016-08-14] MEDS: Vitamin A&D Oint 2oz Tube TOPIC SCH ×2 (09:02→20:40)
[2016-08-14] MEDS: Magnesium Oxide 400mg tab ORAL SCH (09:03)
[2016-08-14] MEDS: Thiamine 100mg tab ORAL SCH (09:03)
[2016-08-14] MEDS: Phenytoin 100mg cap ORAL SCH ×2 (09:03→20:40)
[2016-08-14] MEDS: Heparin 5000 units/ml inj SUBQ SCH ×2 (09:05→20:41)
--- NOTE | 2016-08-14 16:23 | Pulmonology Progress Note ---
Assessment/Plan Problems: (1) Right patella fracture (2) Seizure disorder (3) Homelessness (4) Closed right fibular fracture Assessment/Plan labs ordered for tomorrow pt/ot social service evaluation pain control dc planning Subjective ROS Limited/Unobtainable: No Constitutional: Reports: no symptoms HEENT: Repors: no symptoms Respiratory: Reports: no symptoms Allergies: Coded Allergies: NO KNOWN ALLERGIES (Unverified Allergy, Unknown, 01/27/15) No Known Allergies (Unverified , 05/17/16) UNABLE TO ASSESS (Unverified , 03/22/15) Objective Last 24 Hour Vital Signs Date Time Temp Pulse Resp B/P Pulse Ox O2 Delivery O2 Flow Rate FiO2 08/14/16 08:14 97.0 55 21 128/74 99 Room Air 08/14/16 04:35 97.7 60 18 141/62 97 Room Air 08/13/16 23:51 97.3 63 16 122/82 100 Room Air 08/13/16 20:02 98.6 57 20 121/70 99 Room Air Intake and Output 08/13/16 08/14/16 19:00 07:00 Intake Total 900 ml Output Total 1000 ml Balance -100 ml Intake Oral 900 ml Output Urine Total 1000 ml # Voids 3 # Bowel Movements 1 Objective General Appearance: WD/WN HEENT: normocephalic Respiratory/Chest: chest wall non-tender, lungs clear, normal breath sounds, no respiratory distress Cardiovascular: normal peripheral pulses, normal rate, regular rhythm Abdomen: normal bowel sounds, soft, non tender, no organomegaly, non distended Skin: no rash 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 Lymphatic: no neck adenopathy Current Medications Medications (Trade) Dose Ordered Sig/Amanda Route PRN Reason Start Time Stop Time Status Last Admin Dose Admin Acetaminophen (Tylenol) 650 mg Q4H PRN ORAL Mild Pain/Temp > 100.5 08/07/16 19:45 09/06/16 19:44 Acetaminophen/ Hydrocodone Bitart ([place] 10/325) 1 ea Q4H PRN ORAL Severe Pain (Pain Scale 7-10) 08/07/16 19:45 08/14/16 19:44 08/11/16 09:33 Al Hydroxide/Mg Hydroxide (Mylanta II) 30 ml Q6H PRN ORAL dyspepsia 07/23/16 07:30 08/22/16 07:29 Dextrose (Dextrose 50%) STAT PRN IV Hypoglycemia 07/23/16 07:30 08/22/16 07:29 Folic Acid (Folate) 1 mg DAILY ORAL 07/29/16 09:00 08/28/16 08:59 08/14/16 09:03 Heparin Sodium (Porcine) (Heparin 5000 units/ml) 5,000 units EVERY 12 HOURS SUBQ 07/23/16 09:00 08/22/16 08:59 08/14/16 09:05 Levetiracetam (Keppra) 500 mg EVERY 12 HOURS ORAL 07/23/16 09:00 08/22/16 08:59 08/14/16 09:03 Magnesium Oxide (Mag-Ox 400mg) 400 mg DAILY ORAL 07/29/16 09:00 08/28/16 08:59 08/14/16 09:03 Multivitamins (Multivitamins) 1 tab DAILY ORAL 07/29/16 09:00 08/28/16 08:59 08/14/16 09:03 Ondansetron HCl (Zofran) 4 mg Q6H PRN IVP Nausea & Vomiting 07/23/16 07:30 08/22/16 07:29 Phenytoin (Dilantin) 200 mg Q12HR ORAL 08/10/16 21:00 09/09/16 20:59 08/14/16 09:03 Polyethylene Glycol (Miralax) 17 gm HSPRN PRN ORAL Constipation 07/23/16 07:30 08/22/16 07:29 Potassium Chloride (K-Dur) 20 meq DAILY ORAL 07/29/16 09:00 08/28/16 08:59 08/14/16 09:03 Thiamine HCl (Vitamin B1) 100 mg DAILY ORAL 07/29/16 09:00 08/28/16 08:59 08/14/16 09:03 Vitamin A/Vitamin D (A & D Oint) 1 applic EVERY 12 HOURS TOPIC 08/01/16 09:00 08/31/16 08:59 08/14/16 09:02 Zolpidem Tartrate (Ambien) 5 mg HSPRN PRN ORAL Insomnia 07/23/16 07:30 08/22/16 07:29 08/05/16 02:07 ANNIE DEJESUS August 14, 2016 16:23
[2016-08-14 20:00] VITALS: BP 111/60
[2016-08-15] VITALS: BP 117/62
[2016-08-15 04:00] VITALS: BP 107/52
[2016-08-15 08:00] VITALS: BP 114/53
[2016-08-15] MEDS: Magnesium Oxide 400mg tab ORAL SCH (08:39)
[2016-08-15] MEDS: Thiamine 100mg tab ORAL SCH (08:39)
[2016-08-15] MEDS: Phenytoin 100mg cap ORAL SCH ×2 (08:39→20:41)
[2016-08-15] MEDS: Vitamin A&D Oint 2oz Tube TOPIC SCH ×2 (08:40→20:41)
[2016-08-15] MEDS: Heparin 5000 units/ml inj SUBQ SCH ×2 (08:40→20:40)
[2016-08-15 12:00] VITALS: BP 111/45
[2016-08-15 16:00] VITALS: BP 124/56
[2016-08-15 20:00] VITALS: BP 109/50
--- NOTE | 2016-08-15 21:53 | Pulmonology Progress Note ---
Assessment/Plan Problems: (1) Right patella fracture (2) Seizure disorder (3) Homelessness (4) Closed right fibular fracture Assessment/Plan labs ordered for tomorrow pt/ot social service evaluation pain control dc planning Subjective ROS Limited/Unobtainable: No Allergies: Coded Allergies: NO KNOWN ALLERGIES (Unverified Allergy, Unknown, 01/27/15) No Known Allergies (Unverified , 05/17/16) UNABLE TO ASSESS (Unverified , 03/22/15) Objective Last 24 Hour Vital Signs Date Time Temp Pulse Resp B/P Pulse Ox O2 Delivery O2 Flow Rate FiO2 08/15/16 20:00 97.5 59 19 109/50 99 Room Air 08/15/16 16:00 97.5 51 20 124/56 96 Room Air 08/15/16 12:00 97.0 59 19 111/45 99 Room Air 08/15/16 08:00 97.5 54 20 114/53 97 Room Air 08/15/16 04:00 98.1 58 20 107/52 97 Room Air 08/15/16 00:00 97.5 68 20 117/62 97 Room Air Intake and Output 08/14/16 08/15/16 19:00 07:00 Intake Total 1200 ml 450 ml Output Total 2200 ml Balance -1000 ml 450 ml Intake Oral 1200 ml 450 ml Output Urine Total 2200 ml # Voids 3 3 Objective General Appearance: WD/WN HEENT: normocephalic Respiratory/Chest: chest wall non-tender, lungs clear, normal breath sounds, no respiratory distress Cardiovascular: normal peripheral pulses, normal rate, regular rhythm Abdomen: normal bowel sounds, soft, non tender, no organomegaly, non distended Skin: no rash 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 Lymphatic: no neck adenopathy Current Medications Medications (Trade) Dose Ordered Sig/Amanda Route PRN Reason Start Time Stop Time Status Last Admin Dose Admin Acetaminophen (Tylenol) 650 mg Q4H PRN ORAL Mild Pain/Temp > 100.5 08/07/16 19:45 09/06/16 19:44 Al Hydroxide/Mg Hydroxide (Mylanta II) 30 ml Q6H PRN ORAL dyspepsia 07/23/16 07:30 08/22/16 07:29 Dextrose (Dextrose 50%) STAT PRN IV Hypoglycemia 07/23/16 07:30 08/22/16 07:29 Folic Acid (Folate) 1 mg DAILY ORAL 07/29/16 09:00 08/28/16 08:59 08/15/16 08:39 Heparin Sodium (Porcine) (Heparin 5000 units/ml) 5,000 units EVERY 12 HOURS SUBQ 07/23/16 09:00 08/22/16 08:59 08/15/16 20:40 Levetiracetam (Keppra) 500 mg EVERY 12 HOURS ORAL 07/23/16 09:00 08/22/16 08:59 08/15/16 20:40 Magnesium Oxide (Mag-Ox 400mg) 400 mg DAILY ORAL 07/29/16 09:00 08/28/16 08:59 08/15/16 08:39 Multivitamins (Multivitamins) 1 tab DAILY ORAL 07/29/16 09:00 08/28/16 08:59 08/15/16 08:40 Ondansetron HCl (Zofran) 4 mg Q6H PRN IVP Nausea & Vomiting 07/23/16 07:30 08/22/16 07:29 Phenytoin (Dilantin) 200 mg Q12HR ORAL 08/10/16 21:00 09/09/16 20:59 08/15/16 20:41 Polyethylene Glycol (Miralax) 17 gm HSPRN PRN ORAL Constipation 07/23/16 07:30 08/22/16 07:29 Potassium Chloride (K-Dur) 20 meq DAILY ORAL 07/29/16 09:00 08/28/16 08:59 08/15/16 08:39 Thiamine HCl (Vitamin B1) 100 mg DAILY ORAL 07/29/16 09:00 08/28/16 08:59 08/15/16 08:39 Vitamin A/Vitamin D (A & D Oint) 1 applic EVERY 12 HOURS TOPIC 08/01/16 09:00 08/31/16 08:59 08/15/16 20:41 Zolpidem Tartrate (Ambien) 5 mg HSPRN PRN ORAL Insomnia 07/23/16 07:30 08/22/16 07:29 08/05/16 02:07 ANNIE DEJESUS August 15, 2016 21:53
[2016-08-16] VITALS: BP 112/54
[2016-08-16 04:00] VITALS: BP 115/57
[2016-08-16 07:50] VITALS: BP 114/55
[2016-08-16] MEDS: Thiamine 100mg tab ORAL SCH (09:34)
[2016-08-16] MEDS: Phenytoin 100mg cap ORAL SCH ×2 (09:34→20:49)
[2016-08-16] MEDS: Magnesium Oxide 400mg tab ORAL SCH (09:34)
[2016-08-16] MEDS: Heparin 5000 units/ml inj SUBQ SCH ×2 (09:35→20:52)
[2016-08-16] MEDS: Vitamin A&D Oint 2oz Tube TOPIC SCH ×2 (09:36→21:53)
[2016-08-16 11:30] VITALS: BP 130/68
[2016-08-16 16:32] VITALS: BP 111/59
[2016-08-16 20:00] VITALS: BP 128/77
--- NOTE | 2016-08-16 23:30 | Pulmonology Progress Note ---
Assessment/Plan Problems: (1) Right patella fracture (2) Seizure disorder (3) Homelessness (4) Closed right fibular fracture Assessment/Plan labs ordered for tomorrow pt/ot social service evaluation pain control dc planning Subjective Allergies: Coded Allergies: NO KNOWN ALLERGIES (Unverified Allergy, Unknown, 01/27/15) No Known Allergies (Unverified , 05/17/16) UNABLE TO ASSESS (Unverified , 03/22/15) Objective Last 24 Hour Vital Signs Date Time Temp Pulse Resp B/P Pulse Ox O2 Delivery O2 Flow Rate FiO2 08/16/16 20:00 97.9 76 20 128/77 Room Air 08/16/16 16:32 97.5 57 20 111/59 98 Room Air 08/16/16 11:30 97.7 58 20 130/68 97 Room Air 08/16/16 07:50 97.9 56 19 114/55 97 Room Air 08/16/16 04:00 97.5 61 18 115/57 99 Room Air 08/16/16 00:00 97.7 58 19 112/54 98 Room Air Intake and Output 08/15/16 08/16/16 19:00 07:00 Intake Total 320 ml 480 ml Balance 320 ml 480 ml Intake Oral 320 ml 480 ml # Voids 5 2 Objective General Appearance: WD/WN HEENT: normocephalic Respiratory/Chest: chest wall non-tender, lungs clear, normal breath sounds, no respiratory distress Cardiovascular: normal peripheral pulses, normal rate, regular rhythm Abdomen: normal bowel sounds, soft, non tender, no organomegaly, non distended Skin: no rash 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 Lymphatic: no neck adenopathy Current Medications Medications (Trade) Dose Ordered Sig/Amanda Route PRN Reason Start Time Stop Time Status Last Admin Dose Admin Acetaminophen (Tylenol) 650 mg Q4H PRN ORAL Mild Pain/Temp > 100.5 08/07/16 19:45 09/06/16 19:44 Al Hydroxide/Mg Hydroxide (Mylanta II) 30 ml Q6H PRN ORAL dyspepsia 07/23/16 07:30 08/22/16 07:29 Dextrose (Dextrose 50%) STAT PRN IV Hypoglycemia 07/23/16 07:30 08/22/16 07:29 Folic Acid (Folate) 1 mg DAILY ORAL 07/29/16 09:00 08/28/16 08:59 08/16/16 09:34 Heparin Sodium (Porcine) (Heparin 5000 units/ml) 5,000 units EVERY 12 HOURS SUBQ 07/23/16 09:00 08/22/16 08:59 08/16/16 20:52 Levetiracetam (Keppra) 500 mg EVERY 12 HOURS ORAL 07/23/16 09:00 08/22/16 08:59 08/16/16 20:49 Magnesium Oxide (Mag-Ox 400mg) 400 mg DAILY ORAL 07/29/16 09:00 08/28/16 08:59 08/16/16 09:34 Multivitamins (Multivitamins) 1 tab DAILY ORAL 07/29/16 09:00 08/28/16 08:59 08/16/16 09:34 Ondansetron HCl (Zofran) 4 mg Q6H PRN IVP Nausea & Vomiting 07/23/16 07:30 08/22/16 07:29 Phenytoin (Dilantin) 200 mg Q12HR ORAL 08/10/16 21:00 09/09/16 20:59 08/16/16 20:49 Polyethylene Glycol (Miralax) 17 gm HSPRN PRN ORAL Constipation 07/23/16 07:30 08/22/16 07:29 Potassium Chloride (K-Dur) 20 meq DAILY ORAL 07/29/16 09:00 08/28/16 08:59 08/16/16 09:34 Thiamine HCl (Vitamin B1) 100 mg DAILY ORAL 07/29/16 09:00 08/28/16 08:59 08/16/16 09:34 Vitamin A/Vitamin D (A & D Oint) 1 applic EVERY 12 HOURS TOPIC 08/01/16 09:00 08/31/16 08:59 08/16/16 21:53 Zolpidem Tartrate (Ambien) 5 mg HSPRN PRN ORAL Insomnia 07/23/16 07:30 08/22/16 07:29 08/05/16 02:07 ANNIE DEJESUS August 16, 2016 23:30
[2016-08-17] VITALS (12 sets, daily range): BP systolic 109–148; BP diastolic 53–76
[2016-08-17] MEDS: Phenytoin 100mg cap ORAL SCH ×2 (08:41→21:00)
[2016-08-17] MEDS: Thiamine 100mg tab ORAL SCH (08:42)
[2016-08-17] MEDS: Vitamin A&D Oint 2oz Tube TOPIC SCH ×2 (08:42→21:00)
[2016-08-17] MEDS: Heparin 5000 units/ml inj SUBQ SCH ×2 (08:42→21:00)
[2016-08-17] MEDS: Magnesium Oxide 400mg tab ORAL SCH (08:42)
--- NOTE | 2016-08-17 09:48 | Diagnostic Imaging Report ---
Indication: Right leg pain status post fall Technique: XRAY LEG LOWER TIB/FIB 2V RIGHT Comparison: 07/23/16 Findings: There is redemonstration of an obliquely oriented fracture of the distal fibula and fracture of the medial malleolus. Partially visualized patellar fracture is noted with separation of the fragments. There is osteopenia. Impression: Redemonstration of partially visualized patellar fracture with separation of fragments. Redemonstration of fractures involving the distal fibula and medial malleolus.
--- NOTE | 2016-08-17 22:39 | Pulmonology Progress Note ---
Assessment/Plan Problems: (1) Right patella fracture (2) Seizure disorder (3) Homelessness (4) Closed right fibular fracture Assessment/Plan labs ordered for tomorrow pt/ot social service evaluation pain control dc planning Subjective ROS Limited/Unobtainable: No Allergies: Coded Allergies: NO KNOWN ALLERGIES (Unverified Allergy, Unknown, 01/27/15) No Known Allergies (Unverified , 05/17/16) UNABLE TO ASSESS (Unverified , 03/22/15) Objective Last 24 Hour Vital Signs Date Time Temp Pulse Resp B/P Pulse Ox O2 Delivery O2 Flow Rate FiO2 08/17/16 20:00 97.9 59 20 114/66 96 Room Air 08/17/16 15:59 98.4 62 22 116/53 97 Room Air 08/17/16 15:15 98.3 08/17/16 08:15 98.3 76 22 109/71 97 Room Air 08/17/16 04:36 98.3 79 20 124/74 96 Room Air 08/17/16 04:30 97.3 75 20 119/74 99 Room Air 08/17/16 03:30 97.7 81 20 110/66 96 Room Air 08/17/16 03:00 97.3 85 20 119/70 98 Room Air 08/17/16 02:30 97.0 77 20 129/75 99 Room Air 08/17/16 02:15 97.9 79 18 131/72 96 Room Air 08/17/16 02:00 97.3 82 18 124/76 97 Room Air 08/17/16 01:45 97.6 88 18 148/70 99 Room Air 08/17/16 00:00 98.3 80 20 122/71 96 Room Air Intake and Output 08/16/16 08/17/16 19:00 07:00 Intake Total 480 ml 720 ml Output Total 550 ml 1200 ml Balance -70 ml -480 ml Intake Oral 480 ml 720 ml Output Urine Total 550 ml 1200 ml # Voids 1 2 Objective General Appearance: WD/WN HEENT: normocephalic Respiratory/Chest: chest wall non-tender, lungs clear, normal breath sounds, no respiratory distress Cardiovascular: normal peripheral pulses, normal rate, regular rhythm Abdomen: normal bowel sounds, soft, non tender, no organomegaly, non distended Skin: no rash 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 Lymphatic: no neck adenopathy Current Medications Medications (Trade) Dose Ordered Sig/Amanda Route PRN Reason Start Time Stop Time Status Last Admin Dose Admin Acetaminophen (Tylenol) 650 mg Q4H PRN ORAL Mild Pain/Temp > 100.5 08/07/16 19:45 09/06/16 19:44 08/17/16 14:16 Al Hydroxide/Mg Hydroxide (Mylanta II) 30 ml Q6H PRN ORAL dyspepsia 07/23/16 07:30 08/22/16 07:29 Dextrose (Dextrose 50%) STAT PRN IV Hypoglycemia 07/23/16 07:30 08/22/16 07:29 Folic Acid (Folate) 1 mg DAILY ORAL 07/29/16 09:00 08/28/16 08:59 08/16/16 09:34 Heparin Sodium (Porcine) (Heparin 5000 units/ml) 5,000 units EVERY 12 HOURS SUBQ 07/23/16 09:00 08/22/16 08:59 08/16/16 20:52 Levetiracetam (Keppra) 500 mg EVERY 12 HOURS ORAL 07/23/16 09:00 08/22/16 08:59 08/16/16 20:49 Magnesium Oxide (Mag-Ox 400mg) 400 mg DAILY ORAL 07/29/16 09:00 08/28/16 08:59 08/16/16 09:34 Multivitamins (Multivitamins) 1 tab DAILY ORAL 07/29/16 09:00 08/28/16 08:59 08/16/16 09:34 Ondansetron HCl (Zofran) 4 mg Q6H PRN IVP Nausea & Vomiting 07/23/16 07:30 08/22/16 07:29 Phenytoin (Dilantin) 200 mg Q12HR ORAL 08/10/16 21:00 09/09/16 20:59 08/16/16 20:49 Polyethylene Glycol (Miralax) 17 gm HSPRN PRN ORAL Constipation 07/23/16 07:30 08/22/16 07:29 Potassium Chloride (K-Dur) 20 meq DAILY ORAL 07/29/16 09:00 08/28/16 08:59 08/16/16 09:34 Thiamine HCl (Vitamin B1) 100 mg DAILY ORAL 07/29/16 09:00 08/28/16 08:59 08/16/16 09:34 Vitamin A/Vitamin D (A & D Oint) 1 applic EVERY 12 HOURS TOPIC 08/01/16 09:00 08/31/16 08:59 08/16/16 21:53 Zolpidem Tartrate (Ambien) 5 mg HSPRN PRN ORAL Insomnia 07/23/16 07:30 08/22/16 07:29 08/05/16 02:07 ANNIE DEJESUS August 17, 2016 22:39
[2016-08-18] VITALS: BP 122/72
[2016-08-18 04:00] VITALS: BP 129/70
[2016-08-18 08:29] VITALS: BP 121/63
[2016-08-18] MEDS: Thiamine 100mg tab ORAL SCH (09:00)
[2016-08-18] MEDS: Magnesium Oxide 400mg tab ORAL SCH (09:00)
[2016-08-18] MEDS: Vitamin A&D Oint 2oz Tube TOPIC SCH ×2 (09:00→21:58)
[2016-08-18] MEDS: Phenytoin 100mg cap ORAL SCH ×2 (09:00→20:15)
[2016-08-18] MEDS: Heparin 5000 units/ml inj SUBQ SCH ×2 (09:00→20:18)
[2016-08-18 11:58] VITALS: BP 116/52
--- NOTE | 2016-08-18 13:16 | Pulmonology Progress Note ---
Assessment/Plan Problems: (1) Epileptic seizure, generalized (2) Altered mental status (3) Right patella fracture (4) Seizure disorder (5) Homelessness (6) Closed right fibular fracture (7) Metabolic acidosis Assessment/Plan Neuro evaluation check labs lela monitoring Subjective Interval Events: was unresponsive. taken to [facility], now he is waking up Allergies: Coded Allergies: NO KNOWN ALLERGIES (Unverified Allergy, Unknown, 01/27/15) No Known Allergies (Unverified , 05/17/16) UNABLE TO ASSESS (Unverified , 03/22/15) Objective Last 24 Hour Vital Signs Date Time Temp Pulse Resp B/P Pulse Ox O2 Delivery O2 Flow Rate FiO2 08/18/16 11:58 97.7 54 14 116/52 98 Room Air 08/18/16 08:29 97.3 60 14 121/63 98 Room Air 08/18/16 04:00 97.3 58 20 129/70 97 08/18/16 00:00 97.7 65 18 122/72 97 Room Air 08/17/16 20:00 97.9 59 20 114/66 96 Room Air 08/17/16 15:59 98.4 62 22 116/53 97 Room Air 08/17/16 15:15 98.3 Intake and Output 08/17/16 08/18/16 19:00 07:00 Intake Total 960 ml Output Total 1700 ml Balance 960 ml -1700 ml Intake Oral 960 ml Output Urine Total 1700 ml # Voids 2 Objective General Appearance: WD/WN HEENT: normocephalic Respiratory/Chest: chest wall non-tender, lungs clear, normal breath sounds, no respiratory distress Cardiovascular: normal peripheral pulses, normal rate, regular rhythm Abdomen: normal bowel sounds, soft, non tender, no organomegaly, non distended Skin: no rash 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 Lymphatic: no neck adenopathy Current Medications Medications (Trade) Dose Ordered Sig/Amanda Route PRN Reason Start Time Stop Time Status Last Admin Dose Admin Acetaminophen (Tylenol) 650 mg Q4H PRN ORAL Mild Pain/Temp > 100.5 08/18/16 14:00 09/17/16 13:59 Al Hydroxide/Mg Hydroxide (Mylanta II) 30 ml Q6H PRN ORAL dyspepsia 08/18/16 14:00 09/17/16 13:59 Dextrose (Dextrose 50%) STAT PRN IV Hypoglycemia 08/18/16 14:00 09/17/16 13:59 Folic Acid (Folate) 1 mg DAILY ORAL 08/19/16 14:00 09/18/16 13:59 Heparin Sodium (Porcine) (Heparin 5000 units/ml) 5,000 units EVERY 12 HOURS SUBQ 08/18/16 21:00 09/17/16 20:59 Levetiracetam (Keppra) 500 mg EVERY 12 HOURS ORAL 08/18/16 21:00 09/17/16 20:59 Magnesium Oxide (Mag-Ox 400mg) 400 mg DAILY ORAL 08/19/16 09:00 09/18/16 08:59 Multivitamins (Multivitamins) 1 tab DAILY ORAL 08/19/16 09:00 09/18/16 08:59 Ondansetron HCl (Zofran) 4 mg Q6H PRN IVP Nausea & Vomiting 08/18/16 13:30 09/17/16 13:29 Phenytoin (Dilantin) 200 mg Q12HR ORAL 08/18/16 21:00 09/17/16 20:59 Polyethylene Glycol (Miralax) 17 gm HSPRN PRN ORAL Constipation 08/18/16 21:00 09/17/16 20:59 Potassium Chloride (K-Dur) 20 meq DAILY ORAL 08/19/16 09:00 09/18/16 08:59 UNV Thiamine HCl (Vitamin B1) 100 mg DAILY ORAL 08/19/16 09:00 09/18/16 08:59 Vitamin A/Vitamin D (A & D Oint) 1 applic EVERY 12 HOURS TOPIC 08/18/16 21:00 09/17/16 20:59 Zolpidem Tartrate (Ambien) 5 mg HSPRN PRN ORAL Insomnia 08/19/16 21:00 09/18/16 20:59 ANNIE DEJESUS August 18, 2016 13:15
[2016-08-18] MEDS ORDERED: Diazepam 10mg/2ml Inj IV PRN (13:30)
[2016-08-18] MEDS ORDERED: Mylanta II UD 30ml ORAL PRN (14:00)
[2016-08-18 14:16] LABS: BASOPHILS % (AUTO) 1.1 % (0.0-2.0); EOSINOPHILS % (AUTO) 1.9 % (0.0-3.0); LYMPHOCYTES % (AUTO) 17.2 % (20.0-45.0); MEAN CORPUSCULAR HEMOGLOBIN 31.9 PG (27.0-31.0); MEAN CORPUSCULAR HGB CONC 32.6 G/DL (32.0-36.0); MEAN CORPUSCULAR VOLUME 98 FL (80-99); MEAN PLATELET VOLUME 9.9 FL (6.5-10.1); MONOCYTES % (AUTO) 5.9 % (1.0-10.0); PLATELET COUNT 207 K/UL (150-450); RED BLOOD COUNT 4.42 M/UL (4.70-6.10); RED CELL DISTRIBUTION WIDTH 11.7 % (11.6-14.8); WHITE BLOOD COUNT 10.8 K/UL (4.8-10.8)
[2016-08-18 14:35] LABS: ALANINE AMINOTRANSFERASE 9 U/L (3-41); ANION GAP 19 (5-15); ASPARTATE AMINO TRANSFERASE 12 U/L (5-40); CALCIUM 9.6 mg/dL (8.6-10.2); CARBON DIOXIDE 19 mEQ/L (20-30); CHLORIDE 97 mEQ/L (98-107); CREATININE 0.8 mg/dL (0.7-1.2); GLOMERULAR FILTRATION RATE > 60 mL/min (>60); HEMOLYSIS 23; POTASSIUM 4.2 mEQ/L (3.4-4.9); SODIUM 135 mEQ/L (135-145); TOTAL PROTEIN 7.1 g/dL (6.6-8.7)
[2016-08-18] MEDS ORDERED: LORazepam Inj 2mg/ml 1ml IV PRN (14:45)
[2016-08-18 15:53] LABS: ABG ALLEN TEST POSITIVE; ABG BASE EXCESS -16.9
[2016-08-18 16:00] VITALS: BP 114/56
[2016-08-18] MEDS: Morphine Sulfate 2mg/ml Inj IVP PRN (16:32)
[2016-08-18 20:00] VITALS: BP 135/63
[2016-08-18] MEDS ORDERED: Miralax 17gm pkt ORAL PRN (21:00)
[2016-08-19] VITALS (7 sets, daily range): BP systolic 99–124; BP diastolic 48–58
[2016-08-19 05:49] LABS: BASOPHILS % (AUTO) 0.7 % (0.0-2.0); EOSINOPHILS % (AUTO) 1.4 % (0.0-3.0); LYMPHOCYTES % (AUTO) 20.2 % (20.0-45.0); MEAN CORPUSCULAR HEMOGLOBIN 32.7 PG (27.0-31.0); MEAN CORPUSCULAR HGB CONC 33.5 G/DL (32.0-36.0); MEAN CORPUSCULAR VOLUME 97 FL (80-99); MEAN PLATELET VOLUME 8.7 FL (6.5-10.1); MONOCYTES % (AUTO) 8.2 % (1.0-10.0); NEUTROPHILS % (AUTO) 69.5 % (45.0-75.0); PLATELET COUNT 272 K/UL (150-450); RED BLOOD COUNT 4.39 M/UL (4.70-6.10); RED CELL DISTRIBUTION WIDTH 11.9 % (11.6-14.8); WHITE BLOOD COUNT 12.1 K/UL (4.8-10.8)
[2016-08-19 06:28] LABS: ALANINE AMINOTRANSFERASE 7 U/L (3-41); ALBUMIN/GLOBULIN RATIO 1.1 (1.0-2.7); ANION GAP 19 (5-15); ASPARTATE AMINO TRANSFERASE 11 U/L (5-40); CALCIUM 9.5 mg/dL (8.6-10.2); CARBON DIOXIDE 20 mEQ/L (20-30); CHLORIDE 102 mEQ/L (98-107); CREATININE 0.8 mg/dL (0.7-1.2); CRP QUANT 0.4 mg/dL (< 0.5); GLOMERULAR FILTRATION RATE > 60 mL/min (>60); HEMOLYSIS 5; PHOSPHORUS 4.2 mg/dL (2.5-4.8); POTASSIUM 4.1 mEQ/L (3.4-4.9); SODIUM 141 mEQ/L (135-145); TOTAL PROTEIN 7.2 g/dL (6.6-8.7)
[2016-08-19 08:46] LABS: ERYTHROCYTE SEDIMENTATION RATE 23 MM/HR (0-20)
[2016-08-19] MEDS ORDERED: Thiamine 100mg tab ORAL SCH (09:00)
[2016-08-19] MEDS ORDERED: Magnesium Oxide 400mg tab ORAL SCH (09:00)
[2016-08-19] MEDS: Phenytoin 100mg cap ORAL SCH ×2 (09:08→20:34)
[2016-08-19] MEDS: Morphine Sulfate 2mg/ml Inj IVP PRN (09:09)
[2016-08-19] MEDS: Heparin 5000 units/ml inj SUBQ SCH ×2 (09:09→20:35)
[2016-08-19] MEDS: Vitamin A&D Oint 2oz Tube TOPIC SCH ×2 (09:11→20:42)
--- NOTE | 2016-08-19 11:57 | Pulmonology Progress Note ---
Assessment/Plan Problems: (1) Epileptic seizure, generalized (2) Altered mental status (3) Right patella fracture (4) Seizure disorder (5) Homelessness (6) Closed right fibular fracture (7) Metabolic acidosis Assessment/Plan mental status improving Neuro evaluation check labs back to med/surg Subjective ROS Limited/Unobtainable: No Constitutional: Reports: no symptoms HEENT: Repors: no symptoms Respiratory: Reports: no symptoms Allergies: Coded Allergies: NO KNOWN ALLERGIES (Unverified Allergy, Unknown, 01/27/15) No Known Allergies (Unverified , 05/17/16) UNABLE TO ASSESS (Unverified , 03/22/15) Objective Last 24 Hour Vital Signs Date Time Temp Pulse Resp B/P Pulse Ox O2 Delivery O2 Flow Rate FiO2 08/19/16 11:35 55 08/19/16 08:00 97.6 53 20 100/48 97 Room Air 08/19/16 08:00 53 08/19/16 04:00 98.1 60 20 124/52 96 Room Air 08/19/16 04:00 55 08/19/16 00:00 99.0 61 20 99/58 96 Room Air 08/19/16 00:00 64 08/18/16 20:00 80 08/18/16 20:00 99.8 75 20 135/63 96 Room Air 08/18/16 20:00 80 08/18/16 16:00 98.2 67 20 114/56 98 Room Air 08/18/16 11:58 97.7 54 14 116/52 98 Room Air Intake and Output 08/18/16 08/19/16 19:00 07:00 Intake Total 240 ml Output Total 300 ml Balance -60 ml Intake Oral 240 ml Output Urine Total 300 ml # Voids 1 1 Objective General Appearance: WD/WN HEENT: normocephalic Respiratory/Chest: chest wall non-tender, lungs clear, normal breath sounds, no respiratory distress Cardiovascular: normal peripheral pulses, normal rate, regular rhythm Abdomen: normal bowel sounds, soft, non tender, no organomegaly, non distended Skin: no rash 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: shape hand II-XII grossly normal Lymphatic: no neck adenopathy Laboratory Tests 08/18/16 12:25: Arterial Blood pH 7.150*L, Arterial Blood Partial Pressure CO2 31.0L, Arterial Blood Partial Pressure O2 92.0, Arterial Blood HCO3 10.5L, Arterial Blood Oxygen Saturation 95.0, Arterial Blood Base Excess -16.9, Kings Test Positive 08/18/16 14:00: White Blood Count 10.8, Red Blood Count 4.42L, Hemoglobin 14.1L, Hematocrit 43.2 , Mean Corpuscular Volume 98, Mean Corpuscular Hemoglobin 31.9H, Mean Corpuscular Hemoglobin Concent 32.6, Red Cell Distribution Width 11.7, Platelet Count 207, Mean Platelet Volume 9.9, Neutrophils (%) (Auto) 74.0, Lymphocytes (% ) (Auto) 17.2L, Monocytes (%) (Auto) 5.9, Eosinophils (%) (Auto) 1.9, Basophils (%) (Auto) 1.1, Sodium Level 135, Potassium Level 4.2, Chloride Level 97L, Carbon Dioxide Level 19L, Anion Gap 19H, Blood Urea Nitrogen 12, Creatinine 0.8 , Estimat Glomerular Filtration Rate > 60, Glucose Level 116H, Calcium Level 9.6 , Total Bilirubin < 0.2, Aspartate Amino Transf (AST/SGOT) 12, Alanine Aminotransferase (ALT/SGPT) 9, Alkaline Phosphatase 84, Total Protein 7.1, Albumin 3.7, Globulin 3.4, Albumin/Globulin Ratio 1.0 08/19/16 04:20: White Blood Count 12.1H, Red Blood Count 4.39L, Hemoglobin 14.3, Hematocrit 42.7 , Mean Corpuscular Volume 97, Mean Corpuscular Hemoglobin 32.7H, Mean Corpuscular Hemoglobin Concent 33.5, Red Cell Distribution Width 11.9, Platelet Count 272, Mean Platelet Volume 8.7, Neutrophils (%) (Auto) 69.5, Lymphocytes (% ) (Auto) 20.2, Monocytes (%) (Auto) 8.2, Eosinophils (%) (Auto) 1.4, Basophils ( %) (Auto) 0.7, Sodium Level 141, Potassium Level 4.1, Chloride Level 102, Carbon Dioxide Level 20, Anion Gap 19H, Blood Urea Nitrogen 11, Creatinine 0.8, Estimat Glomerular Filtration Rate > 60, Glucose Level 88, Calcium Level 9.5, Total Bilirubin < 0.2, Aspartate Amino Transf (AST/SGOT) 11, Alanine Aminotransferase (ALT/SGPT) 7, Alkaline Phosphatase 87, Total Protein 7.2, Albumin 3.8, Globulin 3.4, Albumin/Globulin Ratio 1.1, Erythrocyte Sedimentation Rate 23H, Phosphorus Level 4.2, Magnesium Level 2.0, C-Reactive Protein, Quantitative 0.4 Current Medications Medications (Trade) Dose Ordered Sig/Amanda Route PRN Reason Start Time Stop Time Status Last Admin Dose Admin Acetaminophen (Tylenol) 650 mg Q4H PRN ORAL Mild Pain/Temp > 100.5 08/18/16 14:00 09/17/16 13:59 Al Hydroxide/Mg Hydroxide (Mylanta II) 30 ml Q6H PRN ORAL dyspepsia 08/18/16 14:00 09/17/16 13:59 Dextrose (Dextrose 50%) STAT PRN IV Hypoglycemia 08/18/16 14:00 09/17/16 13:59 Diazepam (Valium) 10 mg Q6H PRN IV For seizures 08/18/16 13:30 08/25/16 13:29 08/18/16 14:12 Folic Acid (Folate) 1 mg DAILY ORAL 08/19/16 14:00 09/18/16 13:59 Heparin Sodium (Porcine) (Heparin 5000 units/ml) 5,000 units EVERY 12 HOURS SUBQ 08/18/16 21:00 09/17/16 20:59 08/19/16 09:09 Levetiracetam (Keppra) 500 mg EVERY 12 HOURS ORAL 08/18/16 21:00 09/17/16 20:59 08/19/16 09:08 Lorazepam (Ativan 2mg/ml 1ml) 2 mg Q4H PRN IV For Seizures 08/18/16 14:45 08/25/16 14:44 Magnesium Oxide (Mag-Ox 400mg) 400 mg DAILY ORAL 08/19/16 09:00 09/18/16 08:59 08/19/16 09:07 Morphine Sulfate (Morphine Sulfate) 2 mg Q4H PRN IVP Severe Pain (Pain Scale 7-10) 08/18/16 14:45 08/25/16 14:44 08/19/16 09:09 Multivitamins (Multivitamins) 1 tab DAILY ORAL 08/19/16 09:00 09/18/16 08:59 08/19/16 09:08 Ondansetron HCl (Zofran) 4 mg Q6H PRN IVP Nausea & Vomiting 08/18/16 13:30 09/17/16 13:29 Phenytoin (Dilantin) 200 mg Q12HR ORAL 08/18/16 21:00 09/17/16 20:59 08/19/16 09:08 Polyethylene Glycol (Miralax) 17 gm HSPRN PRN ORAL Constipation 08/18/16 21:00 09/17/16 20:59 Potassium Chloride (K-Dur) 20 meq DAILY ORAL 08/19/16 09:00 09/18/16 08:59 08/19/16 09:08 Thiamine HCl (Vitamin B1) 100 mg DAILY ORAL 08/19/16 09:00 09/18/16 08:59 08/19/16 09:08 Vitamin A/Vitamin D (A & D Oint) 1 applic EVERY 12 HOURS TOPIC 08/18/16 21:00 09/17/16 20:59 08/19/16 09:11 Zolpidem Tartrate (Ambien) 5 mg HSPRN PRN ORAL Insomnia 08/19/16 21:00 09/18/16 20:59 ANNIE DEJESUS August 19, 2016 11:57
[2016-08-19] MEDS ORDERED: LORazepam Inj 2mg/ml 1ml IV PRN (18:45)
[2016-08-19] MEDS ORDERED: Diazepam 10mg/2ml Inj IV PRN (19:00)
[2016-08-19] MEDS ORDERED: Mylanta II UD 30ml ORAL PRN (19:00)
[2016-08-19] MEDS ORDERED: Morphine Sulfate 2mg/ml Inj IVP PRN (19:00)
[2016-08-19] MEDS ORDERED: Zolpidem 5mg tab ORAL PRN ×2 (21:00)
[2016-08-19] MEDS ORDERED: Miralax 17gm pkt ORAL PRN (21:00)
[2016-08-20 04:00] VITALS: BP 109/56
[2016-08-20 08:19] VITALS: BP 131/71
[2016-08-20] MEDS: Magnesium Oxide 400mg tab ORAL SCH (09:15)
[2016-08-20] MEDS: Phenytoin 100mg cap ORAL SCH ×2 (09:15→21:05)
[2016-08-20] MEDS: Thiamine 100mg tab ORAL SCH (09:15)
[2016-08-20] MEDS: Heparin 5000 units/ml inj SUBQ SCH ×2 (09:16→21:00)
[2016-08-20] MEDS: Vitamin A&D Oint 2oz Tube TOPIC SCH ×2 (09:17→21:04)
[2016-08-20 11:49] VITALS: BP 145/65
--- NOTE | 2016-08-20 14:07 | Wound Care Consultation ---
Wound Assessment Wound Assessment #1: Wound Number: #! Wound Present on Admission: Yes New Wound: No Status Change of Wound: No Wound Location Body Site Modif: left, right Wound Location Body Site: foot Wound Type: other - dry and flaky skin, noted decrease in dry skin. Wound Thickness: Full Thickness Wound Drainage Amount: None Tissue Surrounding Wound: Intact Wound General Appearance: Open to air, Clean/Dry Wound Assessment #2: Wound Number: #2 Wound Present on Admission: Yes New Wound: No Status Change of Wound: No Wound Location Body Site Modif: left Wound Location Body Site: hand - 1st metacarpal finger Wound Type: other - previous open wound noted site with 100 % reepithelialization.- resolved Taj Test: Does not Taj - scar tissue Wound Thickness: Full Thickness Percent of Wound [employer]/Red: 100 Wound Drainage Amount: None Wound Drainage Odor: None/Absent Tissue Surrounding Wound: Intact Wound General Appearance: Open to air, Clean/Dry Wound Comment #1 left 1st metacarpal hand wound -Resolved. #2 left and right feet dry ,flaky skin- noted decrease in dryness Recommendation. -Keep dry skin clean and apply moisturizer. -Optimize nutrition. -Assess and follow up with MD for any further changes of condition in skin noted. reassessed skin, noted wound to left 1st metacarpal resolved. also assessed sacral area site intact. RAYMOND BOB August 20, 2016 14:07
--- NOTE | 2016-08-20 14:56 | Pulmonology Progress Note ---
Assessment/Plan Problems: (1) Epileptic seizure, generalized (2) Altered mental status (3) Right patella fracture (4) Seizure disorder (5) Homelessness (6) Closed right fibular fracture (7) Metabolic acidosis Assessment/Plan labs ordered for tomorrow pt/ot social service evaluation pain control Subjective ROS Limited/Unobtainable: No Allergies: Coded Allergies: NO KNOWN ALLERGIES (Unverified Allergy, Unknown, 01/27/15) No Known Allergies (Unverified , 05/17/16) UNABLE TO ASSESS (Unverified , 03/22/15) Objective Last 24 Hour Vital Signs Date Time Temp Pulse Resp B/P Pulse Ox O2 Delivery O2 Flow Rate FiO2 08/20/16 11:49 97.7 59 19 145/65 98 Room Air 08/20/16 08:19 98.1 62 19 131/71 99 Room Air 08/20/16 04:00 97.9 51 19 109/56 98 Room Air 08/19/16 23:42 98.1 59 19 109/54 99 Room Air 08/19/16 20:00 97.2 60 20 117/50 99 Room Air 08/19/16 16:00 98.4 51 20 108/53 96 Room Air 08/19/16 15:50 53 Intake and Output 08/19/16 08/20/16 18:59 06:59 Intake Total 450 ml Output Total 650 ml 350 ml Balance -650 ml 100 ml Intake Oral 450 ml Output Urine Total 650 ml 350 ml # Voids 3 4 Objective General Appearance: WD/WN HEENT: normocephalic Respiratory/Chest: chest wall non-tender, lungs clear, normal breath sounds, no respiratory distress Cardiovascular: normal peripheral pulses, normal rate, regular rhythm Abdomen: normal bowel sounds, soft, non tender, no organomegaly, non distended Skin: no rash 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 Lymphatic: no neck adenopathy Current Medications Medications (Trade) Dose Ordered Sig/Amanda Route PRN Reason Start Time Stop Time Status Last Admin Dose Admin Acetaminophen (Tylenol) 650 mg Q4H PRN ORAL Mild Pain/Temp > 100.5 08/19/16 19:00 09/18/16 18:59 Al Hydroxide/Mg Hydroxide (Mylanta II) 30 ml Q6H PRN ORAL dyspepsia 08/19/16 19:00 09/18/16 18:59 Dextrose (Dextrose 50%) STAT PRN IV Hypoglycemia 08/19/16 19:00 09/18/16 18:59 Diazepam (Valium) 10 mg Q6H PRN IV For seizures 08/19/16 19:00 08/26/16 18:59 Folic Acid (Folate) 1 mg DAILY ORAL 08/20/16 09:00 09/19/16 08:59 08/20/16 09:15 Heparin Sodium (Porcine) (Heparin 5000 units/ml) 5,000 units EVERY 12 HOURS SUBQ 08/19/16 21:00 09/18/16 20:59 08/20/16 09:16 Levetiracetam (Keppra) 500 mg EVERY 12 HOURS ORAL 08/19/16 21:00 09/18/16 20:59 08/20/16 09:14 Lorazepam (Ativan 2mg/ml 1ml) 2 mg Q4H PRN IV For Seizures 08/19/16 18:45 08/26/16 18:44 Magnesium Oxide (Mag-Ox 400mg) 400 mg DAILY ORAL 08/20/16 09:00 09/19/16 08:59 08/20/16 09:15 Morphine Sulfate (Morphine Sulfate) 2 mg Q4H PRN IVP Severe Pain (Pain Scale 7-10) 08/19/16 19:00 08/26/16 18:59 Multivitamins (Multivitamins) 1 tab DAILY ORAL 08/20/16 09:00 09/19/16 08:59 08/20/16 09:15 Ondansetron HCl (Zofran) 4 mg Q6H PRN IVP Nausea & Vomiting 08/19/16 19:00 09/18/16 18:59 Phenytoin (Dilantin) 200 mg Q12HR ORAL 08/19/16 21:00 09/18/16 20:59 08/20/16 09:15 Polyethylene Glycol (Miralax) 17 gm HSPRN PRN ORAL Constipation 08/19/16 21:00 09/18/16 20:59 Potassium Chloride (K-Dur) 20 meq DAILY ORAL 08/20/16 09:00 09/19/16 08:59 08/20/16 09:14 Thiamine HCl (Vitamin B1) 100 mg DAILY ORAL 08/20/16 09:00 09/19/16 08:59 08/20/16 09:15 Vitamin A/Vitamin D (A & D Oint) 1 applic EVERY 12 HOURS TOPIC 08/19/16 21:00 09/18/16 20:59 08/20/16 09:17 Zolpidem Tartrate (Ambien) 5 mg HSPRN PRN ORAL Insomnia 08/19/16 21:00 09/18/16 20:59 ANNIE DEJESUS August 20, 2016 14:56
[2016-08-20 15:37] VITALS: BP 101/58
[2016-08-20 20:00] VITALS: BP 136/74
[2016-08-21] VITALS: BP 112/75
[2016-08-21 04:00] VITALS: BP 124/73
[2016-08-21 07:59] VITALS: BP 135/49
[2016-08-21] MEDS: Thiamine 100mg tab ORAL SCH (09:15)
[2016-08-21] MEDS: Phenytoin 100mg cap ORAL SCH ×2 (09:33→20:11)
[2016-08-21] MEDS: Magnesium Oxide 400mg tab ORAL SCH (09:34)
[2016-08-21] MEDS: Heparin 5000 units/ml inj SUBQ SCH ×2 (09:45→20:11)
[2016-08-21] MEDS: Vitamin A&D Oint 2oz Tube TOPIC SCH ×2 (10:49→20:13)
[2016-08-21 11:55] VITALS: BP 146/66
--- NOTE | 2016-08-21 14:24 | Pulmonology Progress Note ---
Assessment/Plan Problems: (1) Epileptic seizure, generalized (2) Altered mental status (3) Right patella fracture (4) Seizure disorder (5) Homelessness (6) Closed right fibular fracture (7) Metabolic acidosis Assessment/Plan pt/ot social service evaluation pain control Subjective ROS Limited/Unobtainable: No Constitutional: Reports: no symptoms HEENT: Repors: no symptoms Respiratory: Reports: no symptoms Cardiovascular: Reports: no symptoms Allergies: Coded Allergies: NO KNOWN ALLERGIES (Unverified Allergy, Unknown, 01/27/15) No Known Allergies (Unverified , 05/17/16) UNABLE TO ASSESS (Unverified , 03/22/15) Objective Last 24 Hour Vital Signs Date Time Temp Pulse Resp B/P Pulse Ox O2 Delivery O2 Flow Rate FiO2 08/21/16 11:55 97.5 51 20 146/66 98 08/21/16 07:59 97.7 63 18 135/49 100 08/21/16 04:00 97.9 63 18 124/73 97 Room Air 08/21/16 00:00 97.9 51 18 112/75 96 Room Air 08/20/16 20:00 97.5 62 18 136/74 96 Room Air 08/20/16 15:37 97.9 59 19 101/58 99 Room Air Intake and Output 08/20/16 08/21/16 19:00 07:00 Intake Total 1200 ml 720 ml Output Total 1300 ml 400 ml Balance -100 ml 320 ml Intake Oral 1200 ml 720 ml Output Urine Total 1300 ml 400 ml # Voids 2 Objective General Appearance: WD/WN HEENT: normocephalic Respiratory/Chest: chest wall non-tender, lungs clear, normal breath sounds, no respiratory distress Cardiovascular: normal peripheral pulses, normal rate, regular rhythm Abdomen: normal bowel sounds, soft, non tender, no organomegaly, non distended Skin: no rash 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 Lymphatic: no neck adenopathy Current Medications Medications (Trade) Dose Ordered Sig/Amanda Route PRN Reason Start Time Stop Time Status Last Admin Dose Admin Acetaminophen (Tylenol) 650 mg Q4H PRN ORAL Mild Pain/Temp > 100.5 08/19/16 19:00 09/18/16 18:59 Al Hydroxide/Mg Hydroxide (Mylanta II) 30 ml Q6H PRN ORAL dyspepsia 08/19/16 19:00 09/18/16 18:59 Dextrose (Dextrose 50%) STAT PRN IV Hypoglycemia 08/19/16 19:00 09/18/16 18:59 Diazepam (Valium) 10 mg Q6H PRN IV For seizures 08/19/16 19:00 08/26/16 18:59 Folic Acid (Folate) 1 mg DAILY ORAL 08/20/16 09:00 09/19/16 08:59 08/21/16 09:34 Heparin Sodium (Porcine) (Heparin 5000 units/ml) 5,000 units EVERY 12 HOURS SUBQ 08/19/16 21:00 09/18/16 20:59 08/21/16 09:45 Levetiracetam (Keppra) 500 mg EVERY 12 HOURS ORAL 08/19/16 21:00 09/18/16 20:59 08/21/16 09:12 Lorazepam (Ativan 2mg/ml 1ml) 2 mg Q4H PRN IV For Seizures 08/19/16 18:45 08/26/16 18:44 Magnesium Oxide (Mag-Ox 400mg) 400 mg DAILY ORAL 08/20/16 09:00 09/19/16 08:59 08/21/16 09:34 Morphine Sulfate (Morphine Sulfate) 2 mg Q4H PRN IVP Severe Pain (Pain Scale 7-10) 08/19/16 19:00 08/26/16 18:59 Multivitamins (Multivitamins) 1 tab DAILY ORAL 08/20/16 09:00 09/19/16 08:59 08/21/16 09:13 Ondansetron HCl (Zofran) 4 mg Q6H PRN IVP Nausea & Vomiting 08/19/16 19:00 09/18/16 18:59 Phenytoin (Dilantin) 200 mg Q12HR ORAL 08/19/16 21:00 09/18/16 20:59 08/21/16 09:33 Polyethylene Glycol (Miralax) 17 gm HSPRN PRN ORAL Constipation 08/19/16 21:00 09/18/16 20:59 Potassium Chloride (K-Dur) 20 meq DAILY ORAL 08/20/16 09:00 09/19/16 08:59 08/21/16 09:11 Thiamine HCl (Vitamin B1) 100 mg DAILY ORAL 08/20/16 09:00 09/19/16 08:59 08/21/16 09:15 Vitamin A/Vitamin D (A & D Oint) 1 applic EVERY 12 HOURS TOPIC 08/19/16 21:00 09/18/16 20:59 08/21/16 10:49 Zolpidem Tartrate (Ambien) 5 mg HSPRN PRN ORAL Insomnia 08/19/16 21:00 09/18/16 20:59 ANNIE DEJESUS August 21, 2016 14:24
[2016-08-21 15:45] VITALS: BP 131/72
[2016-08-21 19:43] VITALS: BP 118/48
[2016-08-22] VITALS: BP 139/74
[2016-08-22 04:00] VITALS: BP 122/73
[2016-08-22 07:55] VITALS: BP 138/71
[2016-08-22] MEDS: Vitamin A&D Oint 2oz Tube TOPIC SCH ×2 (09:00→21:03)
[2016-08-22] MEDS: Phenytoin 100mg cap ORAL SCH ×2 (09:00→21:03)
[2016-08-22] MEDS: Magnesium Oxide 400mg tab ORAL SCH (09:46)
[2016-08-22] MEDS: Thiamine 100mg tab ORAL SCH (09:46)
[2016-08-22] MEDS: Heparin 5000 units/ml inj SUBQ SCH ×2 (09:47→21:07)
[2016-08-22 11:45] VITALS: BP 124/67
[2016-08-22 15:51] VITALS: BP 146/73
--- NOTE | 2016-08-22 15:59 | Pulmonology Progress Note ---
Assessment/Plan Problems: (1) Epileptic seizure, generalized (2) Altered mental status (3) Right patella fracture (4) Seizure disorder (5) Homelessness (6) Closed right fibular fracture (7) Metabolic acidosis Assessment/Plan pt/ot social service evaluation pain control for transfer to higher level of care Subjective ROS Limited/Unobtainable: No Constitutional: Reports: no symptoms HEENT: Repors: no symptoms Respiratory: Reports: no symptoms Allergies: Coded Allergies: NO KNOWN ALLERGIES (Unverified Allergy, Unknown, 01/27/15) No Known Allergies (Unverified , 05/17/16) UNABLE TO ASSESS (Unverified , 03/22/15) Objective Last 24 Hour Vital Signs Date Time Temp Pulse Resp B/P Pulse Ox O2 Delivery O2 Flow Rate FiO2 08/22/16 15:51 97.3 65 24 146/73 99 Room Air 08/22/16 11:45 97.7 118 20 124/67 96 Room Air 08/22/16 07:55 97.5 50 22 138/71 96 Room Air 08/22/16 04:00 97.2 52 20 122/73 96 Room Air 08/22/16 00:00 97.9 56 20 139/74 97 Room Air 08/21/16 19:43 97.7 61 20 118/48 97 Nasal Cannula 2.0 Intake and Output 08/21/16 08/22/16 19:00 07:00 Intake Total 1200 ml 1200 ml Output Total 1400 ml 2500 ml Balance -200 ml -1300 ml Intake Oral 1200 ml 1200 ml Output Urine Total 1400 ml 2500 ml # Voids 3 # Bowel Movements 1 Objective General Appearance: WD/WN HEENT: normocephalic Respiratory/Chest: chest wall non-tender, lungs clear, normal breath sounds, no respiratory distress Cardiovascular: normal peripheral pulses, normal rate, regular rhythm Abdomen: normal bowel sounds, soft, non tender, no organomegaly, non distended Skin: no rash 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 Lymphatic: no neck adenopathy Current Medications Medications (Trade) Dose Ordered Sig/Amanda Route PRN Reason Start Time Stop Time Status Last Admin Dose Admin Acetaminophen (Tylenol) 650 mg Q4H PRN ORAL Mild Pain/Temp > 100.5 08/19/16 19:00 09/18/16 18:59 Al Hydroxide/Mg Hydroxide (Mylanta II) 30 ml Q6H PRN ORAL dyspepsia 08/19/16 19:00 09/18/16 18:59 Dextrose (Dextrose 50%) STAT PRN IV Hypoglycemia 08/19/16 19:00 09/18/16 18:59 Diazepam (Valium) 10 mg Q6H PRN IV For seizures 08/19/16 19:00 08/26/16 18:59 Folic Acid (Folate) 1 mg DAILY ORAL 08/20/16 09:00 09/19/16 08:59 08/22/16 09:00 Heparin Sodium (Porcine) (Heparin 5000 units/ml) 5,000 units EVERY 12 HOURS SUBQ 08/19/16 21:00 09/18/16 20:59 08/22/16 09:47 Levetiracetam (Keppra) 500 mg EVERY 12 HOURS ORAL 08/19/16 21:00 09/18/16 20:59 08/22/16 09:46 Lorazepam (Ativan 2mg/ml 1ml) 2 mg Q4H PRN IV For Seizures 08/19/16 18:45 08/26/16 18:44 Magnesium Oxide (Mag-Ox 400mg) 400 mg DAILY ORAL 08/20/16 09:00 09/19/16 08:59 08/22/16 09:46 Morphine Sulfate (Morphine Sulfate) 2 mg Q4H PRN IVP Severe Pain (Pain Scale 7-10) 08/19/16 19:00 08/26/16 18:59 Multivitamins (Multivitamins) 1 tab DAILY ORAL 08/20/16 09:00 09/19/16 08:59 08/22/16 09:46 Ondansetron HCl (Zofran) 4 mg Q6H PRN IVP Nausea & Vomiting 08/19/16 19:00 09/18/16 18:59 Phenytoin (Dilantin) 200 mg Q12HR ORAL 08/19/16 21:00 09/18/16 20:59 08/22/16 09:00 Polyethylene Glycol (Miralax) 17 gm HSPRN PRN ORAL Constipation 08/19/16 21:00 09/18/16 20:59 Potassium Chloride (K-Dur) 20 meq DAILY ORAL 08/20/16 09:00 09/19/16 08:59 08/22/16 09:00 Thiamine HCl (Vitamin B1) 100 mg DAILY ORAL 08/20/16 09:00 09/19/16 08:59 08/22/16 09:46 Vitamin A/Vitamin D (A & D Oint) 1 applic EVERY 12 HOURS TOPIC 08/19/16 21:00 09/18/16 20:59 08/22/16 09:00 Zolpidem Tartrate (Ambien) 5 mg HSPRN PRN ORAL Insomnia 08/19/16 21:00 09/18/16 20:59 ANNIE DEJESUS August 22, 2016 15:59
[2016-08-22 20:00] VITALS: BP 125/73
[2016-08-23] VITALS: BP 120/73
[2016-08-23 04:00] VITALS: BP 105/50
--- NOTE | 2016-08-23 08:12 | Pulmonology Progress Note ---
Assessment/Plan Assessment/Plan ASSESSMENT R comminuted patella fracture R spiral fibula fracture seizure disorder hx of ETOH abuse homeless [facility] floor ortho seen and evaluated both fracture stable, per history about 2 months old sx needs to be done [facility] by trauma ortho surgeon patient is not interested in surgery and declining transfer and surgical interventions knee immobilizer pain management PT/OT repeated X ray tibia fibula with remonstration of patella fracture with separation of fragments s/p banana bag continue Thiamine and folic acid ETOH w/drawal precautions, Librium prn DVT prophylaxis elevated D dimer, venous Duplex BLE negative SS working on placement will need transfer to higher level of care for surgery if agrees case discussed and evaluated by supervising physician Subjective Allergies: Coded Allergies: NO KNOWN ALLERGIES (Unverified Allergy, Unknown, 01/27/15) No Known Allergies (Unverified , 05/17/16) UNABLE TO ASSESS (Unverified , 03/22/15) Subjective denies chest pain, SOB, patient now agrees to surgery Objective Last 24 Hour Vital Signs Date Time Temp Pulse Resp B/P Pulse Ox O2 Delivery O2 Flow Rate FiO2 08/23/16 04:00 97.5 49 16 105/50 99 Room Air 08/23/16 00:00 97.3 53 19 120/73 98 Room Air 08/22/16 20:00 97.7 50 17 125/73 96 Room Air 08/22/16 15:51 97.3 65 24 146/73 99 Room Air 08/22/16 11:45 97.7 118 20 124/67 96 Room Air Intake and Output 08/22/16 08/23/16 19:00 07:00 Intake Total 1920 ml 240 ml Output Total 3150 ml 500 ml Balance -1230 ml -260 ml Intake Oral 1920 ml 240 ml Output Urine Total 3150 ml 500 ml # Voids 7 Objective General Appearance: WD/WN, no acute distress HEENT: normocephalic, atraumatic, anicteric, mucous membranes moist Respiratory/Chest: lungs clear - with moderate air entry Cardiovascular: no JVD Abdomen: normal bowel sounds, soft, non tender Genitourinary: normal external genitalia Extremities: no edema, pedal pulses normal 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: no motor/sensory deficits, alert, oriented x 3, responsive Musculoskeletal: normal muscle bulk, other - unable to fully extend R knee or do straight leg raise, TTP lateral fibula, able to wiggle toes, R ankle edema Current Medications Medications (Trade) Dose Ordered Sig/Amanda Route PRN Reason Start Time Stop Time Status Last Admin Dose Admin Acetaminophen (Tylenol) 650 mg Q4H PRN ORAL Mild Pain/Temp > 100.5 08/19/16 19:00 09/18/16 18:59 Al Hydroxide/Mg Hydroxide (Mylanta II) 30 ml Q6H PRN ORAL dyspepsia 08/19/16 19:00 09/18/16 18:59 Dextrose (Dextrose 50%) STAT PRN IV Hypoglycemia 08/19/16 19:00 09/18/16 18:59 Diazepam (Valium) 10 mg Q6H PRN IV For seizures 08/19/16 19:00 08/26/16 18:59 Folic Acid (Folate) 1 mg DAILY ORAL 08/20/16 09:00 09/19/16 08:59 08/22/16 09:00 Heparin Sodium (Porcine) (Heparin 5000 units/ml) 5,000 units EVERY 12 HOURS SUBQ 08/19/16 21:00 09/18/16 20:59 08/22/16 21:07 Levetiracetam (Keppra) 500 mg EVERY 12 HOURS ORAL 08/19/16 21:00 09/18/16 20:59 08/22/16 21:03 Lorazepam (Ativan 2mg/ml 1ml) 2 mg Q4H PRN IV For Seizures 08/19/16 18:45 08/26/16 18:44 Magnesium Oxide (Mag-Ox 400mg) 400 mg DAILY ORAL 08/20/16 09:00 09/19/16 08:59 08/22/16 09:46 Morphine Sulfate (Morphine Sulfate) 2 mg Q4H PRN IVP Severe Pain (Pain Scale 7-10) 08/19/16 19:00 08/26/16 18:59 Multivitamins (Multivitamins) 1 tab DAILY ORAL 08/20/16 09:00 09/19/16 08:59 08/22/16 09:46 Ondansetron HCl (Zofran) 4 mg Q6H PRN IVP Nausea & Vomiting 08/19/16 19:00 09/18/16 18:59 Phenytoin (Dilantin) 200 mg Q12HR ORAL 08/19/16 21:00 09/18/16 20:59 08/22/16 21:03 Polyethylene Glycol (Miralax) 17 gm HSPRN PRN ORAL Constipation 08/19/16 21:00 09/18/16 20:59 Potassium Chloride (K-Dur) 20 meq DAILY ORAL 08/20/16 09:00 09/19/16 08:59 08/22/16 09:00 Thiamine HCl (Vitamin B1) 100 mg DAILY ORAL 08/20/16 09:00 09/19/16 08:59 08/22/16 09:46 Vitamin A/Vitamin D (A & D Oint) 1 applic EVERY 12 HOURS TOPIC 08/19/16 21:00 09/18/16 20:59 08/22/16 21:03 Zolpidem Tartrate (Ambien) 5 mg HSPRN PRN ORAL Insomnia 08/19/16 21:00 09/18/16 20:59 Jen Aparicio NP (Vanchtein) August 23, 2016 08:12
[2016-08-23 08:21] VITALS: BP 126/63
[2016-08-23] MEDS: Phenytoin 100mg cap ORAL SCH ×2 (09:17→20:23)
[2016-08-23] MEDS: Magnesium Oxide 400mg tab ORAL SCH (09:17)
[2016-08-23] MEDS: Thiamine 100mg tab ORAL SCH (09:18)
[2016-08-23] MEDS: Vitamin A&D Oint 2oz Tube TOPIC SCH ×2 (09:19→20:23)
[2016-08-23] MEDS: Heparin 5000 units/ml inj SUBQ SCH ×2 (09:19→20:24)
[2016-08-23 11:50] VITALS: BP 129/67
[2016-08-23 16:18] VITALS: BP 107/53
[2016-08-23 20:00] VITALS: BP 124/64
[2016-08-24] VITALS: BP 128/66
[2016-08-24 04:00] VITALS: BP 118/64
[2016-08-24 06:38] LABS: BASOPHILS % (AUTO) 0.8 % (0.0-2.0); EOSINOPHILS % (AUTO) 3.4 % (0.0-3.0); LYMPHOCYTES % (AUTO) 24.1 % (20.0-45.0); MEAN CORPUSCULAR HEMOGLOBIN 32.6 PG (27.0-31.0); MEAN CORPUSCULAR VOLUME 99 FL (80-99); MEAN PLATELET VOLUME 9.2 FL (6.5-10.1); NEUTROPHILS % (AUTO) 64.7 % (45.0-75.0); PLATELET COUNT 279 K/UL (150-450); RED BLOOD COUNT 4.62 M/UL (4.70-6.10); RED CELL DISTRIBUTION WIDTH 11.7 % (11.6-14.8); WHITE BLOOD COUNT 9.2 K/UL (4.8-10.8)
[2016-08-24 06:49] LABS: ANION GAP 16 (5-15); CALCIUM 9.8 mg/dL (8.6-10.2); CARBON DIOXIDE 24 mEQ/L (20-30); CHLORIDE 98 mEQ/L (98-107); CREATININE 0.7 mg/dL (0.7-1.2); GLOMERULAR FILTRATION RATE > 60 mL/min (>60); HEMOLYSIS 6; POTASSIUM 4.3 mEQ/L (3.4-4.9); SODIUM 138 mEQ/L (135-145)
[2016-08-24 08:00] VITALS: BP 120/66
[2016-08-24] MEDS: Magnesium Oxide 400mg tab ORAL SCH (09:08)
[2016-08-24] MEDS: Phenytoin 100mg cap ORAL SCH ×2 (09:08→20:55)
[2016-08-24] MEDS: Thiamine 100mg tab ORAL SCH (09:09)
[2016-08-24] MEDS: Vitamin A&D Oint 2oz Tube TOPIC SCH ×2 (09:15→20:58)
[2016-08-24] MEDS: Heparin 5000 units/ml inj SUBQ SCH ×2 (09:15→20:56)
[2016-08-24 12:00] VITALS: BP 128/78
--- NOTE | 2016-08-24 12:12 | Pulmonology Progress Note ---
Assessment/Plan Assessment/Plan ASSESSMENT R comminuted patella fracture R spiral fibula fracture seizure disorder hx of ETOH abuse homeless [facility] seen and evaluated both fracture stable, per history about 2 months old sx needs to be done [facility] by trauma ortho surgeon patient is not interested in surgery and declining transfer and surgical interventions knee immobilizer pain management PT/OT repeated X ray tibia fibula with remonstration of patella fracture with separation of fragments s/p banana bag continue Thiamine and folic acid ETOH w/drawal precautions, Librium prn DVT prophylaxis elevated D dimer, venous Duplex BLE negative SS working on placement transfer to higher level of care for surgery when bed found and secured case discussed and evaluated by supervising physician Subjective Allergies: Coded Allergies: NO KNOWN ALLERGIES (Unverified Allergy, Unknown, 01/27/15) No Known Allergies (Unverified , 05/17/16) UNABLE TO ASSESS (Unverified , 03/22/15) Subjective denies chest pain, SOB, patient now agreeable to surgery awaiting for placement Objective Last 24 Hour Vital Signs Date Time Temp Pulse Resp B/P Pulse Ox O2 Delivery O2 Flow Rate FiO2 08/24/16 08:00 97.9 52 20 120/66 97 Room Air 08/24/16 04:00 97.7 55 18 118/64 97 Room Air 08/24/16 00:00 98.0 63 18 128/66 08/23/16 20:00 97.7 50 18 124/64 99 Room Air 08/23/16 16:18 97.3 51 14 107/53 98 Room Air Intake and Output 08/23/16 08/24/16 19:00 07:00 Intake Total 1200 ml 500 ml Output Total 1000 ml Balance 200 ml 500 ml Intake Oral 1200 ml 500 ml Output Urine Total 1000 ml # Voids 4 # Bowel Movements 1 Objective General Appearance: WD/WN, no acute distress HEENT: normocephalic, atraumatic, anicteric, mucous membranes moist Respiratory/Chest: lungs clear - with moderate air entry Cardiovascular: no JVD Abdomen: normal bowel sounds, soft, non tender Genitourinary: normal external genitalia Extremities: no edema, pedal pulses normal 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: no motor/sensory deficits, alert, oriented x 3, responsive Musculoskeletal: normal muscle bulk, other - unable to fully extend R knee or do straight leg raise, TTP lateral fibula, able to wiggle toes, R ankle edema Laboratory Tests 08/24/16 05:20: White Blood Count 9.2, Red Blood Count 4.62L, Hemoglobin 15.1, Hematocrit 45.6, Mean Corpuscular Volume 99, Mean Corpuscular Hemoglobin 32.6H, Mean Corpuscular Hemoglobin Concent 33.0, Red Cell Distribution Width 11.7, Platelet Count 279, Mean Platelet Volume 9.2, Neutrophils (%) (Auto) 64.7, Lymphocytes (%) (Auto) 24.1, Monocytes (%) (Auto) 7.0, Eosinophils (%) (Auto) 3.4H, Basophils (%) (Auto ) 0.8, Sodium Level 138, Potassium Level 4.3, Chloride Level 98, Carbon Dioxide Level 24, Anion Gap 16H, Blood Urea Nitrogen 12, Creatinine 0.7, Estimat Glomerular Filtration Rate > 60, Glucose Level 98, Calcium Level 9.8 Current Medications Medications (Trade) Dose Ordered Sig/Amanda Route PRN Reason Start Time Stop Time Status Last Admin Dose Admin Acetaminophen (Tylenol) 650 mg Q4H PRN ORAL Mild Pain/Temp > 100.5 08/19/16 19:00 09/18/16 18:59 Al Hydroxide/Mg Hydroxide (Mylanta II) 30 ml Q6H PRN ORAL dyspepsia 08/19/16 19:00 09/18/16 18:59 Dextrose (Dextrose 50%) STAT PRN IV Hypoglycemia 08/19/16 19:00 09/18/16 18:59 Diazepam (Valium) 10 mg Q6H PRN IV For seizures 08/19/16 19:00 08/26/16 18:59 Folic Acid (Folate) 1 mg DAILY ORAL 08/20/16 09:00 09/19/16 08:59 08/24/16 09:09 Heparin Sodium (Porcine) (Heparin 5000 units/ml) 5,000 units EVERY 12 HOURS SUBQ 08/19/16 21:00 09/18/16 20:59 08/24/16 09:15 Levetiracetam (Keppra) 500 mg EVERY 12 HOURS ORAL 08/19/16 21:00 09/18/16 20:59 08/24/16 09:09 Lorazepam (Ativan 2mg/ml 1ml) 2 mg Q4H PRN IV For Seizures 08/19/16 18:45 08/26/16 18:44 Magnesium Oxide (Mag-Ox 400mg) 400 mg DAILY ORAL 08/20/16 09:00 09/19/16 08:59 08/24/16 09:08 Morphine Sulfate (Morphine Sulfate) 2 mg Q4H PRN IVP Severe Pain (Pain Scale 7-10) 08/19/16 19:00 08/26/16 18:59 Multivitamins (Multivitamins) 1 tab DAILY ORAL 08/20/16 09:00 09/19/16 08:59 08/24/16 09:08 Ondansetron HCl (Zofran) 4 mg Q6H PRN IVP Nausea & Vomiting 08/19/16 19:00 09/18/16 18:59 Phenytoin (Dilantin) 200 mg Q12HR ORAL 08/19/16 21:00 09/18/16 20:59 08/24/16 09:08 Polyethylene Glycol (Miralax) 17 gm HSPRN PRN ORAL Constipation 08/19/16 21:00 09/18/16 20:59 Potassium Chloride (K-Dur) 20 meq DAILY ORAL 08/20/16 09:00 09/19/16 08:59 08/24/16 09:08 Thiamine HCl (Vitamin B1) 100 mg DAILY ORAL 08/20/16 09:00 09/19/16 08:59 08/24/16 09:09 Vitamin A/Vitamin D (A & D Oint) 1 applic EVERY 12 HOURS TOPIC 08/19/16 21:00 09/18/16 20:59 08/24/16 09:15 Zolpidem Tartrate (Ambien) 5 mg HSPRN PRN ORAL Insomnia 08/19/16 21:00 09/18/16 20:59 Jen Aparicio NP ([facility]) August 24, 2016 12:12
[2016-08-24 16:00] VITALS: BP 109/58
[2016-08-24 20:00] VITALS: BP 128/61
[2016-08-25] VITALS: BP 109/66
[2016-08-25 03:45] VITALS: BP 120/74
[2016-08-25 08:00] VITALS: BP 111/68
[2016-08-25] MEDS: Phenytoin 100mg cap ORAL SCH ×2 (09:48→20:32)
[2016-08-25] MEDS: Thiamine 100mg tab ORAL SCH (09:48)
[2016-08-25] MEDS: Magnesium Oxide 400mg tab ORAL SCH (09:48)
[2016-08-25] MEDS: Heparin 5000 units/ml inj SUBQ SCH ×2 (09:52→20:35)
[2016-08-25] MEDS: Vitamin A&D Oint 2oz Tube TOPIC SCH ×2 (09:56→20:35)
[2016-08-25 12:00] VITALS: BP 117/72
--- NOTE | 2016-08-25 12:37 | Pulmonology Progress Note ---
Assessment/Plan Assessment/Plan ASSESSMENT R comminuted patella fracture R spiral fibula fracture seizure disorder hx of ETOH abuse homeless [facility] seen and evaluated both fracture stable, per history about 2 months old sx needs to be done by [facility] by trauma ortho surgeon patient is not interested in surgery and declining transfer and surgical interventions knee immobilizer pain management PT/OT repeated X ray tibia fibula with remonstration of patella fracture with separation of fragments s/p banana bag continue Thiamine and folic acid ETOH w/drawal precautions, Librium prn DVT prophylaxis elevated D dimer, venous Duplex BLE negative SS working on placement transfer to higher level of care for surgery when bed found and secured case discussed and evaluated by supervising physician Subjective Allergies: Coded Allergies: NO KNOWN ALLERGIES (Unverified Allergy, Unknown, 01/27/15) No Known Allergies (Unverified , 05/17/16) UNABLE TO ASSESS (Unverified , 03/22/15) Subjective denies chest pain, SOB, patient now agreeable to surgery awaiting for placement Objective Last 24 Hour Vital Signs Date Time Temp Pulse Resp B/P Pulse Ox O2 Delivery O2 Flow Rate FiO2 08/25/16 03:45 97.7 69 18 120/74 96 Room Air 08/25/16 00:00 97.9 62 20 109/66 95 Room Air 08/24/16 20:00 97.9 58 20 128/61 98 Room Air 08/24/16 16:00 97.2 66 20 109/58 99 Room Air Intake and Output 08/24/16 08/25/16 19:00 07:00 Intake Total 400 ml Output Total 1800 ml Balance 400 ml -1800 ml Intake Oral 400 ml Output Urine Total 1800 ml # Voids 8 5 # Bowel Movements 1 Objective General Appearance: WD/WN, no acute distress HEENT: normocephalic, atraumatic, anicteric, mucous membranes moist Respiratory/Chest: lungs clear - with moderate air entry Cardiovascular: no JVD Abdomen: normal bowel sounds, soft, non tender Genitourinary: normal external genitalia Extremities: no edema, pedal pulses normal 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: no motor/sensory deficits, alert, oriented x 3, responsive Musculoskeletal: normal muscle bulk, other - unable to fully extend R knee or do straight leg raise, TTP lateral fibula, able to wiggle toes, R ankle edema Current Medications Medications (Trade) Dose Ordered Sig/Amanda Route PRN Reason Start Time Stop Time Status Last Admin Dose Admin Acetaminophen (Tylenol) 650 mg Q4H PRN ORAL Mild Pain/Temp > 100.5 08/19/16 19:00 09/18/16 18:59 Al Hydroxide/Mg Hydroxide (Mylanta II) 30 ml Q6H PRN ORAL dyspepsia 08/19/16 19:00 09/18/16 18:59 Dextrose (Dextrose 50%) STAT PRN IV Hypoglycemia 08/19/16 19:00 09/18/16 18:59 Diazepam (Valium) 10 mg Q6H PRN IV For seizures 08/19/16 19:00 08/26/16 18:59 Folic Acid (Folate) 1 mg DAILY ORAL 08/20/16 09:00 09/19/16 08:59 08/25/16 09:48 Heparin Sodium (Porcine) (Heparin 5000 units/ml) 5,000 units EVERY 12 HOURS SUBQ 08/19/16 21:00 09/18/16 20:59 08/25/16 09:52 Levetiracetam (Keppra) 500 mg EVERY 12 HOURS ORAL 08/19/16 21:00 09/18/16 20:59 08/25/16 09:48 Lorazepam (Ativan 2mg/ml 1ml) 2 mg Q4H PRN IV For Seizures 08/19/16 18:45 08/26/16 18:44 Magnesium Oxide (Mag-Ox 400mg) 400 mg DAILY ORAL 08/20/16 09:00 09/19/16 08:59 08/25/16 09:48 Morphine Sulfate (Morphine Sulfate) 2 mg Q4H PRN IVP Severe Pain (Pain Scale 7-10) 08/19/16 19:00 08/26/16 18:59 Multivitamins (Multivitamins) 1 tab DAILY ORAL 08/20/16 09:00 09/19/16 08:59 08/25/16 09:48 Ondansetron HCl (Zofran) 4 mg Q6H PRN IVP Nausea & Vomiting 08/19/16 19:00 09/18/16 18:59 Phenytoin (Dilantin) 200 mg Q12HR ORAL 08/19/16 21:00 09/18/16 20:59 08/25/16 09:48 Polyethylene Glycol (Miralax) 17 gm HSPRN PRN ORAL Constipation 08/19/16 21:00 09/18/16 20:59 Potassium Chloride (K-Dur) 20 meq DAILY ORAL 08/20/16 09:00 09/19/16 08:59 08/25/16 09:49 Thiamine HCl (Vitamin B1) 100 mg DAILY ORAL 08/20/16 09:00 09/19/16 08:59 08/25/16 09:48 Vitamin A/Vitamin D (A & D Oint) 1 applic EVERY 12 HOURS TOPIC 08/19/16 21:00 09/18/16 20:59 08/25/16 09:56 Zolpidem Tartrate (Ambien) 5 mg HSPRN PRN ORAL Insomnia 08/19/16 21:00 09/18/16 20:59 Markus (KingJen locke NP August 25, 2016 12:37
[2016-08-25 16:00] VITALS: BP 124/71
[2016-08-25 20:00] VITALS: BP 118/67
[2016-08-26 03:29] VITALS: BP 114/71
[2016-08-26 08:09] VITALS: BP 118/62
[2016-08-26] MEDS: Vitamin A&D Oint 2oz Tube TOPIC SCH ×2 (09:00→20:31)
[2016-08-26 09:11] LABS: ANION GAP 16 (5-15); CALCIUM 9.7 mg/dL (8.6-10.2); CARBON DIOXIDE 24 mEQ/L (20-30); CHLORIDE 100 mEQ/L (98-107); CREATININE 0.8 mg/dL (0.7-1.2); GLOMERULAR FILTRATION RATE > 60 mL/min (>60); HEMOLYSIS 7; POTASSIUM 4.2 mEQ/L (3.4-4.9); SODIUM 140 mEQ/L (135-145)
[2016-08-26 09:14] LABS: BASOPHILS % (AUTO) 0.8 % (0.0-2.0); EOSINOPHILS % (AUTO) 3.5 % (0.0-3.0); LYMPHOCYTES % (AUTO) 26.9 % (20.0-45.0); MEAN CORPUSCULAR HEMOGLOBIN 32.3 PG (27.0-31.0); MEAN CORPUSCULAR HGB CONC 32.8 G/DL (32.0-36.0); MEAN CORPUSCULAR VOLUME 98 FL (80-99); MEAN PLATELET VOLUME 9.1 FL (6.5-10.1); MONOCYTES % (AUTO) 6.3 % (1.0-10.0); NEUTROPHILS % (AUTO) 62.5 % (45.0-75.0); PLATELET COUNT 254 K/UL (150-450); RED BLOOD COUNT 4.81 M/UL (4.70-6.10); RED CELL DISTRIBUTION WIDTH 11.5 % (11.6-14.8); WHITE BLOOD COUNT 9.1 K/UL (4.8-10.8)
[2016-08-26] MEDS: Thiamine 100mg tab ORAL SCH (10:17)
[2016-08-26] MEDS: Magnesium Oxide 400mg tab ORAL SCH (10:18)
[2016-08-26] MEDS: Phenytoin 100mg cap ORAL SCH ×2 (10:19→20:28)
[2016-08-26] MEDS: Heparin 5000 units/ml inj SUBQ SCH ×2 (10:25→20:29)
[2016-08-26 11:38] VITALS: BP 127/76
[2016-08-26 20:00] VITALS: BP 101/56
--- NOTE | 2016-08-26 23:03 | Pulmonology Progress Note ---
Assessment/Plan Problems: (1) Epileptic seizure, generalized (2) Altered mental status (3) Right patella fracture (4) Seizure disorder (5) Homelessness (6) Closed right fibular fracture (7) Metabolic acidosis Assessment/Plan pt/ot social service evaluation pain control for transfer to higher level of care Subjective ROS Limited/Unobtainable: No Constitutional: Reports: no symptoms HEENT: Repors: no symptoms Respiratory: Reports: no symptoms Allergies: Coded Allergies: NO KNOWN ALLERGIES (Unverified Allergy, Unknown, 01/27/15) No Known Allergies (Unverified , 05/17/16) UNABLE TO ASSESS (Unverified , 03/22/15) Objective Last 24 Hour Vital Signs Date Time Temp Pulse Resp B/P Pulse Ox O2 Delivery O2 Flow Rate FiO2 08/26/16 20:00 97.7 58 20 101/56 96 Room Air 08/26/16 11:38 98.1 56 20 127/76 99 Room Air 08/26/16 08:09 97.7 54 21 118/62 97 Room Air 08/26/16 03:29 97.7 60 17 114/71 98 Room Air Intake and Output 08/25/16 08/26/16 19:00 07:00 Intake Total 600 ml 300 ml Output Total 1600 ml Balance 600 ml -1300 ml Intake Oral 600 ml 300 ml Output Urine Total 1600 ml # Voids 4 4 # Bowel Movements 1 2 Objective General Appearance: WD/WN HEENT: normocephalic Respiratory/Chest: chest wall non-tender, lungs clear, normal breath sounds, no respiratory distress Cardiovascular: normal peripheral pulses, normal rate, regular rhythm Abdomen: normal bowel sounds, soft, non tender, no organomegaly, non distended Skin: no rash 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 Lymphatic: no neck adenopathy Laboratory Tests 08/26/16 07:45: White Blood Count 9.1, Red Blood Count 4.81, Hemoglobin 15.5, Hematocrit 47.3, Mean Corpuscular Volume 98, Mean Corpuscular Hemoglobin 32.3H, Mean Corpuscular Hemoglobin Concent 32.8, Red Cell Distribution Width 11.5L, Platelet Count 254, Mean Platelet Volume 9.1, Neutrophils (%) (Auto) 62.5, Lymphocytes (%) (Auto) 26.9, Monocytes (%) (Auto) 6.3, Eosinophils (%) (Auto) 3.5H, Basophils (%) (Auto ) 0.8, Sodium Level 140, Potassium Level 4.2, Chloride Level 100, Carbon Dioxide Level 24, Anion Gap 16H, Blood Urea Nitrogen 11, Creatinine 0.8, Estimat Glomerular Filtration Rate > 60, Glucose Level 132H, Calcium Level 9.7 Current Medications Medications (Trade) Dose Ordered Sig/Amanda Route PRN Reason Start Time Stop Time Status Last Admin Dose Admin Acetaminophen (Tylenol) 650 mg Q4H PRN ORAL Mild Pain/Temp > 100.5 08/19/16 19:00 09/18/16 18:59 Al Hydroxide/Mg Hydroxide (Mylanta II) 30 ml Q6H PRN ORAL dyspepsia 08/19/16 19:00 09/18/16 18:59 Dextrose (Dextrose 50%) STAT PRN IV Hypoglycemia 08/19/16 19:00 09/18/16 18:59 Folic Acid (Folate) 1 mg DAILY ORAL 08/20/16 09:00 09/19/16 08:59 08/26/16 10:18 Heparin Sodium (Porcine) (Heparin 5000 units/ml) 5,000 units EVERY 12 HOURS SUBQ 08/19/16 21:00 09/18/16 20:59 08/26/16 20:29 Levetiracetam (Keppra) 500 mg EVERY 12 HOURS ORAL 08/19/16 21:00 09/18/16 20:59 08/26/16 20:28 Magnesium Oxide (Mag-Ox 400mg) 400 mg DAILY ORAL 08/20/16 09:00 09/19/16 08:59 08/26/16 10:18 Multivitamins (Multivitamins) 1 tab DAILY ORAL 08/20/16 09:00 09/19/16 08:59 08/26/16 10:23 Ondansetron HCl (Zofran) 4 mg Q6H PRN IVP Nausea & Vomiting 08/19/16 19:00 09/18/16 18:59 Phenytoin (Dilantin) 200 mg Q12HR ORAL 08/19/16 21:00 09/18/16 20:59 08/26/16 20:28 Polyethylene Glycol (Miralax) 17 gm HSPRN PRN ORAL Constipation 08/19/16 21:00 09/18/16 20:59 Potassium Chloride (K-Dur) 20 meq DAILY ORAL 08/20/16 09:00 09/19/16 08:59 08/26/16 15:10 Thiamine HCl (Vitamin B1) 100 mg DAILY ORAL 08/20/16 09:00 09/19/16 08:59 08/26/16 10:17 Vitamin A/Vitamin D (A & D Oint) 1 applic EVERY 12 HOURS TOPIC 08/19/16 21:00 09/18/16 20:59 08/26/16 20:31 Zolpidem Tartrate (Ambien) 5 mg HSPRN PRN ORAL Insomnia 08/19/16 21:00 09/18/16 20:59 ANNIE DEJESUS August 26, 2016 23:03
[2016-08-27] VITALS: BP 106/52
[2016-08-27 04:00] VITALS: BP 110/49
[2016-08-27] MEDS: Phenytoin 100mg cap ORAL SCH ×2 (08:13→20:36)
[2016-08-27] MEDS: Magnesium Oxide 400mg tab ORAL SCH (08:13)
[2016-08-27] MEDS: Thiamine 100mg tab ORAL SCH (08:13)
[2016-08-27] MEDS: Vitamin A&D Oint 2oz Tube TOPIC SCH ×2 (08:15→20:39)
[2016-08-27] MEDS: Heparin 5000 units/ml inj SUBQ SCH ×2 (08:15→20:37)
[2016-08-27 08:59] VITALS: BP 120/64
[2016-08-27 12:45] VITALS: BP 134/79
[2016-08-27 16:07] VITALS: BP 125/77
[2016-08-27 20:00] VITALS: BP 123/68
--- NOTE | 2016-08-27 23:39 | Pulmonology Progress Note ---
Assessment/Plan Problems: (1) Epileptic seizure, generalized (2) Altered mental status (3) Right patella fracture (4) Seizure disorder (5) Homelessness (6) Closed right fibular fracture (7) Metabolic acidosis Assessment/Plan pt/ot social service evaluation pain control for transfer to higher level of care Subjective ROS Limited/Unobtainable: No Allergies: Coded Allergies: NO KNOWN ALLERGIES (Unverified Allergy, Unknown, 01/27/15) No Known Allergies (Unverified , 05/17/16) UNABLE TO ASSESS (Unverified , 03/22/15) Objective Last 24 Hour Vital Signs Date Time Temp Pulse Resp B/P Pulse Ox O2 Delivery O2 Flow Rate FiO2 08/27/16 20:00 97.7 61 20 123/68 97 08/27/16 16:07 98.2 61 15 125/77 96 Room Air 08/27/16 12:45 98.6 57 12 134/79 98 Room Air 08/27/16 08:59 97.7 55 12 120/64 98 Room Air 08/27/16 04:00 98.2 58 20 110/49 100 Room Air 08/27/16 00:00 97.7 54 18 106/52 99 Room Air Intake and Output 08/26/16 08/27/16 19:00 07:00 Intake Total 1170 ml Output Total 1250 ml 1200 ml Balance -80 ml -1200 ml Intake Oral 1170 ml Output Urine Total 1250 ml 1200 ml # Voids 5 # Bowel Movements 2 1 Objective General Appearance: WD/WN HEENT: normocephalic Respiratory/Chest: chest wall non-tender, lungs clear, normal breath sounds, no respiratory distress Cardiovascular: normal peripheral pulses, normal rate, regular rhythm Abdomen: normal bowel sounds, soft, non tender, no organomegaly, non distended Skin: no rash 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 Lymphatic: no neck adenopathy Current Medications Medications (Trade) Dose Ordered Sig/Amanda Route PRN Reason Start Time Stop Time Status Last Admin Dose Admin Acetaminophen (Tylenol) 650 mg Q4H PRN ORAL Mild Pain/Temp > 100.5 08/19/16 19:00 09/18/16 18:59 Al Hydroxide/Mg Hydroxide (Mylanta II) 30 ml Q6H PRN ORAL dyspepsia 08/19/16 19:00 09/18/16 18:59 Dextrose (Dextrose 50%) STAT PRN IV Hypoglycemia 08/19/16 19:00 09/18/16 18:59 Folic Acid (Folate) 1 mg DAILY ORAL 08/20/16 09:00 09/19/16 08:59 08/27/16 08:13 Heparin Sodium (Porcine) (Heparin 5000 units/ml) 5,000 units EVERY 12 HOURS SUBQ 08/19/16 21:00 09/18/16 20:59 08/27/16 20:37 Levetiracetam (Keppra) 500 mg EVERY 12 HOURS ORAL 08/19/16 21:00 09/18/16 20:59 08/27/16 20:36 Magnesium Oxide (Mag-Ox 400mg) 400 mg DAILY ORAL 08/20/16 09:00 09/19/16 08:59 08/27/16 08:13 Multivitamins (Multivitamins) 1 tab DAILY ORAL 08/20/16 09:00 09/19/16 08:59 08/27/16 08:13 Ondansetron HCl (Zofran) 4 mg Q6H PRN IVP Nausea & Vomiting 08/19/16 19:00 09/18/16 18:59 Phenytoin (Dilantin) 200 mg Q12HR ORAL 08/19/16 21:00 09/18/16 20:59 08/27/16 20:36 Polyethylene Glycol (Miralax) 17 gm HSPRN PRN ORAL Constipation 08/19/16 21:00 09/18/16 20:59 Potassium Chloride (K-Dur) 20 meq DAILY ORAL 08/20/16 09:00 09/19/16 08:59 08/27/16 08:13 Thiamine HCl (Vitamin B1) 100 mg DAILY ORAL 08/20/16 09:00 09/19/16 08:59 08/27/16 08:13 Vitamin A/Vitamin D (A & D Oint) 1 applic EVERY 12 HOURS TOPIC 08/19/16 21:00 09/18/16 20:59 08/27/16 20:39 Zolpidem Tartrate (Ambien) 5 mg HSPRN PRN ORAL Insomnia 08/19/16 21:00 09/18/16 20:59 ANNIE DEJESUS August 27, 2016 23:39
[2016-08-28] VITALS: BP 127/59
[2016-08-28 04:00] VITALS: BP 130/77
[2016-08-28] MEDS: Phenytoin 100mg cap ORAL SCH ×2 (08:15→20:24)
[2016-08-28] MEDS: Magnesium Oxide 400mg tab ORAL SCH (08:15)
[2016-08-28] MEDS: Thiamine 100mg tab ORAL SCH (08:15)
[2016-08-28] MEDS: Vitamin A&D Oint 2oz Tube TOPIC SCH ×2 (08:16→20:31)
[2016-08-28 08:18] VITALS: BP 121/60
[2016-08-28] MEDS: Heparin 5000 units/ml inj SUBQ SCH ×2 (08:18→20:30)
[2016-08-28 12:15] VITALS: BP 126/68
[2016-08-28 16:01] VITALS: BP 115/70
--- NOTE | 2016-08-28 18:27 | Pulmonology Progress Note ---
Assessment/Plan Problems: (1) Epileptic seizure, generalized (2) Altered mental status (3) Right patella fracture (4) Seizure disorder (5) Homelessness (6) Closed right fibular fracture (7) Metabolic acidosis Assessment/Plan pt/ot social service evaluation pain control for transfer to higher level of care Subjective ROS Limited/Unobtainable: No Allergies: Coded Allergies: NO KNOWN ALLERGIES (Unverified Allergy, Unknown, 01/27/15) No Known Allergies (Unverified , 05/17/16) UNABLE TO ASSESS (Unverified , 03/22/15) Objective Last 24 Hour Vital Signs Date Time Temp Pulse Resp B/P Pulse Ox O2 Delivery O2 Flow Rate FiO2 08/28/16 16:01 98.3 68 23 115/70 97 Room Air 08/28/16 12:15 98.1 54 22 126/68 98 Room Air 08/28/16 08:18 97.7 55 21 121/60 97 Room Air 08/28/16 04:00 97.9 90 18 130/77 100 Room Air 08/28/16 00:00 97.9 59 18 127/59 98 Room Air 08/27/16 20:00 97.7 61 20 123/68 97 Intake and Output 08/27/16 08/28/16 19:00 07:00 Intake Total 2000 ml 800 ml Output Total 1200 ml 2200 ml Balance 800 ml -1400 ml Intake Oral 2000 ml 800 ml Output Urine Total 1200 ml 2200 ml # Bowel Movements 1 Objective General Appearance: WD/WN HEENT: normocephalic Respiratory/Chest: chest wall non-tender, lungs clear, normal breath sounds, no respiratory distress Cardiovascular: normal peripheral pulses, normal rate, regular rhythm Abdomen: normal bowel sounds, soft, non tender, no organomegaly, non distended Skin: no rash 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 Lymphatic: no neck adenopathy Current Medications Medications (Trade) Dose Ordered Sig/Amanda Route PRN Reason Start Time Stop Time Status Last Admin Dose Admin Acetaminophen (Tylenol) 650 mg Q4H PRN ORAL Mild Pain/Temp > 100.5 08/19/16 19:00 09/18/16 18:59 Al Hydroxide/Mg Hydroxide (Mylanta II) 30 ml Q6H PRN ORAL dyspepsia 08/19/16 19:00 09/18/16 18:59 Dextrose (Dextrose 50%) STAT PRN IV Hypoglycemia 08/19/16 19:00 09/18/16 18:59 Folic Acid (Folate) 1 mg DAILY ORAL 08/20/16 09:00 09/19/16 08:59 08/28/16 08:15 Heparin Sodium (Porcine) (Heparin 5000 units/ml) 5,000 units EVERY 12 HOURS SUBQ 08/19/16 21:00 09/18/16 20:59 08/28/16 08:18 Levetiracetam (Keppra) 500 mg EVERY 12 HOURS ORAL 08/19/16 21:00 09/18/16 20:59 08/28/16 08:15 Magnesium Oxide (Mag-Ox 400mg) 400 mg DAILY ORAL 08/20/16 09:00 09/19/16 08:59 08/28/16 08:15 Multivitamins (Multivitamins) 1 tab DAILY ORAL 08/20/16 09:00 09/19/16 08:59 08/28/16 08:14 Ondansetron HCl (Zofran) 4 mg Q6H PRN IVP Nausea & Vomiting 08/19/16 19:00 09/18/16 18:59 Phenytoin (Dilantin) 200 mg Q12HR ORAL 08/19/16 21:00 09/18/16 20:59 08/28/16 08:15 Polyethylene Glycol (Miralax) 17 gm HSPRN PRN ORAL Constipation 08/19/16 21:00 09/18/16 20:59 Potassium Chloride (K-Dur) 20 meq DAILY ORAL 08/20/16 09:00 09/19/16 08:59 08/28/16 08:15 Thiamine HCl (Vitamin B1) 100 mg DAILY ORAL 08/20/16 09:00 09/19/16 08:59 08/28/16 08:15 Vitamin A/Vitamin D (A & D Oint) 1 applic EVERY 12 HOURS TOPIC 08/19/16 21:00 09/18/16 20:59 08/28/16 08:16 Zolpidem Tartrate (Ambien) 5 mg HSPRN PRN ORAL Insomnia 08/19/16 21:00 09/18/16 20:59 ANNIE DEJESUS August 28, 2016 18:27
[2016-08-28 20:00] VITALS: BP 136/74
[2016-08-29] VITALS: BP 127/66
[2016-08-29 03:56] VITALS: BP 114/52
[2016-08-29 08:00] VITALS: BP 130/78
[2016-08-29] MEDS: Heparin 5000 units/ml inj SUBQ SCH ×2 (08:33→20:43)
[2016-08-29] MEDS: Thiamine 100mg tab ORAL SCH (08:33)
[2016-08-29] MEDS: Magnesium Oxide 400mg tab ORAL SCH (08:33)
[2016-08-29] MEDS: Phenytoin 100mg cap ORAL SCH ×2 (08:34→20:40)
[2016-08-29] MEDS: Vitamin A&D Oint 2oz Tube TOPIC SCH ×2 (10:00→20:46)
[2016-08-29 12:00] VITALS: BP 115/63
--- NOTE | 2016-08-29 14:56 | Pulmonology Progress Note ---
Assessment/Plan Problems: (1) Epileptic seizure, generalized (2) Altered mental status (3) Right patella fracture (4) Seizure disorder (5) Homelessness (6) Closed right fibular fracture (7) Metabolic acidosis Assessment/Plan pt/ot social service evaluation pain control for transfer to higher level of care Subjective Allergies: Coded Allergies: NO KNOWN ALLERGIES (Unverified Allergy, Unknown, 01/27/15) No Known Allergies (Unverified , 05/17/16) UNABLE TO ASSESS (Unverified , 03/22/15) Objective Last 24 Hour Vital Signs Date Time Temp Pulse Resp B/P Pulse Ox O2 Delivery O2 Flow Rate FiO2 08/29/16 12:00 97.7 53 20 115/63 97 Room Air 08/29/16 08:00 97.7 62 20 130/78 97 Room Air 08/29/16 03:56 97.7 51 16 114/52 98 Room Air 08/29/16 00:00 97.7 60 20 127/66 96 Room Air 08/28/16 20:00 98.2 69 20 136/74 100 Room Air 08/28/16 16:01 98.3 68 23 115/70 97 Room Air Intake and Output 08/28/16 08/29/16 19:00 07:00 Intake Total 1400 ml Output Total 2150 ml Balance -750 ml Intake Oral 1400 ml Output Urine Total 2150 ml # Voids 5 3 # Bowel Movements 1 Objective General Appearance: WD/WN HEENT: normocephalic Respiratory/Chest: chest wall non-tender, lungs clear, normal breath sounds, no respiratory distress Cardiovascular: normal peripheral pulses, normal rate, regular rhythm Abdomen: normal bowel sounds, soft, non tender, no organomegaly, non distended Skin: no rash 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 Lymphatic: no neck adenopathy Current Medications Medications (Trade) Dose Ordered Sig/Amanda Route PRN Reason Start Time Stop Time Status Last Admin Dose Admin Acetaminophen (Tylenol) 650 mg Q4H PRN ORAL Mild Pain/Temp > 100.5 08/19/16 19:00 09/18/16 18:59 Al Hydroxide/Mg Hydroxide (Mylanta II) 30 ml Q6H PRN ORAL dyspepsia 08/19/16 19:00 09/18/16 18:59 Dextrose (Dextrose 50%) STAT PRN IV Hypoglycemia 08/19/16 19:00 6/14/17 18:59 Folic Acid (Folate) 1 mg DAILY ORAL 08/20/16 09:00 09/19/16 08:59 08/29/16 08:33 Heparin Sodium (Porcine) (Heparin 5000 units/ml) 5,000 units EVERY 12 HOURS SUBQ 08/19/16 21:00 09/18/16 20:59 08/29/16 08:33 Levetiracetam (Keppra) 500 mg EVERY 12 HOURS ORAL 08/19/16 21:00 09/18/16 20:59 08/29/16 08:33 Magnesium Oxide (Mag-Ox 400mg) 400 mg DAILY ORAL 08/20/16 09:00 09/19/16 08:59 08/29/16 08:33 Multivitamins (Multivitamins) 1 tab DAILY ORAL 08/20/16 09:00 09/19/16 08:59 08/29/16 08:33 Ondansetron HCl (Zofran) 4 mg Q6H PRN IVP Nausea & Vomiting 08/19/16 19:00 09/18/16 18:59 Phenytoin (Dilantin) 200 mg Q12HR ORAL 08/19/16 21:00 09/18/16 20:59 08/29/16 08:34 Polyethylene Glycol (Miralax) 17 gm HSPRN PRN ORAL Constipation 08/19/16 21:00 09/18/16 20:59 Potassium Chloride (K-Dur) 20 meq DAILY ORAL 08/20/16 09:00 09/19/16 08:59 08/29/16 08:33 Thiamine HCl (Vitamin B1) 100 mg DAILY ORAL 08/20/16 09:00 09/19/16 08:59 08/29/16 08:33 Vitamin A/Vitamin D (A & D Oint) 1 applic EVERY 12 HOURS TOPIC 08/19/16 21:00 09/18/16 20:59 08/29/16 10:00 Zolpidem Tartrate (Ambien) 5 mg HSPRN PRN ORAL Insomnia 08/19/16 21:00 09/18/16 20:59 ANNIE DEJESUS August 29, 2016 14:56
[2016-08-29 16:00] VITALS: BP 133/75
[2016-08-29 20:00] VITALS: BP 135/66
[2016-08-30] VITALS: BP 111/54
[2016-08-30 04:00] VITALS: BP 116/66
[2016-08-30 07:50] VITALS: BP 106/59
[2016-08-30] MEDS: Magnesium Oxide 400mg tab ORAL SCH (08:31)
[2016-08-30] MEDS: Thiamine 100mg tab ORAL SCH (08:31)
[2016-08-30] MEDS: Phenytoin 100mg cap ORAL SCH ×2 (08:31→20:59)
[2016-08-30] MEDS: Heparin 5000 units/ml inj SUBQ SCH ×2 (08:33→21:03)
[2016-08-30] MEDS: Vitamin A&D Oint 2oz Tube TOPIC SCH ×2 (08:35→21:00)
[2016-08-30 11:59] VITALS: BP 131/74
[2016-08-30 16:14] VITALS: BP 117/64
[2016-08-30 20:00] VITALS: BP 118/70
--- NOTE | 2016-08-30 22:31 | Pulmonology Progress Note ---
Assessment/Plan Problems: (1) Epileptic seizure, generalized (2) Altered mental status (3) Right patella fracture (4) Seizure disorder (5) Homelessness (6) Closed right fibular fracture (7) Metabolic acidosis Assessment/Plan pt/ot social service evaluation pain control for transfer to higher level of care Subjective ROS Limited/Unobtainable: No Allergies: Coded Allergies: NO KNOWN ALLERGIES (Unverified Allergy, Unknown, 01/27/15) No Known Allergies (Unverified , 05/17/16) UNABLE TO ASSESS (Unverified , 03/22/15) Objective Last 24 Hour Vital Signs Date Time Temp Pulse Resp B/P Pulse Ox O2 Delivery O2 Flow Rate FiO2 08/30/16 20:00 97.7 60 20 118/70 95 Room Air 08/30/16 16:14 97.2 74 20 117/64 98 Room Air 08/30/16 11:59 98.2 68 20 131/74 99 Room Air 08/30/16 07:50 97.9 50 14 106/59 98 Room Air 08/30/16 04:00 97.5 59 18 116/66 99 Room Air 08/30/16 00:00 96.6 61 18 111/54 97 Room Air Intake and Output 08/29/16 08/30/16 19:00 07:00 Intake Total 400 ml 360 ml Balance 400 ml 360 ml Intake Oral 400 ml 360 ml # Voids 6 4 # Bowel Movements 1 Objective General Appearance: WD/WN HEENT: normocephalic Respiratory/Chest: chest wall non-tender, lungs clear, normal breath sounds, no respiratory distress Cardiovascular: normal peripheral pulses, normal rate, regular rhythm Abdomen: normal bowel sounds, soft, non tender, no organomegaly, non distended Skin: no rash 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 Lymphatic: no neck adenopathy Current Medications Medications (Trade) Dose Ordered Sig/Amanda Route PRN Reason Start Time Stop Time Status Last Admin Dose Admin Acetaminophen (Tylenol) 650 mg Q4H PRN ORAL Mild Pain/Temp > 100.5 08/19/16 19:00 09/18/16 18:59 Al Hydroxide/Mg Hydroxide (Mylanta II) 30 ml Q6H PRN ORAL dyspepsia 08/19/16 19:00 09/18/16 18:59 Dextrose (Dextrose 50%) STAT PRN IV Hypoglycemia 08/19/16 19:00 09/18/16 18:59 Folic Acid (Folate) 1 mg DAILY ORAL 08/20/16 09:00 09/19/16 08:59 08/30/16 08:31 Heparin Sodium (Porcine) (Heparin 5000 units/ml) 5,000 units EVERY 12 HOURS SUBQ 08/19/16 21:00 09/18/16 20:59 08/30/16 21:03 Levetiracetam (Keppra) 500 mg EVERY 12 HOURS ORAL 08/19/16 21:00 09/18/16 20:59 08/30/16 20:59 Magnesium Oxide (Mag-Ox 400mg) 400 mg DAILY ORAL 08/20/16 09:00 09/19/16 08:59 08/30/16 08:31 Multivitamins (Multivitamins) 1 tab DAILY ORAL 08/20/16 09:00 09/19/16 08:59 08/30/16 08:31 Ondansetron HCl (Zofran) 4 mg Q6H PRN IVP Nausea & Vomiting 08/19/16 19:00 09/18/16 18:59 Phenytoin (Dilantin) 200 mg Q12HR ORAL 08/19/16 21:00 09/18/16 20:59 08/30/16 20:59 Polyethylene Glycol (Miralax) 17 gm HSPRN PRN ORAL Constipation 08/19/16 21:00 09/18/16 20:59 Potassium Chloride (K-Dur) 20 meq DAILY ORAL 08/20/16 09:00 09/19/16 08:59 08/30/16 08:31 Thiamine HCl (Vitamin B1) 100 mg DAILY ORAL 08/20/16 09:00 09/19/16 08:59 08/30/16 08:31 Vitamin A/Vitamin D (A & D Oint) 1 applic EVERY 12 HOURS TOPIC 08/19/16 21:00 09/18/16 20:59 08/30/16 21:00 Zolpidem Tartrate (Ambien) 5 mg HSPRN PRN ORAL Insomnia 08/19/16 21:00 09/18/16 20:59 ANNIE DEJESUS August 30, 2016 22:31
[2016-08-31] VITALS: BP 104/50
[2016-08-31 04:00] VITALS: BP 126/66
[2016-08-31 05:22] LABS: ANION GAP 14 (5-15); CALCIUM 9.5 mg/dL (8.6-10.2); CARBON DIOXIDE 24 mEQ/L (20-30); CHLORIDE 100 mEQ/L (98-107); CREATININE 0.8 mg/dL (0.7-1.2); GLOMERULAR FILTRATION RATE > 60 mL/min (>60); HEMOLYSIS 59; POTASSIUM 4.5 mEQ/L (3.4-4.9); SODIUM 138 mEQ/L (135-145)
[2016-08-31] MEDS: Phenytoin 100mg cap ORAL SCH ×2 (08:32→21:23)
[2016-08-31] MEDS: Magnesium Oxide 400mg tab ORAL SCH (08:33)
[2016-08-31] MEDS: Thiamine 100mg tab ORAL SCH (08:33)
[2016-08-31] MEDS: Vitamin A&D Oint 2oz Tube TOPIC SCH ×2 (08:34→21:23)
[2016-08-31] MEDS: Heparin 5000 units/ml inj SUBQ SCH ×2 (08:37→21:25)
[2016-08-31 08:40] VITALS: BP 112/67
[2016-08-31 12:20] VITALS: BP 127/75
[2016-08-31 16:15] VITALS: BP 125/64
[2016-08-31 20:00] VITALS: BP 117/68
[2016-09-01] VITALS: BP 108/57
[2016-09-01 04:00] VITALS: BP 102/53
[2016-09-01 08:00] VITALS: BP 119/70
[2016-09-01] MEDS: Thiamine 100mg tab ORAL SCH (08:17)
[2016-09-01] MEDS: Magnesium Oxide 400mg tab ORAL SCH (08:17)
[2016-09-01] MEDS: Phenytoin 100mg cap ORAL SCH ×2 (08:18→20:48)
[2016-09-01] MEDS: Heparin 5000 units/ml inj SUBQ SCH ×2 (08:21→20:49)
[2016-09-01] MEDS: Vitamin A&D Oint 2oz Tube TOPIC SCH ×2 (08:24→20:50)
[2016-09-01 12:00] VITALS: BP 128/69
[2016-09-01 16:00] VITALS: BP 143/70
--- NOTE | 2016-09-01 17:59 | Pulmonology Progress Note ---
Assessment/Plan Problems: (1) Epileptic seizure, generalized (2) Altered mental status (3) Right patella fracture (4) Seizure disorder (5) Homelessness (6) Closed right fibular fracture (7) Metabolic acidosis Assessment/Plan pt/ot social service evaluation pain control for transfer to higher level of care Subjective ROS Limited/Unobtainable: No Allergies: Coded Allergies: NO KNOWN ALLERGIES (Unverified Allergy, Unknown, 01/27/15) No Known Allergies (Unverified , 05/17/16) UNABLE TO ASSESS (Unverified , 03/22/15) Objective Last 24 Hour Vital Signs Date Time Temp Pulse Resp B/P Pulse Ox O2 Delivery O2 Flow Rate FiO2 09/01/16 16:00 98.2 64 18 143/70 96 Room Air 09/01/16 12:00 98.1 59 20 128/69 99 Room Air 09/01/16 08:00 96.6 57 20 119/70 99 Room Air 09/01/16 04:00 97.9 55 20 102/53 95 Room Air 09/01/16 00:00 97.7 62 20 108/57 96 Room Air 08/31/16 20:00 97.5 20 117/68 95 Room Air Intake and Output 08/31/16 09/01/16 19:00 07:00 Intake Total 3500 ml Output Total 2500 ml 1100 ml Balance 1000 ml -1100 ml Intake Oral 3500 ml Output Urine Total 2500 ml 1100 ml Objective General Appearance: WD/WN HEENT: normocephalic Respiratory/Chest: chest wall non-tender, lungs clear, normal breath sounds, no respiratory distress Cardiovascular: normal peripheral pulses, normal rate, regular rhythm Abdomen: normal bowel sounds, soft, non tender, no organomegaly, non distended Skin: no rash 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 Lymphatic: no neck adenopathy Current Medications Medications (Trade) Dose Ordered Sig/Amanda Route PRN Reason Start Time Stop Time Status Last Admin Dose Admin Acetaminophen (Tylenol) 650 mg Q4H PRN ORAL Mild Pain/Temp > 100.5 08/19/16 19:00 09/18/16 18:59 Al Hydroxide/Mg Hydroxide (Mylanta II) 30 ml Q6H PRN ORAL dyspepsia 08/19/16 19:00 09/18/16 18:59 Dextrose (Dextrose 50%) STAT PRN IV Hypoglycemia 08/19/16 19:00 09/18/16 18:59 Folic Acid (Folate) 1 mg DAILY ORAL 08/20/16 09:00 09/19/16 08:59 09/01/16 08:17 Heparin Sodium (Porcine) (Heparin 5000 units/ml) 5,000 units EVERY 12 HOURS SUBQ 08/19/16 21:00 09/18/16 20:59 09/01/16 08:21 Levetiracetam (Keppra) 500 mg EVERY 12 HOURS ORAL 08/19/16 21:00 09/18/16 20:59 09/01/16 08:17 Magnesium Oxide (Mag-Ox 400mg) 400 mg DAILY ORAL 08/20/16 09:00 09/19/16 08:59 09/01/16 08:17 Multivitamins (Multivitamins) 1 tab DAILY ORAL 08/20/16 09:00 09/19/16 08:59 09/01/16 08:17 Ondansetron HCl (Zofran) 4 mg Q6H PRN IVP Nausea & Vomiting 08/19/16 19:00 09/18/16 18:59 Phenytoin (Dilantin) 200 mg Q12HR ORAL 08/19/16 21:00 09/18/16 20:59 09/01/16 08:18 Polyethylene Glycol (Miralax) 17 gm HSPRN PRN ORAL Constipation 08/19/16 21:00 09/18/16 20:59 Potassium Chloride (K-Dur) 20 meq DAILY ORAL 08/20/16 09:00 09/19/16 08:59 09/01/16 08:17 Thiamine HCl (Vitamin B1) 100 mg DAILY ORAL 08/20/16 09:00 09/19/16 08:59 09/01/16 08:17 Vitamin A/Vitamin D (A & D Oint) 1 applic EVERY 12 HOURS TOPIC 08/19/16 21:00 09/18/16 20:59 09/01/16 08:24 Zolpidem Tartrate (Ambien) 5 mg HSPRN PRN ORAL Insomnia 08/19/16 21:00 09/18/16 20:59 ANNIE DEJESUS September 01, 2016 17:59
[2016-09-01 20:00] VITALS: BP 151/77
[2016-09-02] VITALS: BP 126/61
[2016-09-02 04:00] VITALS: BP 123/60
[2016-09-02 08:15] VITALS: BP 125/63
[2016-09-02] MEDS: Phenytoin 100mg cap ORAL SCH ×2 (09:04→20:41)
[2016-09-02] MEDS: Magnesium Oxide 400mg tab ORAL SCH (09:04)
[2016-09-02] MEDS: Thiamine 100mg tab ORAL SCH (09:05)
[2016-09-02] MEDS: Vitamin A&D Oint 2oz Tube TOPIC SCH ×2 (09:07→20:49)
[2016-09-02] MEDS: Heparin 5000 units/ml inj SUBQ SCH ×2 (09:07→20:46)
[2016-09-02 12:31] VITALS: BP 114/62
[2016-09-02 16:25] VITALS: BP 122/67
[2016-09-02 20:00] VITALS: BP 124/69
--- NOTE | 2016-09-02 22:34 | Pulmonology Progress Note ---
Assessment/Plan Problems: (1) Epileptic seizure, generalized (2) Altered mental status (3) Right patella fracture (4) Seizure disorder (5) Homelessness (6) Closed right fibular fracture (7) Metabolic acidosis Assessment/Plan pt/ot social service evaluation pain control for transfer to higher level of care Subjective ROS Limited/Unobtainable: No Allergies: Coded Allergies: NO KNOWN ALLERGIES (Unverified Allergy, Unknown, 01/27/15) No Known Allergies (Unverified , 05/17/16) UNABLE TO ASSESS (Unverified , 03/22/15) Objective Last 24 Hour Vital Signs Date Time Temp Pulse Resp B/P Pulse Ox O2 Delivery O2 Flow Rate FiO2 09/02/16 20:00 98.1 60 20 124/69 96 Room Air 09/02/16 16:25 98.0 63 21 122/67 97 Room Air 09/02/16 12:31 98.6 63 21 114/62 99 Room Air 09/02/16 08:15 97.5 78 21 125/63 97 Room Air 09/02/16 04:00 96.6 54 20 123/60 97 Room Air 09/02/16 00:00 97.7 56 20 126/61 97 Room Air Intake and Output 09/01/16 09/02/16 19:00 07:00 Output Total 800 ml 1450 ml Balance -800 ml -1450 ml Output Urine Total 800 ml 1450 ml Objective General Appearance: WD/WN HEENT: normocephalic Respiratory/Chest: chest wall non-tender, lungs clear, normal breath sounds, no respiratory distress Cardiovascular: normal peripheral pulses, normal rate, regular rhythm Abdomen: normal bowel sounds, soft, non tender, no organomegaly, non distended Skin: no rash 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 Lymphatic: no neck adenopathy Current Medications Medications (Trade) Dose Ordered Sig/Amanda Route PRN Reason Start Time Stop Time Status Last Admin Dose Admin Acetaminophen (Tylenol) 650 mg Q4H PRN ORAL Mild Pain/Temp > 100.5 08/19/16 19:00 09/18/16 18:59 Al Hydroxide/Mg Hydroxide (Mylanta II) 30 ml Q6H PRN ORAL dyspepsia 08/19/16 19:00 09/18/16 18:59 Dextrose (Dextrose 50%) STAT PRN IV Hypoglycemia 08/19/16 19:00 6/14/17 18:59 Folic Acid (Folate) 1 mg DAILY ORAL 08/20/16 09:00 09/19/16 08:59 09/02/16 09:05 Heparin Sodium (Porcine) (Heparin 5000 units/ml) 5,000 units EVERY 12 HOURS SUBQ 08/19/16 21:00 09/18/16 20:59 09/02/16 20:46 Levetiracetam (Keppra) 500 mg EVERY 12 HOURS ORAL 08/19/16 21:00 09/18/16 20:59 09/02/16 20:42 Magnesium Oxide (Mag-Ox 400mg) 400 mg DAILY ORAL 08/20/16 09:00 09/19/16 08:59 09/02/16 09:04 Multivitamins (Multivitamins) 1 tab DAILY ORAL 08/20/16 09:00 09/19/16 08:59 09/02/16 09:05 Ondansetron HCl (Zofran) 4 mg Q6H PRN IVP Nausea & Vomiting 08/19/16 19:00 09/18/16 18:59 Phenytoin (Dilantin) 200 mg Q12HR ORAL 08/19/16 21:00 09/18/16 20:59 09/02/16 20:41 Polyethylene Glycol (Miralax) 17 gm HSPRN PRN ORAL Constipation 08/19/16 21:00 09/18/16 20:59 Potassium Chloride (K-Dur) 20 meq DAILY ORAL 08/20/16 09:00 09/19/16 08:59 09/02/16 09:04 Thiamine HCl (Vitamin B1) 100 mg DAILY ORAL 08/20/16 09:00 09/19/16 08:59 09/02/16 09:05 Vitamin A/Vitamin D (A & D Oint) 1 applic EVERY 12 HOURS TOPIC 08/19/16 21:00 09/18/16 20:59 09/02/16 20:49 Zolpidem Tartrate (Ambien) 5 mg HSPRN PRN ORAL Insomnia 08/19/16 21:00 09/18/16 20:59 ANNIE DEJESUS September 02, 2016 22:34
[2016-09-03] VITALS: BP 112/62
[2016-09-03 04:00] VITALS: BP 110/56
[2016-09-03 08:32] VITALS: BP 126/73
[2016-09-03] MEDS: Phenytoin 100mg cap ORAL SCH ×2 (09:18→21:33)
[2016-09-03] MEDS: Magnesium Oxide 400mg tab ORAL SCH (09:19)
[2016-09-03] MEDS: Thiamine 100mg tab ORAL SCH (09:19)
[2016-09-03] MEDS: Heparin 5000 units/ml inj SUBQ SCH ×2 (09:21→21:35)
[2016-09-03] MEDS: Vitamin A&D Oint 2oz Tube TOPIC SCH ×2 (09:21→21:00)
[2016-09-03 12:33] VITALS: BP 141/65
[2016-09-03] MEDS ORDERED: Artificial Tears 1.4% Op Soln BOTH EYES PRN (14:00)
--- NOTE | 2016-09-03 15:27 | Pulmonology Progress Note ---
Assessment/Plan Problems: (1) Epileptic seizure, generalized (2) Altered mental status (3) Right patella fracture (4) Seizure disorder (5) Homelessness (6) Closed right fibular fracture (7) Metabolic acidosis Assessment/Plan pt/ot social service evaluation pain control for transfer to higher level of care Subjective ROS Limited/Unobtainable: No Allergies: Coded Allergies: NO KNOWN ALLERGIES (Unverified Allergy, Unknown, 01/27/15) No Known Allergies (Unverified , 05/17/16) UNABLE TO ASSESS (Unverified , 03/22/15) Objective Last 24 Hour Vital Signs Date Time Temp Pulse Resp B/P Pulse Ox O2 Delivery O2 Flow Rate FiO2 09/03/16 12:33 97.7 56 14 141/65 97 Room Air 09/03/16 08:32 97.7 57 14 126/73 97 Room Air 09/03/16 04:00 97.5 54 20 110/56 98 Room Air 09/03/16 00:00 97.5 51 18 112/62 97 Room Air 09/02/16 20:00 98.1 60 20 124/69 96 Room Air 09/02/16 16:25 98.0 63 21 122/67 97 Room Air Intake and Output 09/02/16 09/03/16 19:00 07:00 Intake Total 1680 ml Output Total 1900 ml Balance -220 ml Intake Oral 1680 ml Output Urine Total 1900 ml # Voids 7 3 # Bowel Movements 1 Objective General Appearance: WD/WN HEENT: normocephalic Respiratory/Chest: chest wall non-tender, lungs clear, normal breath sounds, no respiratory distress Cardiovascular: normal peripheral pulses, normal rate, regular rhythm Abdomen: normal bowel sounds, soft, non tender, no organomegaly, non distended Skin: no rash 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 Lymphatic: no neck adenopathy Current Medications Medications (Trade) Dose Ordered Sig/Amanda Route PRN Reason Start Time Stop Time Status Last Admin Dose Admin Acetaminophen (Tylenol) 650 mg Q4H PRN ORAL Mild Pain/Temp > 100.5 08/19/16 19:00 09/18/16 18:59 Al Hydroxide/Mg Hydroxide (Mylanta II) 30 ml Q6H PRN ORAL dyspepsia 08/19/16 19:00 09/18/16 18:59 Artificial Tears (Akwa-Tears) 1 drop Q4H PRN BOTH EYES Dry Eyes 09/03/16 14:00 10/03/16 13:59 Dextrose (Dextrose 50%) STAT PRN IV Hypoglycemia 08/19/16 19:00 09/18/16 18:59 Folic Acid (Folate) 1 mg DAILY ORAL 08/20/16 09:00 09/19/16 08:59 09/03/16 09:17 Heparin Sodium (Porcine) (Heparin 5000 units/ml) 5,000 units EVERY 12 HOURS SUBQ 08/19/16 21:00 09/18/16 20:59 09/03/16 09:21 Levetiracetam (Keppra) 500 mg EVERY 12 HOURS ORAL 08/19/16 21:00 09/18/16 20:59 09/03/16 10:26 Magnesium Oxide (Mag-Ox 400mg) 400 mg DAILY ORAL 08/20/16 09:00 09/19/16 08:59 09/03/16 09:19 Multivitamins (Multivitamins) 1 tab DAILY ORAL 08/20/16 09:00 09/19/16 08:59 09/03/16 09:18 Ondansetron HCl (Zofran) 4 mg Q6H PRN IVP Nausea & Vomiting 08/19/16 19:00 09/18/16 18:59 Phenytoin (Dilantin) 200 mg Q12HR ORAL 08/19/16 21:00 09/18/16 20:59 09/03/16 09:18 Polyethylene Glycol (Miralax) 17 gm HSPRN PRN ORAL Constipation 08/19/16 21:00 09/18/16 20:59 Potassium Chloride (K-Dur) 20 meq DAILY ORAL 08/20/16 09:00 09/19/16 08:59 09/03/16 09:19 Thiamine HCl (Vitamin B1) 100 mg DAILY ORAL 08/20/16 09:00 09/19/16 08:59 09/03/16 09:19 Vitamin A/Vitamin D (A & D Oint) 1 applic EVERY 12 HOURS TOPIC 08/19/16 21:00 09/18/16 20:59 09/03/16 09:21 Zolpidem Tartrate (Ambien) 5 mg HSPRN PRN ORAL Insomnia 08/19/16 21:00 09/18/16 20:59 ANNIE DEJESUS September 03, 2016 15:27
[2016-09-03 15:34] VITALS: BP 123/69
[2016-09-03 20:00] VITALS: BP 117/63
[2016-09-04] VITALS: BP 112/54
[2016-09-04 04:00] VITALS: BP 121/64
[2016-09-04 08:00] VITALS: BP 130/60
[2016-09-04] MEDS: Magnesium Oxide 400mg tab ORAL SCH (08:32)
[2016-09-04] MEDS: Thiamine 100mg tab ORAL SCH (08:32)
[2016-09-04] MEDS: Vitamin A&D Oint 2oz Tube TOPIC SCH ×2 (08:33→21:00)
[2016-09-04] MEDS: Phenytoin 100mg cap ORAL SCH ×2 (08:33→21:45)
[2016-09-04] MEDS: Heparin 5000 units/ml inj SUBQ SCH ×2 (08:35→21:47)
[2016-09-04 12:00] VITALS: BP 139/69
--- NOTE | 2016-09-04 15:15 | Pulmonology Progress Note ---
Assessment/Plan Problems: (1) Epileptic seizure, generalized (2) Altered mental status (3) Right patella fracture (4) Seizure disorder (5) Homelessness (6) Closed right fibular fracture (7) Metabolic acidosis Assessment/Plan pt/ot social service evaluation pain control for transfer to higher level of care Subjective ROS Limited/Unobtainable: No Constitutional: Reports: no symptoms HEENT: Repors: no symptoms Allergies: Coded Allergies: NO KNOWN ALLERGIES (Unverified Allergy, Unknown, 01/27/15) No Known Allergies (Unverified , 05/17/16) UNABLE TO ASSESS (Unverified , 03/22/15) Objective Last 24 Hour Vital Signs Date Time Temp Pulse Resp B/P Pulse Ox O2 Delivery O2 Flow Rate FiO2 09/04/16 04:00 97.8 18 121/64 97 Room Air 09/04/16 00:00 97.6 18 112/54 96 Room Air 09/03/16 20:00 98.1 18 117/63 98 Room Air 09/03/16 15:34 97.3 54 14 123/69 14 Room Air Intake and Output 09/03/16 09/04/16 19:00 07:00 Intake Total 2000 ml Output Total 1325 ml 3500 ml Balance 675 ml -3500 ml Intake Oral 2000 ml Output Urine Total 1325 ml 3500 ml # Voids 1 # Bowel Movements 1 Objective General Appearance: WD/WN HEENT: normocephalic Respiratory/Chest: chest wall non-tender, lungs clear, normal breath sounds, no respiratory distress Cardiovascular: normal peripheral pulses, normal rate, regular rhythm Abdomen: normal bowel sounds, soft, non tender, no organomegaly, non distended Skin: no rash 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 Lymphatic: no neck adenopathy Current Medications Medications (Trade) Dose Ordered Sig/Amanda Route PRN Reason Start Time Stop Time Status Last Admin Dose Admin Acetaminophen (Tylenol) 650 mg Q4H PRN ORAL Mild Pain/Temp > 100.5 08/19/16 19:00 09/18/16 18:59 Al Hydroxide/Mg Hydroxide (Mylanta II) 30 ml Q6H PRN ORAL dyspepsia 08/19/16 19:00 09/18/16 18:59 Artificial Tears (Akwa-Tears) 1 drop Q4H PRN BOTH EYES Dry Eyes 09/03/16 14:00 6/29/17 13:59 Dextrose (Dextrose 50%) STAT PRN IV Hypoglycemia 08/19/16 19:00 09/18/16 18:59 Folic Acid (Folate) 1 mg DAILY ORAL 08/20/16 09:00 09/19/16 08:59 09/04/16 08:33 Heparin Sodium (Porcine) (Heparin 5000 units/ml) 5,000 units EVERY 12 HOURS SUBQ 08/19/16 21:00 09/18/16 20:59 09/04/16 08:35 Levetiracetam (Keppra) 500 mg EVERY 12 HOURS ORAL 08/19/16 21:00 09/18/16 20:59 09/04/16 08:33 Magnesium Oxide (Mag-Ox 400mg) 400 mg DAILY ORAL 08/20/16 09:00 09/19/16 08:59 09/04/16 08:32 Multivitamins (Multivitamins) 1 tab DAILY ORAL 08/20/16 09:00 09/19/16 08:59 09/04/16 08:32 Ondansetron HCl (Zofran) 4 mg Q6H PRN IVP Nausea & Vomiting 08/19/16 19:00 09/18/16 18:59 Phenytoin (Dilantin) 200 mg Q12HR ORAL 08/19/16 21:00 09/18/16 20:59 09/04/16 08:33 Polyethylene Glycol (Miralax) 17 gm HSPRN PRN ORAL Constipation 08/19/16 21:00 09/18/16 20:59 Potassium Chloride (K-Dur) 20 meq DAILY ORAL 08/20/16 09:00 09/19/16 08:59 09/04/16 08:32 Thiamine HCl (Vitamin B1) 100 mg DAILY ORAL 08/20/16 09:00 09/19/16 08:59 09/04/16 08:32 Vitamin A/Vitamin D (A & D Oint) 1 applic EVERY 12 HOURS TOPIC 08/19/16 21:00 09/18/16 20:59 09/04/16 08:33 Zolpidem Tartrate (Ambien) 5 mg HSPRN PRN ORAL Insomnia 08/19/16 21:00 09/18/16 20:59 ANNIE DEJESUS September 04, 2016 15:15
[2016-09-04 16:00] VITALS: BP 128/78
[2016-09-04 20:00] VITALS: BP 149/63
[2016-09-05] VITALS: BP 106/58
[2016-09-05 04:00] VITALS: BP 108/67
[2016-09-05 08:00] VITALS: BP 118/64
[2016-09-05] MEDS: Phenytoin 100mg cap ORAL SCH ×2 (08:49→21:18)
[2016-09-05] MEDS: Thiamine 100mg tab ORAL SCH (08:49)
[2016-09-05] MEDS: Magnesium Oxide 400mg tab ORAL SCH (08:49)
[2016-09-05] MEDS: Heparin 5000 units/ml inj SUBQ SCH ×2 (08:54→21:20)
[2016-09-05] MEDS: Vitamin A&D Oint 2oz Tube TOPIC SCH ×2 (08:54→21:21)
[2016-09-05 12:00] VITALS: BP 136/68
--- NOTE | 2016-09-05 15:34 | Pulmonology Progress Note ---
Assessment/Plan Problems: (1) Epileptic seizure, generalized (2) Altered mental status (3) Right patella fracture (4) Seizure disorder (5) Homelessness (6) Closed right fibular fracture (7) Metabolic acidosis Assessment/Plan pt/ot social service evaluation pain control for transfer to higher level of care pt is on [facility] list for transfer Subjective ROS Limited/Unobtainable: No Allergies: Coded Allergies: NO KNOWN ALLERGIES (Unverified Allergy, Unknown, 01/27/15) No Known Allergies (Unverified , 05/17/16) UNABLE TO ASSESS (Unverified , 03/22/15) Objective Last 24 Hour Vital Signs Date Time Temp Pulse Resp B/P Pulse Ox O2 Delivery O2 Flow Rate FiO2 09/05/16 12:00 97.9 62 18 136/68 98 Room Air 09/05/16 08:00 97.5 51 20 118/64 98 Room Air 09/05/16 04:00 98.1 57 18 108/67 98 Room Air 09/05/16 00:00 97.6 55 18 106/58 97 Room Air 09/04/16 20:00 97.6 79 20 149/63 100 Room Air 09/04/16 16:00 97.5 53 18 128/78 98 Room Air Intake and Output 09/04/16 09/05/16 19:00 07:00 Intake Total 3600 ml Output Total 1100 ml 2700 ml Balance 2500 ml -2700 ml Intake Oral 3600 ml Output Urine Total 1100 ml 2700 ml # Voids 7 # Bowel Movements 1 Objective General Appearance: WD/WN HEENT: normocephalic Respiratory/Chest: chest wall non-tender, lungs clear, normal breath sounds, no respiratory distress Cardiovascular: normal peripheral pulses, normal rate, regular rhythm Abdomen: normal bowel sounds, soft, non tender, no organomegaly, non distended Skin: no rash 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: tapper 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 normal Lymphatic: no neck adenopathy Current Medications Medications (Trade) Dose Ordered Sig/Amanda Route PRN Reason Start Time Stop Time Status Last Admin Dose Admin Acetaminophen (Tylenol) 650 mg Q4H PRN ORAL Mild Pain/Temp > 100.5 08/19/16 19:00 09/18/16 18:59 Al Hydroxide/Mg Hydroxide (Mylanta II) 30 ml Q6H PRN ORAL dyspepsia 08/19/16 19:00 09/18/16 18:59 Artificial Tears (Akwa-Tears) 1 drop Q4H PRN BOTH EYES Dry Eyes 09/03/16 14:00 10/03/16 13:59 Dextrose (Dextrose 50%) STAT PRN IV Hypoglycemia 08/19/16 19:00 09/18/16 18:59 Folic Acid (Folate) 1 mg DAILY ORAL 08/20/16 09:00 09/19/16 08:59 09/05/16 08:49 Heparin Sodium (Porcine) (Heparin 5000 units/ml) 5,000 units EVERY 12 HOURS SUBQ 08/19/16 21:00 09/18/16 20:59 09/05/16 08:54 Levetiracetam (Keppra) 500 mg EVERY 12 HOURS ORAL 08/19/16 21:00 09/18/16 20:59 09/05/16 08:50 Magnesium Oxide (Mag-Ox 400mg) 400 mg DAILY ORAL 08/20/16 09:00 09/19/16 08:59 09/05/16 08:49 Multivitamins (Multivitamins) 1 tab DAILY ORAL 08/20/16 09:00 09/19/16 08:59 09/05/16 08:49 Ondansetron HCl (Zofran) 4 mg Q6H PRN IVP Nausea & Vomiting 08/19/16 19:00 09/18/16 18:59 Phenytoin (Dilantin) 200 mg Q12HR ORAL 08/19/16 21:00 09/18/16 20:59 09/05/16 08:49 Polyethylene Glycol (Miralax) 17 gm HSPRN PRN ORAL Constipation 08/19/16 21:00 09/18/16 20:59 Potassium Chloride (K-Dur) 20 meq DAILY ORAL 08/20/16 09:00 09/19/16 08:59 09/05/16 08:49 Thiamine HCl (Vitamin B1) 100 mg DAILY ORAL 08/20/16 09:00 09/19/16 08:59 09/05/16 08:49 Vitamin A/Vitamin D (A & D Oint) 1 applic EVERY 12 HOURS TOPIC 08/19/16 21:00 09/18/16 20:59 09/05/16 08:54 Zolpidem Tartrate (Ambien) 5 mg HSPRN PRN ORAL Insomnia 08/19/16 21:00 09/18/16 20:59 ANNIE DEJESUS Sep 05, 2016 15:34
[2016-09-05 16:00] VITALS: BP 137/74
[2016-09-05 20:00] VITALS: BP 149/76
[2016-09-06] VITALS: BP 138/72
[2016-09-06 04:34] VITALS: BP 137/75
[2016-09-06 08:07] VITALS: BP 115/69
--- NOTE | 2016-09-06 08:14 | Pulmonology Progress Note ---
Assessment/Plan Assessment/Plan ASSESSMENT R comminuted patella fracture R spiral fibula fracture seizure disorder hx of ETOH abuse homeless [facility] floor ortho seen and evaluated both fracture stable, per history about 2 months old sx needs to be done [facility] by trauma ortho surgeon patient was initially not interested in surgery and declining transfer and surgical interventions knee immobilizer pain management PT/OT repeated X ray tibia fibula with remonstration of patella fracture with separation of fragments s/p banana bag continue Thiamine and folic acid ETOH w/drawal precautions, Librium prn DVT prophylaxis elevated D dimer, venous Duplex BLE negative patient is now agreeable to surgery patient is on waiting list for transfer to [facility] transfer to higher level of care for surgery when bed secured case discussed and evaluated by supervising physician Subjective Allergies: Coded Allergies: NO KNOWN ALLERGIES (Unverified Allergy, Unknown, 01/27/15) No Known Allergies (Unverified , 05/17/16) UNABLE TO ASSESS (Unverified , 03/22/15) Subjective awaiting for placement denies chest pain, SOB, Objective Last 24 Hour Vital Signs Date Time Temp Pulse Resp B/P Pulse Ox O2 Delivery O2 Flow Rate FiO2 09/06/16 04:34 98.0 62 18 137/75 99 Room Air 09/06/16 00:00 98.0 62 18 138/72 98 Room Air 09/05/16 20:00 98.2 56 18 149/76 98 Nasal Cannula 09/05/16 16:00 98.2 53 18 137/74 97 Room Air 09/05/16 12:00 97.9 62 18 136/68 98 Room Air Intake and Output 09/05/16 09/06/16 19:00 07:00 Intake Total 3000 ml 1600 ml Output Total 1800 ml Balance 1200 ml 1600 ml Intake Oral 3000 ml 1600 ml Output Urine Total 1800 ml # Voids 7 # Bowel Movements 1 1 Objective General Appearance: WD/WN, no acute distress HEENT: normocephalic, atraumatic, anicteric, mucous membranes moist Respiratory/Chest: lungs clear - with moderate air entry Cardiovascular: no JVD Abdomen: normal bowel sounds, soft, non tender Genitourinary: normal external genitalia Extremities: no edema, pedal pulses normal 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: no motor/sensory deficits, alert, oriented x 3, responsive Musculoskeletal: normal muscle bulk, other - unable to fully extend R knee or do straight leg raise, TTP lateral fibula, able to wiggle toes, R ankle edema Current Medications Medications (Trade) Dose Ordered Sig/Amanda Route PRN Reason Start Time Stop Time Status Last Admin Dose Admin Acetaminophen (Tylenol) 650 mg Q4H PRN ORAL Mild Pain/Temp > 100.5 08/19/16 19:00 09/18/16 18:59 Al Hydroxide/Mg Hydroxide (Mylanta II) 30 ml Q6H PRN ORAL dyspepsia 08/19/16 19:00 09/18/16 18:59 Artificial Tears (Akwa-Tears) 1 drop Q4H PRN BOTH EYES Dry Eyes 09/03/16 14:00 10/03/16 13:59 Dextrose (Dextrose 50%) STAT PRN IV Hypoglycemia 08/19/16 19:00 09/18/16 18:59 Folic Acid (Folate) 1 mg DAILY ORAL 08/20/16 09:00 09/19/16 08:59 09/05/16 08:49 Heparin Sodium (Porcine) (Heparin 5000 units/ml) 5,000 units EVERY 12 HOURS SUBQ 08/19/16 21:00 09/18/16 20:59 09/05/16 21:20 Levetiracetam (Keppra) 500 mg EVERY 12 HOURS ORAL 08/19/16 21:00 09/18/16 20:59 09/05/16 21:18 Magnesium Oxide (Mag-Ox 400mg) 400 mg DAILY ORAL 08/20/16 09:00 09/19/16 08:59 09/05/16 08:49 Multivitamins (Multivitamins) 1 tab DAILY ORAL 08/20/16 09:00 09/19/16 08:59 09/05/16 08:49 Ondansetron HCl (Zofran) 4 mg Q6H PRN IVP Nausea & Vomiting 08/19/16 19:00 09/18/16 18:59 Phenytoin (Dilantin) 200 mg Q12HR ORAL 08/19/16 21:00 09/18/16 20:59 09/05/16 21:18 Polyethylene Glycol (Miralax) 17 gm HSPRN PRN ORAL Constipation 08/19/16 21:00 09/18/16 20:59 Potassium Chloride (K-Dur) 20 meq DAILY ORAL 08/20/16 09:00 09/19/16 08:59 09/05/16 08:49 Thiamine HCl (Vitamin B1) 100 mg DAILY ORAL 08/20/16 09:00 09/19/16 08:59 09/05/16 08:49 Vitamin A/Vitamin D (A & D Oint) 1 applic EVERY 12 HOURS TOPIC 08/19/16 21:00 09/18/16 20:59 09/05/16 21:21 Zolpidem Tartrate (Ambien) 5 mg HSPRN PRN ORAL Insomnia 08/19/16 21:00 09/18/16 20:59 Markus (Kingpadmaja)Jen NP Sep 06, 2016 08:14
[2016-09-06] MEDS: Phenytoin 100mg cap ORAL SCH (08:50)
[2016-09-06] MEDS: Thiamine 100mg tab ORAL SCH (08:50)
[2016-09-06] MEDS: Vitamin A&D Oint 2oz Tube TOPIC SCH (08:50)
[2016-09-06] MEDS: Magnesium Oxide 400mg tab ORAL SCH (08:50)
[2016-09-06] MEDS: Heparin 5000 units/ml inj SUBQ SCH (08:53)
[2016-09-06 11:53] VITALS: BP 116/70
[2016-09-06] MEDS ORDERED: DILANTIN100 MG ORAL (12:11)
[2016-09-06] MEDS ORDERED: KEPPRA500 M3 ORAL (12:11)
--- NOTE | 2016-09-06 14:24 | Pulmonology Progress Note ---
Assessment/Plan Problems: (1) Epileptic seizure, generalized (2) Altered mental status (3) Right patella fracture (4) Seizure disorder (5) Homelessness (6) Closed right fibular fracture (7) Metabolic acidosis Assessment/Plan pain control for transfer to higher level of care pt accepted to [facility] for transfer Subjective ROS Limited/Unobtainable: No Allergies: Coded Allergies: NO KNOWN ALLERGIES (Unverified Allergy, Unknown, 01/27/15) No Known Allergies (Unverified , 05/17/16) UNABLE TO ASSESS (Unverified , 03/22/15) Objective Last 24 Hour Vital Signs Date Time Temp Pulse Resp B/P Pulse Ox O2 Delivery O2 Flow Rate FiO2 09/06/16 11:53 97.7 55 14 116/70 97 Room Air 09/06/16 08:07 97.5 64 14 115/69 96 Room Air 09/06/16 04:34 98.0 62 18 137/75 99 Room Air 09/06/16 00:00 98.0 62 18 138/72 98 Room Air 09/05/16 20:00 98.2 56 18 149/76 98 Nasal Cannula 09/05/16 16:00 98.2 53 18 137/74 97 Room Air Intake and Output 09/05/16 09/06/16 19:00 07:00 Intake Total 3000 ml 1600 ml Output Total 1800 ml Balance 1200 ml 1600 ml Intake Oral 3000 ml 1600 ml Output Urine Total 1800 ml # Voids 7 # Bowel Movements 1 1 Objective General Appearance: WD/WN HEENT: normocephalic Respiratory/Chest: chest wall non-tender, lungs clear, normal breath sounds, no respiratory distress Cardiovascular: normal peripheral pulses, normal rate, regular rhythm Abdomen: normal bowel sounds, soft, non tender, no organomegaly, non distended Skin: no rash 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: gift consultant II-XII grossly normal Lymphatic: no neck adenopathy Current Medications Medications (Trade) Dose Ordered Sig/Amanda Route PRN Reason Start Time Stop Time Status Last Admin Dose Admin Acetaminophen (Tylenol) 650 mg Q4H PRN ORAL Mild Pain/Temp > 100.5 08/19/16 19:00 09/18/16 18:59 Al Hydroxide/Mg Hydroxide (Mylanta II) 30 ml Q6H PRN ORAL dyspepsia 08/19/16 19:00 09/18/16 18:59 Artificial Tears (Akwa-Tears) 1 drop Q4H PRN BOTH EYES Dry Eyes 09/03/16 14:00 10/03/16 13:59 Dextrose (Dextrose 50%) STAT PRN IV Hypoglycemia 08/19/16 19:00 09/18/16 18:59 Folic Acid (Folate) 1 mg DAILY ORAL 08/20/16 09:00 09/19/16 08:59 09/06/16 08:50 Heparin Sodium (Porcine) (Heparin 5000 units/ml) 5,000 units EVERY 12 HOURS SUBQ 08/19/16 21:00 09/18/16 20:59 09/06/16 08:53 Levetiracetam (Keppra) 500 mg EVERY 12 HOURS ORAL 08/19/16 21:00 09/18/16 20:59 09/06/16 08:50 Magnesium Oxide (Mag-Ox 400mg) 400 mg DAILY ORAL 08/20/16 09:00 09/19/16 08:59 09/06/16 08:50 Multivitamins (Multivitamins) 1 tab DAILY ORAL 08/20/16 09:00 09/19/16 08:59 09/06/16 08:50 Ondansetron HCl (Zofran) 4 mg Q6H PRN IVP Nausea & Vomiting 08/19/16 19:00 09/18/16 18:59 Phenytoin (Dilantin) 200 mg Q12HR ORAL 08/19/16 21:00 09/18/16 20:59 09/06/16 08:50 Polyethylene Glycol (Miralax) 17 gm HSPRN PRN ORAL Constipation 08/19/16 21:00 09/18/16 20:59 Potassium Chloride (K-Dur) 20 meq DAILY ORAL 08/20/16 09:00 09/19/16 08:59 09/06/16 08:50 Thiamine HCl (Vitamin B1) 100 mg DAILY ORAL 08/20/16 09:00 09/19/16 08:59 09/06/16 08:50 Vitamin A/Vitamin D (A & D Oint) 1 applic EVERY 12 HOURS TOPIC 08/19/16 21:00 09/18/16 20:59 09/06/16 08:50 Zolpidem Tartrate (Ambien) 5 mg HSPRN PRN ORAL Insomnia 08/19/16 21:00 09/18/16 20:59 ANNIE DEJESUS Sep 06, 2016 14:24
--- NOTE | 2016-09-09 08:07 | Discharge Summary ---
Discharge Summary Hospital Course Date of Admission Jul 23, 2016 at 07:35 Date of Discharge Sep 06, 2016 at 15:50 Admitting Diagnosis PATELLAR AND FIBULAR FRACTURE HPI Jonnie Hess is a 61 year old male who was admitted on Jul 23, 2016 at 07: 35 for Patellar And Fibular Fracture Hospital Course dc summary #[id number] Discharge Medications New Medications: Levetiracetam (Levetiracetam) 500 Mg Tablet 500 MG ORAL EVERY 12 HOURS for 30 Days, TAB Phenytoin Sodium Extended* (Dilantin*) 100 Mg Capsule 200 MG ORAL Q12HR for 30 Days, CAP Discharge Condition Upon Discharge: stable Discharge Disposition Patient was discharged to Acute Care Facility()- [facility] for surgical interventions Discharge Diagnoses: Markus (Floridalma)Jen NP Sep 09, 2016 08:07
--- NOTE | 2016-09-10 02:45 | Discharge Summary 2 SIG ---
DATE OF ADMISSION: 07/23/2016 DATE OF DISCHARGE: 09/06/2016 REASON FOR ADMISSION: 61-year-old male, homeless, with history of alcohol abuse, presented with a complaint of right leg pain. The patient had a history of previous fracture in that leg. The patient stated that he had pain for some time in the right leg. He called 911 because he had difficulty walking, however, he was able to bear weight. He denied any fever, chills, or recent trauma. No other complaints. The patient was afebrile. X-ray of the right femur and right ankle revealed displaced comminuted fracture of right patella and x-ray of the right ankle interpreted as right spiral fracture of distal fibular. The patient was admitted for further management. ADMITTING DIAGNOSES: 1. Right fibula fracture. 2. Right patella fracture. 3. History of alcohol abuse. HOSPITAL COURSE: The patient was admitted to the floor. Orthopedic surgery consult was requested. Initially, orthopedic surgeon seen and evaluated the patient and stated that both fractures were stable and about 2-month-old per history. He recommended the surgery to be done by [facility] by special trauma ortho surgeon. Knee immobilizer was in place. Pain management was provided. The patient was working with physical and occupational therapists. The patient initially was not interested in surgery and declined transfer to higher level of care for surgical intervention. X-rays of the tibia-fibula were repeated and revealed re-demonstration of patella fracture with separation of fragments. Initially, the patient was given banana bag. The patient was on alcohol withdrawal protocol with Librium as needed. After stabilization, the patient was changed to thiamine and folic acid orally. DVT prophylaxis provided. Initially noted elevated D-dimer, however, venous duplex of bilateral lower extremities was negative. Along the way, the patient became agreeable for surgery. He was placed on a waiting list for transfer to [facility]. Seizure precautions were maintained. The patient was continued on Keppra and Dilantin. No seizure activity noted. On 09/06/2016, the patient was able to be transferred to [facility] for higher level of care for anticipated surgical interventions. DISCHARGE DIAGNOSES: 1. Right comminuted patellar fracture. 2. Right spiral fibular fracture. 3. History of alcohol abuse. 4. Seizure disorder. 5. Homeless. DISCHARGE MEDICATIONS: See medication reconciliation list. DISCHARGE INSTRUCTIONS: The patient was transferred to [facility] for further surgical intervention. Ramo España M.D. Jen ChTru locke DR: BRADFORD JOB#: [id number] CC: SARAY
== END 2016-09-06 15:50 | disposition short-term general hospital (02) | DRG 342 ==
LOC: EDBD 02:19 → EMR 02:25 → EDBEDREQ 06:57 → 4E 07:35 → EDBEDREQ 11:16 → 2W 08-18 12:41 → 4E 08-19 18:22
DX: S82.041A Displaced comminuted fracture of right patella, initial encounter for closed fracture (principal); E87.2 Acidosis; S82.441A Displaced spiral fracture of shaft of right fibula, initial encounter for closed fracture; W19.XXXA Unspecified fall, initial encounter; S82.491A Other fracture of shaft of right fibula, initial encounter for closed fracture; Z59.0 Homelessness; F10.20 Alcohol dependence, uncomplicated; G40.409 Other generalized epilepsy and epileptic syndromes, not intractable, without status epilepticus; R41.82 Altered mental status, unspecified
CPT/HCPCS: 29540; 36415; 36600; 80048; 80053; 80185; 80299; 82803; 83735; 84100; 85025; 85379; 85610; 85651; 85730; 86140; 93970; 93971; J8499

== ENCOUNTER 2017-05-16 13:47 | Emergency (ER) | payer MEDICAID ==
[~2017-05-16] VITALS: Ht 177.8 cm; Wt 90.7 kg
[2017-05-16 13:55] VITALS: BP 141/97
--- NOTE | 2017-05-16 14:45 | Diagnostic Imaging Report ---
Indication: Altered mental status Technique: spiral acquisitions obtained through the brain. Angled axial and coronal 5 x 5 mm slices were reconstructed. No IV contrast utilized. Radiation dose was minimized using automated exposure control Total dose length product 1456.26 mGycm. CTDIvol(s) 70.38 mGy Comparison: none FINDINGS: No acute hemorrhage or edema. No mass effect or midline shift. There is age-related enlargement of the ventricles and extra axial CSF spaces. There is periventricular deep white matter ischemic change. Normal day-white differentiation. There is right periorbital soft tissue swelling and/or contusion. There is maxillary, ethmoid and sphenoid sinus mucosal disease. Intact calvarium. IMPRESSION: Chronic and age-related changes. Negative for acute intracranial bleed or mass effect Right periorbital soft tissue swelling or contusion. Correlate with clinical findings The CT scanner at [facility] is accredited by the [employer] and the scans are performed using protocols designed to limit radiation exposure to as low as reasonably achievable to attain images of sufficient resolution adequate for diagnostic evaluation
[2017-05-16 19:45] VITALS: BP 128/88
[2017-05-16 20:16] LABS: BASOPHILS % (AUTO) 0.5 % (0.0-2.0); HEMATOCRIT 40.3 % (42.0-52.0); HEMOGLOBIN 13.5 G/DL (14.2-18.0); LYMPHOCYTES % (AUTO) 9.8 % (20.0-45.0); MEAN CORPUSCULAR VOLUME 95 FL (80-99); MONOCYTES % (AUTO) 6.8 % (1.0-10.0); PLATELET COUNT 257 K/UL (150-450); RED BLOOD COUNT 4.24 M/UL (4.70-6.10); RED CELL DISTRIBUTION WIDTH 14.1 % (11.6-14.8); WHITE BLOOD COUNT 14.2 K/UL (4.8-10.8)
[2017-05-16 20:39] LABS: ANION GAP 11 mmol/L (5-15); BLOOD UREA NITROGEN 9 mg/dL (7-18); CALCIUM 7.4 MG/DL (8.5-10.1); CARBON DIOXIDE 20 MMOL/L (21-32); CHLORIDE 114 MMOL/L (98-107); CREATININE 0.9 MG/DL (0.55-1.30); POTASSIUM 3.2 MMOL/L (3.5-5.1); SODIUM 145 MMOL/L (136-145)
[2017-05-16 20:43] LABS: ALANINE AMINOTRANSFERASE 11 U/L (12-78); ALBUMIN 2.7 G/DL (3.4-5.0); ALBUMIN/GLOBULIN RATIO 0.9 (1.0-2.7); ALKALINE PHOSPHATASE 58 U/L (46-116); ASPARTATE AMINO TRANSFERASE 14 U/L (15-37); BILIRUBIN,TOTAL 0.3 MG/DL (0.2-1.0)
[2017-05-16] MEDS ORDERED: Valproate Sodium INJ 500 MG in NS 55 ML IV ONE (21:30)
[2017-05-16 21:45] VITALS: BP 121/88
[2017-05-16 23:45] VITALS: BP 126/78
[2017-05-17 01:45] VITALS: BP 130/78
[2017-05-17 02:50] VITALS: BP 130/78
[2017-05-17 03:45] VITALS: BP 126/82
[2017-05-17 05:45] VITALS: BP 118/82
--- NOTE | 2017-05-17 22:49 | Emergency Room Report ---
History of Present Illness General Chief Complaint: Seizure Source: Patient Present Illness HPI 62-year-old male presents ED for evaluation. Patient brought in by EMS. Witnessed to have a seizure. Sitting on sidewalk. Patient is homeless. He states he has history of seizures. States he takes Depakote. Noncompliant with his meds. Also admits alcohol use. Denies any drug use. States he is tired and wants to sleep. Denies any other associated symptoms. No other aggravating relieving factors. Allergies: Coded Allergies: NO KNOWN ALLERGIES (Unverified Allergy, Unknown, 01/27/15) No Known Allergies (Unverified , 05/17/16) UNABLE TO ASSESS (Unverified , 03/22/15) Patient History Past Medical History: seizures Past Surgical History: none Pertinent Family History: none Social History: Reports: alcohol use, Denies: smoking, drug use Immunizations: UTD Reviewed Nursing Documentation: PMH: Agreed, PSxH: Agreed Nursing Documentation-PMH Past Medical History: Deferred Review of Systems All Other Systems: negative except mentioned in HPI Physical Exam Vital Signs Date Time Temp Pulse Resp B/P (MAP) Pulse Ox O2 Delivery O2 Flow Rate FiO2 05/16/17 13:41 98.8 74 16 141/97 97 Room Air 05/16/17 19:45 98 Sp02 EP Interpretation: reviewed, normal General Appearance: no apparent distress, GCS 15, non-toxic, other - intoxicated Head: normocephalic, atraumatic Eyes: bilateral eye normal inspection, bilateral eye PERRL ENT: hearing grossly normal, normal pharynx, no angioedema, normal voice Neck: full range of motion, supple/symm/no masses Respiratory: chest non-tender, lungs clear, normal breath sounds, speaking full sentences Cardiovascular #1: regular rate, rhythm, no edema Cardiovascular #2: 2+ carotid (R), 2+ carotid (L), 2+ radial (R), 2+ radial (L) , 2+ dorsalis pedis (R), 2+ dorsalis pedis (L) Gastrointestinal: normal bowel sounds, non tender, soft, non-distended, no guarding, no rebound Rectal: deferred Genitourinary: normal inspection, no CVA tenderness Musculoskeletal: back normal, gait/station normal, normal range of motion, non- tender Neurologic: other - intoxicated Psychiatric: other - intoxicated Reflexes: 3+ bicep (R), 3+ bicep (L), 3+ tricep (R), 3+ tricep (L), 3+ knee (R) , 3+ knee (L) Skin: normal color, no rash, warm/dry, well hydrated Lymphatic: no adenopathy Medical Decision Making Diagnostic Impression: Primary Impression: Seizure disorder Additional Impression: Alcohol abuse ER Course Hospital Course 62-year-old M presents to ED status post seizure. h/o ETOH abuse Differential diagnosis includes- breakthrough seizure, alcohol abuse, noncompliance with medication Clinical course Patient placed on stretcher. Initial history and physical I ordered labs, IV fluids, CT brain Labs-electrolytes okay, no leukocytosis, hemoglobin/hematocrit stable. Alcohol level <3, depakote level subtherapeutic CT Brain ok given loading dose of depakote Patient allowed to rest is now awake alert oriented x3. ambulating without difficulty. Diagnosis - ETOH intoxication, seizure disorder stable and discharged to home. Followup with PMD. Return to ED if symptoms recur or worsen Labs Test 05/16/17 19:50 05/16/17 23:30 White Blood Count 14.2 K/UL (4.8-10.8) Red Blood Count 4.24 M/UL (4.70-6.10) Hemoglobin 13.5 G/DL (14.2-18.0) Hematocrit 40.3 % (42.0-52.0) Mean Corpuscular Volume 95 FL (80-99) Mean Corpuscular Hemoglobin 31.8 PG (27.0-31.0) Mean Corpuscular Hemoglobin Concent 33.5 G/DL (32.0-36.0) Red Cell Distribution Width 14.1 % (11.6-14.8) Platelet Count 257 K/UL (150-450) Mean Platelet Volume 8.2 FL (6.5-10.1) Neutrophils (%) (Auto) 83.0 % (45.0-75.0) Lymphocytes (%) (Auto) 9.8 % (20.0-45.0) Monocytes (%) (Auto) 6.8 % (1.0-10.0) Eosinophils (%) (Auto) 0.0 % (0.0-3.0) Basophils (%) (Auto) 0.5 % (0.0-2.0) Sodium Level 145 MMOL/L (136-145) Potassium Level 3.2 MMOL/L (3.5-5.1) Chloride Level 114 MMOL/L (98-107) Carbon Dioxide Level 20 MMOL/L (21-32) Anion Gap 11 mmol/L (5-15) Blood Urea Nitrogen 9 mg/dL (7-18) Creatinine 0.9 MG/DL (0.55-1.30) Estimat Glomerular Filtration Rate > 60 mL/min (>60) Glucose Level 85 MG/DL (74-106) Calcium Level 7.4 MG/DL (8.5-10.1) Total Bilirubin 0.3 MG/DL (0.2-1.0) Aspartate Amino Transf (AST/SGOT) 14 U/L (15-37) Alanine Aminotransferase (ALT/SGPT) 11 U/L (12-78) Alkaline Phosphatase 58 U/L (46-116) Total Protein 5.8 G/DL (6.4-8.2) Albumin 2.7 G/DL (3.4-5.0) Globulin 3.1 g/dL Albumin/Globulin Ratio 0.9 (1.0-2.7) Salicylates Level 0.7 ug/mL (2.8-20) Acetaminophen Level 5 MCG/ML (10-30) Valproic Acid (Depakene) Level < 3 MCG/ML (50-100) Serum Alcohol < 3 mg/dL Urine Opiates Screen Negative (NEGATIVE) Urine Barbiturates Screen Negative (NEGATIVE) Phencyclidine (PCP) Screen Negative (NEGATIVE) Urine Amphetamines Screen Negative (NEGATIVE) Urine Benzodiazepines Screen Negative (NEGATIVE) Urine Cocaine Screen Negative (NEGATIVE) Urine Marijuana (THC) Screen Negative (NEGATIVE) CT/MRI/US Diagnostic Results CT/MRI/US Diagnostic Results : Imaging Test Ordered: CT HEad Impression no acute process Last Vital Signs Date Time Temp Pulse Resp B/P (MAP) Pulse Ox O2 Delivery O2 Flow Rate FiO2 05/17/17 02:50 98.2 84 18 130/78 99 Room Air 98 Status: improved Disposition: HOME, SELF-CARE Condition: Stable Referrals: NOT CHOSEN IPA/,REFERRING (PCP) Patient Instructions: Seizure, Adult RAFFY PATTERSON M.D. May 17, 2017 22:49
== END 2017-05-17 02:50 | disposition home or self-care (01) ==
LOC: EDBD 13:47 → MERGE 13:47 → EMR 14:23
DX: G40.909 Epilepsy, unspecified, not intractable, without status epilepticus (principal); F10.10 Alcohol abuse, uncomplicated; R41.82 Altered mental status, unspecified
CPT/HCPCS: 36415; 70450; 80053; 80164; 80307; 80329; 85025; 96361; 96365; 99284

== ENCOUNTER 2017-07-03 19:36 | Emergency (ER) | payer MEDICAID ==
[~2017-07-03] VITALS: Ht 182.9 cm; Wt 90.7 kg
[2017-07-03 19:46] VITALS: BP 157/83
--- NOTE | 2017-07-03 20:08 | Emergency Room Report ---
History of Present Illness General Chief Complaint: Alcohol Intoxication Source: Patient (Ita Dye) Present Illness HPI 62 YO Male presents to the ED brought in by EMS whom report bystander witnessed a seizure + ETOH . Pt. is responsive to verbal response and will answer some questions. no obvious signs of trauma.He denies alcohol use and states that he feels normal. When asked if he knew why he was here he stated that he did not know. He denies pain at this time and denies fevers, chills neck or back pain. He also denies fall. (Ita Dye) Allergies: Coded Allergies: NO KNOWN ALLERGIES (Unverified Allergy, Unknown, 01/27/15) No Known Allergies (Unverified , 05/17/16) UNABLE TO ASSESS (Unverified , 03/22/15) Patient History Past Medical History: see triage record, seizures Past Surgical History: unable to obtain Pertinent Family History: unable to obtain Social History: Reports: alcohol use Immunizations: other - PONCE Reviewed Nursing Documentation: PMH: Agreed; PSxH: Agreed (Ita Dye) Nursing Documentation-PMH Past Medical History Deferred: Pt Cognitively Impaired Hx Cardiac Problems: No Hx Hypertension: No Hx Pacemaker: No Hx Asthma: Yes Hx COPD: No Hx Diabetes: No Hx Cancer: No Hx Gastrointestinal Problems: No Hx Dialysis: No Hx Neurological Problems: Yes Hx Cerebrovascular Accident: No Hx Seizures: Yes (Ita Dye) Review of Systems All Other Systems: limited (Ita Dye) Physical Exam Vital Signs Date Time Temp Pulse Resp B/P (MAP) Pulse Ox O2 Delivery O2 Flow Rate FiO2 07/03/17 19:32 88 16 157/83 97 Room Air Sp02 EP Interpretation: reviewed, normal General Appearance: no apparent distress, alert, GCS 15, lethargic, other - Disheveled. Head: normocephalic, atraumatic Eyes: bilateral eye normal inspection, bilateral eye PERRL ENT: hearing grossly normal, normal voice, moist mucus membranes, other - Circular ulcer noted on the right cheek inside of his mouth. No other wounds, no bleeding, normal tongue. Neck: full range of motion Respiratory: chest non-tender, lungs clear, speaking full sentences, wheezing - scant wheezes Cardiovascular #1: regular rate, rhythm, no edema Gastrointestinal: normal bowel sounds, non tender, soft Rectal: deferred Genitourinary: deferred Musculoskeletal: back normal, gait/station normal, normal range of motion, non- tender Neurologic: alert, responsive, motor strength/tone normal, sensory intact, speech normal, other - Pt. only oriented to self and location. , grossly normal Psychiatric: other - PONCE Skin: no rash, warm/dry, well hydrated, other - erythema of the bilateral hands -blanching. abrasions to the left knuckles. no open wounds. (Ita Dye) Medical Decision Making PA Attestation Dr. mathias is my supervising Physician whom patient management has been discussed with. (Ita Dye) Diagnostic Impression: Primary Impression: Alcohol abuse Additional Impression: Alcohol withdrawal seizure Qualified Codes: F10.230 - Alcohol dependence with withdrawal, uncomplicated ER Course 62 YO Male presents to the ED brought in by EMS whom report bystander witnessed a seizure + ETOH . Pt. is responsive to verbal response and will answer some questions. no obvious signs of trauma.He denies alcohol use and states that he feels normal. When asked if he knew why he was here he stated that he did not know. He denies pain at this time and denies fevers, chills neck or back pain. He also denies fall. Ddx considered but are not limited to ETOH, Trauma, Syncope, dementia, OD -Pt. hx of Multiple visits for EtOH intoxication as well as several seizures. In the past patient has been noncompliant with seizure medication. Vital signs: are WNL, pt. is afebrile H&PE are most consistent with ETOH intoxication. -Initially pt. was refusing blood draw and IV, however pt. had seizure while at CT. and labs were able to be obtained. ORDERS: -AccuCheck: 107 -CBC : Pending -CMP:Pending -UDS: Pending -Valproic Acid Levels: Pending Ck: Pending Head CT NON Contrast: "No ICH, mass effect or midline shift within the limitations of the study marcated motion degradation. "Per official radiology report- Please see report for specific details. ED INTERVENTIONS: -1mg Ativan - ( pt. had Sz lasting less than 10 seconds T/C while at CT) Observance while he detoxifies. Pt. was allowed to sleep/rest. DISPOSITION: pt. requires further observation until clinically sober. Pt. is signed out to oncoming ED physician. (Ita Dye) ER Course I received signout from Ita. 62-year-old male, history of alcohol abuse, also has history of seizures, noncompliant with his medications, presenting with a seizure. Upon arrival to the emergency room patient received Ativan. Since then patient has been sleeping, however he is arousable. Currently sleeping comfortably. (Brock Ruiz M.D.) CT/MRI/US Diagnostic Results CT/MRI/US Diagnostic Results : Imaging Test Ordered: CT Head No Contrast Impression "No ICH, mass effect or midline shift within the limitations of the study marcated motion degradation. "Per official radiology report- Please see report for specific details. (Ita Dye) Last Vital Signs Date Time Temp Pulse Resp B/P (MAP) Pulse Ox O2 Delivery O2 Flow Rate FiO2 07/03/17 19:46 16 157/83 97 Room Air 07/03/17 19:32 88 (Ita Dye) Signed Out To: Dr. Ruiz (Ita Dye) Referrals: NOT CHOSEN IPA/,REFERRING (PCP) Ita Dye Jul 03, 2017 20:08 Brock Ruiz M.D. Jul 03, 2017 23:58
[2017-07-03] MEDS ORDERED: LORazepam Inj 2mg/ml 1ml IM ONE (21:15)
[2017-07-03 22:28] LABS: ANION GAP 15 mmol/L (5-15); BLOOD UREA NITROGEN 9 mg/dL (7-18); CALCIUM 9.1 MG/DL (8.5-10.1); CARBON DIOXIDE 22 MMOL/L (21-32); CHLORIDE 106 MMOL/L (98-107); CREATININE 1.1 MG/DL (0.55-1.30); POTASSIUM 4.4 MMOL/L (3.5-5.1); SODIUM 142 MMOL/L (136-145)
[2017-07-03 22:33] LABS: ALANINE AMINOTRANSFERASE 18 U/L (12-78); ALBUMIN 3.6 G/DL (3.4-5.0); ALBUMIN/GLOBULIN RATIO 0.9 (1.0-2.7); ALKALINE PHOSPHATASE 92 U/L (46-116); ASPARTATE AMINO TRANSFERASE 21 U/L (15-37); BILIRUBIN,TOTAL 0.4 MG/DL (0.2-1.0); CREATINE KINASE 236 U/L (26-308)
[2017-07-03 23:07] LABS: BASOPHILS % (AUTO) 0.9 % (0.0-2.0); EOSINOPHILS % (AUTO) 0.4 % (0.0-3.0); HEMATOCRIT 37.5 % (42.0-52.0); HEMOGLOBIN 13.4 G/DL (14.2-18.0); LYMPHOCYTES % (AUTO) 12.6 % (20.0-45.0); MEAN CORPUSCULAR VOLUME 95 FL (80-99); MONOCYTES % (AUTO) 11.8 % (1.0-10.0); NEUTROPHILS % (AUTO) 74.3 % (45.0-75.0); PLATELET COUNT 256 K/UL (150-450); RED BLOOD COUNT 3.96 M/UL (4.70-6.10); RED CELL DISTRIBUTION WIDTH 14.3 % (11.6-14.8); WHITE BLOOD COUNT 10.7 K/UL (4.8-10.8)
[2017-07-03] MEDS ORDERED: chlordiazePOXIDE 25mg Cap ORAL ONE (23:15)
[2017-07-03] MEDS ORDERED: levETIRAcetam 1,500 MG in D5W 95 ML IVPB SCH (23:15)
[2017-07-04 00:30] VITALS: BP 140/80
[2017-07-04] MEDS ORDERED: chlordiazePOXIDE 25mg Cap ORAL ONE (05:00)
[2017-07-04] MEDS ORDERED: Phenytoin 100mg cap ORAL ONE (05:00)
[2017-07-04 05:24] VITALS: BP 130/70
[2017-07-04 06:06] VITALS: BP 130/70
--- NOTE | 2017-07-04 11:28 | Diagnostic Imaging Report ---
Indication: Altered mental status Technique: Continuous helical CT scanning of the head was performed utilizing automated exposure control without intravenous contrast material. Axial and coronal reconstructions were obtained. Comparison: 06/22/2016 CT dose: Total DLP 1685.74 mGycm; CTDI vol 70.38 mGy Findings: Severe motion degradation of the exam. Within these patient: There is no obvious acute intracranial hemorrhage, mass effect or line shift. The ventricles, cisterns and sulci are prominent consistent with atrophy; size of ventricular system is stable compared to the prior exam. Periventricular hypoattenuation is seen, a nonspecific finding. Visualized mastoid air cells and paranasal sinuses appear patent. No obvious displaced/depressed calvarial fracture identified. IMPRESSION: Severely motion degraded exam. No definite/obvious intracranial hemorrhage, mass effect or midline shift within the limitations of the study. Repeat exam can be obtained as clinically indicated more sensitive evaluation. Stable chronic and age-related changes as above. This corresponds with the statrad preliminary report. The CT scanner at [facility] is accredited by the [employer] and the scans are performed using protocols designed to limit radiation exposure to as low as reasonably achievable to attain images of sufficient resolution adequate for diagnostic evaluation.
== END 2017-07-04 06:10 | disposition home or self-care (01) ==
LOC: EDBD 19:36 → EMR 20:00
DX: F10.239 Alcohol dependence with withdrawal, unspecified (principal); J45.909 Unspecified asthma, uncomplicated; R56.9 Unspecified convulsions
CPT/HCPCS: 36415; 70450; 80053; 80164; 80299; 80329; 82550; 85025; 96372; 99284

== ENCOUNTER 2017-07-20 14:49 | Emergency (ER) | payer MEDICAID ==
[~2017-07-20] VITALS: Ht 175.3 cm; Wt 86.2 kg
[2017-07-20 14:52] VITALS: BP 145/73
--- NOTE | 2017-07-20 14:55 | Emergency Room Report ---
History of Present Illness General Chief Complaint: Seizure Source: Patient, EMS Present Illness HPI Patient is a 62-year-old male brought in by EMS after a seizure activity witnessed by a bystander. Patient prior history of seizure disorder as well as alcohol abuse. Patient previously been taking both Dilantin and Keppra. The patient had been minimally compliant with medications on previous visits. History is markedly limited by patient's poor cooperation. Allergies: Coded Allergies: NO KNOWN ALLERGIES (Unverified Allergy, Unknown, 01/27/15) No Known Allergies (Unverified , 05/17/16) UNABLE TO ASSESS (Unverified , 03/22/15) Patient History Reviewed Nursing Documentation: PMH: Agreed; PSxH: Agreed Nursing Documentation-PMH Hx Cardiac Problems: No Hx Hypertension: No Hx Pacemaker: No Hx Asthma: Yes Hx COPD: No Hx Diabetes: No Hx Cancer: No Hx Gastrointestinal Problems: No Hx Dialysis: No Hx Cerebrovascular Accident: No Hx Seizures: Yes Review of Systems All Other Systems: negative except mentioned in HPI Physical Exam Vital Signs Date Time Temp Pulse Resp B/P (MAP) Pulse Ox O2 Delivery O2 Flow Rate FiO2 07/20/17 14:42 97.8 100 16 155/67 96 Room Air 97.9 Sp02 EP Interpretation: reviewed, normal General Appearance: normal inspection, well appearing, no apparent distress, alert, Chronically Ill Head: atraumatic ENT: normal ENT inspection, hearing grossly normal, normal voice Neck: normal inspection, full range of motion, supple, no bony tend Respiratory: normal inspection, lungs clear, normal breath sounds, no respiratory distress, no retraction, no wheezing Cardiovascular #1: regular rate, rhythm, no edema Gastrointestinal: normal inspection, normal bowel sounds, non tender, soft, no guarding, no hernia Genitourinary: no CVA tenderness Musculoskeletal: normal inspection, back normal, normal range of motion Neurologic: normal inspection, responsive, motor weakness - generalized Psychiatric: normal inspection, judgement/insight normal, mood/affect normal Skin: normal inspection, normal color, no rash Medical Decision Making Diagnostic Impression: Primary Impression: Alcohol abuse Additional Impression: Seizure ER Course Patient presented after a seizure. Differential diagnosis included cysticercosis, electrolyte abnormality, mass lesion, or cranial hemorrhage.Because of complexity of patient's case laboratory testing and imaging studies were ordered. The patient was given IV Keppra. The patient was noted to have improvement in his mental status. Blood alcohol was noted be 0. Electrolyte are unremarkable. Patient had a normal bicarbonate. The patient stated he wanted to go leave by bus. The patient is advised follow-up with his neurologist. Patient given prescription for Keppra. The patient is advised to follow up with primary care doctor in 1-2 days. Patient is advised to return if any worsening condition or if any changes in status that are concerning. This report is dictated with [employer] desktop technician software which may occasionally lead to discrepancies related to use of this software. Labs Test 07/20/17 15:00 White Blood Count 12.6 K/UL (4.8-10.8) Red Blood Count 4.18 M/UL (4.70-6.10) Hemoglobin 13.8 G/DL (14.2-18.0) Hematocrit 40.3 % (42.0-52.0) Mean Corpuscular Volume 96 FL (80-99) Mean Corpuscular Hemoglobin 33.1 PG (27.0-31.0) Mean Corpuscular Hemoglobin Concent 34.4 G/DL (32.0-36.0) Red Cell Distribution Width 14.5 % (11.6-14.8) Platelet Count 286 K/UL (150-450) Mean Platelet Volume 7.5 FL (6.5-10.1) Neutrophils (%) (Auto) 81.8 % (45.0-75.0) Lymphocytes (%) (Auto) 10.8 % (20.0-45.0) Monocytes (%) (Auto) 6.3 % (1.0-10.0) Eosinophils (%) (Auto) 0.1 % (0.0-3.0) Basophils (%) (Auto) 1.0 % (0.0-2.0) Sodium Level 141 MMOL/L (136-145) Potassium Level 4.7 MMOL/L (3.5-5.1) Chloride Level 106 MMOL/L (98-107) Carbon Dioxide Level 21 MMOL/L (21-32) Anion Gap 14 mmol/L (5-15) Blood Urea Nitrogen 8 mg/dL (7-18) Creatinine 1.0 MG/DL (0.55-1.30) Estimat Glomerular Filtration Rate > 60 mL/min (>60) Glucose Level 132 MG/DL (74-106) Calcium Level 9.4 MG/DL (8.5-10.1) Total Bilirubin 0.4 MG/DL (0.2-1.0) Aspartate Amino Transf (AST/SGOT) 13 U/L (15-37) Alanine Aminotransferase (ALT/SGPT) 14 U/L (12-78) Alkaline Phosphatase 109 U/L (46-116) Total Protein 7.9 G/DL (6.4-8.2) Albumin 3.3 G/DL (3.4-5.0) Globulin 4.6 g/dL Albumin/Globulin Ratio 0.7 (1.0-2.7) Phenytoin (Dilantin) Level < 0.4 ug/mL (10-20) Serum Alcohol < 3 mg/dL EKG Diagnostic Results Rate: normal Rhythm: NSR ST Segments: no acute changes Rhythm Strip Diag. Results EP Interpretation: yes Rhythm: NSR, no PVC's, no ectopy Last Vital Signs Date Time Temp Pulse Resp B/P (MAP) Pulse Ox O2 Delivery O2 Flow Rate FiO2 07/20/17 14:42 97.8 100 16 155/67 96 Room Air 97.9 Status: improved Disposition: HOME, SELF-CARE Condition: Stable Scripts Levetiracetam (KEPPRA) 1,000 Mg Tablet 1000 MG ORAL DAILY, #30 TAB 0 Refills Prov: Kelvin Pineda 07/20/17 Kelvin Pineda Jul 20, 2017 14:55
[2017-07-20] MEDS ORDERED: Thiamine HCl 100 MG in D5W 55 ML IVPB SCH (15:00)
[2017-07-20] MEDS ORDERED: levETIRAcetam 1,000mg/NS100ml 100 ML IVPB ONE (15:00)
[2017-07-20 15:24] LABS: EOSINOPHILS % (AUTO) 0.1 % (0.0-3.0); HEMATOCRIT 40.3 % (42.0-52.0); HEMOGLOBIN 13.8 G/DL (14.2-18.0); LYMPHOCYTES % (AUTO) 10.8 % (20.0-45.0); MEAN CORPUSCULAR VOLUME 96 FL (80-99); MONOCYTES % (AUTO) 6.3 % (1.0-10.0); NEUTROPHILS % (AUTO) 81.8 % (45.0-75.0); PLATELET COUNT 286 K/UL (150-450); RED BLOOD COUNT 4.18 M/UL (4.70-6.10); RED CELL DISTRIBUTION WIDTH 14.5 % (11.6-14.8); WHITE BLOOD COUNT 12.6 K/UL (4.8-10.8)
[2017-07-20 15:31] LABS: ANION GAP 14 mmol/L (5-15); BLOOD UREA NITROGEN 8 mg/dL (7-18); CALCIUM 9.4 MG/DL (8.5-10.1); CARBON DIOXIDE 21 MMOL/L (21-32); CHLORIDE 106 MMOL/L (98-107); POTASSIUM 4.7 MMOL/L (3.5-5.1); SODIUM 141 MMOL/L (136-145)
[2017-07-20 15:36] LABS: ALANINE AMINOTRANSFERASE 14 U/L (12-78); ALBUMIN 3.3 G/DL (3.4-5.0); ALBUMIN/GLOBULIN RATIO 0.7 (1.0-2.7); ALKALINE PHOSPHATASE 109 U/L (46-116); ASPARTATE AMINO TRANSFERASE 13 U/L (15-37); BILIRUBIN,TOTAL 0.4 MG/DL (0.2-1.0)
[2017-07-20 16:51] VITALS: BP 153/84
[2017-07-20] MEDS ORDERED: KEPPRA1000 MG ORAL (18:06)
[2017-07-20 18:15] VITALS: BP 114/62
--- NOTE | 2017-07-21 21:23 | Cardiology Report ---
APPROVED REPORT EKG Measurement Heart [id number] Normal sinus rhythm Minimal voltage criteria for LVH, may be normal variant Nonspecific T wave abnormality Abnormal ECG
== END 2017-07-20 18:15 | disposition home or self-care (01) ==
LOC: EDBD 14:49 → EMR 15:30
DX: G40.909 Epilepsy, unspecified, not intractable, without status epilepticus (principal); F10.10 Alcohol abuse, uncomplicated; J45.909 Unspecified asthma, uncomplicated
CPT/HCPCS: 36415; 80053; 80185; 80329; 82962; 85025; 93005; 96374; 96375; 99283; J1953

== ENCOUNTER 2017-08-19 07:52 | Emergency (ER) | payer MEDICAID ==
[~2017-08-19] VITALS: Ht 172.7 cm; Wt 90.7 kg
[~2017-08-19 07:52] MED LIST changes: +KEPPRA1000 MG ORAL
--- NOTE | 2017-08-19 08:58 | Emergency Room Report ---
History of Present Illness General Chief Complaint: Altered Level of Consciousness Source: Patient, EMS Present Illness HPI 62 yo M presents to ED for evaluation. patient brought in by EMS. found on sidewalk with empty alcohol bottles. patient is well known to [facility]. upon arrival, patient appears confused. not answering questions. no signs of trauma. no SI/HI. no reported chest pain or SOB. no fevers or chills. no other aggravating or relieving factors. denies any other associated symptoms. Allergies: Coded Allergies: NO KNOWN ALLERGIES (Unverified Allergy, Unknown, 01/27/15) No Known Allergies (Unverified , 05/17/16) UNABLE TO ASSESS (Unverified , 03/22/15) Patient History Past Medical History: none Past Surgical History: none Pertinent Family History: none Social History: Reports: alcohol use; Denies: smoking, drug use Immunizations: UTD Reviewed Nursing Documentation: PMH: Agreed; PSxH: Agreed Nursing Documentation-PMH Past Medical History Deferred: Pt Cognitively Impaired Past Medical History: Deferred Review of Systems All Other Systems: limited Physical Exam Vital Signs Date Time Temp Pulse Resp B/P (MAP) Pulse Ox O2 Delivery O2 Flow Rate FiO2 08/19/17 07:46 98.2 102 18 168/68 100 Room Air 98.2 Sp02 EP Interpretation: reviewed, normal General Appearance: no apparent distress, GCS 15, non-toxic, lethargic Head: normocephalic, atraumatic Eyes: bilateral eye normal inspection, bilateral eye PERRL ENT: hearing grossly normal, normal pharynx, no angioedema, normal voice Neck: full range of motion, supple/symm/no masses Respiratory: chest non-tender, lungs clear, normal breath sounds, speaking full sentences Cardiovascular #1: regular rate, rhythm, no edema Cardiovascular #2: 2+ carotid (R), 2+ carotid (L), 2+ radial (R), 2+ radial (L) , 2+ dorsalis pedis (R), 2+ dorsalis pedis (L) Gastrointestinal: normal bowel sounds, non tender, soft, non-distended, no guarding, no rebound Rectal: deferred Genitourinary: normal inspection, no CVA tenderness Musculoskeletal: back normal, gait/station normal, normal range of motion, non- tender Neurologic: alert, sensory intact, other - intoxicated Psychiatric: other - intoxicated Reflexes: 3+ bicep (R), 3+ bicep (L), 3+ tricep (R), 3+ tricep (L), 3+ knee (R) , 3+ knee (L) Skin: normal color, no rash, warm/dry, well hydrated Lymphatic: no adenopathy Medical Decision Making Diagnostic Impression: Primary Impression: Acute alcoholic intoxication Qualified Codes: F10.929 - Alcohol use, unspecified with intoxication, unspecified ER Course Hospital Course 62-year-old male presents to ED with AMS. h/o ETOH Clinical course Patient placed on stretcher. after intial history and physical, I ordered labs, IVFs, CT patient refused IV access and blood draw. CT head showed no acute process Patient allowed to sleep. My assessment shows no evidence of SI/HI requiring psychiatric evaluation. Patient allowed to rest in now awake alert oriented x3. ambulating without difficulty. Diagnosis - ETOH intoxication stable and discharged to home. Followup with PMD. Return to ED if symptoms recur or worsen CT/MRI/US Diagnostic Results CT/MRI/US Diagnostic Results : Imaging Test Ordered: CT HEad Impression no acute process Last Vital Signs Date Time Temp Pulse Resp B/P (MAP) Pulse Ox O2 Delivery O2 Flow Rate FiO2 08/19/17 07:46 98.2 102 18 168/68 100 Room Air 98.2 Status: improved Disposition: HOME, SELF-CARE Condition: Stable Referrals: NON PHYSICIAN (PCP) Toby Zarate MD August 19, 2017 08:58
[2017-08-19 10:46] VITALS: BP 136/82
[2017-08-19 11:18] VITALS: BP 132/76
--- NOTE | 2017-08-21 07:54 | Diagnostic Imaging Report ---
Indications: Altered level of consciousness Technique: Spiral acquisitions obtained through the brain. Angled axial and coronal 5 x 5 mm slices were reconstructed. Total dose length product 1456.88 mGycm. CTDI vol(s) 70.38 mGy. Dose reduction achieved using automated exposure control Comparison: None. Findings: There is age-related enlargement of the ventricles and extra axial CSF spaces. There is periventricular deep white matter low-attenuation consistent with chronic ischemic change. No acute intracranial hemorrhage or edema. No mass effect nor midline shift. Visualized orbits are unremarkable. There is ethmoid and maxillary sinus mucosal disease incidentally noted. The mastoids are clear. The calvarium is intact Impression: Chronic and age-related changes, as described Negative for acute intracranial bleed or mass effect The CT scanner at [facility] is accredited by the [employer] and the scans are performed using protocols designed to limit radiation exposure to as low as reasonably achievable to attain images of sufficient resolution adequate for diagnostic evaluation.
== END 2017-08-19 16:52 | disposition home or self-care (01) ==
LOC: EDBD 07:52 → EMR 08:34 → EDUNIT# 08:34 → EMR 16:52
DX: F10.129 Alcohol abuse with intoxication, unspecified (principal); R41.82 Altered mental status, unspecified
CPT/HCPCS: 70450; 96374; 99284

== ENCOUNTER 2019-04-24 21:42 | Emergency (ER) | payer MEDICAID ==
[~2019-04-24] VITALS: Ht 182.9 cm; Wt 86.2 kg
--- NOTE | 2019-04-24 22:12 | NUR ---
In bed, appears to be sleeping, both side rails up. NAD at this time.
[2019-04-25 01:41] VITALS: BP 144/60
--- NOTE | 2019-04-25 01:42 | NUR ---
ER Nurse Note: Pt asleep, no signs of distress. Pt calm. No n/v. All safety measures met; no falls noted. Will continue to montior.
--- NOTE | 2019-04-25 02:08 | NUR ---
Asleep, no acute distress noted.
--- NOTE | 2019-04-25 03:06 | Emergency Room Report ---
History of Present Illness General Chief Complaint: Alcohol Intoxication Source: Medical Record, EMS Present Illness HPI Is a 64-year-old male who is homeless. So has a history of alcohol abuse. He has been here numerous time for alcohol intoxication. Patient presents with alcohol intoxication. Patient was intoxicated bystander called 911. No trauma. Patient denies any complaint. He is not cooperative here. Allergies: Coded Allergies: NO KNOWN ALLERGIES (Unverified Allergy, Unknown, 01/27/15) No Known Allergies (Unverified , 05/17/16) UNABLE TO ASSESS (Unverified , 03/22/15) Patient History Past Medical History: see triage record, old chart reviewed Past Surgical History: unable to obtain Pertinent Family History: unable to obtain Social History: Reports: alcohol use Immunizations: other Reviewed Nursing Documentation: PMH: Agreed; PSxH: Agreed Nursing Documentation-PMH Hx Cardiac Problems: No Hx Hypertension: No Hx Pacemaker: No Hx Asthma: Yes Hx Diabetes: No Hx Cancer: No Hx Gastrointestinal Problems: No Hx Dialysis: No Hx Neurological Problems: Yes Hx Cerebrovascular Accident: No Hx Seizures: Yes Review of Systems Eye: Denies: eye pain, blurred vision ENT: Denies: ear pain, nose congestion, throat swelling Respiratory: Denies: cough, shortness of breath Cardiovascular: Denies: chest pain, palpitations Gastrointestinal: Denies: abdominal pain, diarrhea, nausea, vomiting Musculoskeletal: Denies: back pain, joint pain Skin: Denies: rash Neurological: Denies: headache, numbness Endocrine: Denies: increased thirst, increased urine Hematologic/Lymphatic: Denies: easy bruising All Other Systems: negative except mentioned in HPI Physical Exam Vital Signs Date Time Temp Pulse Resp B/P (MAP) Pulse Ox O2 Delivery O2 Flow Rate FiO2 04/24/19 21:42 98.8 67 18 150/59 (89) 96 Room Air Vitals normal other than high blood pressure Sp02 EP Interpretation: reviewed, normal General Appearance: well appearing, no apparent distress, other - Very intoxicated Head: normocephalic, atraumatic Eyes: bilateral eye PERRL, bilateral eye EOMI ENT: hearing grossly normal, normal pharynx Neck: full range of motion, supple, no meningismus Respiratory: chest non-tender, lungs clear, normal breath sounds Cardiovascular #1: regular rate, rhythm, no murmur Gastrointestinal: normal bowel sounds, non tender, no mass, no organomegaly, no bruit, non-distended Musculoskeletal: back normal, normal range of motion Neurologic: grossly normal Psychiatric: mood/affect normal Medical Decision Making Diagnostic Impression: Primary Impression: Acute alcoholic intoxication Qualified Codes: F10.920 - Alcohol use, unspecified with intoxication, uncomplicated ER Course Patient presents with alcohol intoxication. No trauma to warrant x-ray or CT scan. Will discharge home in the morning. Last Vital Signs Date Time Temp Pulse Resp B/P (MAP) Pulse Ox O2 Delivery O2 Flow Rate FiO2 04/25/19 01:41 98.8 70 18 144/60 96 Room Air Status: improved Disposition: HOME, SELF-CARE Condition: Stable Referrals: NON PHYSICIAN (PCP) Patient Instructions: Alcohol Intoxication, [id number] Additional Instructions: Abstain from alcohol. Follow-up with your doctor in 7 days. Return if worse. Daniele Elder MD Apr 25, 2019 03:06
[2019-04-25 05:56] VITALS: BP 134/64
--- NOTE | 2019-04-25 05:56 | NUR ---
ER Nurse Note: Pt awake, alert, VSS, no signs of distress. Pt denies pain, no shortness of breath, denies chest pain. Pt has no difficulty urinating. All safety measures met; will continue to montior.
--- NOTE | 2019-04-25 07:00 | NUR ---
ER Nurse Note: Report given to FITO [place] for continuity of care. Pt stable, no signs of distress. No falls on shift.
--- NOTE | 2019-04-25 07:11 | NUR ---
ED Nurse Note: Received pt on bed, awake and alert, on stable condition. VSS, on RA.
[2019-04-25 07:12] VITALS: BP 134/64
--- NOTE | 2019-04-25 07:12 | NUR ---
ED Nurse Note: Noted pt to be standing up by this time, pt stated "I want to walk and go home now." Requested pt to stay for a while to be able to provide d/c papers and instructions but pt insisted to leave. VSS, no signs of acute distress noted. Pt took all belongings.
== END 2019-04-25 07:12 | disposition home or self-care (01) ==
LOC: EDBD 21:42 → EMR 22:10
DX: F10.129 Alcohol abuse with intoxication, unspecified (principal); G40.909 Epilepsy, unspecified, not intractable, without status epilepticus
CPT/HCPCS: 99282

== ENCOUNTER 2019-04-26 13:57 | Emergency (ER) | payer MEDICAID ==
[~2019-04-26] VITALS: Ht 182.9 cm; Wt 90.7 kg
[2019-04-26 14:00] VITALS: BP 151/80
--- NOTE | 2019-04-26 14:00 | NUR ---
ED Nurse Note: Pt [place] from streets around [place] & [facility] [address], sitting, unable to ambulate; ETOH. Per paramedics, pt has hx of HIV, HTN, Seizure, Asthma. VSS, on RA. Placed on bed. Pt is AOx1 noted with episodes of confusion.
[2019-04-26] MEDS ORDERED: Levalbuterol Inh UD 1.25mg/0.5ml HHN ONE (14:45)
[2019-04-26] MEDS ORDERED: LORazepam 1mg tab ORAL ONE (14:45)
--- NOTE | 2019-04-26 15:10 | NUR ---
ED Nurse Note: X-ray on bedside.
--- NOTE | 2019-04-26 16:14 | Diagnostic Imaging Report ---
Indication: Dyspnea Comparison: 05/17/2016 A single view chest radiograph was obtained. Findings: Mild pulmonary vascular congestion noted with low lung volumes and cardiomegaly. Bones are osteopenic. No pleural effusion seen. IMPRESSION: Suspected mild pulmonary vascular congestion
[2019-04-26 17:12] LABS: BASOPHILS % (AUTO) 0.9 % (0.0-2.0); EOSINOPHILS % (AUTO) 1.6 % (0.0-3.0); HEMATOCRIT 35.6 % (42.0-52.0); HEMOGLOBIN 12.3 G/DL (14.2-18.0); LYMPHOCYTES % (AUTO) 35.5 % (20.0-45.0); MEAN CORPUSCULAR VOLUME 92 FL (80-99); MONOCYTES % (AUTO) 4.9 % (1.0-10.0); NEUTROPHILS % (AUTO) 57.1 % (45.0-75.0); PLATELET COUNT 131 K/UL (150-450); RED BLOOD COUNT 3.87 M/UL (4.70-6.10); RED CELL DISTRIBUTION WIDTH 11.8 % (11.6-14.8); WHITE BLOOD COUNT 8.1 K/UL (4.8-10.8)
[2019-04-26 17:17] LABS: ANION GAP 14 mmol/L (5-15); BLOOD UREA NITROGEN 5 mg/dL (7-18); CALCIUM 8.4 MG/DL (8.5-10.1); CARBON DIOXIDE 24 MMOL/L (21-32); CHLORIDE 110 MMOL/L (98-107); CREATININE 0.7 MG/DL (0.55-1.30); SODIUM 148 MMOL/L (136-145)
[2019-04-26 17:50] VITALS: BP 116/89
--- NOTE | 2019-04-26 17:50 | NUR ---
ER DISCHARGE NOTE: Patient is cleared to be discharged per ERMD, pt is aox3, on room air, with stable vital signs. pt was given dc instructions, pt was able to verbalize understanding, pt id band and iv site removed without complications. pt is able to ambulate with cane. pt took all belongings. Pt logged in homeless log and mini cog done. Resources provided.
--- NOTE | 2019-04-26 18:27 | Emergency Room Report ---
History of Present Illness General Chief Complaint: Alcohol Intoxication Source: Patient, EMS Present Illness HPI Patient presents by paramedics for initial reports of alcohol intoxication laying on the street and bystanders contacted 911 Initially patient did not have any other medical complaints Denies any headache denies any chest pain However after resting in the gurney Patient complains of shortness of breath sensation Denies any cough denies any pleurisy denies any abdominal pain Allergies: Coded Allergies: NO KNOWN ALLERGIES (Unverified Allergy, Unknown, 01/27/15) No Known Allergies (Unverified , 05/17/16) UNABLE TO ASSESS (Unverified , 03/22/15) Patient History Past Medical History: see triage record Reviewed Nursing Documentation: PMH: Agreed; PSxH: Agreed Nursing Documentation-PMH Past Medical History: No History, Except For Hx Hypertension: Yes Hx Pacemaker: No Hx Asthma: Yes Hx Diabetes: No Hx Cancer: No Hx Gastrointestinal Problems: No Hx Dialysis: No History Of Psychiatric Problem: Yes - substance abuse Hx Neurological Problems: Yes Hx Cerebrovascular Accident: No Hx Seizures: Yes Review of Systems All Other Systems: negative except mentioned in HPI Physical Exam Vital Signs Date Time Temp Pulse Resp B/P (MAP) Pulse Ox O2 Delivery O2 Flow Rate FiO2 04/26/19 13:49 98.8 82 18 151/80 (103) 100 Room Air 04/26/19 15:28 21 Sp02 EP Interpretation: reviewed, normal General Appearance: no apparent distress Head: normocephalic, atraumatic Eyes: bilateral eye PERRL, bilateral eye EOMI ENT: EOM grossly intact, normal pharynx Neck: supple Respiratory: no retraction, no accessory muscle use, crackles - bilateral lower Lobes Cardiovascular #1: regular rate, rhythm Gastrointestinal: non tender, soft Musculoskeletal: other - Ambulating with some assistance some edema noted dependent bilateral lower legs Neurologic: alert, oriented x3 Psychiatric: normal inspection Skin: no rash Lymphatic: no adenopathy Medical Decision Making Diagnostic Impression: Primary Impression: alcohol abuse ER Course Patient's initial chest x-ray showed some questionable congestion therefore further blood work and EKG was obtained Blood work is at baseline levels given the clinical findings of mild edema patient was provided with diuretics at this time reports that he feels significantly improved and requesting to go home patient was provided with a cane Ambulating well with this and will have close outpatient follow-up Labs Test 04/26/19 16:55 White Blood Count 8.1 K/UL (4.8-10.8) Red Blood Count 3.87 M/UL (4.70-6.10) Hemoglobin 12.3 G/DL (14.2-18.0) Hematocrit 35.6 % (42.0-52.0) Mean Corpuscular Volume 92 FL (80-99) Mean Corpuscular Hemoglobin 31.8 PG (27.0-31.0) Mean Corpuscular Hemoglobin Concent 34.6 G/DL (32.0-36.0) Red Cell Distribution Width 11.8 % (11.6-14.8) Platelet Count 131 K/UL (150-450) Mean Platelet Volume 6.5 FL (6.5-10.1) Neutrophils (%) (Auto) 57.1 % (45.0-75.0) Lymphocytes (%) (Auto) 35.5 % (20.0-45.0) Monocytes (%) (Auto) 4.9 % (1.0-10.0) Eosinophils (%) (Auto) 1.6 % (0.0-3.0) Basophils (%) (Auto) 0.9 % (0.0-2.0) Sodium Level 148 MMOL/L (136-145) Potassium Level 4.0 MMOL/L (3.5-5.1) Chloride Level 110 MMOL/L (98-107) Carbon Dioxide Level 24 MMOL/L (21-32) Anion Gap 14 mmol/L (5-15) Blood Urea Nitrogen 5 mg/dL (7-18) Creatinine 0.7 MG/DL (0.55-1.30) Estimat Glomerular Filtration Rate > 60 mL/min (>60) Glucose Level 107 MG/DL (74-106) Calcium Level 8.4 MG/DL (8.5-10.1) Troponin I 0.000 ng/mL (0.000-0.056) Pro-B-Type Natriuretic Peptide 199 pg/mL (0-125) Serum Alcohol 325 mg/dL Chest X-Ray Diagnostic Results Chest X-Ray Diagnostic Results : Chest X-Ray Ordered: Yes # of Views/Limited/Complete: 1 View Indication: Shortness of Breath EP Interpretation: Yes Interpretation: no consolidation, no effusion, no pneumothorax, other - Mild pulmonary congestion Impression: Other - Mild pulmonary congestion Electronically Signed by: Amari Islas DO Last Vital Signs Date Time Temp Pulse Resp B/P (MAP) Pulse Ox O2 Delivery O2 Flow Rate FiO2 04/26/19 17:50 98.2 71 19 116/89 99 Room Air 04/26/19 15:28 21 Status: improved Disposition: HOME, SELF-CARE Condition: Improved Referrals: [facility] Sejal [facility] Patient Instructions: Alcohol Use Disorder, Alcohol Abuse and Nutrition Additional Instructions: Patient is provided with the discharge instructions notified to follow up with primary doctor in the next 2-3 days otherwise return to the er with any worsening symptoms. Please note that this report is being documented using [employer] technology. This can lead to erroneous entry secondary to incorrect interpretation by the dictating instrument. Amari Islas DO Apr 26, 2019 18:26
== END 2019-04-26 17:50 | disposition home or self-care (01) ==
LOC: EDBD 13:57 → EMR 14:15
DX: F10.129 Alcohol abuse with intoxication, unspecified (principal); R06.02 Shortness of breath; G40.909 Epilepsy, unspecified, not intractable, without status epilepticus
CPT/HCPCS: 36415; 71045; 80048; 83880; 84484; 85025; 96374; G0480; J1940; J7644; Z7502; 99284

== ENCOUNTER 2019-09-07 14:20 | Emergency (ER) | payer MEDICAID ==
[~2019-09-07] VITALS: Ht 175.3 cm; Wt 81.6 kg
--- NOTE | 2019-09-07 14:45 | NUR ---
ED Nurse Note: Patient was brought in by ambulance from street by a bystander who called 911 as patient was lying on the street. Patient is AAOX3 and ambulatory. Patient has history of seizures but was off the meds.
[2019-09-07 14:53] VITALS: BP 120/63
[2019-09-07 15:06] LABS: BASOPHILS % (AUTO) 1.2 % (0.0-2.0); EOSINOPHILS % (AUTO) 1.1 % (0.0-3.0); HEMATOCRIT 40.4 % (42.0-52.0); HEMOGLOBIN 13.1 G/DL (14.2-18.0); LYMPHOCYTES % (AUTO) 18.5 % (20.0-45.0); MEAN CORPUSCULAR VOLUME 98 FL (80-99); MONOCYTES % (AUTO) 8.7 % (1.0-10.0); NEUTROPHILS % (AUTO) 70.6 % (45.0-75.0); PLATELET COUNT 226 K/UL (150-450); RED BLOOD COUNT 4.12 M/UL (4.70-6.10); RED CELL DISTRIBUTION WIDTH 13.2 % (11.6-14.8); WHITE BLOOD COUNT 10.9 K/UL (4.8-10.8)
[2019-09-07 15:19] LABS: ANION GAP 12 mmol/L (5-15); BLOOD UREA NITROGEN 11 mg/dL (7-18); CALCIUM 9.1 MG/DL (8.5-10.1); CARBON DIOXIDE 24 MMOL/L (21-32); CHLORIDE 109 MMOL/L (98-107); CREATININE 1.1 MG/DL (0.55-1.30); POTASSIUM 3.6 MMOL/L (3.5-5.1); SODIUM 145 MMOL/L (136-145)
[2019-09-07 15:23] LABS: ALANINE AMINOTRANSFERASE 23 U/L (12-78); ALBUMIN 3.6 G/DL (3.4-5.0); ALBUMIN/GLOBULIN RATIO 0.9 (1.0-2.7); ALKALINE PHOSPHATASE 76 U/L (46-116); ASPARTATE AMINO TRANSFERASE 23 U/L (15-37); BILIRUBIN,TOTAL 0.7 MG/DL (0.2-1.0); CREATINE KINASE 224 U/L (26-308)
--- NOTE | 2019-09-07 15:52 | Emergency Room Report ---
History of Present Illness General Chief Complaint: Generalized Weakness Source: Patient, Medical Record Present Illness HPI Patient is a 64-year-old male presents after increased altered mental status and generalized weakness. Patient had prior history of seizure disorder. He was brought in by ambulance after increased altered mental status. Patient had multiple seizures in the past. History is marked limited by patient's mental status. Prior history of alcohol abuse. Allergies: Coded Allergies: NO KNOWN ALLERGIES (Unverified Allergy, Unknown, 01/27/15) No Known Allergies (Unverified , 05/17/16) UNABLE TO ASSESS (Unverified , 03/22/15) COVID-19 Screening Contact w/high risk pt: No Recent Travel to affected area: No Experienced COVID-19 symptoms?: No COVID-19 Testing performed PORTER [employer]AGE: No Patient History Past Medical History: see triage record Reviewed Nursing Documentation: PMH: Agreed; PSxH: Agreed Nursing Documentation-PMH Past Medical History: No History, Except For Hx Cardiac Problems: No Hx Hypertension: No Hx Pacemaker: No Hx Asthma: Yes Hx Diabetes: No Hx Cancer: No Hx Gastrointestinal Problems: No Hx Dialysis: No Hx Neurological Problems: Yes Hx Cerebrovascular Accident: No Hx Seizures: Yes Review of Systems All Other Systems: negative except mentioned in HPI Physical Exam Vital Signs Date Time Temp Pulse Resp B/P (MAP) Pulse Ox O2 Delivery O2 Flow Rate FiO2 09/07/19 14:45 98.2 83 14 120/63 (82) 99 Room Air Sp02 EP Interpretation: reviewed, normal General Appearance: normal inspection, alert, Chronically Ill Head: atraumatic ENT: normal ENT inspection, hearing grossly normal, normal voice Neck: normal inspection, full range of motion, supple, no bony tend Respiratory: normal inspection, lungs clear, normal breath sounds, no respiratory distress, no retraction, no wheezing Cardiovascular #1: regular rate, rhythm, no edema Gastrointestinal: normal inspection, normal bowel sounds, non tender, soft, no guarding, no hernia Genitourinary: no CVA tenderness Musculoskeletal: normal inspection, back normal, normal range of motion Neurologic: alert, responsive, other - Slurred speech Psychiatric: normal inspection, judgement/insight normal, mood/affect normal Skin: other - Forehead abrasion Medical Decision Making Diagnostic Impression: Primary Impression: Seizure disorder ER Course Patient presented for altered mental status. Differential diagnosis include was not limited to seizure, alcohol intoxication, metabolic acidosis, electrolyte abnormality among others. Because of complexity of patient's case laboratory tests and imaging studies were ordered. CT imaging of the head was ordered due to patient's recent alteration of mental status and apparent recent for head trauma.Patient was given Dilantin in the emergency department. CT head showed no evidence of acute intracranial hemorrhage. The patient was given IV thiamine. Patient was noted to be ambulatory without assistance. Patient will be discharge. He was advised to follow-up with his primary care physician for recheck. Is advised to return if worse. Labs Test 09/07/19 14:35 White Blood Count 10.9 K/UL (4.8-10.8) Red Blood Count 4.12 M/UL (4.70-6.10) Hemoglobin 13.1 G/DL (14.2-18.0) Hematocrit 40.4 % (42.0-52.0) Mean Corpuscular Volume 98 FL (80-99) Mean Corpuscular Hemoglobin 31.7 PG (27.0-31.0) Mean Corpuscular Hemoglobin Concent 32.4 G/DL (32.0-36.0) Red Cell Distribution Width 13.2 % (11.6-14.8) Platelet Count 226 K/UL (150-450) Mean Platelet Volume 9.1 FL (6.5-10.1) Neutrophils (%) (Auto) 70.6 % (45.0-75.0) Lymphocytes (%) (Auto) 18.5 % (20.0-45.0) Monocytes (%) (Auto) 8.7 % (1.0-10.0) Eosinophils (%) (Auto) 1.1 % (0.0-3.0) Basophils (%) (Auto) 1.2 % (0.0-2.0) Prothrombin Time 10.8 SEC (9.30-11.50) Prothromb Time International Ratio 1.0 (0.9-1.1) Activated Partial Thromboplast Time 27 SEC (23-33) Sodium Level 145 MMOL/L (136-145) Potassium Level 3.6 MMOL/L (3.5-5.1) Chloride Level 109 MMOL/L (98-107) Carbon Dioxide Level 24 MMOL/L (21-32) Anion Gap 12 mmol/L (5-15) Blood Urea Nitrogen 11 mg/dL (7-18) Creatinine 1.1 MG/DL (0.55-1.30) Estimat Glomerular Filtration Rate > 60 mL/min (>60) Glucose Level 114 MG/DL (74-106) Calcium Level 9.1 MG/DL (8.5-10.1) Total Bilirubin 0.7 MG/DL (0.2-1.0) Aspartate Amino Transf (AST/SGOT) 23 U/L (15-37) Alanine Aminotransferase (ALT/SGPT) 23 U/L (12-78) Alkaline Phosphatase 76 U/L (46-116) Total Creatine Kinase 224 U/L (26-308) Total Protein 7.6 G/DL (6.4-8.2) Albumin 3.6 G/DL (3.4-5.0) Globulin 4.0 g/dL Albumin/Globulin Ratio 0.9 (1.0-2.7) Phenytoin (Dilantin) Level < 0.5 ug/mL (10-20) Serum Alcohol < 3 mg/dL Last Vital Signs Date Time Temp Pulse Resp B/P (MAP) Pulse Ox O2 Delivery O2 Flow Rate FiO2 09/07/19 14:53 83 14 09/07/19 14:53 98.2 120/63 99 Room Air Status: improved Disposition: HOME, SELF-CARE Condition: Stable Scripts Phenytoin Sodium Extended* (DILANTIN*) 100 Mg Capsule 200 MG ORAL TWICE A DAY, #30 CAP 0 Refills Prov: Kelvin Pineda MD 09/07/19 Referrals: NON PHYSICIAN (PCP) Kelvin Pineda MD Sep 07, 2019 15:52
[2019-09-07] MEDS ORDERED: Phenytoin 1,000 MG in NS 275 ML IVPB ONE (16:00)
--- NOTE | 2019-09-07 16:18 | Diagnostic Imaging Report ---
Indications: Altered mental status Technique: Spiral acquisitions obtained through the brain. Angled axial and coronal 5 x 5 mm slices were reconstructed. Total dose length product and 40 mGycm. CTDI vol(s) 53 mGy. Dose reduction achieved using automated exposure control Comparison: 07/03/2017 Findings: There is age-related enlargement of the ventricles and extra-axial CSF spaces. There is periventricular deep white matter low-attenuation, consistent with chronic microvascular ischemic change. Visualized orbits are unremarkable. There is minimal bilateral maxillary sinus mucosal disease. The mastoids are clear. The calvarium is intact. Impression: Chronic and age-related changes. Negative for acute intracranial bleed or mass effect. Minimal sinus disease The CT scanner at [facility] [place] is accredited by the [employer] and the scans are performed using protocols designed to limit radiation exposure to as low as reasonably achievable to attain images of sufficient resolution adequate for diagnostic evaluation.
[2019-09-07 16:53] VITALS: BP 110/66
[2019-09-07] MEDS ORDERED: Thiamine HCl 100 MG in D5W 55 ML IVPB ONE (17:15)
[2019-09-07] MEDS ORDERED: DILANTIN100 MG ORAL (19:19)
[2019-09-07 19:30] VITALS: BP 110/66
--- NOTE | 2019-09-07 19:30 | NUR ---
ER DISCHARGE NOTE: Patient is cleared to be discharged per ERMD, pt is aox4, on room air, with stable vital signs. pt was given dc and prescription instructions, pt was able to verbalize understanding, pt id band and iv site removed without complications. pt is able to ambulate with steady gait. pt took all belongings.
== END 2019-09-07 19:30 | disposition home or self-care (01) ==
LOC: EDUNIT# 14:20 → EDBD 14:20 → EMR 14:47
DX: G40.909 Epilepsy, unspecified, not intractable, without status epilepticus (principal)
CPT/HCPCS: 36415; 70450; 80053; 80185; 82550; 85025; 85610; 85730; 93005; 96365; 96367; G0480; J1165; J7050; Z7502; 99284

== ENCOUNTER 2019-09-18 20:59 | Emergency (ER) | payer MEDICAID ==
[~2019-09-18] VITALS: Ht 162.6 cm; Wt 65.8 kg
--- NOTE | 2019-09-18 21:08 | Emergency Room Report ---
History of Present Illness General Chief Complaint: Alcohol Intoxication Source: Patient, EMS Present Illness HPI Patient is a 64-year-old male past medical history of diabetes and alcohol abuse who was brought in by EMS for alcohol intoxication. Patient was sitting on the street and bystanders called [employer]. Patient was deemed to be intoxicated therefore [employer] called the paramedics to bring him to the emergency room. Patient complains of generalized weakness. Patient has alcohol on his breath. He denies any fever or chills. He denies any chest pain or shortness of breath. He denies any abdominal pain. Allergies: Coded Allergies: NO KNOWN ALLERGIES (Unverified Allergy, Unknown, 01/27/15) No Known Allergies (Unverified , 05/17/16) UNABLE TO ASSESS (Unverified , 03/22/15) COVID-19 Screening Contact w/high risk pt: No Recent Travel to affected area: No Experienced COVID-19 symptoms?: No COVID-19 Testing performed [employer]: No Patient History Reviewed Nursing Documentation: PMH: Agreed; PSxH: Agreed Nursing Documentation-PMH Hx Hypertension: Yes - Alcohol and substance abuse Hx Pacemaker: No Hx Asthma: Yes Hx Diabetes: No Hx Cancer: No Hx Gastrointestinal Problems: No Hx Dialysis: No Hx Cerebrovascular Accident: No Hx Seizures: Yes Review of Systems All Other Systems: negative except mentioned in HPI Physical Exam Vital Signs Date Time Temp Pulse Resp B/P (MAP) Pulse Ox O2 Delivery O2 Flow Rate FiO2 09/18/19 21:03 99.0 87 18 146/72 (96) 100 Room Air Sp02 EP Interpretation: reviewed, normal General Appearance: no apparent distress, non-toxic, other - Poorly groomed Head: normocephalic, atraumatic Eyes: bilateral eye normal inspection, bilateral eye PERRL ENT: hearing grossly normal, normal pharynx, no angioedema, other - EtOH on breath Neck: full range of motion, supple/symm/no masses Respiratory: chest non-tender, lungs clear, normal breath sounds, speaking full sentences Cardiovascular #1: regular rate, rhythm, no edema Gastrointestinal: normal bowel sounds, non tender, soft, non-distended, no guarding, no rebound Rectal: deferred Psychiatric: no suicidal/homicidal ideation Skin: no rash Lymphatic: no adenopathy Medical Decision Making Diagnostic Impression: Primary Impression: Alcohol abuse Additional Impression: Weakness ER Course Patient has recurrent history of alcohol abuse and generalized weakness. Patient CT brain demonstrates no acute intracranial pathology. Patient's blood glucose here above 80. Patient tolerating p.o. Patient ambulating with his cane. Patient counseled on the dangers of excessive alcohol use. After discussing risks and benefits of further diagnostics, treatment plans, as well as indications for and risks of admission, the patient is agreeable to being discharged home. I have explained that their evaluation and treatment in the emergency department today is an important step towards them achieving better health but that their evaluation today is not intended to replace further evaluation and treatment by a physician in their local clinic. I have explained that while the current findings suggest no immediate life threatening emergency they will require further evaluation and treatment by a physician of their choice in their area. They understand that it will be necessary for them to review the final reports of their ED visit with their clinic physician. We have reviewed indications for return to the Emergency Department. I have explained that additional time may need to pass and/or additional testing as an outpatient may be necessary before a definitive diagnosis can be made. They tell me they are willing to follow up as instructed within the timeframe I recommend. They appear to understand what we discussed. Additionally they understand that if they are unable to be seen by an outpatient physician they are welcome, and in fact should, return to the Emergency Department for a repeat evaluation. The patient is stable at time of discharge. Last Vital Signs Date Time Temp Pulse Resp B/P (MAP) Pulse Ox O2 Delivery O2 Flow Rate FiO2 09/18/19 21:03 99.0 87 18 146/72 (96) 100 Room Air Disposition: HOME, SELF-CARE Condition: Stable Additional Instructions: The patient was provided with discharge instructions, notified to follow-up with a primary care doctor and or specialist in the next 24-48 hours, and to return to the ED if they have worsening of their symptoms. Please note that this report is being documented using [employer] technology. This can lead to erroneous entry secondary to incorrect interpretation by the dictating instrument. Lori Arndt M.D. Sep 18, 2019 21:08
--- NOTE | 2019-09-18 21:43 | Diagnostic Imaging Report ---
EXAM: CT Head Without Intravenous Contrast CLINICAL HISTORY: AMS TECHNIQUE: Axial computed tomography images of the head/brain without intravenous contrast. CTDI is 53.4 mGy and DLP is 1072.2 mGy-cm. One or more of the following dose reduction techniques were used: automated exposure control, adjustment of the mA and/or kV according to patient size, use of iterative reconstruction technique. COMPARISON: Head CT dated 07/03/2017 FINDINGS: Brain: Age-related parenchymal volume loss. Periventricular and white matter hypodensities. No hemorrhage. Ventricles: Unremarkable. No ventriculomegaly. Bones/joints: Unremarkable. No acute fracture. Soft tissues: Unremarkable. Sinuses: Unremarkable as visualized. No acute sinusitis. Mastoid air cells: Unremarkable as visualized. No mastoid effusion. Vasculature: Atherosclerotic vascular disease. IMPRESSION: 1. No acute findings in the head/brain. 2. Microvascular ischemic and age-related parenchymal changes.
[2019-09-18 21:47] VITALS: BP 146/72
[2019-09-18 22:05] VITALS: BP 146/72
== END 2019-09-18 22:05 | disposition home or self-care (01) ==
LOC: EDUNIT# 20:59 → EDBD 20:59 → EMR 21:13
DX: F10.129 Alcohol abuse with intoxication, unspecified (principal); R53.1 Weakness; E11.9 Type 2 diabetes mellitus without complications; G40.909 Epilepsy, unspecified, not intractable, without status epilepticus
CPT/HCPCS: 70450; Z7502; 99284